=== PATIENT | male | born 1950 | race Caucasian/White ===

== ENCOUNTER → 2018-03-16 08:00 | Outpatient (CLI) | payer MEDICARE, SELFPAY ==
[2018-03-16 09:58] LABS: Hemoglobin A1C% w Est Avg Glu 6.5 % (4.0-6.0)
== END ==
PROVIDERS: PCP Family Medicine; Visit Provider Family Medicine
DX: R73.9 Hyperglycemia, unspecified (principal)
CPT/HCPCS: 36415; 83036

== ENCOUNTER → 2018-06-08 07:18 | Outpatient (CLI) | payer MEDICARE, SELFPAY ==
[2018-06-08 08:54] LABS: Add Manual Diff / Slide Review NO; Basophils Percent Auto 0.8 % (0-2); Eosinophils Percent Auto 4.8 % (2-4); Hemoglobin 13.8 g/dL (13.5-17.5); Lymphocytes Percent Auto 24.1 % (25-40); Mean Corpuscular HGB Conc 33.5 % (30-36); Mean Corpuscular Hemoglobin 27.9 PG (26-34); Mean Corpuscular Volume 83.1 fL (80-100); Monocytes Percent Auto 9.1 % (3-14); Neutrophils Absolute Auto 4700 /uL (3000-5900); Neutrophils Percent Auto 61.2 % (50-75); Platelet Count 247 X10^3/uL (150-400); Red Blood Cell Count 4.94 X10^6/uL (4.5-5.9); Red Cell Distribution Width 15.4 % (11.6-14.8); White Blood Cell Count 7.6 X10^3/uL (4.5-11.0)
[2018-06-08 09:05] LABS: HEMOLYSIS < 15 (0-50)
[2018-06-08 09:12] LABS: Alanine Aminotransferase 24 IU/L (21-72); Albumin 3.8 g/dL (3.5-5.0); Albumin Globulin Ratio 1.3 (1.0-2.8); Alkaline Phosphatase 86 U/L (38-126); Aspartate Aminotransferase 23 IU/L (17-59); BUN Creatinine Ratio 18.2 (6-22); Bilirubin Total 0.5 mg/dL (0.2-1.3); Blood Urea Nitrogen 20 mg/dL (9-20); Carbon Dioxide 27 mmol/L (22-32); Chloride 101 mmol/L (98-107); Cholesterol 110 mg/dL (140-199); Estimated Glomerular Filt Rate > 60.0 mL/min (>60); Glucose 117 mg/dL (80-110); HDL Cholesterol 33 mg/dL (40-60); LDL Cholesterol Calculated 44 mg/dL (<100); Potassium 4.5 mmol/L (3.4-5.1); Sodium 139 mmol/L (137-145); Total Protein 6.8 g/dL (6.3-8.2); Triglycerides 163 mg/dL (35-150)
[2018-06-08 09:22] LABS: Hemoglobin A1C% w Est Avg Glu 6.2 % (4.0-6.0)
[2018-06-08 09:40] LABS: Thyroid Stimulating Hormone 3.18 uIU/mL (0.47-4.68)
== END ==
PROVIDERS: Family Provider Family Medicine; PCP Family Medicine; Visit Provider Family Medicine
DX: I10 Essential (primary) hypertension (principal); E72.20 Disorder of urea cycle metabolism, unspecified; I25.10 Atherosclerotic heart disease of native coronary artery without angina pectoris; R06.00 Dyspnea, unspecified; R78.2 Finding of cocaine in blood; G47.30 Sleep apnea, unspecified; N19 Unspecified kidney failure; R73.9 Hyperglycemia, unspecified; Z68.42 Body mass index [BMI] 45.0-49.9, adult
CPT/HCPCS: 36415; 80053; 80061; 83036; 84443; 85025; G0103

== ENCOUNTER → 2018-09-07 09:06 | Outpatient (CLI) | payer MEDICARE, OTHER, SELFPAY ==
[2018-09-07 10:03] LABS: BUN Creatinine Ratio 19.1 (6-22); Blood Urea Nitrogen 21 mg/dL (9-20); Calcium 8.2 mg/dL (8.4-10.2); Carbon Dioxide 28 mmol/L (22-32); Chloride 100 mmol/L (98-107); Estimated Glomerular Filt Rate > 60.0 mL/min (>60); Glucose 100 mg/dL (80-110); HEMOLYSIS 16 (0-50); Potassium 3.9 mmol/L (3.4-5.1); Sodium 140 mmol/L (137-145)
[2018-09-07 14:47] LABS: Hemoglobin A1C% w Est Avg Glu 6.5 % (4.0-6.0)
== END ==
PROVIDERS: Family Provider Family Medicine; PCP Family Medicine; Visit Provider Family Medicine
DX: E11.9 Type 2 diabetes mellitus without complications (principal)
CPT/HCPCS: 36415; 80048; 83036

== ENCOUNTER → 2018-09-14 12:18 | Outpatient (CLI) | payer MEDICARE, OTHER, SELFPAY ==
--- NOTE | 2018-09-14 12:20 | DI.RAD.S_ITS ---
PROCEDURE: XR KNEE LT 3V INDICATIONS: bilateral knee pain TECHNIQUE: 3 views of the knee were acquired. COMPARISON: None. FINDINGS: Bones: No fractures or dislocations. No suspicious bony lesions. Moderate narrowing of the medial joint space. There is diffuse degenerative spurring. Soft tissues: No joint effusion. No suspicious soft tissue calcifications. IMPRESSION: Moderate left knee joint degeneration. Dictated by: Rick Leung M.D. on 09/14/2018 at 15:48 Approved by: Rick Leung M.D. on 09/14/2018 at 15:49
--- NOTE | 2018-09-14 12:20 | DI.RAD.S_ITS ---
PROCEDURE: XR KNEE RT 3V INDICATIONS: bilateral knee pain TECHNIQUE: 3 views of the knee were acquired. COMPARISON: None. FINDINGS: Bones: No fractures or dislocations. No suspicious bony lesions. Multiple broad-based sessile presumed proximal tibial exostoses. Mild to moderate narrowing of the medial joint space. Soft tissues: No joint effusion. No suspicious soft tissue calcifications. IMPRESSION: Mild/moderate right knee joint degeneration. Multiple proximal tibial sessile exostoses. Recommend correlation with point tenderness. If there are focal symptoms, evaluation for abnormal cartilaginous cap with MRI could be performed. Dictated by: Rick Leung M.D. on 09/14/2018 at 15:45 Approved by: Rick Leung M.D. on 09/14/2018 at 15:48
== END ==
PROVIDERS: PCP Family Medicine; Visit Provider Family Medicine
DX: M25.561 Pain in right knee (principal); M25.562 Pain in left knee; M17.0 Bilateral primary osteoarthritis of knee
CPT/HCPCS: 73562

== ENCOUNTER → 2018-11-09 09:06 | Outpatient (CLI) | payer MEDICARE, OTHER, SELFPAY ==
[2018-11-09 10:35] LABS: Add Manual Diff / Slide Review NO; Basophils Absolute Auto 100 /uL (0-100); Basophils Percent Auto 0.7 % (0-2); Eosinophils Absolute Auto 100 /uL (0-450); Eosinophils Percent Auto 1.6 % (2-4); Hematocrit 43.8 % (41-53); Hemoglobin 14.8 g/dL (13.5-17.5); Lymphocytes Absolute Auto 2100 /uL (1100-4500); Lymphocytes Percent Auto 27.5 % (25-40); Mean Corpuscular HGB Conc 33.8 % (30-36); Mean Corpuscular Hemoglobin 29.3 PG (26-34); Mean Corpuscular Volume 86.9 fL (80-100); Monocytes Absolute Auto 700 /uL (0-900); Monocytes Percent Auto 8.8 % (3-14); Neutrophils Absolute Auto 4700 /uL (1500-7000); Neutrophils Percent Auto 61.4 % (50-75); Platelet Count 273 X10^3/uL (150-400); Red Blood Cell Count 5.04 X10^6/uL (4.5-5.9); Red Cell Distribution Width 14.6 % (11.6-14.8); White Blood Cell Count 7.7 X10^3/uL (4.5-11.0)
[2018-11-09 11:04] LABS: Hemoglobin A1C% w Est Avg Glu 6.2 % (4.0-6.0)
[2018-11-09 11:05] LABS: BUN Creatinine Ratio 16.7 (6-22); Blood Urea Nitrogen 20 mg/dL (9-20); Calcium 9.1 mg/dL (8.4-10.2); Carbon Dioxide 30 mmol/L (22-32); Chloride 97 mmol/L (98-107); Cholesterol 150 mg/dL (140-199); Estimated Glomerular Filt Rate > 60.0 mL/min (>60); Glucose 110 mg/dL (80-110); HDL Cholesterol 41 mg/dL (40-60); HEMOLYSIS < 15 (0-50); LDL Cholesterol Calculated 78 mg/dL (<100); Potassium 4.1 mmol/L (3.4-5.1); Sodium 136 mmol/L (137-145); Triglycerides 154 mg/dL (35-150)
== END ==
PROVIDERS: PCP Family Medicine; Visit Provider Internal Medicine Cardiovascular Disease
DX: I25.10 Atherosclerotic heart disease of native coronary artery without angina pectoris (principal); E78.5 Hyperlipidemia, unspecified; E11.9 Type 2 diabetes mellitus without complications
CPT/HCPCS: 36415; 80048; 80061; 83036; 85025

== ENCOUNTER → 2018-11-18 11:07 | Outpatient (CLI) | payer MEDICARE, OTHER, SELFPAY ==
--- NOTE | 2018-11-18 | DI.CT.S_ITS ---
PROCEDURE: CT ANGIO CHEST INDICATIONS: A 68-year-old man was found to have enlarged aorta on echocardiogram. TECHNIQUE: After the administration of intravenous contrast, 2 mm thick sections acquired from the pulmonary apices to the posterior costophrenic angles. 3-dimensional maximum intensity projection (MIP) coronal and sagittal reformats were then acquired through the thorax. For radiation dose reduction, the following was used: automated exposure control, adjustment of mA and/or kV according to patient size. COMPARISON: [facility], CT, ANGIOGRAPHY CHEST, 09/02/2017, 11:24. [facility], CR, CHEST 2 VIEW, 06/21/2014, 11:08. FINDINGS: Image quality: Excellent. Aorta: The aortic root measures 4.2 cm in diameter. The descending thoracic aorta measures 3.5 cm in diameter. The distal ascending thoracic aorta measures 3.1 cm. The distal aortic arch measuring 2.5 cm. The descending is facet aorta measures 1.9-2.8 cm. There is mild atheroscle calcification. Pulmonary arteries: Pulmonary arteries are normal in size, and demonstrate no intraluminal filling defects to suggest central pulmonary embolism. Lungs and pleura: There is a 4 mm subpleural nodule in the left lower lobe (series 5 image 79). No pleural effusions or pneumothorax. Central and peripheral airways are patent. Mediastinum: Heart size is normal, without pericardial effusion. There is CABG. No mediastinal or hilar adenopathy. Thoracic aorta is normal in caliber and enhancement. Esophagus is normal in caliber, without hiatal hernia. Bones and chest wall: Sternotomy. No suspicious bony lesions. Ribs and thoracic spine appear intact throughout. Thyroid gland is normal. No axillary or supraclavicular adenopathy. Abdomen: Visualized upper abdominal solid organs appear normal in the early arterial phase of enhancement. IMPRESSION: 1. Mild aortic ectasia. No aortic aneurysms. 2. Normal pulmonary artery caliber. No evidence for pulmonary embolism. 3. Sternotomy and CABG. 4. A 3 mm lung nodule in the left lower lobe. Please see enclosed followup recommendation. Fleischner Society criteria for SOLID lung nodule followup. Nodule size (mm)Low-risk patientHigh-risk patient?4No follow-up neededFollow-up at 12 mo; if no change, no further follow-up>7-4Ytlaoc-xf CT at 12 mo; if no change, no further follow-up needed.Initial follow-up CT at 6-12 mo, then 18-24 mo if no change. >6-8Initial follow-up CT at 6-12 mo, then 18-24 mo if no change. Initial follow-up CT at 3-6 mo, then 9-12 mo and 24 mo if no change. >8Follow-up CT at 3, 9, 24 mo. Or PET and/or biopsy.Same as for low-risk pts. Dictated by: Karina Monge M.D. on 11/18/2018 at 12:50 Approved by: Karina Monge M.D. on 11/18/2018 at 18:02
== END ==
PROVIDERS: Family Provider Family Medicine; PCP Family Medicine; Visit Provider Internal Medicine Cardiovascular Disease
DX: I77.819 Aortic ectasia, unspecified site (principal); R91.1 Solitary pulmonary nodule; Z95.1 Presence of aortocoronary bypass graft
CPT/HCPCS: 71275; Q9967

== ENCOUNTER → 2018-12-06 08:47 | Outpatient (CLI) | payer MEDICARE, OTHER, SELFPAY ==
[2018-12-06 10:35] LABS: Thyroid Stimulating Hormone 2.71 uIU/mL (0.47-4.68)
== END ==
PROVIDERS: Family Provider Family Medicine; PCP Family Medicine; Visit Provider Family Medicine
DX: E78.2 Mixed hyperlipidemia (principal); Z12.5 Encounter for screening for malignant neoplasm of prostate; Z13.29 Encounter for screening for other suspected endocrine disorder; Z68.42 Body mass index [BMI] 45.0-49.9, adult
CPT/HCPCS: 36415; 84443; G0103

== ENCOUNTER → 2019-03-15 09:29 | Outpatient (CLI) | payer MEDICARE, OTHER, SELFPAY ==
[2019-03-15 10:29] LABS: Hemoglobin A1C% w Est Avg Glu 5.9 % (4.0-6.0)
== END ==
PROVIDERS: PCP Family Medicine; Visit Provider Family Medicine
DX: E11.9 Type 2 diabetes mellitus without complications (principal)
CPT/HCPCS: 36415; 83036

== ENCOUNTER → 2019-06-14 10:13 | Outpatient (CLI) | payer MEDICARE, OTHER, SELFPAY ==
[2019-06-14 10:56] LABS: Hemoglobin A1C% w Est Avg Glu 5.6 % (4.0-6.0)
[2019-06-14 11:32] LABS: BUN Creatinine Ratio 20.9 (6-22); Blood Urea Nitrogen 23 mg/dL (9-20); Calcium 9.2 mg/dL (8.4-10.2); Carbon Dioxide 25 mmol/L (22-32); Chloride 99 mmol/L (98-107); Estimated Glomerular Filt Rate > 60.0 mL/min (>60); Glucose 99 mg/dL (80-110); HEMOLYSIS < 15 (0-50); Potassium 4.5 mmol/L (3.4-5.1); Sodium 136 mmol/L (137-145)
== END ==
PROVIDERS: PCP Family Medicine; Visit Provider Family Medicine
DX: E11.9 Type 2 diabetes mellitus without complications (principal)
CPT/HCPCS: 36415; 80048; 83036

== ENCOUNTER → 2019-10-13 07:43 | Outpatient (CLI) | payer MEDICARE, OTHER, SELFPAY ==
[2019-10-13 09:54] LABS: Hemoglobin A1C% w Est Avg Glu 5.9 % (4.0-6.0)
[2019-10-13 09:55] LABS: Blood Urea Nitrogen 22 mg/dL (9-20); Calcium 8.8 mg/dL (8.4-10.2); Carbon Dioxide 25 mmol/L (22-32); Chloride 104 mmol/L (98-107); Estimated Glomerular Filt Rate > 60.0 mL/min (>60); Glucose 113 mg/dL (80-110); HEMOLYSIS < 15 (0-50); Sodium 138 mmol/L (137-145)
== END ==
PROVIDERS: PCP Family Medicine; Visit Provider Family Medicine
DX: E11.9 Type 2 diabetes mellitus without complications (principal)
CPT/HCPCS: 36415; 80048; 83036

== ENCOUNTER → 2019-11-25 07:09 | Outpatient (CLI) | payer MEDICARE, OTHER, SELFPAY ==
[2019-11-25 08:11] LABS: Add Manual Diff / Slide Review NO; Basophils Absolute Auto 100 /uL (0-100); Basophils Percent Auto 0.9 % (0-2); Eosinophils Absolute Auto 300 /uL (0-450); Eosinophils Percent Auto 3.6 % (2-4); Hematocrit 41.6 % (41-53); Hemoglobin 14.1 g/dL (13.5-17.5); Lymphocytes Absolute Auto 2000 /uL (1100-4500); Mean Corpuscular HGB Conc 33.9 % (30-36); Mean Corpuscular Hemoglobin 29.4 PG (26-34); Mean Corpuscular Volume 86.6 fL (80-100); Monocytes Absolute Auto 700 /uL (0-900); Monocytes Percent Auto 9.6 % (3-14); Neutrophils Absolute Auto 4300 /uL (1500-7000); Neutrophils Percent Auto 58.9 % (50-75); Platelet Count 246 X10^3/uL (150-400); Red Cell Distribution Width 14.1 % (11.6-14.8); White Blood Cell Count 7.3 X10^3/uL (4.5-11.0)
[2019-11-25 08:24] LABS: Hemoglobin A1C% w Est Avg Glu 6.1 % (4.0-6.0)
[2019-11-25 08:28] LABS: BUN Creatinine Ratio 17.3 (6-22); Blood Urea Nitrogen 19 mg/dL (9-20); Calcium 9.5 mg/dL (8.4-10.2); Carbon Dioxide 30 mmol/L (22-32); Chloride 102 mmol/L (98-107); Cholesterol 127 mg/dL (140-199); Estimated Glomerular Filt Rate > 60.0 mL/min (>60); Glucose 116 mg/dL (80-110); HDL Cholesterol 36 mg/dL (40-60); HEMOLYSIS < 15 (0-50); LDL Cholesterol Calculated 61 mg/dL (<100); Potassium 4.5 mmol/L (3.4-5.1); Sodium 138 mmol/L (137-145); Triglycerides 152 mg/dL (35-150)
== END ==
PROVIDERS: PCP Family Medicine; Referring Provider Internal Medicine Cardiovascular Disease; Visit Provider Internal Medicine Cardiovascular Disease
DX: E78.5 Hyperlipidemia, unspecified (principal); I25.10 Atherosclerotic heart disease of native coronary artery without angina pectoris; E11.9 Type 2 diabetes mellitus without complications
CPT/HCPCS: 36415; 80048; 80061; 83036; 85025

== ENCOUNTER → 2019-11-30 11:46 | Outpatient (CLI) | payer MEDICARE, OTHER, SELFPAY ==
--- NOTE | 2019-11-30 | DI.CT.S_ITS ---
PROCEDURE: CT ANGIO CHEST INDICATIONS: Solitary pulmonary nodule TECHNIQUE: After the administration of intravenous contrast, 2 mm thick sections acquired from the pulmonary apices to the posterior costophrenic angles. 3-dimensional maximum intensity projection (MIP) coronal and sagittal reformats were then acquired through the thorax. For radiation dose reduction, the following was used: automated exposure control, adjustment of mA and/or kV according to patient size. COMPARISON: [facility], CT, CT ANGIO CHEST, 11/18/2018, 11:09. [facility], CT, ANGIOGRAPHY CHEST, 09/02/2017, 11:24. FINDINGS: Image quality: Excellent. Pulmonary arteries: Pulmonary arteries are normal in size, and demonstrate no intraluminal filling defects to suggest central pulmonary embolism. Lungs and pleura: Lungs are clear except for a stable subpleural left lower lobe 5 mm nodule virtually identical in appearance to that present 11/18/18 (series 5, image 229 current study). No pleural effusions or pneumothorax. Central and peripheral airways are patent. Mediastinum: Heart size is normal, without pericardial effusion. No mediastinal or hilar adenopathy. Thoracic aorta is normal in caliber and enhancement. Esophagus is normal in caliber, without hiatal hernia. Bones and chest wall: No suspicious bony lesions. Ribs and thoracic spine appear intact throughout. Thyroid gland appears normal where well seen. No axillary or supraclavicular adenopathy. Abdomen: Visualized upper abdominal solid organs appear normal in the early arterial phase of enhancement. IMPRESSION: Stable appearance of the benign appearing 5 mm subpleural left lower lobe posterolateral pulmonary nodule with reference to the prior study from 11/18/18. No followup recommended. Dictated by: Héctor Campbell M.D. on 11/30/2019 at 12:31 Approved by: Héctor Campbell M.D. on 11/30/2019 at 12:52
== END ==
PROVIDERS: PCP Family Medicine; Referring Provider Internal Medicine Cardiovascular Disease; Visit Provider Internal Medicine Cardiovascular Disease
DX: R91.1 Solitary pulmonary nodule (principal); I77.89 Other specified disorders of arteries and arterioles
CPT/HCPCS: 71275; Q9967

== ENCOUNTER → 2020-02-28 07:19 | Outpatient (CLI) | payer MEDICARE, OTHER, SELFPAY ==
[2020-02-28 08:46] LABS: Blood Urea Nitrogen 24 mg/dL (9-20); Calcium 9.2 mg/dL (8.4-10.2); Carbon Dioxide 25 mmol/L (22-32); Chloride 101 mmol/L (98-107); Cholesterol 126 mg/dL (140-199); Estimated Glomerular Filt Rate > 60.0 mL/min (>60); Glucose 124 mg/dL (80-110); HDL Cholesterol 38 mg/dL (40-60); HEMOLYSIS < 15 (0-50); LDL Cholesterol Calculated 60 mg/dL (<100); Potassium 4.5 mmol/L (3.4-5.1); Sodium 137 mmol/L (137-145); Triglycerides 140 mg/dL (35-150)
[2020-02-28 14:14] LABS: Hemoglobin A1C% w Est Avg Glu 6.5 % (4.0-6.0)
== END ==
PROVIDERS: PCP Family Medicine; Referring Provider Family Medicine; Visit Provider Family Medicine
DX: E11.9 Type 2 diabetes mellitus without complications (principal); I10 Essential (primary) hypertension; I25.10 Atherosclerotic heart disease of native coronary artery without angina pectoris
CPT/HCPCS: 36415; 80048; 80061; 83036

== ENCOUNTER → 2020-03-11 14:39 | Outpatient (CLI) | payer MEDICARE, OTHER, SELFPAY ==
[2020-03-12 03:26] LABS: COVID19 Sendout Not Detected (Not Detect)
== END ==
PROVIDERS: PCP Family Medicine; Visit Provider Physician Assistant
DX: Z01.812 Encounter for preprocedural laboratory examination (principal)
CPT/HCPCS: 87635

== ENCOUNTER 2020-03-14 08:57 | Inpatient (IN) | payer MEDICARE, OTHER, SELFPAY ==
[2020-03-08 13:00] VITALS: BMI 46.0
[2020-03-14] VITALS (16 sets, daily range): BP systolic 84–170; BP diastolic 36–74; PULSE 75–102; RESP 9–19; TEMP 36–37.4; O2SAT 92–99; BMI 46.0
--- NOTE | 2020-03-14 | DI.RAD.S_ITS ---
PROCEDURE: XR KNEE LT 1TO2V INDICATIONS: LEFT TOT KNE TECHNIQUE: 2 view(s) of the knee acquired. COMPARISON: None. FINDINGS: Bones: Patient is status post knee joint arthroplasty. Hardware components are in expected positions. Visualized bony structures are intact. Soft tissues: Overlying postoperative changes are noted. IMPRESSION: Expected postsurgical change for left knee arthroplasty. Dictated by: Katie Dolan MD, PhD on 03/14/2020 at 15:05 Approved by: Katie Dolan MD, PhD on 03/14/2020 at 15:06
[2020-03-14] MEDS: LACTATED RINGERS 1,000 ML 42 ML IV ×2 (09:40→13:41)
--- NOTE | 2020-03-14 10:12 | PM.PREOP ---
Pre-operative Note COVID-19 COVID-19 status: Negative Result date/Date tested (Pos, Neg/Pending): 03/12/20 Interval Note History & Physical reviewed/Exam performed by Physician: Yes Changes to H&P: No
--- NOTE | 2020-03-14 11:22 | PM.OP.1 ---
Operative Date/Time/Diagnoses Date of procedure: 03/14/20 Time of procedure: 13:56 Pre-op diagnosis: Left knee osteoarthritis Post-op diagnosis: same Procedure & Clinicians Procedure: Left total knee arthroplasty Same procedure as scheduled: Yes Indications: The patient presents today for total knee arthroplasty after failure of conservative treatment. The nature of the procedure including the risks and benefits, alternatives, postoperative course and expected outcome were discussed and all questions answered. Consent was obtained. Operative site confirmed and marked. Surgeon: Miguel Ángel Barber Waste Transportation Technician: Aquilino Duke Anesthesia Type: General, Spinal and Local Operative Notes Closure Type: primary Specimen(s): none sent Prosthetic devices, grafts, tissues, transplants, or devices: [employer] Celine BCS: 7 femoral component, 7 tibial component, 9 mm BCS polyethylene tray and 35 mm round patella Applied: implant(s) Estimated Blood Loss (mL): 10 Blood products transfused: none Tourniquet time (min): 64 Procedure in detail: The patient was taken to the operative suite and placed under anesthesia. The patient was given prophylactic antibiotics prior to surgery. [The patient was also given tranexamic acid, 1 g, just prior to surgery for postoperative hemostasis.] The lateral knee was prepped and the joint injected with 20 mL of 1% Lidocaine with epinephrine. The knee was then prepped and draped in usual sterile fashion. The leg was exsanguinated with an Esmarch dressing and the tourniquet raised to [250] torr. A 15 cm anterior incision was made. Next a medial trivector arthrotomy was made. The extensor mechanism was marked to ensure accurate repair. Initial exposing dissection was carried out medially and laterally. The knee was then flexed and the intramedullary femoral guide evaristo placed. The distal femoral cut was made in [6]? of valgus at the +[0] position. The femoral size was measured and the appropriate cutting block was then placed and the anterior, posterior and chamfer cuts made. The intramedullary tibial alignment evaristo was then placed. The guide was set to remove approximately 9 mm from the less affected [lateral] side. The proximal tibial cut was then made with an oscillating saw. All meniscus and bony debris was then removed. Posterior femoral osteophytes removed with a curved osteotome. Flexion extension gaps were checked. The knee was still tight in flexion and extension. Another 2 mm of tibia was then cut. There was still some mild medial tightness which was corrected with routine soft tissue releases around the medial and posterior aspect of the knee. The soft tissues were then injected with a combination of 20 mL of half percent Marcaine with epinephrine and 20 mL of Exparel. The trial components were then placed. The knee was then extended and the patellar thickness was measured and a cut made removing approximately [9] mm of bone. The patella was then sized and drilled. Some excess lateral bone was excised and the patellofemoral ligament released. [The knee went into full extension and flexion beyond 130?]. There was good medial-lateral balance throughout motion with just slight increased laxity laterally as compared to medially. Patellar tracking was [excellent]. The trial components were removed and the knee was cleansed with Pulsavac irrigation and dried. The final components were cemented with high viscosity vacuum mixed bone cement with antibiotics. The joint was filled with a dilute Betadine solution. The knee was held in extension and the patellar clamped until the cement was adequately cured. The knee was then irrigated. The extensor mechanism was closed with 5 interrupted #1 Vicryl sutures and a running Quill suture at approximately 90 degrees of flexion. The joint was then injected with a combination of 1 g of tranexamic acid and 20 mL of quarter percent Marcaine with epinephrine. The subcutaneous tissue was closed with 2 0 Vicryl. The skin was closed with absorbable subcuticular sutures and surgical adhesive. An abby dressing and Guero wrap were then applied. The patient tolerated the procedure well and was returned to recovery room in good condition. Post-operative Condition: stable Disposition: PACU Plan for aftercare: [facility].
[2020-03-14] MEDS: CEFAZOLIN VIAL 1 GM in SODIUM CHLORIDE 0.9% 100 ML 200 ML IV (12:30)
[2020-03-14] MEDS: LIDOCAINE 1% W/EPI 20 ML INJ (12:30)
[2020-03-14] MEDS: TRANEXAMIC ACID 1,000 MG VIAL 1000 MG INJ (12:35)
--- NOTE | 2020-03-14 12:54 | SUR.OPER ---
Supine on padded OR bed. Pillow under head, arms secured on padded armboards <90 degree abduction. Safety belt across torso. Non-operative leg secured with tape over blanket over lower leg. Operative leg secured in DeMayo/Davi positioner. Foam padded brace at thigh of operative leg.
[2020-03-14] MEDS: CEFAZOLIN 2 GM/100 ML FROZ.PIGGY IV ×2 (13:00→21:31)
[2020-03-14] MEDS: SODIUM CHLORIDE IRRIG SOLUTION 250 ML, POVIDONE-IODINE SPONGE STICKS 1 APPLIC IRR (13:05)
[2020-03-14] MEDS: BUPIVACAINE 0.25% W/ EPI (PF) 20 ML, TRANEXAMIC ACID 1,000 MG, SODIUM CHLORIDE 0.9% 10 ML INJ (13:07)
[2020-03-14] MEDS: BUPIVACAINE 0.25% W/ EPI (PF) 40 ML, BUPIVACAINE LIPOSOME 266 MG, SODIUM CHLORIDE 0.9% ... INJ (13:11)
--- NOTE | 2020-03-14 14:39 | SUR.PHASEI ---
Report given to Raven
--- NOTE | 2020-03-14 15:44 | SUR.PHASEI ---
Report to Edwardo Marsh. Pt transferred by bed to room 225 in stable condition.
[2020-03-14] MEDS: LACTATED RINGERS 1,000 ML 100 ML IV (16:38)
[2020-03-14] MEDS: ACETAMINOPHEN 325 MG TABLET 650 MG PO (21:27)
[2020-03-14] MEDS: DOCUSATE 100 MG CAPSULE PO (21:28)
[2020-03-14] MEDS: SPIRONOLACTONE 25 MG TABLET PO (21:31)
[2020-03-14] MEDS: LOSARTAN 50 MG TABLET 100 MG PO (21:31)
[2020-03-15] VITALS: BP 129/57; PULSE 98; RESP 18; TEMP 36.6; O2SAT 93
[2020-03-15] MEDS: LACTATED RINGERS 1,000 ML 100 ML IV (01:42)
[2020-03-15] MEDS: ACETAMINOPHEN 325 MG TABLET 650 MG PO (03:22)
[2020-03-15 03:27] VITALS: BP 142/74; PULSE 98; RESP 18; TEMP 36.9; O2SAT 97
--- NOTE | 2020-03-15 03:35 | PC.NURSE ---
Patient does not want to take ibuprofen that is scheduled. His aspirin allergy has made him cautious regarding meds. He takes tylenol at home. I gave his scheduled tylenol dose due at 0900 early per patient request. Patient rates pain 7/10, and did not want any stronger pain med.
[2020-03-15] MEDS: CEFAZOLIN 2 GM/100 ML FROZ.PIGGY IV (05:08)
[2020-03-15 05:32] LABS: Hematocrit 36.1 % (41-53); Hemoglobin 12.2 g/dL (13.5-17.5); Mean Corpuscular HGB Conc 33.8 % (30-36); Mean Corpuscular Hemoglobin 29.5 PG (26-34); Mean Corpuscular Volume 87.3 fL (80-100); Platelet Count 218 X10^3/uL (150-400); Red Blood Cell Count 4.14 X10^6/uL (4.5-5.9); Red Cell Distribution Width 13.8 % (11.6-14.8); White Blood Cell Count 11.5 X10^3/uL (4.5-11.0)
--- NOTE | 2020-03-15 07:21 | PM.PNPO.1 ---
Subjective Subjective Date Patient Seen: 03/15/20 Time Patient Seen: 07:21 Interval history: The patient is progressing as expected after surgery. Pain is well controlled. He feels ready to discharge to home later today. Exam Vital Signs (past 8 hours): - 03/15/20 00:00 03/15/20 03:27 Temperature 97.9 F 98.5 F Pulse Rate 98 H 98 H Respiratory Rate 18 18 Blood Pressure 129/57 L 142/74 H Pulse Oximetry 93 97 Oxygen Delivery Method Room Air Oxygen Flow Rate 0 Narrative Exam Narrative: Dressing is intact and dry. The leg is neurovascularly intact. He is able to do a straight leg raise. There is expected swelling. Objective Labs Result Diagrams: 03/15/20 04:40 Labs: Laboratory Results - last 24 hr 03/15/20 04:40 WBC 11.5 H RBC 4.14 L Hgb 12.2 L Hct 36.1 L MCV 87.3 MCH 29.5 MCHC 33.8 RDW 13.8 Plt Count 218 Assessment & Plan Post-op Postoperative Procedures: Procedures Operation Date: 03/14/20 11:00 Actual Procedures Side Surgeon p Total Knee Arthroplasty Left Miguel Ángel Barber MD Postoperative day: 1 Postoperative status narrative: Pierce is progressing as expected after total knee arthroplasty. She will be discharged to home after physical therapy this morning. Standard total knee postoperative protocol. Time Spent With Patient Time with patient: less than 15 minutes Quality VTE Deep Vein Thrombosis/Pulmonary Embolism Present on Admission: No
[2020-03-15 07:36] VITALS: BP 145/60; PULSE 91; RESP 16; TEMP 36.9; O2SAT 95
[2020-03-15] MEDS: AMLODIPINE 5 MG TABLET PO (09:01)
[2020-03-15] MEDS: DOCUSATE 100 MG CAPSULE PO (09:01)
[2020-03-15] MEDS: FUROSEMIDE 40 MG TABLET PO (09:01)
[2020-03-15] MEDS: SPIRONOLACTONE 25 MG TABLET PO (09:01)
[2020-03-15] MEDS: CLOPIDOGREL 75 MG TABLET PO (09:01)
[2020-03-15] MEDS: ENOXAPARIN 30 MG/0.3 ML SYRINGE SUBCUT (09:02)
[2020-03-15] MEDS: OXYCODONE IR 10 MG TABLET PO (09:07)
--- NOTE | 2020-03-15 09:28 | PT.IIE ---
Current Diagnoses Bilateral primary osteoarthritis of knee (03/14/20) Surgery Performed Operation Date: 03/14/20 11:00 Actual Procedures p Total Knee Arthroplasty(Left) - Miguel Ángel Barber MD Surgical History (Last Updated 03/08/20 @ 13:16 by Rocio Cosme RN) History of sinus surgery (Resolved ~03/2003) History of vasectomy (Acute 1977) Hx of hand surgery (Acute) Hx of tonsillectomy (Acute 2004) Status post coronary artery bypass graft (~10/2010) Medical History (Last Updated 03/08/20 @ 14:59 by Rocio Cosme RN) Chicken pox (Resolved ~1982) Excessive daytime sleepiness (Inactive) Hyperlipidemia (Chronic ~1997) Hypertension (Chronic) Obstructive sleep apnea of adult (Chronic) Osteoarthritis (Acute) Primary insomnia (Inactive) Sleep apnea (Chronic ~1999) Snoring (Inactive) Solitary pulmonary nodule (Acute) Physical Therapy Inpatient Evaluation/Re-Eval M1 PT/OT-IP Prior Functional Status Start: 03/15/20 12:38 Freq: NEEDED Status: Active Protocol: Document 03/15/20 09:28 AB (Rec: 03/15/20 12:50 AB [id number]) Medical Review Prior Functional Status Medical History Reviewed Yes Communication able to make needs known Mobility and Gait pt stated that he is indpeendent with all mobilities and ambulation without AD indoors and uses a walking stick for outdoor mobility Social History Household Members spouse Living Arrangements House Number of Floors (Floors) One Floor Number of Stairs To Enter/Railing? ramp to enter Home Environment Standard Height Toilet,Tub/ Shower Home Equipment Four Wheel Walker,Hand Held Shower Employment Status Retired M2 PT-IP Current Condition Start: 03/15/20 12:38 Freq: NEEDED Status: Active Protocol: Document 03/15/20 09:28 AB (Rec: 03/15/20 12:50 AB [id number]) Physical Therapy Current Condition Current Condition Evaluation Date 03/15/20 Treatment Diagnosis s/p L TKA; difficulty in walking Onset Date 03/14/20 Weight Bearing Status Weight Bearing Status Weight Bear as Tolerated Allowed Weight Bearing Amount (enter % LLE WBAT or #) (%) M3 PT-IP Subjective Start: 03/15/20 12:38 Freq: NEEDED Status: Active Protocol: Document 06/11/20 09:28 AB (Rec: 03/15/20 12:50 AB [id number]) Subjective Physical Therapy Visit Type Type Initial Evaluation Visit Start Time 09:28 Visit Stop Time 10:34 Total Visit Minutes 66 Number of PHLEBOTOMIST MEDICAL LAB ASSISTANT Visits 0 Physical Therapy Visit Comments Patient Comments agreeable to do PT Therapy Pain Assessment Pain When Pain Assessed At Rest Pain Present Pain Present Pain Reported Location Left Knee Intensity 5 Scale Used Numeric (0 - 10) Pain Management Techniques Apply Cold,Re-positioning, Timing of Activity with Medications M4 PT-IP Mobility and Gait Start: 03/15/20 12:38 Freq: NEEDED Status: Active Protocol: Document 03/15/20 09:28 AB (Rec: 03/15/20 12:50 AB [id number]) PT-Bed Mobility Assessment Supine to Sit Supine to Sit Standby Assistance,Bedrails PT-Transfer Assessment Sit to and From Stand Sit to and from Stand Moderate Assistance,Maximum Assistance,1 Person Assistance ,Use of Upper Extremities Equipment Transfer Assistive Device Gait Belt,Front Wheeled Walker Orthotic/Prosthetic Devices or Brace: No Transfers Transfer Destination Chair Transfer Technique ambulated using FWW Transfer Ability Level of Assist Contact Guard Assistance,1 Person Assistance,Use of Upper Extremities Comments Mobility Comments pt completed supine to sit SBA and cues. pt repeated x 2 . pt presents with difficulty completed and required increase time to complete. pt was able to sit on EOB SBA. completed sit to stand mod to max A and cues. ambulated in room using FWW CGA ~ 12 ft. pt with increase UE use on FWW during standing and ambulation and is not appropriate for 4WW use at this time. pt does not has a FWW and agreed to purchase one . requested MD order for FWW bariatric from nurse and FWW dispensed to pt with papers signed. Spouse came in midway PT session. educated pt on sit <>stand techniques and repeated x 5 reps requiring min to mod A and cues. caregiver training conducted. educated spouse on how to put safety belt on and how to assist pt. spouse was able to put belt on and assist pt with sit <> stand x 3 reps and also assisted pt with ambulation in room ~ 50 ft. pt agreed to stay up on chair. call light and table placed within reach. informed nurse regarding pt's mobility and plan for d/c. Gait Assessment Gait Gait Assistance Required: Contact Guard Assist Distance (Feet) 50 Able to Maintain Weight Bearing Status Yes During Gait Assistive Devices Assistive Device Gait Belt,Front Wheeled Walker Gait Deviations General Gait Pattern Antalgic,Decreased Stride Length,Decreased Feet Clearance,Step-to Gait Factors Limiting Gait Function Factors Limiting Gait Function Decreased Activity Tolerance, Decreased Strength,Limited Range of Motion,Pain,Poor Balance PT-Balance Assessment Sitting Balance and Reactions Static Sitting Balance Ability Good Dynamic Sitting Balance Ability Good Standing Balance and Reactions Static Standing Balance Ability Fair Dynamic Standing Balance Ability Fair Device Used FWW M5 PT-IP Objective Assessments Start: 03/15/20 12:38 Freq: NEEDED Status: Active Protocol: Document 03/15/20 09:28 AB (Rec: 03/15/20 12:50 AB [id number]) Orientation Orientation/Cognition Level of Alertness Alert Orientation Name,Age,Birthday,Month,Date, Year,Day of Week,Place, Situation Language Function Ability No Deficits Noted Safety Awareness Understands Safety Issues Memory Description No Deficits Noted Gross Range of Motion Lower Extremity ROM Assessment Left Impaired Impairments L knee flexion: ~ 60 deg extension: lacking ~ 25 deg to neutral Strength Lower Extremity Strength Assessment Bilaterally Impaired Comments Strength Comments RLE: 4-/5 LLE 3+/5 Sensation Assessment Sensation Gross Sensation WNL Muscle Tone Muscle Tone WNL Yes M6 PT-IP Treatment Start: 03/15/20 12:38 Freq: NEEDED Status: Active Protocol: Document 03/15/20 09:28 AB (Rec: 03/15/20 12:50 AB [id number]) Physical Therapy Treatment Exercises Exercises Heel Slides Education Education Provided Precautions,Weight Bearing Status,Post-Op Packet,Safety Equipment Issued Equipment Type and Company FWW dispensed from [employer] PT-IP Assessment and Plan Start: 03/15/20 12:38 Freq: NEEDED Status: Active Protocol: Document 03/15/20 09:28 AB (Rec: 03/15/20 12:50 AB [id number]) PT Summary Assessment and Plan Potential Rehabilitation Potential Good Status of Condition at Evaluation Stable Summary Impairments Pain,ROM,Strength,Balance,Bed Mobility,Transfers,Gait, Activity Tolerance Assessment Summary pt requiring one person assist with mobility and cregiver training conducted. pt plans to go home today and spouse to assist him. pt stated that he is set up for outpt PT. Goals Bed Mobility Goal Independent Transfer Goal Independent,Front Wheeled Walker Gait Goal Independent,Front Wheel Walker Gait Distance 150 Days to Meet Goals 3 Frequency of Treatment Frequency Of Treatment Twice a Day Treatment Plan Physical Therapy Treatment Plan Bed Mobility Training,Transfer Training,Gait Training, Therapeutic Exercise,Balance Retraining,Post Op Education, Discharge Planning,Hot or Cold Pack,Neuromuscular Re-ed, Coordination Retraining,Manual Therapy Recommendations To Nursing Amount of Assist Needed 1 Person Assist Discharge Recommendations PT Discharge Recommendations Home with Assistance, Outpatient PT Equipment Needed for Home Before FWW Discharge
--- NOTE | 2020-03-15 12:05 | CM.DANOTE ---
DCP: Case received, EMR reviewed and met with patient. Introduced self and role. Was able to meet with patient to obtain information regarding his baseline activity level prior to surgery. DCP assessment completed with information currently available. Patient is a 69 year old male who admitted yesterday morning to the care of the orthopedic team. PCP: Dr. Lynch. Payer: confirmed: Medicare/[employer]. Patient came to the hospital for a surgical procedure. He had a left total knee arthroplasty. Patient has had history of chronic knee pain. He also indicated that he plans to have surgery on the other knee in about 6 months. Patient resides in [place] with his spouse, Roseline. He is independent at baseline. He does have a cane and FWW for use, but stated, he had not been using before surgery. Patient also has children in the area, he has 3 children and 7 grandchildren. P: Patient has discharge orders to go home today after working with Rojelio Barber RN/[employer] Commission Agent
--- NOTE | 2020-03-15 14:50 | PC.NURSE ---
Discharge: Pt feels ready to d/c home. Tolerates diet w/out problems. Vds w/out diff. Seen by MD and given his final instructions. Seen by PT and spouse her for training. He is safe to go home from their perspective. Pt did get 1 oxycodone 10mg and it has left him feeling sleepy and discussed he can take 1 at home and even split a pill in half. Lovenox teaching completed. Pt gave own injection using correct tech. Discussed site rotation and sharps disposal. FREDO dressing and information reviewed. He understands the grn will flash for the next week. It will change to orange if there is a problem or when it is done. Given instruction sheet. Reviewed d/c packet. here at time of teaching. Questions answered. Pt given rx, d/c home via auto w/spouse.
== END 2020-03-15 13:45 | disposition home or self-care (01) | DRG 470 ==
LOC: OR 08:58 → AC 14:04
PROVIDERS: Physician Assistant Medical; Admitting Provider Orthopaedic Surgery; PCP Family Medicine; Referring Provider Orthopaedic Surgery; Visit Provider Orthopaedic Surgery
PROC: 0SRD0JZ Replacement of Left Knee Joint with Synthetic Substitute, Open Approach (ICD-10-PCS; CPT 27447; principal; 2020-03-14 11:00)
DX: M17.12 Unilateral primary osteoarthritis, left knee (principal); Z68.42 Body mass index [BMI] 45.0-49.9, adult; I25.10 Atherosclerotic heart disease of native coronary artery without angina pectoris; Z95.1 Presence of aortocoronary bypass graft; G47.33 Obstructive sleep apnea (adult) (pediatric); I10 Essential (primary) hypertension; E78.5 Hyperlipidemia, unspecified; E66.01 Morbid (severe) obesity due to excess calories; Z01.812 Encounter for preprocedural laboratory examination; Z11.59 Encounter for screening for other viral diseases
CPT/HCPCS: 36415; 73560; 85027; 87635; 94762; 97162; 97530; C1776; C9290; J0690; J1650; J2250; J2274; J2704; J3010

== ENCOUNTER 2020-04-25 13:11 | Day surgery (SDC) | payer MEDICARE, OTHER, SELFPAY ==
[2020-03-14 15:53] VITALS: BMI 46.0
[2020-04-24 07:12] VITALS: BMI 46.0
[2020-04-25 13:44] VITALS: BP 129/73; PULSE 93; RESP 24; TEMP 36.3; O2SAT 97; BMI 45.8
[2020-04-25] MEDS: LACTATED RINGERS 1,000 ML 42 ML IV (14:00)
--- NOTE | 2020-04-25 15:18 | PM.PREOP ---
Pre-operative Note COVID-19 COVID-19 status: Negative Result date/Date tested (Pos, Neg/Pending): 04/23/20 Interval Note History & Physical reviewed/Exam performed by Physician: Yes Changes to H&P: No
--- NOTE | 2020-04-25 15:18 | PM.OP.1 ---
Operative Date/Time/Diagnoses Date of procedure: 04/25/20 Pre-op diagnosis: Stiffness after left total knee arthroplasty Post-op diagnosis: same Procedure & Clinicians Procedure: Manipulation under anesthesia left knee Same procedure as scheduled: Yes Indications: The patient presents today for manipulation under anesthesia. He is now 6 weeks status post left total knee has not regained satisfactory range of motion. The nature of the procedure including the risks and benefits, alternatives, postoperative course and expected outcome were discussed and all questions answered. Consent was obtained. Operative site confirmed and marked. Surgeon: Miguel Ángel Barber Click Yes if Unassisted: Yes Anesthesia Type: General and Local Operative Notes Findings: Pre manipulation range of motion was 15-80 degrees. Postreduction range of motion was 5-120 degrees with pressure. The knee flexed to 95 degrees with gravity alone. The knee took a lot of force to manipulate. There was no clear lysis of adhesions even though motion was improved. Closure Type: not applicable Prosthetic devices, grafts, tissues, transplants, or devices: The patient was taken to the operative suite and placed under IV sedation. The patient also received an abductor canal block. Once adequate anesthesia was obtained the range of motion was checked. The knee was injected with 10 mL of 1% lidocaine, 10 mL of 0.5% Marcaine and 8 mg of dexamethasone. The knee was then manipulated. Minimal lysis of adhesions was felt during the manipulation. Significant force was required. Postoperative range of motion was then measured as noted in the findings above. The patient tolerated the procedure well and was returned to recovery room in good condition. Estimated Blood Loss (mL): 0 Blood products transfused: none Post-operative Condition: stable Disposition: same day surgery Plan for aftercare: Patient will progress daily [id number] exercises at home. Will do physical therapy 3 to 5 times a week over the next 2 weeks. Follow up in 2 weeks. He has pain medication at home.
--- NOTE | 2020-04-25 15:37 | SUR.OPER ---
Supine on a stretcher, head on pillow, arms on the pillow , legs uncrossed, left leg under control of surgeon.
[2020-04-25] MEDS: LIDOCAINE 1% 30 ML INJ (15:45)
[2020-04-25] MEDS: BUPIVACAINE 0.5% (PF) VIAL 10 ML INJ (15:45)
[2020-04-25] MEDS: DEXAMETHASONE 10 MG/ML VIAL 8 MG INJ (15:46)
[2020-04-25 15:52] VITALS: BP 156/80; PULSE 84; RESP 16; TEMP 36.5; O2SAT 98
[2020-04-25 15:57] VITALS: BP 177/78; PULSE 81; RESP 16; O2SAT 97
[2020-04-25 16:03] VITALS: BP 104/33; PULSE 80; RESP 15; O2SAT 97
== END 2020-04-25 16:37 | disposition home or self-care (01) ==
PROVIDERS: PCP Family Medicine; Referring Provider Orthopaedic Surgery; Visit Provider Orthopaedic Surgery
PROC: (CPT 27570; principal; 2020-04-25 14:45)
DX: M25.662 Stiffness of left knee, not elsewhere classified (principal); T84.89XA Other specified complication of internal orthopedic prosthetic devices, implants and grafts, initial encounter; M17.11 Unilateral primary osteoarthritis, right knee; Z96.652 Presence of left artificial knee joint; G47.33 Obstructive sleep apnea (adult) (pediatric); I10 Essential (primary) hypertension; E78.5 Hyperlipidemia, unspecified; I25.10 Atherosclerotic heart disease of native coronary artery without angina pectoris; Z95.1 Presence of aortocoronary bypass graft
CPT/HCPCS: 27570; J1100; J2704; J3010

== ENCOUNTER → 2020-06-01 07:41 | Outpatient (CLI) | payer MEDICARE, OTHER, SELFPAY ==
[2020-03-14 15:53] VITALS: BMI 46.0
[2020-06-01 08:18] LABS: Hemoglobin A1C% w Est Avg Glu 6.4 % (4.0-6.0)
[2020-06-01 08:21] LABS: Blood Urea Nitrogen 22 mg/dL (9-20); Calcium 8.7 mg/dL (8.4-10.2); Carbon Dioxide 23 mmol/L (22-32); Chloride 102 mmol/L (98-107); Estimated Glomerular Filt Rate > 60.0 mL/min (>60); Glucose 127 mg/dL (80-110); HEMOLYSIS < 15 (0-50); Potassium 4.3 mmol/L (3.4-5.1); Sodium 134 mmol/L (137-145)
== END ==
PROVIDERS: PCP Family Medicine; Referring Provider Family Medicine; Visit Provider Family Medicine
DX: E11.9 Type 2 diabetes mellitus without complications (principal)
CPT/HCPCS: 36415; 80048; 83036

== ENCOUNTER → 2020-07-02 07:53 | Outpatient (CLI) | payer MEDICARE, OTHER, SELFPAY ==
[2020-03-14 15:53] VITALS: BMI 46.0
[2020-07-02 08:53] LABS: Add Manual Diff / Slide Review NO; Basophils Absolute Auto 100 /uL (0-100); Basophils Percent Auto 0.7 % (0-2); Eosinophils Absolute Auto 300 /uL (0-450); Eosinophils Percent Auto 3.3 % (2-4); Hematocrit 39.8 % (41-53); Hemoglobin 13.4 g/dL (13.5-17.5); Lymphocytes Absolute Auto 2000 /uL (1100-4500); Lymphocytes Percent Auto 24.2 % (25-40); Mean Corpuscular HGB Conc 33.6 % (30-36); Mean Corpuscular Volume 83.3 fL (80-100); Monocytes Absolute Auto 700 /uL (0-900); Monocytes Percent Auto 8.1 % (3-14); Neutrophils Absolute Auto 5300 /uL (1500-7000); Neutrophils Percent Auto 63.7 % (50-75); Platelet Count 288 X10^3/uL (150-400); Red Blood Cell Count 4.78 X10^6/uL (4.5-5.9); Red Cell Distribution Width 15.7 % (11.6-14.8); White Blood Cell Count 8.3 X10^3/uL (4.5-11.0)
[2020-07-02 09:19] LABS: Carbon Dioxide 31 mmol/L (22-32); Chloride 98 mmol/L (98-107); HEMOLYSIS < 15 (0-50); Potassium 4.3 mmol/L (3.4-5.1); Sodium 135 mmol/L (137-145)
== END ==
PROVIDERS: PCP Family Medicine; Referring Provider Orthopaedic Surgery; Visit Provider Orthopaedic Surgery
DX: Z01.818 Encounter for other preprocedural examination (principal); Z01.812 Encounter for preprocedural laboratory examination
CPT/HCPCS: 36415; 80051; 85025; 93005

== ENCOUNTER → 2020-07-29 10:06 | Outpatient (CLI) | payer MEDICARE, OTHER, SELFPAY ==
[2020-03-14 15:53] VITALS: BMI 46.0
[2020-07-30 12:30] LABS: COVID19 Sendout Not Detected (Not Detect)
== END ==
PROVIDERS: PCP Family Medicine; Visit Provider Physician Assistant
DX: Z11.59 Encounter for screening for other viral diseases (principal)
CPT/HCPCS: 87635

== ENCOUNTER 2020-08-01 07:52 | Day surgery (SDC) | payer MEDICARE, OTHER, SELFPAY ==
[2020-03-14 15:53] VITALS: BMI 46.0
[2020-07-27 14:28] VITALS: BMI 47.1
[2020-08-01] VITALS (13 sets, daily range): BP systolic 93–156; BP diastolic 38–78; PULSE 69–82; RESP 10–18; TEMP 36–37; O2SAT 96–99; BMI 43.8
--- NOTE | 2020-08-01 06:00 | DI.RAD.S_ITS ---
PROCEDURE: XR KNEE RT 1TO2V INDICATIONS: TKA TECHNIQUE: 2 view(s) of the knee acquired. COMPARISON: [facility], [facility], XR KNEE RT 3V, 09/14/2018, 12:30. [facility] [place], ARELIS, XR KNEE ARTHRITIC SERIES LT, 03/26/2020, 15:17. FINDINGS: Bones: Patient is status post knee joint arthroplasty. Hardware components are in expected positions. Visualized bony structures are intact. Posterior tibial exostosis is stable compared to prior examinations. Soft tissues: Overlying postoperative changes are noted. IMPRESSION: Expected postsurgical change for right knee arthroplasty. Dictated by: Katie Dolan MD, PhD on 08/01/2020 at 17:31 Approved by: Katie Dolan MD, PhD on 08/01/2020 at 17:32
[2020-08-01] MEDS: PREGABALIN 75 MG CAPSULE PO (08:34)
[2020-08-01] MEDS: ACETAMINOPHEN 325 MG TABLET 975 MG PO (08:34)
[2020-08-01] MEDS: LACTATED RINGERS 1,000 ML 42 ML IV ×2 (08:36→11:54)
--- NOTE | 2020-08-01 10:07 | PM.PREOP ---
Pre-operative Note COVID-19 COVID-19 status: Negative Result date/Date tested (Pos, Neg/Pending): 07/30/20 Interval Note History & Physical reviewed/Exam performed by Physician: Yes Changes to H&P: No
--- NOTE | 2020-08-01 10:09 | PM.OP.1 ---
Operative Date/Time/Diagnoses Date of procedure: 08/01/20 Time of procedure: 12:44 Pre-op diagnosis: Right knee osteoarthritis Post-op diagnosis: same Procedure & Clinicians Procedure: Right total knee arthroplasty Same procedure as scheduled: Yes Indications: The patient presents today for total knee arthroplasty after failure of conservative treatment. The nature of the procedure including the risks and benefits, alternatives, postoperative course and expected outcome were discussed and all questions answered. Consent was obtained. Operative site confirmed and marked. Surgeon: Miguel Ángel Barber [employer] Duty Manager: Aquilino Duke Operative Notes Findings: A +1 femoral cut was made and approximately 11-12 mm was cut off the less affected lateral side. There is at least 2-3 mm of laxity medially and laterally in flexion and extension. He was left slightly looser than his last surgery as he did require a manipulation under anesthesia. Prosthetic devices, grafts, tissues, transplants, or devices: [employer] [employer]: 7 femoral component, 7 tibial component, 9 mm BCS polyethylene tray and 35 x 9 mm round patella Applied: implant(s) Estimated Blood Loss (mL): 10 Blood products transfused: none Tourniquet time (min): 74 Procedure in detail: The patient was taken to the operative suite and placed under anesthesia. The patient was given prophylactic antibiotics prior to surgery. The patient was also given tranexamic acid, 1 g, just prior to surgery for postoperative hemostasis. The lateral knee was prepped and the joint injected with 20 mL of 1% Lidocaine with epinephrine. The knee was then prepped and draped in usual sterile fashion. The leg was exsanguinated with an Esmarch dressing and the tourniquet raised to 275 torr. A 15 cm anterior incision was made. Next a medial trivector arthrotomy was made. The extensor mechanism was marked to ensure accurate repair. Initial exposing dissection was carried out medially and laterally. The knee was then flexed and the intramedullary femoral guide evaristo placed. The distal femoral cut was made in 6? of valgus at the +1 position. The femoral size was measured and the appropriate cutting block was then placed and the anterior, posterior and chamfer cuts made. The intramedullary tibial alignment evaristo was then placed. The guide was set to remove approximately 11-12 mm from the less affected lateral side. The proximal tibial cut was then made with an oscillating saw. All meniscus and bony debris was then removed. Posterior femoral osteophytes removed with a curved osteotome. Flexion extension gaps were checked. No specific balancing was required other than routine exposure and removal of osteophytes. The soft tissues were then injected with a combination of 20 mL of half percent Marcaine with epinephrine and 20 mL of Exparel. The trial components were then placed. The knee was then extended and the patellar thickness was measured and a cut made removing approximately 9 mm of bone. The patella was then sized and drilled. Some excess lateral bone was excised and the patellofemoral ligament released. The knee went into full extension and flexion beyond 120?. There was excellent medial-lateral balance throughout motion. Patellar tracking was excellent. The trial components were removed and the knee was cleansed with Pulsavac irrigation and dried. The final components were cemented with high viscosity vacuum mixed bone cement with antibiotics. The joint was filled with a dilute Betadine solution. The knee was held in extension and the patellar clamped until the cement was adequately cured. The knee was then irrigated. The extensor mechanism was closed with 5 interrupted #1 Vicryl sutures and a running Quill suture at approximately 90 degrees of flexion. The joint was then injected with a combination of 1 g of tranexamic acid and 20 mL of quarter percent Marcaine with epinephrine. The subcutaneous tissue was closed with 2 0 Vicryl. The skin was closed with absorbable subcuticular sutures and surgical adhesive. An Aquacel dressing and Guero wrap were then applied. The patient tolerated the procedure well and was returned to recovery room in good condition. Complications: none Post-operative Condition: stable Disposition: PACU Plan for aftercare: [facility] Protocol.
[2020-08-01] MEDS: CEFAZOLIN 2 GM/100 ML FROZ.PIGGY IV (10:40)
[2020-08-01] MEDS: BUPIVACAINE 0.25% W/ EPI (PF) 20 ML, TRANEXAMIC ACID 1,000 MG, SODIUM CHLORIDE 0.9% 10 ML INJ (11:23)
[2020-08-01] MEDS: BUPIVACAINE 0.25% W/ EPI (PF) 40 ML, BUPIVACAINE LIPOSOME 266 MG, SODIUM CHLORIDE 0.9% ... INJ (11:24)
--- NOTE | 2020-08-01 11:26 | SUR.OPER ---
GLASSES IN LABELED CASE TO PACU WITH PATIENT
--- NOTE | 2020-08-01 13:28 | SUR.PHASEI ---
Transferred to [facility]. Belongings with pt. Received in room by NITHYA Olivo. Bedside handoff completed. notified of transfer.
[2020-08-01] MEDS: IBUPROFEN 400 MG TABLET PO ×2 (14:25→20:44)
[2020-08-01] MEDS: LACTATED RINGERS 1,000 ML 100 ML IV (14:25)
[2020-08-01] MEDS: ACETAMINOPHEN 325 MG TABLET 650 MG PO ×2 (14:25→20:43)
[2020-08-01] MEDS: HYDROMORPHONE 2 MG TABLET PO ×2 (14:26→17:32)
--- NOTE | 2020-08-01 14:35 | PC.NURSE ---
Pt to room 219 via bed from PACU. Pt is awake and alert. States pain to right knee 7/10-Pain meds given. Pt oriented to room, call light, bed controls, and tv controls. Bed alarm on for safety. Pt agrees to not get up without assistance. Pt given water, applesauce, and pain meds as directed. IVF infusing. SCD's on and running. Pt denies needs at this time.
[2020-08-01] MEDS: CEFAZOLIN VIAL 3 GM in SODIUM CHLORIDE 0.9% 100 ML 200 ML IV (19:10)
[2020-08-01] MEDS: LOSARTAN 50 MG TABLET 100 MG PO (20:43)
[2020-08-01] MEDS: DOCUSATE 100 MG CAPSULE PO (20:43)
[2020-08-01] MEDS: SPIRONOLACTONE 25 MG TABLET PO (20:50)
[2020-08-02 00:25] VITALS: BP 137/62; PULSE 70; RESP 18; TEMP 36.3; O2SAT 95
[2020-08-02] MEDS: IBUPROFEN 400 MG TABLET PO ×3 (00:36→10:12)
[2020-08-02] MEDS: LACTATED RINGERS 1,000 ML 100 ML IV (00:37)
[2020-08-02] MEDS: CEFAZOLIN VIAL 3 GM in SODIUM CHLORIDE 0.9% 100 ML 200 ML IV (03:05)
[2020-08-02 03:57] VITALS: BP 122/57; PULSE 75; RESP 18; TEMP 36.6; O2SAT 95
[2020-08-02 05:28] LABS: Hematocrit 35.7 % (41-53); Hemoglobin 11.5 g/dL (13.5-17.5)
[2020-08-02 08:00] VITALS: BP 127/55; PULSE 63; RESP 16; TEMP 36.8; O2SAT 97
[2020-08-02 08:51] VITALS: PULSE 75; RESP 16; O2SAT 94
--- NOTE | 2020-08-02 10:05 | PM.PN.1 ---
Subjective Subjective Date Patient Seen: 08/02/20 Time Patient Seen: 10:05 Interval history: Patient is POD# 1 s/p R TKA with Dr. Barber. Pain has been controlled with either Oxycodone or Dilaudid. He has mobilized about the room with PT. He is voiding appropriately. No complaints. Exam Vital Signs (past 8 hours): - 08/02/20 03:57 08/02/20 08:00 08/02/20 08:51 Temperature 97.9 F 98.2 F Pulse Rate 75 63 75 Respiratory Rate 18 16 16 Blood Pressure 122/57 L 127/55 L Pulse Oximetry 95 97 94 Oxygen Delivery Method Room Air Oxygen Flow Rate 0 Narrative Exam Narrative: 70 year old male resting in bed alert and oriented in no acute distress. Dressing in place is CDI. Neurovascularly intact in distal extremity. Calves are soft, nontender. Objective Labs Result Diagrams: 08/02/20 04:55 Labs: Laboratory Results - last 24 hr 08/02/20 04:55 Hgb 11.5 L Hct 35.7 L Assessment & Plan Assessment & Plan narrative: Patient doing well postoperatively. Lovenox 10 days for DVT prophylaxis. Successfully worked with PT today. Discussed pain control, patient would like to discharge with Oxycodone. Discharge to home later today.
[2020-08-02] MEDS: ACETAMINOPHEN 325 MG TABLET 650 MG PO (10:08)
[2020-08-02] MEDS: DOCUSATE 100 MG CAPSULE PO (10:09)
[2020-08-02] MEDS: CLOPIDOGREL 75 MG TABLET PO (10:10)
[2020-08-02] MEDS: ENOXAPARIN 40 MG/0.4 ML SYRINGE SUBCUT (10:10)
[2020-08-02] MEDS: AMLODIPINE 5 MG TABLET PO (10:10)
[2020-08-02] MEDS: FUROSEMIDE 40 MG TABLET PO (10:12)
[2020-08-02] MEDS: OXYCODONE IR 10 MG TABLET PO (10:13)
[2020-08-02] MEDS: SPIRONOLACTONE 25 MG TABLET PO (10:14)
[2020-08-02] MEDS: ROSUVASTATIN 10 MG TABLET 40 MG PO (10:35)
--- NOTE | 2020-08-02 10:37 | CM.IDA ---
Initial DCP Assessment Note Pt is a 70 yo male, resident of [place], now POD#1 from Rt knee surgery w/ Dr Barber PCP: Matias Lynch Payer: TATIANNA/[employer] Reviewed chart, met w/patient to introduce role. Patient explains he had the other knee replaced and feels confident about his return home w/family to assist. Therapy pending this morning. No needs expected from DC planning team although will remain available in case this changes today. BRIE Card Discharge Planning/Care Management CM Discharge Assessment Start: 08/02/20 10:35 Freq: Status: Active Protocol: Document 08/02/20 10:35 ROBERT (Rec: 08/02/20 10:37 ROBERT [id number]) Discharge Planning Assessment Assigned [employer] BRIE Carter DPOA/Assigned Designee Name Roseline Patel, spouse Contact Information [phone], Advance Directives? No Advance Directives on File No History Provided By Patient,Medical Record Prior Living Arrangements House Household Members spouse Type of transporation used prior to Drives own vehicle admit Independent with ADL's Yes Is patient alert and oriented? Yes Patient/Family Preference OP PT Therapy Barriers to Discharge No Discharge Plan Home Transportation Arrangement Spouse Referrals Initiated None needed
[2020-08-02] MEDS: INFLUENZA HD VACCINE 0.7 ML SYRINGE IM (11:44)
--- NOTE | 2020-08-02 12:58 | PC.NURSE ---
Pt is dressed and ready for discharge home with Spouse. Went over d/c instructions with Pt and Spouse - discussed d/c meds, time of last dose, reviewed stroke education, s/s of infection, showering, icing, no driving while on narcotics, drink plenty of fluids to prevent constipation or dehydration, and follow up. Performed Lovenox teaching with both and observed Spouse Roseline give Pt his scheduled injection which she did perfectly. Pt and Spouse denied further questions and was taken out via w/c by ROPE RIDER to POV with Spouse and all belongings..
--- NOTE | 2020-08-02 13:02 | PT.IIE ---
Current Diagnoses Unilateral primary osteoarthritis, right knee (08/01/20) Surgery Performed Operation Date: 08/01/20 10:00 Actual Procedures p Total Knee Arthroplasty(Right) - Miguel Ángel Barber MD Surgical History (Last Updated 07/27/20 @ 15:05 by Rocio Cosme RN) History of arthroplasty of left knee (Acute 03/14/20) History of sinus surgery (Resolved ~03/2003) History of vasectomy (Acute 1977) Hx of hand surgery (Acute) Hx of tonsillectomy (Acute 2004) Status post coronary artery bypass graft (~10/2010) Medical History (Last Reviewed 05/31/20 @ 12:59 by ALFRED Bermudez) Chicken pox (Resolved ~1982) Excessive daytime sleepiness (Inactive) Hyperlipidemia (Chronic ~1997) Hypertension (Chronic) Obstructive sleep apnea of adult (Chronic) Osteoarthritis (Acute) Primary insomnia (Inactive) Sleep apnea (Chronic ~1999) Snoring (Inactive) Solitary pulmonary nodule (Acute) Physical Therapy Inpatient Evaluation/Re-Eval M1 PT/OT-IP Prior Functional Status Start: 08/02/20 08:43 Freq: NEEDED Status: Active Protocol: Document 08/02/20 12:40 AW (Rec: 08/02/20 13:02 AW [email or web address]) Medical Review Prior Functional Status Medical History Reviewed Yes Communication WNL. Mobility and Gait Pt had L TKA in March 2020 and needed RAMILA in April 2020. He had graduated from using any assistive device ~1 month ago. Activities of Daily Living and IADL's Independent. Social History Household Members spouse Living Arrangements House Number of Floors (Floors) One Floor Number of Stairs To Enter/Railing? Ramped entry Home Environment Standard Height Toilet,Tub/ Shower,Ramp Home Equipment Front Wheel Walker,Four Wheel Walker,Raised Toilet Seat Without Armrests,Tub Transfer Bench,Lift Recliner,Grab Bars In Shower Additional Social History Comment Pt has installed a grab bar on his side of the bed to assist with bed mobility. There is a sink on the left side of the toilet. He lives with his who will be available and able to assist as needed at discharge. His son is also arriving today and will be able to help . M2 PT-IP Current Condition Start: 08/02/20 08:43 Freq: NEEDED Status: Active Protocol: Document 08/02/20 12:40 AW (Rec: 08/02/20 13:02 AW [email or web address]) Physical Therapy Current Condition Current Condition Evaluation Date 08/02/20 Treatment Diagnosis R TKA; difficulty in walking Onset Date 08/01/20 Weight Bearing Status Weight Bearing Status Weight Bear as Tolerated M3 PT-IP Subjective Start: 08/02/20 08:43 Freq: NEEDED Status: Active Protocol: Document 08/02/20 12:40 AW (Rec: 08/02/20 13:02 AW [email or web address]) Subjective Physical Therapy Visit Type Type Initial Evaluation Visit Start Time 09:23 Visit Stop Time 09:50 Total Visit Minutes 27 Notes Pt's spouse present throughout session Physical Therapy Visit Comments Patient Comments Pt is willing to participate with PT Patient Goals Return home today if possible Therapy Pain Assessment Pain When Pain Assessed During Mobility Pain Present Pain Present Pain Reported Location Right Knee Intensity 7 Scale Used 4/10 at rest; increases to 7/ 10 during movement Pain Management Techniques Apply Cold,Timing of Activity with Medications M4 PT-IP Mobility and Gait Start: 08/02/20 08:43 Freq: NEEDED Status: Active Protocol: Document 08/02/20 12:40 AW (Rec: 08/02/20 13:02 AW [email or web address]) PT-Bed Mobility Assessment Supine to Sit Supine to Sit Minimal Assistance,1 Person Assistance,Bedrails Scooting Scooting to Edge of Bed Standby Assistance PT-Transfer Assessment Sit to and From Stand Sit to and from Stand Minimal Assistance,1 Person Assistance,Use of Upper Extremities Equipment Transfer Assistive Device Gait Belt,Front Wheeled Walker Orthotic/Prosthetic Devices or Brace: No Transfers Transfer Destination Chair Transfer Ability Level of Assist Contact Guard Assistance,1 Person Assistance,Use of Upper Extremities Comments Mobility Comments Pt was reclined in the bed as PT arrived. BP was 142/51 HR 80. With HOB flat, pt completed supine to sit min A x 1 with assist to right his trunk. He sat EOB for strength assessment with good balance. He completed sit to stand min A x 1 with PT stabilizing the walker. Pt then ambulated around the room ~50 feet total CGA. He walked to the chair and transferred CGA with cues to keep his operative leg outstretched to avoid excessive knee flexion. Pt was positioned on the chair with call light and all needs in reach, fresh ice packs applied to his knee and anterior thigh. PT informed RN pt was requesting additional pain meds. Gait Assessment Gait Gait Assistance Required: Contact Guard Assist Distance (Feet) 50 Able to Maintain Weight Bearing Status Yes During Gait Assistive Devices Assistive Device Gait Belt,Front Wheeled Walker Gait Deviations General Gait Pattern Antalgic,Decreased Stride Length,Decreased Feet Clearance,Flexed Trunk,Step-to Gait,Wide Based Gait Factors Limiting Gait Function Factors Limiting Gait Function Decreased Activity Tolerance, Decreased Sensation,Decreased Strength,Limited Range of Motion,Pain,Poor Balance Comments Gait Comments See mobility comments. Gait was notable for lack of TKE on left LE and pt complained of increased pain with weightbearing. Stair Climbing Assessment Comments Stair Climbing Comments Not assessed. No stairs at home. PT-Balance Assessment Sitting Balance and Reactions Static Sitting Balance Ability Normal Dynamic Sitting Balance Ability Normal Standing Balance and Reactions Static Standing Balance Ability Good Dynamic Standing Balance Ability Good Device Used FWW M5 PT-IP Objective Assessments Start: 08/02/20 08:43 Freq: NEEDED Status: Active Protocol: Document 08/02/20 12:40 AW (Rec: 08/02/20 13:02 AW [email or web address]) Orientation Orientation/Cognition Level of Alertness Alert Orientation Name,Day of Week,Place, Situation Language Function Ability No Deficits Noted Safety Awareness Understands Safety Issues Memory Description No Deficits Noted Gross Range of Motion Lower Extremity ROM Assessment Left Impaired Impairments Left knee lacking ~10 degrees extention. Flexion to ~75 degrees. Strength Lower Extremity Strength Assessment Left Impaired Hip 4/5 Knee 3-/5 Ankle 4/5 Sensation Assessment Sensation Gross Sensation WNL M6 PT-IP Treatment Start: 08/02/20 08:43 Freq: NEEDED Status: Active Protocol: Document 08/02/20 12:40 AW (Rec: 08/02/20 13:02 AW [email or web address]) Physical Therapy Treatment Exercises Exercises Ankle Pumps,Quad Sets,Heel Slides,Passive Knee Extension Hang Education Education Provided Precautions,Weight Bearing Status,Post-Op Packet,Safety Other Treatments Other Treatment Performed Provided education on role of PT, plan of care, weightbearing status, and safe use of FWW. M7 PT-IP Assessment and Plan Start: 08/02/20 08:43 Freq: NEEDED Status: Active Protocol: Document 08/02/20 12:40 AW (Rec: 08/02/20 13:02 AW [email or web address]) PT Summary Assessment and Plan Potential Rehabilitation Potential Good Status of Condition at Evaluation Evolving Summary Impairments Pain,ROM,Strength,Balance,Bed Mobility,Transfers,Gait, Activity Tolerance Assessment Summary Pierce is a 70 yo man seen for PT evalutation on POD1 following R TKA. He had L TKA earlier this year and subsequently required RAMILA. He has been ambulating without assistive device for over a month at this point and is otherwise independent. On evaluation, pt requres CGA to min assist with all mobilities including gait with FWW. Primary limitation is pain. Pt 's obesity is also likely contributing to difficulty with mobility. Pt will be seen at least one more time by acute PT to progress safe mobility prior to anticipated discharge to home with spouse assist and outpatient PT. Goals Bed Mobility Goal Standby Assistance Transfer Goal Standby Assistance,Front Wheeled Walker Gait Goal Standby Assistance,Front Wheel Walker Gait Distance 150 Days to Meet Goals 2 Frequency of Treatment Frequency Of Treatment Twice a Day Treatment Plan Physical Therapy Treatment Plan Bed Mobility Training,Transfer Training,Gait Training, Therapeutic Exercise,Balance Retraining,Post Op Education, Discharge Planning,Hot or Cold Pack,Neuromuscular Re-ed, Coordination Retraining,Manual Therapy Recommendations To Nursing Amount of Assist Needed 1 Person Assist Discharge Recommendations PT Discharge Recommendations Home with Assistance, Outpatient PT Transportation Needs at Discharge Private Vehicle
== END 2020-08-02 13:03 | disposition home or self-care (01) ==
LOC: OR 07:54 → AC 07:54
PROVIDERS: PCP Family Medicine; Referring Provider Orthopaedic Surgery; Visit Provider Orthopaedic Surgery
PROC: 0SRC0JZ Replacement of Right Knee Joint with Synthetic Substitute, Open Approach (ICD-10-PCS; CPT 27447; principal; 2020-08-01 10:00)
DX: M17.11 Unilateral primary osteoarthritis, right knee (principal); Z95.1 Presence of aortocoronary bypass graft; G47.33 Obstructive sleep apnea (adult) (pediatric); I25.10 Atherosclerotic heart disease of native coronary artery without angina pectoris; I10 Essential (primary) hypertension; E66.01 Morbid (severe) obesity due to excess calories; Z23 Encounter for immunization
CPT/HCPCS: 27447; 36415; 73560; 85014; 85018; 90471; 90662; 94760; 97161; C1776; C9290; J0690; J1650; J2250; J3010

== ENCOUNTER → 2020-09-03 13:59 | Outpatient (CLI) | payer MEDICARE, OTHER, SELFPAY ==
[2020-08-01 14:19] VITALS: BMI 43.8
[2020-09-03 15:16] LABS: Hemoglobin A1C% w Est Avg Glu 5.9 % (4.0-6.0)
[2020-09-03 15:17] LABS: BUN Creatinine Ratio 23.8 (6-22); Blood Urea Nitrogen 24 mg/dL (9-20); Calcium 9.2 mg/dL (8.4-10.2); Carbon Dioxide 29 mmol/L (22-32); Chloride 100 mmol/L (98-107); Estimated Glomerular Filt Rate > 60.0 mL/min (>60); Glucose 107 mg/dL (80-110); HEMOLYSIS < 15 (0-50); Potassium 4.6 mmol/L (3.4-5.1); Sodium 136 mmol/L (137-145)
== END ==
PROVIDERS: PCP Family Medicine; Referring Provider Family Medicine; Visit Provider Family Medicine
DX: E11.9 Type 2 diabetes mellitus without complications (principal); N19 Unspecified kidney failure
CPT/HCPCS: 36415; 80048; 83036

== ENCOUNTER → 2020-11-12 09:02 | Outpatient (CLI) | payer MEDICARE, OTHER, SELFPAY ==
[2020-08-01 14:19] VITALS: BMI 43.8
--- NOTE | 2020-11-12 | DI.ECHO.S_ITS ---
[facility]---------+ [facility] +---------+ : : [address] [place] : : : : [id number] : : : : Phone: [phone]---------+ Echocardiogram Report + + :Name: HASEEB FAULKNER Study Date: 11/12/2020 Height: 70 in : :[facility] ReadingLocation: Weight: 321 lb : : Gender: Male BSA: 2.6 m2 : :: 1950 Age: 70 yrs BP: 152/78 mmHg: :Reason For Study: OTHER SPECIFIED DISORDERS OF ARTERIES : :Ordering Physician: SAMI, : :INÉS Performed By: Jacqueline Wright : :Referring: INÉS PAUL : + + Interpretation Summary 1) Normal left ventricular size and systolic function (EF 60-65%). 2) [place] appears hypokinetic by use of definity contrast enhancement. 3) Grossly, normal right ventriucular size and function. 4) No significant valvular abnormalities. 5) The ascending aorta is mildly enlarged at 3.7cm. 6) Compared to the Echo done 08/07/2017, the apex is better visualized on this study and appears mildly hypokinetic. Procedure: A two-dimensional transthoracic echocardiogram with color flow and Doppler was performed. Comparison is made with the echocardiogram of 08/07/2017. A contrast injection of Definity was performed to improve assessment of LV function. The study quality was technically difficult. Contrast was injected into an intravenous site in the left arm. Patient denied any symptoms after the use of Definity. The patient was in sinus rhythm with heart rates between 58-65 bpm during the exam. Left Ventricle: The left ventricle is normal in size and wall thickness. The ejection fraction is estimated to be 60-65%. Left ventricular systolic function is normal. [place] appears hypokinetic. Right Ventricle: The right ventricle is normal in size and function. Atria: Both atria are normal in size. There is no Doppler evidence for an interatrial shunt. Mitral Valve: The mitral valve is normal in structure and function. There is no mitral regurgitation noted. Aortic Valve: The aortic valve is trileaflet. The aortic valve is mildly calcified. There is no aortic valve stenosis. No aortic regurgitation is present. Tricuspid Valve: The tricuspid valve is normal in structure and function. The right ventricular systolic pressure is estimated to be at least 31 mmHg based on an estimated right atrial pressure of 3 mm Hg. There is mild tricuspid regurgitation. Pulmonic Valve: The pulmonic valve is not well visualized. There is no pulmonic valvular regurgitation. Great Vessels: The aortic root is normal size. The ascending aorta is mildly enlarged. The IVC is of normal diameter and collapses greater than 50% with a sniff. This suggests a low right atrial pressure of 3 mm Hg. Pericardium/ Pleura There is no pericardial effusion. There is no pleural effusion. MMode/2D Measurements & Calculations LVIDd: 5.0 cm LVOT diam: 2.2 cm LVIDs: 3.4 cm Ao root diam: 3.6 cm FS: 32.1 % asc Aorta Diam: 3.7 cm EPSS: 0.58 cm Ao Arch Diam (Prox Trans): 3.6 cm IVSd: 0.85 cm LVPWd: 1.00 cm LV olivares. diameter/BSA (cm/m^2): 1.9 LV sys. diameter/BSA (cm/m^2): 1.3 LA A2 area: 18.9 cm2 RA long axis: 5.1 cm LA A4 area: 21.8 cm2 RA area: 17.1 cm2 LA length (vol): 5.5 cm RA vol: 49.1 ml LA vol: 64.0 ml RA : 19.2 ml/m2 LA vol index: 25.1 ml/m2 IVC diam: 1.3 cm RVD1 (basal): 3.7 cm TAPSE: 1.9 cm Doppler Measurements & Calculations Ao V2 max: 151.4 cm/sec LVOT Max Cristino: 99.3 cm/sec Ao V2 mean: 103.2 cm/sec LV V1 max P.9 mmHg Ao max P.2 mmHg LV V1 VTI: 24.9 cm Ao mean P.8 mmHg IVETTE(I,D): 2.9 cm2 Ao V2 VTI: 32.2 cm IVETTE(V,D): 2.4 cm2 sev ratio: 0.77 IVETTE indexed to BSA (cm^2/m^2): 1.1 MV E max cristino: 85.6 cm/sec TR max cristino: 263.5 cm/sec MV A max cristino: 71.9 cm/sec TR max P.8 mmHg MV E/A: 1.2 PA V2 max: 73.4 cm/sec Med Peak E' Cristino: 9.5 cm/sec PA V2 mean: 49.3 cm/sec E/E' med: 9.1 PA mean P.1 mmHg Lat Peak E' Cristino: 12.6 cm/sec PA pr(Accel): 31.0 mmHg E/E' lat: 6.8 E/e' average: 7.9 MV dec time: 0.25 sec SV(LVOT): 91.8 ml Reading Physician:09:02 PM
== END ==
PROVIDERS: PCP Family Medicine; Referring Provider Internal Medicine Cardiovascular Disease; Visit Provider Internal Medicine Cardiovascular Disease
DX: I07.1 Rheumatic tricuspid insufficiency (principal); I77.89 Other specified disorders of arteries and arterioles
CPT/HCPCS: 93306

== ENCOUNTER → 2020-11-29 09:19 | Outpatient (CLI) | payer MEDICARE, OTHER, SELFPAY ==
[2020-08-01 14:19] VITALS: BMI 43.8
[2020-11-29 10:09] LABS: Add Manual Diff / Slide Review NO; Basophils Absolute Auto 0 /uL (0-100); Basophils Percent Auto 0.7 % (0-2); Eosinophils Absolute Auto 200 /uL (0-450); Eosinophils Percent Auto 2.6 % (2-4); Hematocrit 41.5 % (41-53); Hemoglobin 13.7 g/dL (13.5-17.5); Lymphocytes Absolute Auto 1200 /uL (1100-4500); Lymphocytes Percent Auto 20.2 % (25-40); Mean Corpuscular HGB Conc 32.9 % (30-36); Mean Corpuscular Volume 81.9 fL (80-100); Monocytes Absolute Auto 600 /uL (0-900); Monocytes Percent Auto 10.1 % (3-14); Neutrophils Absolute Auto 4100 /uL (1500-7000); Neutrophils Percent Auto 66.4 % (50-75); Platelet Count 284 X10^3/uL (150-400); Red Blood Cell Count 5.06 X10^6/uL (4.5-5.9); Red Cell Distribution Width 15.9 % (11.6-14.8); White Blood Cell Count 6.1 X10^3/uL (4.5-11.0)
[2020-11-29 10:17] LABS: Cholesterol 114 mg/dL (140-199); HDL Cholesterol 34 mg/dL (40-60); LDL Cholesterol Calculated 67 mg/dL (<100); Triglycerides 63 mg/dL (35-150)
[2020-11-29 10:17] LABS: Hemoglobin A1C% w Est Avg Glu 5.8 % (4.0-6.0)
[2020-11-29 10:26] LABS: BUN Creatinine Ratio 23.4 (6-22); Blood Urea Nitrogen 22 mg/dL (9-20); Calcium 9.4 mg/dL (8.4-10.2); Carbon Dioxide 31 mmol/L (22-32); Chloride 99 mmol/L (98-107); Estimated Glomerular Filt Rate > 60.0 mL/min (>60); Glucose 103 mg/dL (80-110); HEMOLYSIS < 15 (0-50); Potassium 4.5 mmol/L (3.4-5.1); Sodium 136 mmol/L (137-145)
== END ==
PROVIDERS: PCP Family Medicine; Referring Provider Family Medicine; Visit Provider Internal Medicine Cardiovascular Disease
DX: E11.9 Type 2 diabetes mellitus without complications (principal); I10 Essential (primary) hypertension; E78.5 Hyperlipidemia, unspecified
CPT/HCPCS: 36415; 80048; 80061; 83036; 85025

== ENCOUNTER → 2020-12-20 08:52 | Outpatient (CLI) | payer MEDICARE, OTHER, SELFPAY ==
[2020-08-01 14:19] VITALS: BMI 43.8
[2020-12-20] MEDS: COVID-19 VACC #1, MRNA(MOD) 100 MCG/0.5 ML VIAL IM (09:03)
== END ==
PROVIDERS: PCP Family Medicine; Visit Provider Internal Medicine
DX: Z23 Encounter for immunization (principal)
CPT/HCPCS: 0011A; 91301

== ENCOUNTER → 2021-01-17 07:35 | Outpatient (CLI) | payer MEDICARE, OTHER, SELFPAY ==
[2020-08-01 14:19] VITALS: BMI 43.8
[2021-01-17] MEDS: COVID-19 VACC #2, MRNA(MOD) 100 MCG/0.5 ML VIAL IM (07:42)
== END ==
PROVIDERS: PCP Family Medicine; Visit Provider Internal Medicine
DX: Z23 Encounter for immunization (principal)
CPT/HCPCS: 0012A; 91301

== ENCOUNTER → 2021-08-07 09:58 | Outpatient (CLI) | payer MEDICARE, OTHER, SELFPAY ==
[2020-08-01 14:19] VITALS: BMI 43.8
[2021-08-07 13:06] LABS: COVID19 -Nasal RAPID POSITIVE (Negative)
== END ==
PROVIDERS: PCP Family Medicine; Visit Provider Nurse Practitioner Family
DX: U07.1 COVID-19 (principal)
CPT/HCPCS: 87635

== ENCOUNTER → 2021-09-12 07:18 | Outpatient (CLI) | payer MEDICARE, OTHER, SELFPAY ==
[2020-08-01 14:19] VITALS: BMI 43.8
[2021-09-12 08:37] LABS: Hemoglobin A1C% w Est Avg Glu 5.4 % (4.0-6.0)
[2021-09-12 08:46] LABS: Alanine Aminotransferase 28 IU/L (<50); Albumin 3.8 g/dL (3.5-5.0); Albumin Globulin Ratio 1.4 (1.0-2.8); Alkaline Phosphatase 56 U/L (38-126); Aspartate Aminotransferase 30 IU/L (17-59); BUN Creatinine Ratio 37.2 (6-22); Bilirubin Total 0.5 mg/dL (0.2-1.3); Blood Urea Nitrogen 35 mg/dL (9-20); Calcium 9.1 mg/dL (8.4-10.2); Carbon Dioxide 28 mmol/L (22-32); Chloride 103 mmol/L (98-107); Cholesterol 137 mg/dL (140-199); Estimated Glomerular Filt Rate > 60.0 mL/min (>60); Globulin 2.8 g/dL (1.7-4.1); Glucose 100 mg/dL (80-110); HDL Cholesterol 47 mg/dL (40-60); HEMOLYSIS < 15 (0-50); LDL Cholesterol Calculated 76 mg/dL (<100); Potassium 4.5 mmol/L (3.4-5.1); Sodium 137 mmol/L (137-145); Total Protein 6.6 g/dL (6.3-8.2); Triglycerides 68 mg/dL (35-150)
== END ==
PROVIDERS: PCP Family Medicine; Referring Provider Family Medicine; Visit Provider Family Medicine
DX: E11.9 Type 2 diabetes mellitus without complications (principal); E78.2 Mixed hyperlipidemia; I10 Essential (primary) hypertension; Z68.39 Body mass index [BMI] 39.0-39.9, adult
CPT/HCPCS: 36415; 80053; 80061; 83036

== ENCOUNTER → 2021-09-20 13:17 | Outpatient (CLI) | payer MEDICARE, OTHER, SELFPAY ==
[2020-08-01 14:19] VITALS: BMI 43.8
[2021-09-23 08:37] LABS: Fecal Immunochemical Test Negative (Negative)
== END ==
PROVIDERS: PCP Family Medicine; Referring Provider Family Medicine; Visit Provider Family Medicine
DX: Z12.11 Encounter for screening for malignant neoplasm of colon (principal)
CPT/HCPCS: 82274

== ENCOUNTER → 2022-01-21 07:50 | Outpatient (CLI) | payer MEDICARE, OTHER, SELFPAY ==
[2020-08-01 14:19] VITALS: BMI 43.8
--- NOTE | 2022-01-21 07:55 | DI.ECHO.S_ITS ---
[facility] +---------+ : : [address] : [address] [place] : : : : [id number] : : : : Phone: [phone]+ Echocardiogram Report + + :Name: HASEEB FAULKNER Study Date: 01/21/2022 Height: 71 in : :[facility] ReadingLocation: Weight: 270 lb : : Gender: Male BSA: 2.4 m2 : :: 1950 Age: 71 yrs BP: 133/72 mmHg: :Reason For Study: OTHER DISORDERS OF ARTERIES AND ARTERIOLIES : :Ordering Physician: SAMI, : :INÉS Performed By: Jacqueline Wright : :Referring: INÉS PAUL : + + Interpretation Summary 1) Normal left ventricular size, wall motion, and systolic function (EF 60- 65%). 2) Normal right ventricular size and function. 4) No significant valvular abnormalities. 5) The ascending aorta is mildly enlarged at 3.7cm. 6) Compared to the Echo done 11/12/2020, apex is better visualized and there appears to be no wall motion abnormality on this study. Procedure: A two-dimensional transthoracic echocardiogram with color flow and Doppler was performed. Comparison is made with the echocardiogram of 11/12/2020. A contrast injection of Definity was performed to improve assessment of LV function. The patient was in sinus rhythm with heart rates between 59-64 bpm during the exam. Left Ventricle: The left ventricle is normal in size and wall thickness. The ejection fraction is estimated to be 60-65%. Right Ventricle: The right ventricle is normal in size and function. Atria: The left atrium is mildly dilated. Right atrial size is normal. There is no Doppler evidence for an interatrial shunt. Mitral Valve: The mitral valve is normal in structure and function. There is trace mitral regurgitation. Aortic Valve: The aortic valve is mildly calcified. There is discrete nodular thickening of the non- coronary cusp. There is no aortic valve stenosis. No aortic regurgitation is present. Tricuspid Valve: The tricuspid valve is normal in structure and function. There is mild tricuspid regurgitation. The right ventricular systolic pressure is estimated to be at least 26 mmHg based on an estimated right atrial pressure of 3 mm Hg. Pulmonic Valve: The pulmonic valve leaflets are thin and pliable; valve motion is normal. There is trace pulmonic regurgitation. Great Vessels: The aortic root is normal size. The ascending aorta is mildly enlarged. The IVC is of normal diameter and collapses greater than 50% with a sniff. This suggests a low right atrial pressure of 3 mm Hg. Pericardium/ Pleura There is no pericardial effusion. There is no pleural effusion. MMode/2D Measurements & Calculations LVIDd: 4.7 cm LVOT diam: 2.2 cm LVIDs: 3.2 cm Ao root diam: 3.6 cm FS: 32.8 % asc Aorta Diam: 3.7 cm IVSd: 0.86 cm LVPWd: 1.1 cm LV olivares. diameter/BSA (cm/m^2): 2.0 LV sys. diameter/BSA (cm/m^2): 1.3 LA A2 area: 25.8 cm2 RA long axis: 5.9 cm LA A4 area: 23.6 cm2 RA area: 20.6 cm2 LA length (vol): 5.9 cm RA vol: 60.9 ml LA vol: 87.6 ml RA : 25.4 ml/m2 LA vol index: 36.6 ml/m2 IVC diam: 1.1 cm RVD1 (basal): 3.5 cm TAPSE: 1.9 cm Doppler Measurements & Calculations Ao V2 max: 146.1 cm/sec LVOT Max Cristino: 97.3 cm/sec Ao V2 mean: 97.6 cm/sec LV V1 max P.8 mmHg Ao max P.5 mmHg LV V1 VTI: 22.8 cm Ao mean P.4 mmHg IVETTE(I,D): 2.7 cm2 Ao V2 VTI: 32.3 cm IVETTE(V,D): 2.6 cm2 sev ratio: 0.71 IVETTE indexed to BSA (cm^2/m^2): 1.1 MV E max cristino: 87.8 cm/sec TR max cristino: 237.8 cm/sec MV A max cristino: 72.4 cm/sec TR max P.6 mmHg MV E/A: 1.2 PA V2 max: 97.9 cm/sec Med Peak E' Cristino: 9.0 cm/sec PA V2 mean: 66.6 cm/sec E/E' med: 9.8 PA mean P.0 mmHg Lat Peak E' Cristino: 12.4 cm/sec PA pr(Accel): -8.3 mmHg E/E' lat: 7.1 E/e' average: 8.4 MV dec time: 0.18 sec SV(LVOT): 87.7 ml Reading Physician:10:08 AM
[2022-01-21 09:55] LABS: Add Manual Diff / Slide Review NO; Basophils Absolute Auto 100 /uL (0-100); Basophils Percent Auto 0.9 % (0-2); Eosinophils Absolute Auto 300 /uL (0-450); Eosinophils Percent Auto 4.6 % (2-4); Hematocrit 40.5 % (41-53); Hemoglobin 13.8 g/dL (13.5-17.5); Lymphocytes Absolute Auto 1600 /uL (1100-4500); Lymphocytes Percent Auto 27.4 % (25-40); Mean Corpuscular Hemoglobin 29.6 PG (26-34); Mean Corpuscular Volume 87.2 fL (80-100); Monocytes Absolute Auto 600 /uL (0-900); Monocytes Percent Auto 9.7 % (3-14); Neutrophils Absolute Auto 3400 /uL (1500-7000); Neutrophils Percent Auto 57.4 % (50-75); Platelet Count 207 X10^3/uL (150-400); Red Blood Cell Count 4.64 X10^6/uL (4.5-5.9); Red Cell Distribution Width 14.1 % (11.6-14.8); White Blood Cell Count 5.9 X10^3/uL (4.5-11.0)
[2022-01-21 10:03] LABS: Blood Urea Nitrogen 24 mg/dL (9-20); Calcium 8.6 mg/dL (8.4-10.2); Carbon Dioxide 28 mmol/L (22-32); Chloride 105 mmol/L (98-107); Cholesterol 126 mg/dL (140-199); Estimated Glomerular Filt Rate > 60 mL/min (>60); Glucose 101 mg/dL (80-110); HDL Cholesterol 38 mg/dL (40-60); HEMOLYSIS < 15 (0-50); LDL Cholesterol Calculated 73 mg/dL (<100); Potassium 4.4 mmol/L (3.4-5.1); Sodium 138 mmol/L (137-145); Triglycerides 77 mg/dL (35-150)
== END ==
PROVIDERS: PCP Family Medicine; Referring Provider Internal Medicine Cardiovascular Disease; Visit Provider Internal Medicine Cardiovascular Disease
DX: E78.5 Hyperlipidemia, unspecified (principal); I77.89 Other specified disorders of arteries and arterioles; I10 Essential (primary) hypertension; I07.1 Rheumatic tricuspid insufficiency
CPT/HCPCS: 36415; 80048; 80061; 85025; 93306

== ENCOUNTER → 2022-09-12 08:16 | Outpatient (CLI) | payer MEDICARE, OTHER, SELFPAY ==
[2020-08-01 14:19] VITALS: BMI 43.8
[2022-09-12 09:27] LABS: Alanine Aminotransferase 29 IU/L (<50); Albumin 3.8 g/dL (3.5-5.0); Albumin Globulin Ratio 1.4 (1.0-2.8); Alkaline Phosphatase 66 U/L (38-126); Aspartate Aminotransferase 29 IU/L (17-59); BUN Creatinine Ratio 23.1 (6-22); Bilirubin Total 0.6 mg/dL (0.2-1.3); Blood Urea Nitrogen 24 mg/dL (9-20); Calcium 8.8 mg/dL (8.4-10.2); Carbon Dioxide 28 mmol/L (22-32); Chloride 101 mmol/L (98-107); Estimated Glomerular Filt Rate > 60 mL/min (>60); Globulin 2.8 g/dL (1.7-4.1); Glucose 107 mg/dL (80-110); HEMOLYSIS < 15 (0-50); Potassium 4.3 mmol/L (3.4-5.1); Sodium 137 mmol/L (137-145); Total Protein 6.6 g/dL (6.3-8.2)
== END ==
PROVIDERS: PCP Family Medicine; Referring Provider Family Medicine; Visit Provider Family Medicine
DX: E11.9 Type 2 diabetes mellitus without complications (principal)
CPT/HCPCS: 36415; 80053

== ENCOUNTER 2022-10-09 17:54 | Emergency (ER) | payer MEDICARE, OTHER, SELFPAY ==
[2020-08-01 14:19] VITALS: BMI 43.8
[2022-10-09] VITALS (8 sets, daily range): BP systolic 141–180; BP diastolic 62–79; PULSE 62–94; RESP 10–25; TEMP 36.9; O2SAT 98–100; BMI 43.2
--- NOTE | 2022-10-09 18:22 | DI.RAD.S_ITS ---
PROCEDURE: XR CHEST 1V INDICATIONS: chest pain TECHNIQUE: One view of the chest was acquired. COMPARISON: [facility], , CHEST 2 VIEW, 06/21/2014, 11:08. FINDINGS: Surgical changes and devices: Median sternotomy wires are present and appear intact. Lungs and pleura: Lungs are clear. No pleural effusions or pneumothorax. Mediastinum: Mediastinal contours appear normal. Heart size is normal. Bones and chest wall: No suspicious bony lesions. Overlying soft tissues appear unremarkable. IMPRESSION: Stable radiographic evaluation of the chest without acute cardiopulmonary abnormalities or focal airspace disease. Dictated by: Thaddeus Worley M.D. on 10/09/2022 at 18:58 Approved by: Thaddeus Worley M.D. on 10/09/2022 at 18:58
[2022-10-09 19:04] LABS: PTT Partial Thromboplastin Tim 34 SECONDS (26-36)
[2022-10-09 19:05] LABS: Add Manual Diff / Slide Review NO; Basophils Absolute Auto 200 /uL (0-100); Basophils Percent Auto 1.5 % (0-2); Eosinophils Absolute Auto 300 /uL (0-450); Eosinophils Percent Auto 2.5 % (2-4); Hematocrit 42.3 % (41-53); Hemoglobin 14.4 g/dL (13.5-17.5); Lymphocytes Absolute Auto 1800 /uL (1100-4500); Lymphocytes Percent Auto 17.6 % (25-40); Mean Corpuscular Hemoglobin 29.7 PG (26-34); Mean Corpuscular Volume 87.3 fL (80-100); Monocytes Absolute Auto 1000 /uL (0-900); Monocytes Percent Auto 9.4 % (3-14); Neutrophils Absolute Auto 7100 /uL (1500-7000); Platelet Count 248 X10^3/uL (150-400); Red Blood Cell Count 4.84 X10^6/uL (4.5-5.9); Red Cell Distribution Width 13.4 % (11.6-14.8); White Blood Cell Count 10.3 X10^3/uL (4.5-11.0)
[2022-10-09 19:09] LABS: Alanine Aminotransferase 34 IU/L (<50); Albumin 4.1 g/dL (3.5-5.0); Albumin Globulin Ratio 1.2 (1.0-2.8); Alkaline Phosphatase 84 U/L (38-126); Aspartate Aminotransferase 33 IU/L (17-59); BUN Creatinine Ratio 29.3 (6-22); Bilirubin Total 0.5 mg/dL (0.2-1.3); Blood Urea Nitrogen 29 mg/dL (9-20); Calcium 8.6 mg/dL (8.4-10.2); Carbon Dioxide 24 mmol/L (22-32); Chloride 102 mmol/L (98-107); Creatine Kinase 111 U/L (55-170); Estimated Glomerular Filt Rate > 60 mL/min (>60); Globulin 3.5 g/dL (1.7-4.1); Glucose 113 mg/dL (80-110); Lipase 138 U/L (23-300); Magnesium 1.9 mg/dL (1.6-2.3); Potassium 4.2 mmol/L (3.4-5.1); Sodium 136 mmol/L (137-145); Total Protein 7.6 g/dL (6.3-8.2)
[2022-10-09 19:20] LABS: Troponin I < 0.012 ng/mL (0.01-0.034)
--- NOTE | 2022-10-09 19:23 | ED_ITS ---
HPI - General Adult General Chief complaint: Hypertension Stated complaint: Hx heart issues, High BP Time Seen by Provider: 10/09/22 18:56 Source: patient Mode of arrival: Family Vehicle Limitations: no limitations History of Present Illness HPI narrative: 72-year-old male who does have a history of high blood pressure. Also has a history of coronary artery disease and status post coronary artery bypass graft is here for evaluation of about a month of shortness of breath on exertion and lower extremity swelling. He also states that since this morning he has not had chest discomfort but has not necessarily felt very well. He also had some tingling in his right arm. No cough. No headache. No diaphoresis. No skin rashes. He took his blood pressure at home and it was ?elevated? he has taken his blood pressure medicines today. He is currently asymptomatic at the time of my exam. Related Data Home Medications Medication Instructions Recorded Confirmed ResMed AirSense 10 CPAP #1 ea 12/02/18 09/19/22 Previous Rx's Medication Instructions Recorded clopidogrel 75 mg tablet 75 mg PO QDAY #90 tabs 10/18/19 acetaminophen 325 mg tablet 650 mg PO TID #40 tabs 08/02/20 amlodipine 5 mg tablet 5 mg PO DAILY #90 tabs 01/10/22 ezetimibe 10 mg tablet 10 mg PO .am #90 tabs 02/17/22 furosemide 20 mg tablet 30 mg PO DAILY #135 tabs 02/17/22 rosuvastatin 40 mg tablet 40 mg PO .nightly #90 tabs 02/17/22 losartan 50 mg tablet 50 mg PO .nightly #90 tabs 03/18/22 spironolactone 25 mg tablet 25 mg PO BID #180 tabs 07/17/22 Allergies Allergy/AdvReac Type Severity Reaction Status Date / Time aspirin [ASPIRIN] Allergy Mild FACIAL Verified 10/09/22 18:14 EDEMA atenolol [ATENOLOL] Allergy Mild HIVES Verified 10/09/22 18:14 Review of Systems Constitutional Constitutional: Reports system reviewed and no additional complaints, except as documented Cardiovascular Cardiovascular: Reports system reviewed and no additional complaints, except as documented Respiratory Respiratory: Reports system reviewed and no additional complaints, except as documented Gastrointestinal Gastrointestinal: Reports system reviewed and no additional complaints, except as documented Integumentary/Breasts Skin/Breast: Reports system reviewed and no additional complaints, except as documented Neurologic Neurologic: Reports system reviewed and no additional complaints, except as documented Hematologic/Lymphatic On Anticoagulants: No Patient History Medical History BMI 39.0-39.9,adult Chicken pox (~1982) Excessive daytime sleepiness Hyperlipidemia (~1997) Hypertension Idiopathic peripheral neuropathy Morbid obesity with BMI of 40.0-44.9, adult Obstructive sleep apnea of adult Osteoarthritis Postoperative pain of left knee Primary insomnia Screen for colon cancer Sleep apnea (~1999) Snoring Solitary pulmonary nodule Surgical History History of arthroplasty of left knee (03/14/20) History of arthroplasty of right knee (~07/2020) History of sinus surgery (~03/2003) History of vasectomy (1977) Hx of hand surgery Hx of tonsillectomy (2004) Status post coronary artery bypass graft (~10/2010) Family History Brother Age: 65 Hypertension Father Hypertension High cholesterol Mother Diabetes mellitus Hypertension Social History marital status: details: khrai Dukes, lives in [place] household members: spouse lives independently: Yes caregiver/support person: No housing: house other: has been taking care of his young grandson during the work-week Smoking Status: Former smoker alcohol intake: never substance use type: does not use Smoking Status: Former smoker tobacco type: cigarettes alcohol intake frequency: 0-2 drinks per day Substance Use Type: does not use Exam Initial Vital Signs Initial Vital Signs: Vital Signs Temperature 98.4 F 10/09/22 18:14 Pulse Rate 92 H 10/09/22 18:14 Respiratory Rate 18 10/09/22 18:14 Blood Pressure 180/79 H 10/09/22 18:14 Pulse Oximetry 98 10/09/22 18:14 Oxygen Delivery Method 10/09/22 18:14 Const General: cooperative and comfortable HENMT Head: normal to inspection and normocephalic Resp Effort & Inspection: normal respiratory effort Auscultation: clear to auscultation bilaterally Cardio Rate: regular rate Rhythm: regular rhythm GI Inspection: normal to inspection Skin General: no rashes or lesions noted Neuro General: patient alert, patient awake and moves all extremities Extrem General: edema (Mild pitting edema bilateral lower extremities) Course Orders Ordered: ED Orders 10/09/22 18:22 XR chest 1V Stat EKG-12 Lead Stat 10/09/22 18:25 Complete Blood Count AUTO DIFF Stat Comprehensive Metabolic Panel Stat Lipase Stat Magnesium Stat Partial Thromboplastin Time Stat Prothrombin Time INR Stat Troponin & CK Cardiac Panel Stat Vital Signs Vital signs: Vital Signs - 8 hr 10/09/22 18:14 10/09/22 18:46 10/09/22 18:47 Temperature 98.4 F Pulse Rate 92 H 93 H Respiratory Rate 18 Blood Pressure 180/79 H 162/70 H Pulse Oximetry 98 98 Oxygen Delivery Method Room Air Oxygen Flow Rate 10/09/22 18:47 10/09/22 19:00 10/09/22 19:00 Temperature Pulse Rate 94 H 77 Respiratory Rate 17 Blood Pressure 165/74 H Pulse Oximetry 98 99 Oxygen Delivery Method Oxygen Flow Rate 10/09/22 19:30 10/09/22 19:30 10/09/22 20:00 Temperature Pulse Rate 62 Respiratory Rate 10 L Blood Pressure 141/62 H 158/74 H Pulse Oximetry 99 Oxygen Delivery Method Oxygen Flow Rate 10/09/22 20:00 10/09/22 20:15 10/09/22 20:15 Temperature Pulse Rate 66 66 Respiratory Rate 16 25 H Blood Pressure 153/68 H Pulse Oximetry 99 100 Oxygen Delivery Method Oxygen Flow Rate 10/09/22 20:22 Temperature Pulse Rate 64 Respiratory Rate 16 Blood Pressure 153/68 H Pulse Oximetry 100 Oxygen Delivery Method Room Air Oxygen Flow Rate 97.4 Medical Decision Making Lab Data Lab results reviewed: Yes I reviewed the patient's lab results. Result diagrams: 10/09/22 18:25 10/09/22 18:25 Labs: Lab Results 10/09/22 10/09/22 10/09/22 Range/Units 18:25 18:25 18:25 WBC 10.3 (4.5-11.0) X10^3/uL RBC 4.84 (4.5-5.9) X10^6/uL Hgb 14.4 (13.5-17.5) g/dL Hct 42.3 (41-53) % MCV 87.3 (80-100) fL MCH 29.7 (26-34) PG MCHC 34.0 (30-36) % RDW 13.4 (11.6-14.8) % Plt Count 248 (150-400) X10^3/uL Neut % (Auto) 69.0 (50-75) % Lymph % (Auto) 17.6 L (25-40) % Weld % (Auto) 9.4 (3-14) % Eos % (Auto) 2.5 (2-4) % Baso % (Auto) 1.5 (0-2) % Neut # (Auto) 7100 H (9021-4632) /uL Lymph # (Auto) 1800 (0838-5672) /uL Weld # (Auto) 1000 H (0-900) /uL Eos # (Auto) 300 (0-450) /uL Baso # (Auto) 200 H (0-100) /uL PT 12.0 (10.1-12.7) SECONDS INR 1.0 (0.9-1.3) APTT 34 (26-36) SECONDS Sodium 136 L (137-145) mmol/L Potassium 4.2 (3.4-5.1) mmol/L Chloride 102 (98-107) mmol/L Carbon Dioxide 24 (22-32) mmol/L BUN 29 H (9-20) mg/dL Creatinine 0.99 (0.66-1.25) mg/dL Estimated GFR > 60 (>60) mL/min BUN/Creatinine Ratio 29.3 H (6-22) Glucose 113 H (80-110) mg/dL Calcium 8.6 (8.4-10.2) mg/dL Magnesium 1.9 (1.6-2.3) mg/dL Total Bilirubin 0.5 (0.2-1.3) mg/dL AST 33 (17-59) IU/L ALT 34 (<50) IU/L Alkaline Phosphatase 84 (38-126) U/L Total Creatine Kinase 111 (55-170) U/L CK-MB (CK-2) 1.41 (<2.37) ng/mL CK-MB (CK-2) Rel Index 1.3 L (1.5-5.0) % Troponin I < 0.012 (0.01-0.034) ng/mL Total Protein 7.6 (6.3-8.2) g/dL Albumin 4.1 (3.5-5.0) g/dL Globulin 3.5 (1.7-4.1) g/dL Albumin/Globulin Ratio 1.2 (1.0-2.8) Lipase 138 (23-300) U/L Imaging Data Chest x-ray: Radiologist's Impression: [address] [address] XRay Report Signed Patient: Pierce Patel MR#: [id number] : 1950 Acct:[id number] Age/Sex: 72 / M Date of Service: 10/09/22 Loc: ED Accession Number: [id number] ?? Procedure: XR chest 1V Ordering Provider: Rivas Crespo D.O. PROCEDURE:? XR CHEST 1V ? INDICATIONS:? chest pain ? TECHNIQUE:? One view of the chest was acquired.? ? COMPARISON:? [facility], , CHEST 2 VIEW, 06/21/2014, 11:08. ? FINDINGS:? ? Surgical changes and devices:? Median sternotomy wires are present and appear intact. ? Lungs and pleura:? Lungs are clear.? No pleural effusions or pneumothorax.? ? Mediastinum:? Mediastinal contours appear normal.? Heart size is normal.? ? Bones and chest wall:? No suspicious bony lesions.? Overlying soft tissues appear unremarkable.? ? IMPRESSION:? Stable radiographic evaluation of the chest without acute cardiopulmonary abnormalities or focal airspace disease. ? Dictated by: Thaddeus Worley M.D. on 10/09/2022 at 18:58 ? ? Approved by: Thaddeus Worley M.D. on 10/09/2022 at 18:58?? ECG Data Attestation: I personally reviewed and interpreted this ECG as follows: Interpretation: Sinus rhythm Normal axis Normal QRS Normal QTC No ST T wave changes MDM Narrative Medical decision making narrative: Patient has no chest pain. EKG is unremarkable. Chest x-ray shows no signs of heart failure. He is not clinically in heart failure. His labs unremarkable. Troponin is negative greater than 6 hours of the onset of symptoms. Blood pressure improved without specific intervention here in the ER. We did discuss his blood pressure with him and family at bedside. We discussed how he should b e taking his blood pressure at home. 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 An echocardiogram from 1 year ago shows an ejection fraction of 60-65%. Discharge patient home with instructions to contact his primary doctor and also his brass wind instruments tube bender. He was given return precautions. He expressed understanding and agreement. Discharge Plan Departure Patient Disposition: Home Clinical Impression: Hypertension, Atypical chest pain Instructions: DI for High Blood Pressure Activity Restrictions/Additional Instructions: I do recommend that you continue to take all of your medications as directed. Contact your brass wind instruments tube bender and your primary doctor for a follow-up. Return to the emergency department for any new or worsening symptoms. Prescriptions: No Action amlodipine 5 mg tablet 5 mg PO DAILY Qty: 90 1RF furosemide 20 mg tablet 30 mg PO DAILY Qty: 135 0RF ezetimibe 10 mg tablet 10 mg PO .am Qty: 90 0RF rosuvastatin 40 mg tablet 40 mg PO .nightly Qty: 90 0RF losartan 50 mg tablet 50 mg PO .nightly Qty: 90 3RF spironolactone 25 mg tablet 25 mg PO BID Qty: 180 1RF clopidogrel 75 mg tablet 75 mg PO QDAY Qty: 90 3RF acetaminophen 325 mg Tablet 650 mg PO TID Qty: 40 0RF (DME) ResMed AirSense 10 CPAP Qty: 1 Dose Instruction: As directed Label Comments: Pressure: 10-18 cmH2O DME: [facility] Rx Instructions: As directed Referrals: Aquilino Phillips DO [Primary Care Provider] - Stand Alone Forms: Patient Portal/API
[2022-10-09 19:25] LABS: CKMB % Relative Index 1.3 % (1.5-5.0); Creatine Kinase MB 1.41 ng/mL (<2.37); HEMOLYSIS 31 (0-50)
== END 2022-10-09 20:23 | disposition home or self-care (01) ==
PROVIDERS: Emergency Provider Emergency Medicine; Family Provider Family Medicine; PCP Family Medicine
DX: I10 Essential (primary) hypertension (principal); R07.89 Other chest pain; Z79.899 Other long term (current) drug therapy
CPT/HCPCS: 71045; 80053; 82550; 82553; 83690; 83735; 84484; 85025; 85610; 85730; 93005; 93010; 99283; 99284

== ENCOUNTER 2023-01-01 14:30 | Outpatient (RCR) | payer MEDICARE, OTHER, SELFPAY ==
[2020-08-01 14:19] VITALS: BMI 43.8
--- NOTE | 2022-11-10 15:21 | PT.OIE ---
Current Diagnoses Other acute postprocedural pain (11/10/22) Pain in left knee (11/10/22) Difficulty in walking, not elsewhere classified (11/10/22) Weakness (11/10/22) Past Medical History (Last Reviewed 10/09/22 @ 20:52 by Rivas Crespo DO) BMI 39.0-39.9,adult Chicken pox (~1982) Excessive daytime sleepiness Hyperlipidemia (~1997) Hypertension Idiopathic peripheral neuropathy Morbid obesity with BMI of 40.0-44.9, adult Obstructive sleep apnea of adult Osteoarthritis Postoperative pain of left knee Primary insomnia Screen for colon cancer Sleep apnea (~1999) Snoring Solitary pulmonary nodule Past Surgical History (Last Reviewed 11/19/21 @ 09:30 by Jesus Marcos MD) History of arthroplasty of left knee (03/14/20) History of arthroplasty of right knee (~07/2020) History of sinus surgery (~03/2003) History of vasectomy (1977) Hx of hand surgery Hx of tonsillectomy (2004) Status post coronary artery bypass graft (~10/2010) Visit Care Team Role Provider Type Aquilino Phillips DO Attending Provider Physician Family Provider Primary Care Provider Referring Provider Specialty: [facility] Practice Address: [address] [place] [address] Email: Physical Therapy Initial Evaluation PT-OP-A Visit Information Start: 11/10/22 14:37 Freq: Status: Active Protocol: Document 11/10/22 14:39 [facility] (Rec: 11/10/22 15:20 [facility] [id number]) Out-Patient Physical Therapy Visit Information Visit Information Visit Type Initial Evaluation Visit Note 10/14 Visit Start Time 14:37 Visit Stop Time 15:15 Total Visit Minutes 38 Visit Number 1 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 B feet get really cold when sitting around. Knees can give him a little bit of trouble with going down stairs w/ load. He will cramp up in distal HS but discomfort doesn't cross knee or go up thigh. Denies back pain. He has arthritis in his back and had therapy for that and that helped. He started to feel it again a few months ago and he started doing his exercises again and that helped. He can only walk about 12 steps before L HS cramps up and has to bend/straighten knees. He was doing 5 miles before TKA a few years ago then got back up to 2-3 miles. He had done some1/2 mile to the [facility] and has to stop about 17 times. He hasn't been doing the 1/2 mile walk even recently d/t the discomfort. Treatment Goals Patient/Caregiver Goals Be able to get back to walking PT-OP-C Subjective Start: 11/10/22 14:37 Freq: Status: Active Protocol: Document 11/10/22 14:39 [facility] (Rec: 11/10/22 15:20 [facility] [id number]) OP-PT Pain Assessment Location L distal HS Intensity 8 Scale Used Numeric (0 - 10) Description Cramping Frequency Intermittent Pain Duration seconds if stops and bends/ straights leg and unloads Pain Aggravating Factors Walking,Stair Climbing Other Pain Alleviating Factors take wt off and bend knee, PT-OP-D Balance Start: 11/10/22 14:37 Freq: Status: Active Protocol: Document 11/10/22 14:39 [facility] (Rec: 11/10/22 15:20 [facility] [id number]) Balance Tests Single Limb Standing Single Limb- Right 14 sec Single Limb- Left 2 sec PT-OP-F Manual Assessment Start: 11/10/22 14:37 Freq: Status: Active Protocol: Document 11/10/22 14:39 [facility] (Rec: 11/10/22 15:20 [facility] [id number]) Manual Assessments Soft Tissue Assessment Soft Tissue Mobility Assessment no reported tenderness w/ palpation but iTB and HS tightness noted L Joint Mobility Assessment Joint Mobility Assessment stands in ER of tibia nd femur on L: R more neutral: w/knee bending L tib & femur go into IR, R goes into less IR; L>R ER of foot in standing w/ rearfoot and forefoot valgus L >R PT-OP-G Mobility & Gait Start: 11/10/22 14:37 Freq: Status: Active Protocol: Document 11/10/22 14:39 [facility] (Rec: 11/10/22 15:20 [facility] [id number]) OP Gait Assessment Comments Gait Comments LLE turns out more, harder step onto LLE d/t dec ant dep PT-OP-K Range of Motion Start: 11/10/22 14:37 Freq: Status: Active Protocol: Document 11/10/22 14:39 [facility] (Rec: 11/10/22 15:20 [facility] [id number]) Knee Goniometric Range of Motion Knee Right Flexion Active (degrees) 110 Extension Active (degrees) 1 Left Flexion Active (degrees) 109 Extension Active (degrees) 2 PT-OP-L Special Tests Start: 11/10/22 14:37 Freq: Status: Active Protocol: Document 11/10/22 14:39 [facility] (Rec: 11/10/22 15:20 [facility] [id number]) Special Tests Lumbar Spine Special Tests Slump Test Results neg Knee Special Tests Gina's Test Test Results neg L ligamentous stability Test Results neg 4 way L Straight Leg Raise Test Results 50 deg L; 56 R PT-OP-M Strength Start: 11/10/22 14:37 Freq: Status: Active Protocol: Document 11/10/22 14:39 [facility] (Rec: 11/10/22 15:20 [facility] [id number]) Hip Strength Hip Manual Muscle Testing Right Flexion (L2) 4 Good Extension (S1) 3- Fair- Abduction 4 Good Adduction 5 Normal External Rotation 4+ Good+ Internal Rotation 4+ Good+ Left Flexion (L2) 4- Good- Extension (S1) 4+ Good+ Abduction 4 Good Adduction 5 Normal External Rotation 4- Good- Internal Rotation 4 Good Knee Strength Knee Manual Muscle Testing Right Flexion (S2) 5 Normal Extension (L3) 5 Normal Left Flexion (S2) 4 Good Extension (L3) 4+ Good+ Ankle/Foot Strength Ankle and Foot Manual Muscle Testing Right Dorsiflexion (L4) 5 Normal Plantarflexion (S1) 5 Normal Comments 20 heel raises Left Dorsiflexion (L4) 5 Normal Plantarflexion (S1) 5 Normal Comments requires cues to keep knee straight w/heel raises-20 PT-OP-Q Treatments Start: 11/10/22 14:37 Freq: Status: Active Protocol: Document 11/10/22 14:39 [facility] (Rec: 11/10/22 15:20 [facility] [id number]) Therapeutic Exercises Supine Exercises SLR Side bilateral Reps/Minutes 10 Comments cues for core active HS stretch Side left Reps/Minutes 5-10 sec holds x10 PT-OP-T Assessment and Plan Start: 11/10/22 14:37 Freq: Status: Active Protocol: Document 11/10/22 14:39 [facility] (Rec: 11/10/22 15:20 [facility] [id number]) Physical Therapy Assessment Rehab Potential Rehabilitation Potential Good Evaluation Complexity Number of Personal Factors/Comorbidities 3 or More Number of Body Systems Impaired 4 or More Clinical Presentation at Evaluation Evolving Impairments Impairments Activity Tolerance,Balance, Functional Activities,Gait, Pain,Posture,ROM,Soft Tissue Mobility,Strength Goals balance [facility] Goal (LTG) Pt will show ability to do SLS for 10 sec on L side LTG Duration 02/02/23 strength Short Term Goal (STG) Pt will be indep w/HEP STG Duration 12/22/21 [facility] Goal (LTG) Pt will score at least 4+/5 on all LE MMT B to improve strength to improve pt ability walk. LTG Duration 02/02 walking Short Term Goal (STG) Pt will be able to walk 1/2 to [facility] w/o having to stp to stretch more than 3 times. STG Duration 12/22/22 [employer] Techn[employer] Goal (LTG) Pt will b eable to return to 1 -2 mile walks w/o inc pain LTG Duration 02/02 Assessment Summary Assessment Pt presents w/insideous onset of L distal HS discomfort when walking which has limited his ability to amb. He currently is not walking much d/t this pain, but would typically walk a few miles consistantly. He notes some knee pain w/heavy loads on stairs but otherwise knees feel okay. He does have LLE dysfuntional movement patterns w/gait and in standing posture and would bneeift from skilled PT to improve function and dc pain. Physical Therapy Plan Frequency and Duration Frequency of Treatment 1-2x/week Duration of treatment (weeks) 12 Plan of Care Start Date 11/10/22 Plan of Care End Date 02/02/23 Therapeutic Interventions Therapeutic Interventions Aquatic Therapy,Balance Training,Gait Training,Home Exercise Program,Joint Mobilizations,Manual Therapy, Neuromuscular Re-education, Orthotic/Prosthetic Management ,Patient/Caregiver Education, Self-Care/Home Management,Soft Tissue Mobilization,Taping, Therapeutic Activities, Therapeutic Exercises Modalities Cold Pack/Ice Massage,Electric Stimulation,Hot Packs, Infrared Therapy,Iontophoresis ,Ultrasound Next Visit Focus/Plan Next Note Type Treatment Note
--- NOTE | 2022-11-10 15:21 | PT.OPPOC ---
Physical, Occupational & Speech Therapy At [facility] Current Diagnoses Other acute postprocedural pain (11/10/22) Pain in left knee (11/10/22) Difficulty in walking, not elsewhere classified (11/10/22) Weakness (11/10/22) Visit Care Team Role Provider Type Aquilino Phillips DO Attending Provider Physician Family Provider Primary Care Provider Referring Provider Specialty: Family Practice Address: [address] [place] [address], [facility] Email: Plan Of Care PT-OP-T Assessment and Plan Start: 11/10/22 14:37 Freq: Status: Active Protocol: Document 11/10/22 14:39 [facility] (Rec: 11/10/22 15:20 [facility] [id number]) Physical Therapy Assessment Rehab Potential Rehabilitation Potential Good Evaluation Complexity Number of Personal Factors/Comorbidities 3 or More Number of Body Systems Impaired 4 or More Clinical Presentation at Evaluation Evolving Impairments Impairments Activity Tolerance,Balance, Functional Activities,Gait, Pain,Posture,ROM,Soft Tissue Mobility,Strength Goals balance Beating Machine Operator Goal (LTG) Pt will show ability to do SLS for 10 sec on L side LTG Duration 02/02/23 strength Short Term Goal (STG) Pt will be indep w/HEP STG Duration 12/22/21 Beating Machine Operator Goal (LTG) Pt will score at least 4+/5 on all LE MMT B to improve strength to improve pt ability walk. LTG Duration 02/02 walking Short Term Goal (STG) Pt will be able to walk 1/2 to congregation w/o having to stp to stretch more than 3 times. STG Duration 12/22/22 Senior Living Goal (LTG) Pt will b eable to return to 1 -2 mile walks w/o inc pain LTG Duration 02/02 Assessment Summary Assessment Pt presents w/insideous onset of L distal HS discomfort when walking which has limited his ability to amb. He currently is not walking much d/t this pain, but would typically walk a few miles consistantly. He notes some knee pain w/heavy loads on stairs but otherwise knees feel okay. He does have LLE dysfuntional movement patterns w/gait and in standing posture and would bneeift from skilled PT to improve function and dc pain. Physical Therapy Plan Frequency and Duration Frequency of Treatment 1-2x/week Duration of treatment (weeks) 12 Plan of Care Start Date 11/10/22 Plan of Care End Date 02/02/23 Therapeutic Interventions Therapeutic Interventions Aquatic Therapy,Balance Training,Gait Training,Home Exercise Program,Joint Mobilizations,Manual Therapy, Neuromuscular Re-education, Orthotic/Prosthetic Management ,Patient/Caregiver Education, Self-Care/Home Management,Soft Tissue Mobilization,Taping, Therapeutic Activities, Therapeutic Exercises Modalities Cold Pack/Ice Massage,Electric Stimulation,Hot Packs, Infrared Therapy,Iontophoresis ,Ultrasound Next Visit Focus/Plan Next Note Type Treatment Note Plan of Care Dates Plan of Care Start Date 11/10/22 Plan of Care End Date 02/02/23 Electronically Signed by: Kalyani Gonzalez, PT 11/10/22 1076 If you are in agreement with this Plan of Care, please return a signed and dated copy. I have reviewed this Plan of Care and certify that the skilled therapy services above are required to meet the patient?s needs. Physician Signature Date Printed Name and Credentials Clinical Instructor Signature Printed Name and Credentials
--- NOTE | 2022-11-12 11:15 | PT.OTN ---
Current Diagnoses Other acute postprocedural pain (11/12/22) Pain in left knee (11/12/22) Difficulty in walking, not elsewhere classified (11/12/22) Weakness (11/12/22) Physical Therapy Treatment Note PT-OP-A Visit Information Start: 11/10/22 14:37 Freq: Status: Active Protocol: Document 11/12/22 10:30 [facility] (Rec: 11/12/22 11:15 [facility] [id number]) Out-Patient Physical Therapy Visit Information Visit Information Visit Type Treatment Note Visit Note 11/14 Visit Start Time 10:33 Visit Stop Time 11:13 Total Visit Minutes 40 Visit Number 2 Number of NETWORK ADMINISTRATOR Visits 0 PT-OP-B Current Condition Start: 11/10/22 14:37 Freq: Status: Active Protocol: Document 11/10/22 14:39 [facility] (Rec: 11/10/22 15:20 [facility] [id number]) Current Condition History of Current Condition Onset Date few months ago Current Complaints L post thigh (distal HS) History of Current Condition 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 B feet get really cold when sitting around. Knees can give him a little bit of trouble with going down stairs w/ load. He will cramp up in distal HS but discomfort doesn't cross knee or go up thigh. Denies back pain. He has arthritis in his back and had therapy for that and that helped. He started to feel it again a few months ago and he started doing his exercises again and that helped. He can only walk about 12 steps before L HS cramps up and has to bend/straighten knees. He was doing 5 miles before TKA a few years ago then got back up to 2-3 miles. He had done some1/2 mile to the [employer] and has to stop about 17 times. He hasn't been doing the 1/2 mile walk even recently d/t the discomfort. Treatment Goals Patient/Caregiver Goals Be able to get back to walking PT-OP-C Subjective Start: 11/10/22 14:37 Freq: Status: Active Protocol: Document 11/12/22 10:30 [facility] (Rec: 11/12/22 11:15 [facility] [id number]) OP-PT Subjective Patient Comments Patient Comments reports he is getting used ot his hearing aides still PT-OP-D Balance Start: 11/10/22 14:37 Freq: Status: Active Protocol: Document 11/10/22 14:39 [facility] (Rec: 11/10/22 15:20 [facility] [id number]) Balance Tests Single Limb Standing Single Limb- Right 14 sec Single Limb- Left 2 sec PT-OP-F Manual Assessment Start: 11/10/22 14:37 Freq: Status: Active Protocol: Document 11/10/22 14:39 [facility] (Rec: 11/10/22 15:20 [facility] [id number]) Manual Assessments Soft Tissue Assessment Soft Tissue Mobility Assessment no reported tenderness w/ palpation but iTB and HS tightness noted L Joint Mobility Assessment Joint Mobility Assessment stands in ER of tibia nd femur on L: R more neutral: w/knee bending L tib & femur go into IR, R goes into less IR; L>R ER of foot in standing w/ rearfoot and forefoot valgus L >R PT-OP-G Mobility & Gait Start: 11/10/22 14:37 Freq: Status: Active Protocol: Document 11/10/22 14:39 [facility] (Rec: 11/10/22 15:20 [facility] [id number]) OP Gait Assessment Comments Gait Comments LLE turns out more, harder step onto LLE d/t dec ant dep PT-OP-K Range of Motion Start: 11/10/22 14:37 Freq: Status: Active Protocol: Document 11/10/22 14:39 [facility] (Rec: 11/10/22 15:20 [facility] [id number]) Knee Goniometric Range of Motion Knee Right Flexion Active (degrees) 110 Extension Active (degrees) 1 Left Flexion Active (degrees) 109 Extension Active (degrees) 2 PT-OP-L Special Tests Start: 11/10/22 14:37 Freq: Status: Active Protocol: Document 11/10/22 14:39 [facility] (Rec: 11/10/22 15:20 [facility] [id number]) Special Tests Lumbar Spine Special Tests Slump Test Results neg Knee Special Tests Gina's Test Test Results neg L ligamentous stability Test Results neg 4 way L Straight Leg Raise Test Results 50 deg L; 56 R PT-OP-M Strength Start: 11/10/22 14:37 Freq: Status: Active Protocol: Document 11/10/22 14:39 [facility] (Rec: 11/10/22 15:20 [facility] [id number]) Hip Strength Hip Manual Muscle Testing Right Flexion (L2) 4 Good Extension (S1) 3- Fair- Abduction 4 Good Adduction 5 Normal External Rotation 4+ Good+ Internal Rotation 4+ Good+ Left Flexion (L2) 4- Good- Extension (S1) 4+ Good+ Abduction 4 Good Adduction 5 Normal External Rotation 4- Good- Internal Rotation 4 Good Knee Strength Knee Manual Muscle Testing Right Flexion (S2) 5 Normal Extension (L3) 5 Normal Left Flexion (S2) 4 Good Extension (L3) 4+ Good+ Ankle/Foot Strength Ankle and Foot Manual Muscle Testing Right Dorsiflexion (L4) 5 Normal Plantarflexion (S1) 5 Normal Comments 20 heel raises Left Dorsiflexion (L4) 5 Normal Plantarflexion (S1) 5 Normal Comments requires cues to keep knee straight w/heel raises-20 PT-OP-Q Treatments Start: 11/10/22 14:37 Freq: Status: Active Protocol: Document 11/12/22 10:30 [facility] (Rec: 11/12/22 11:15 [facility] [id number]) Cardio Equipment Bicycle (Upright) Duration (Minutes) 5 Resistance 8-10 Seat Position 7 Gym Equipment Shuttle Recovery Bilateral Squats Resistance 75# Shuttle Recovery Platform Stable Reps/Time 15 Therapeutic Exercises Supine Exercises bridge Side bilateral Reps/Minutes 5 sec x10 SLR Side bilateral Reps/Minutes 10 Comments cues for core active HS stretch Side left Reps/Minutes 5-10 sec holds x8 Sitting Exercises HS curl Side left Equipment Used L2 Reps/Minutes 15 Comments attempted L3 but felt cramping feeling Standing Exercises hip ext Standing Exercise Name bent over to counter w/back straight Side bilateral Equipment Used lvl 1 Reps/Minutes 10 Comments cues for neutral spine position stretch Standing Exercise Name fwd lean calf Side bilateral Reps/Minutes 30 sec ea squats Standing Exercise Name sit to stands w/o hands w/cues for foot position & control Side bilateral Reps/Minutes 15 Manual Therapy Treatment Soft Tissue Mobilization ITB Body Location L Mobilization Type Rolling Intensity/Depth Moderate Body Position Supine HS Body Location L Mobilization Type Rolling Intensity/Depth Moderate Body Position Hooklying Comments w/active ext PT-OP-T Assessment and Plan Start: 11/10/22 14:37 Freq: Status: Active Protocol: Document 11/12/22 10:30 [facility] (Rec: 11/12/22 11:15 [facility] [id number]) Physical Therapy Assessment Goals balance Skilled Nursing Goal (LTG) Pt will show ability to do SLS for 10 sec on L side LTG Duration 02/02/23 strength Short Term Goal (STG) Pt will be indep w/HEP STG Duration 12/22/21 Upsetter Helper Goal (LTG) Pt will score at least 4+/5 on all LE MMT B to improve strength to improve pt ability walk. LTG Duration 02/02 walking Short Term Goal (STG) Pt will be able to walk 1/2 to [employer] w/o having to stp to stretch more than 3 times. STG Duration 12/22/22 Upsetter Helper Goal (LTG) Pt will b eable to return to 1 -2 mile walks w/o inc pain LTG Duration 02/02 Assessment Summary Assessment Pt reports no pain during exercises but does note mm work. He did require cues for form throughout. Attempted L3 with HS curls but pt noted feeling cramping so dropped to L2 only. Physical Therapy Plan Frequency and Duration Frequency of Treatment 1-2x/week Duration of treatment (weeks) 12 Plan of Care Start Date 11/10/22 Plan of Care End Date 02/02/23 Next Visit Focus/Plan Next Note Type Treatment Note Next Visit Plan review exercises, Advance LE stability and strength, work more WB, red clips, manual to HS & knee
--- NOTE | 2022-11-17 15:17 | PT.OTN ---
Current Diagnoses Other acute postprocedural pain (11/17/22) Pain in left knee (11/17/22) Difficulty in walking, not elsewhere classified (11/17/22) Weakness (11/17/22) Physical Therapy Treatment Note PT-OP-A Visit Information Start: 11/10/22 14:37 Freq: Status: Active Protocol: Document 11/17/22 14:34 [facility] (Rec: 11/17/22 15:27 [facility] [id number]) Out-Patient Physical Therapy Visit Information Visit Information Visit Type Treatment Note Visit Note 12/12 Visit Start Time 14:34 Visit Stop Time 15:17 Total Visit Minutes 43 Visit Number 3 Number of CLAY MILLER Visits 1 PT-OP-B Current Condition Start: 11/10/22 14:37 Freq: Status: Active Protocol: Document 11/10/22 14:39 [facility] (Rec: 11/10/22 15:20 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 B feet get really cold when sitting around. Knees can give him a little bit of trouble with going down stairs w/ load. He will cramp up in distal HS but discomfort doesn't cross knee or go up thigh. Denies back pain. He has arthritis in his back and had therapy for that and that helped. He started to feel it again a few months ago and he started doing his exercises again and that helped. He can only walk about 12 steps before L HS cramps up and has to bend/straighten knees. He was doing 5 miles before TKA a few years ago then got back up to 2-3 miles. He had done some1/2 mile to the [place] and has to stop about 17 times. He hasn't been doing the 1/2 mile walk even recently d/t the discomfort. Treatment Goals Patient/Caregiver Goals Be able to get back to walking PT-OP-C Subjective Start: 11/10/22 14:37 Freq: Status: Active Protocol: Document 11/17/22 14:34 [facility] (Rec: 11/17/22 15:27 [facility] [id number]) OP-PT Subjective Patient Comments Patient Comments Pt reports was on the verge of soreness after last tx. 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 [place] 3 [place] up, 2 flights down PT-OP-D Balance Start: 11/10/22 14:37 Freq: Status: Active Protocol: Document 11/10/22 14:39 [facility] (Rec: 11/10/22 15:20 [facility] [id number]) Balance Tests Single Limb Standing Single Limb- Right 14 sec Single Limb- Left 2 sec PT-OP-F Manual Assessment Start: 11/10/22 14:37 Freq: Status: Active Protocol: Document 11/10/22 14:39 [facility] (Rec: 11/10/22 15:20 [facility] [id number]) Manual Assessments Soft Tissue Assessment Soft Tissue Mobility Assessment no reported tenderness w/ palpation but iTB and HS tightness noted L Joint Mobility Assessment Joint Mobility Assessment stands in ER of tibia nd femur on L: R more neutral: w/knee bending L tib & femur go into IR, R goes into less IR; L>R ER of foot in standing w/ rearfoot and forefoot valgus L >R PT-OP-G Mobility & Gait Start: 11/10/22 14:37 Freq: Status: Active Protocol: Document 11/10/22 14:39 [facility] (Rec: 11/10/22 15:20 [facility] [id number]) OP Gait Assessment Comments Gait Comments LLE turns out more, harder step onto LLE d/t dec ant dep PT-OP-K Range of Motion Start: 11/10/22 14:37 Freq: Status: Active Protocol: Document 11/10/22 14:39 [facility] (Rec: 11/10/22 15:20 [facility] [id number]) Knee Goniometric Range of Motion Knee Right Flexion Active (degrees) 110 Extension Active (degrees) 1 Left Flexion Active (degrees) 109 Extension Active (degrees) 2 PT-OP-L Special Tests Start: 11/10/22 14:37 Freq: Status: Active Protocol: Document 11/10/22 14:39 [facility] (Rec: 11/10/22 15:20 [facility] [id number]) Special Tests Lumbar Spine Special Tests Slump Test Results neg Knee Special Tests Gina's Test Test Results neg L ligamentous stability Test Results neg 4 way L Straight Leg Raise Test Results 50 deg L; 56 R PT-OP-M Strength Start: 11/10/22 14:37 Freq: Status: Active Protocol: Document 11/10/22 14:39 [facility] (Rec: 11/10/22 15:20 [facility] [id number]) Hip Strength Hip Manual Muscle Testing Right Flexion (L2) 4 Good Extension (S1) 3- Fair- Abduction 4 Good Adduction 5 Normal External Rotation 4+ Good+ Internal Rotation 4+ Good+ Left Flexion (L2) 4- Good- Extension (S1) 4+ Good+ Abduction 4 Good Adduction 5 Normal External Rotation 4- Good- Internal Rotation 4 Good Knee Strength Knee Manual Muscle Testing Right Flexion (S2) 5 Normal Extension (L3) 5 Normal Left Flexion (S2) 4 Good Extension (L3) 4+ Good+ Ankle/Foot Strength Ankle and Foot Manual Muscle Testing Right Dorsiflexion (L4) 5 Normal Plantarflexion (S1) 5 Normal Comments 20 heel raises Left Dorsiflexion (L4) 5 Normal Plantarflexion (S1) 5 Normal Comments requires cues to keep knee straight w/heel raises-20 PT-OP-Q Treatments Start: 11/10/22 14:37 Freq: Status: Active Protocol: Document 11/17/22 14:34 [facility] (Rec: 11/17/22 15:27 [facility] [id number]) Cardio Equipment Bicycle (Upright) Duration (Minutes) 5 Resistance 9 Seat Position 7 Gym Equipment Shuttle Recovery unilateral squat Details cued //feet, slow eccentric control Resistance 37# (1 new band) Shuttle Recovery Platform Stable Reps/Time x15 each LE Bilateral Squats Details cued //feet, eccentric control Resistance 75# (1 new band) Shuttle Recovery Platform Stable Reps/Time x20 Shuttle Balance red Details WBOS, NBOS, Stagger (lateral next tx) Reps/Duration 8 min Comments 1. wt shift 2. HTs 3. EC- WBOS only CG-5% A up to 14 sec. Therapeutic Exercises Supine Exercises bridge Side bilateral Equipment Used forefoot on 1/2 foam roller- inhibit calf recruitment Reps/Minutes 5 sec x10 Comments quad, glut fac work SLR Supine Exercise Name reviewed HEP Side bilateral Reps/Minutes 10 Comments cues for quad set prep, core/ PPT/TA before lift, not higher opp LE Sitting Exercises HS stretch Sitting Exercise Name initiated in PT Side bilateral Resistance each LE Reps/Minutes 30 Comments cued straight back, hip hinge self STMs Sitting Exercise Name added to HEP as needed: quad, HS, ITB, adductor, calf Side bilateral Reps/Minutes 3 min total Comments good feedback, improved decrease tension superior patella quad HS curl Sitting Exercise Name trialed in PT, alternative to supine Side left Resistance L2>3 (provided TB #3 home next tx) Equipment Used mesh chair Reps/Minutes 15 Comments good stretch, cued slow gentle straight back hip hinge fwd stretch Standing Exercises eccentric calf raises Resistance bottom step Equipment Used B HRs Reps/Minutes x10 squats Standing Exercise Name sit to stands w/o hands w/cues for foot position & control Side bilateral Equipment Used from mesh chair Reps/Minutes 15 Comments cued try //feet, need hip hinge slow descend PT-OP-T Assessment and Plan Start: 11/10/22 14:37 Freq: Status: Active Protocol: Document 11/17/22 14:34 [facility] (Rec: 11/17/22 15:27 [facility] [id number]) Physical Therapy Assessment Goals balance Long-Term Goal (LTG) Pt will show ability to do SLS for 10 sec on L side LTG Duration 02/02/23 strength Short Term Goal (STG) Pt will be indep w/HEP STG Duration 12/22/21 Conditioning Coach Goal (LTG) Pt will score at least 4+/5 on all LE MMT B to improve strength to improve pt ability walk. LTG Duration 02/02 walking Short Term Goal (STG) Pt will be able to walk 1/2 to [employer] w/o having to stp to stretch more than 3 times. STG Duration 12/22/22 Long-Term Goal (LTG) Pt will b eable to return to 1 -2 mile walks w/o inc pain LTG Duration 02/02 Assessment Summary Assessment Pt responded well to ther ex, seated HS stretch and self STMs with rolling pin for massage distal quad decreased tightness. Good wt shift WB into each LE on shuttle recovery today, able complete HTs CG-Min A. Physical Therapy Plan Frequency and Duration Frequency of Treatment 1-2x/week Duration of treatment (weeks) 12 Plan of Care Start Date 11/10/22 Plan of Care End Date 02/02/23 Therapeutic Interventions Therapeutic Interventions Aquatic Therapy,Balance Training,Gait Training,Home Exercise Program,Joint Mobilizations,Manual Therapy, Neuromuscular Re-education, Orthotic/Prosthetic Management ,Patient/Caregiver Education, Self-Care/Home Management,Soft Tissue Mobilization,Taping, Therapeutic Activities, Therapeutic Exercises Modalities Cold Pack/Ice Massage,Electric Stimulation,Hot Packs, Infrared Therapy,Iontophoresis ,Ultrasound Next Visit Focus/Plan Next Note Type Treatment Note Next Visit Plan Review HEP POC: Advance LE stability and strength, work more WB, manual to HS & knee
--- NOTE | 2022-11-21 15:16 | PT.OTN ---
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 B feet get really cold when sitting around. Knees can give him a little bit of trouble with going down stairs w/ load. He will cramp up in distal HS but discomfort doesn't cross knee or go up thigh. Denies back pain. He has arthritis in his back and had therapy for that and that helped. He started to feel it again a few months ago and he started doing his exercises again and that helped. He can only walk about 12 steps before L HS cramps up and has to bend/straighten knees. He was doing 5 miles before TKA a few years ago then got back up to 2-3 miles. He had done some1/2 mile to the [place] and has to stop about 17 times. He hasn't been doing the 1/2 mile walk even recently d/t the discomfort. Treatment Goals Patient/Caregiver Goals Be able to get back to walking PT-OP-C Subjective Start: 11/10/22 14:37 Freq: Status: Active Protocol: Document 11/21/22 14:35 SP (Rec: 11/21/22 16:03 SP [id number]) OP-PT Subjective Patient Comments Patient Comments Pt reports gets about 1/2 block before L quad starts to tighten up, shakes leg and then good to go for while distance. PT-OP-D Balance Start: 11/10/22 14:37 Freq: Status: Active Protocol: Document 11/10/22 14:39 [facility] (Rec: 11/10/22 15:20 [facility] [id number]) Balance Tests Single Limb Standing Single Limb- Right 14 sec Single Limb- Left 2 sec PT-OP-F Manual Assessment Start: 11/10/22 14:37 Freq: Status: Active Protocol: Document 11/10/22 14:39 [facility] (Rec: 11/10/22 15:20 [facility] [id number]) Manual Assessments Soft Tissue Assessment Soft Tissue Mobility Assessment no reported tenderness w/ palpation but iTB and HS tightness noted L Joint Mobility Assessment Joint Mobility Assessment stands in ER of tibia nd femur on L: R more neutral: w/knee bending L tib & femur go into IR, R goes into less IR; L>R ER of foot in standing w/ rearfoot and forefoot valgus L >R PT-OP-G Mobility & Gait Start: 11/10/22 14:37 Freq: Status: Active Protocol: Document 11/10/22 14:39 [facility] (Rec: 11/10/22 15:20 [facility] [id number]) OP Gait Assessment Comments Gait Comments LLE turns out more, harder step onto LLE d/t dec ant dep PT-OP-K Range of Motion Start: 11/10/22 14:37 Freq: Status: Active Protocol: Document 11/10/22 14:39 [facility] (Rec: 11/10/22 15:20 [facility] [id number]) Knee Goniometric Range of Motion Knee Right Flexion Active (degrees) 110 Extension Active (degrees) 1 Left Flexion Active (degrees) 109 Extension Active (degrees) 2 PT-OP-L Special Tests Start: 11/10/22 14:37 Freq: Status: Active Protocol: Document 11/10/22 14:39 [facility] (Rec: 11/10/22 15:20 [facility] [id number]) Special Tests Lumbar Spine Special Tests Slump Test Results neg Knee Special Tests Gina's Test Test Results neg L ligamentous stability Test Results neg 4 way L Straight Leg Raise Test Results 50 deg L; 56 R PT-OP-M Strength Start: 11/10/22 14:37 Freq: Status: Active Protocol: Document 11/10/22 14:39 LR (Rec: 11/10/22 15:20 [facility] [id number]) Hip Strength Hip Manual Muscle Testing Right Flexion (L2) 4 Good Extension (S1) 3- Fair- Abduction 4 Good Adduction 5 Normal External Rotation 4+ Good+ Internal Rotation 4+ Good+ Left Flexion (L2) 4- Good- Extension (S1) 4+ Good+ Abduction 4 Good Adduction 5 Normal External Rotation 4- Good- Internal Rotation 4 Good Knee Strength Knee Manual Muscle Testing Right Flexion (S2) 5 Normal Extension (L3) 5 Normal Left Flexion (S2) 4 Good Extension (L3) 4+ Good+ Ankle/Foot Strength Ankle and Foot Manual Muscle Testing Right Dorsiflexion (L4) 5 Normal Plantarflexion (S1) 5 Normal Comments 20 heel raises Left Dorsiflexion (L4) 5 Normal Plantarflexion (S1) 5 Normal Comments requires cues to keep knee straight w/heel raises-20 PT-OP-Q Treatments Start: 11/10/22 14:37 Freq: Status: Active Protocol: Document 11/21/22 14:35 SP (Rec: 11/21/22 16:03 SP [id number]) Cardio Equipment Bicycle (Upright) Duration (Minutes) 5 Resistance 9 Seat Position 7 Other 50 RPMs Gym Equipment Shuttle Recovery unilateral squat Details cued //feet, slow eccentric control Resistance 37# (1 new band) Shuttle Recovery Platform Stable Reps/Time x15 each LE Bilateral Squats Details cued //feet, good eccentric control Resistance 75# (1 new band) Shuttle Recovery Platform Stable Reps/Time x20 Therapeutic Exercises Supine Exercises bridge Side bilateral Equipment Used knees bent, feet flat on table Reps/Minutes x10 Comments didn't feel HS assist til last rep SLR Supine Exercise Name reviewed HEP Side bilateral Reps/Minutes 10- R quad quivering little last rep Comments cues for quad set prep, core/ PPT/TA before lift, not higher opp LE Sitting Exercises HS stretch Sitting Exercise Name warm up stretch pre walking Side bilateral Resistance each LE Reps/Minutes 30 Comments cued straight back, hip hinge Standing Exercises band walk Standing Exercise Name f/b/lateral Resistance RTB at mid green Equipment Used initiated in PT- recheck for HEP next tx Reps/Minutes 15 ft x 2 laps each Comments cued no trunk SB eccentric calf raises Resistance bottom step Equipment Used B HRs Reps/Minutes x10 Comments cued slow eccentric lower stretch stretch Standing Exercise Name ankle/knee mobility Side bilateral Equipment Used 16 box step, rail contact Reps/Minutes F/B wt shift x15 reps Comments cued slow ROM mobility squats Standing Exercise Name sit to stands w/o hands w/cues for foot position & control Side bilateral Equipment Used from mesh chair Reps/Minutes x5 reps before knees started irritate end tx Comments cued try //feet, need hip hinge slow descend Gait Training Gait Activity 6MWT Description baseline assessment Device Used 0 Level of Assistance S Surface tile/carpet Distance/Duration 565 ft in 3 min Treatment Focus endurance baseline, foot clearance, stride length Comments L distal quad/superior patella starts to tighten at 320 ft, needed 1 brief stop LLE swing/ shake out then tolerated up to 565 ft before noted decrease LLE stance time and viers of to L compensated gait. PT-OP-T Assessment and Plan Start: 11/10/22 14:37 Freq: Status: Active Protocol: Document 11/21/22 14:35 SP (Rec: 11/21/22 16:03 SP [id number]) Physical Therapy Assessment Goals balance Broom Handle Dipper Goal (LTG) Pt will show ability to do SLS for 10 sec on L side LTG Duration 02/02/23 strength Short Term Goal (STG) Pt will be indep w/HEP STG Duration 12/22/21 Broom Handle Dipper Goal (LTG) Pt will score at least 4+/5 on all LE MMT B to improve strength to improve pt ability walk. LTG Duration 02/02 walking Short Term Goal (STG) Pt will be able to walk 1/2 to [place] w/o having to stp to stretch more than 3 times. STG Duration 12/22/22 Broom Handle Dipper Goal (LTG) Pt will b eable to return to 1 -2 mile walks w/o inc pain LTG Duration 02/02 Assessment Summary Assessment Pt reported good muscle effort the L quad cramping happened earlier than on his walks, rolling pin helped little, no pain L knee until end tx last 5th rep STS. Cues for posturing, slow eccentric stepping during initiated band walk today. Pt reports decreased endurance gait in clinic as does at home. Physical Therapy Plan Frequency and Duration Frequency of Treatment 1-2x/week Duration of treatment (weeks) 12 Plan of Care Start Date 11/10/22 Plan of Care End Date 02/02/23 Therapeutic Interventions Therapeutic Interventions Aquatic Therapy,Balance Training,Gait Training,Home Exercise Program,Joint Mobilizations,Manual Therapy, Neuromuscular Re-education, Orthotic/Prosthetic Management ,Patient/Caregiver Education, Self-Care/Home Management,Soft Tissue Mobilization,Taping, Therapeutic Activities, Therapeutic Exercises Modalities Cold Pack/Ice Massage,Electric Stimulation,Hot Packs, Infrared Therapy,Iontophoresis ,Ultrasound Next Visit Focus/Plan Next Note Type Treatment Note Next Visit Plan Next tx: check band walk for HEP, continue shuttle balance. POC: Advance LE stability and strength, work more WB, manual to HS & knee
--- NOTE | 2022-11-26 15:15 | PT.OTN ---
Current Diagnoses Other acute postprocedural pain (11/26/22) Pain in left knee (11/26/22) Difficulty in walking, not elsewhere classified (11/26/22) Weakness (11/26/22) Physical Therapy Treatment Note PT-OP-A Visit Information Start: 11/10/22 14:37 Freq: Status: Active Protocol: Document 11/26/22 14:36 SP (Rec: 11/26/22 15:33 SP [id number]) Out-Patient Physical Therapy Visit Information Visit Information Visit Type Treatment Note Visit Note 02/11 *PT needs see PT in 2 tx 5th visit. 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 (Rec: 11/10/22 15:20 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 B feet get really cold when sitting around. Knees can give him a little bit of trouble with going down stairs w/ load. He will cramp up in distal HS but discomfort doesn't cross knee or go up thigh. Denies back pain. He has arthritis in his back and had therapy for that and that helped. He started to feel it again a few months ago and he started doing his exercises again and that helped. He can only walk about 12 steps before L HS cramps up and has to bend/straighten knees. He was doing 5 miles before TKA a few years ago then got back up to 2-3 miles. He had done some1/2 mile to the [place] and has to stop about 17 times. He hasn't been doing the 1/2 mile walk even recently d/t the discomfort. Treatment Goals Patient/Caregiver Goals Be able to get back to walking PT-OP-C Subjective Start: 11/10/22 14:37 Freq: Status: Active Protocol: Document 11/26/22 14:36 SP (Rec: 11/26/22 15:33 SP [id number]) OP-PT Subjective Patient Comments Patient Comments Pt reported was able go up top of his 5 steps without UE support and no pain but good effort tiring, at times can do receiprocal stepping ascend, step to descending . PT-OP-D Balance Start: 11/10/22 14:37 Freq: Status: Active Protocol: Document 11/10/22 14:39 [facility] (Rec: 11/10/22 15:20 [facility] [id number]) Balance Tests Single Limb Standing Single Limb- Right 14 sec Single Limb- Left 2 sec PT-OP-F Manual Assessment Start: 11/10/22 14:37 Freq: Status: Active Protocol: Document 11/10/22 14:39 [facility] (Rec: 11/10/22 15:20 [facility] [id number]) Manual Assessments Soft Tissue Assessment Soft Tissue Mobility Assessment no reported tenderness w/ palpation but iTB and HS tightness noted L Joint Mobility Assessment Joint Mobility Assessment stands in ER of tibia nd femur on L: R more neutral: w/knee bending L tib & femur go into IR, R goes into less IR; L>R ER of foot in standing w/ rearfoot and forefoot valgus L >R PT-OP-G Mobility & Gait Start: 11/10/22 14:37 Freq: Status: Active Protocol: Document 11/10/22 14:39 [facility] (Rec: 11/10/22 15:20 [facility] [id number]) OP Gait Assessment Comments Gait Comments LLE turns out more, harder step onto LLE d/t dec ant dep PT-OP-K Range of Motion Start: 11/10/22 14:37 Freq: Status: Active Protocol: Document 11/10/22 14:39 [facility] (Rec: 11/10/22 15:20 [facility] [id number]) Knee Goniometric Range of Motion Knee Right Flexion Active (degrees) 110 Extension Active (degrees) 1 Left Flexion Active (degrees) 109 Extension Active (degrees) 2 PT-OP-L Special Tests Start: 11/10/22 14:37 Freq: Status: Active Protocol: Document 11/10/22 14:39 [facility] (Rec: 11/10/22 15:20 [facility] [id number]) Special Tests Lumbar Spine Special Tests Slump Test Results neg Knee Special Tests Gina's Test Test Results neg L ligamentous stability Test Results neg 4 way L Straight Leg Raise Test Results 50 deg L; 56 R PT-OP-M Strength Start: 11/10/22 14:37 Freq: Status: Active Protocol: Document 11/10/22 14:39 LR (Rec: 11/10/22 15:20 [facility] [id number]) Hip Strength Hip Manual Muscle Testing Right Flexion (L2) 4 Good Extension (S1) 3- Fair- Abduction 4 Good Adduction 5 Normal External Rotation 4+ Good+ Internal Rotation 4+ Good+ Left Flexion (L2) 4- Good- Extension (S1) 4+ Good+ Abduction 4 Good Adduction 5 Normal External Rotation 4- Good- Internal Rotation 4 Good Knee Strength Knee Manual Muscle Testing Right Flexion (S2) 5 Normal Extension (L3) 5 Normal Left Flexion (S2) 4 Good Extension (L3) 4+ Good+ Ankle/Foot Strength Ankle and Foot Manual Muscle Testing Right Dorsiflexion (L4) 5 Normal Plantarflexion (S1) 5 Normal Comments 20 heel raises Left Dorsiflexion (L4) 5 Normal Plantarflexion (S1) 5 Normal Comments requires cues to keep knee straight w/heel raises-20 PT-OP-Q Treatments Start: 11/10/22 14:37 Freq: Status: Active Protocol: Document 11/26/22 14:36 SP (Rec: 11/26/22 15:33 SP [id number]) Cardio Equipment Bicycle (Upright) Duration (Minutes) 5 Resistance 9 Seat Position 7 Other 55-60 RPMs Therapeutic Exercises Sitting Exercises HS curl Sitting Exercise Name states really each not really doing anything Side left Resistance L2>3 (provided TB #3 home next tx) Equipment Used mesh chair Reps/Minutes 15 Comments good stretch, cued slow gentle straight back hip hinge fwd stretch Standing Exercises lateral, fwd step down Standing Exercise Name initiated in PT (recheck tolerance for HEP next) Side left Reps/Minutes x5 reps each- improved mid quad/glut fac muscle tiring Comments cued knee behind and with toes hip hinge- less tension distal pat tendon step ups Standing Exercise Name added to HEP: repeated forward Equipment Used 4 step>6 step, no HR needed Reps/Minutes 5 reps 4step, x10 6 step band walk Standing Exercise Name f/b/lateral- HEP reviewed Resistance RTB at mid green Equipment Used initiated in PT- recheck for HEP next tx Reps/Minutes 15 ft x 2 laps each Comments cued no trunk SB eccentric calf raises Resistance bottom step Equipment Used B HRs Reps/Minutes x10 Comments cued slow eccentric lower stretch Manual Therapy Treatment Soft Tissue Mobilization calf Body Location L Mobilization Type Cross-Friction,Rolling Intensity/Depth Moderate Body Position Prone Comments manual and ed self application use rolling pin, self eccentric calf raises. HS Body Location L Mobilization Type Cross-Friction,Rolling Intensity/Depth Moderate Body Position Prone Comments manual and w/active ext PT-OP-T Assessment and Plan Start: 11/10/22 14:37 Freq: Status: Active Protocol: Document 11/26/22 14:36 SP (Rec: 11/26/22 15:33 SP [id number]) Physical Therapy Assessment Goals balance Manager Of Quality Goal (LTG) Pt will show ability to do SLS for 10 sec on L side LTG Duration 02/02/23 strength Short Term Goal (STG) Pt will be indep w/HEP STG Duration 12/22/21 [facility] Goal (LTG) Pt will score at least 4+/5 on all LE MMT B to improve strength to improve pt ability walk. LTG Duration 02/02 walking Short Term Goal (STG) Pt will be able to walk 1/2 to [place] w/o having to stp to stretch more than 3 times. STG Duration 12/22/22 [facility] Goal (LTG) Pt will b eable to return to 1 -2 mile walks w/o inc pain LTG Duration 02/02 Assessment Summary Assessment Pt Physical Therapy Plan Frequency and Duration Frequency of Treatment 1-2x/week Duration of treatment (weeks) 12 Plan of Care Start Date 11/10/22 Plan of Care End Date 02/02/23 Therapeutic Interventions Therapeutic Interventions Aquatic Therapy,Balance Training,Gait Training,Home Exercise Program,Joint Mobilizations,Manual Therapy, Neuromuscular Re-education, Orthotic/Prosthetic Management ,Patient/Caregiver Education, Self-Care/Home Management,Soft Tissue Mobilization,Taping, Therapeutic Activities, Therapeutic Exercises Modalities Cold Pack/Ice Massage,Electric Stimulation,Hot Packs, Infrared Therapy,Iontophoresis ,Ultrasound Next Visit Focus/Plan Next Note Type Treatment Note Next Visit Plan *PT needs see PT in 2 tx 5th visit. Next tx: start 6MWT endurance. recheck fwd/lateral step down 4-6 step ok for HEP, continue shuttle balance, increase SLS activities, add hurdles. POC: Advance LE stability and strength, work more WB, manual to HS & knee
--- NOTE | 2022-12-01 17:37 | PT.OTN ---
Current Diagnoses Other acute postprocedural pain (12/01/22) Pain in left knee (12/01/22) Difficulty in walking, not elsewhere classified (12/01/22) Weakness (12/01/22) Physical Therapy Treatment Note PT-OP-A Visit Information Start: 11/10/22 14:37 Freq: Status: Active Protocol: Document 12/01/22 16:50 [facility] (Rec: 12/01/22 17:37 [facility] [id number]) Out-Patient Physical Therapy Visit Information Visit Information Visit Type Treatment Note Visit Note 04/13 Visit Start Time 16:54 Visit Stop Time 17:34 Total Visit Minutes 40 Visit Number 7 Number of CURTAIN SUPERVISOR Visits 0 PT-OP-B Current Condition Start: 11/10/22 14:37 Freq: Status: Active Protocol: Document 11/10/22 14:39 [facility] (Rec: 11/10/22 15:20 [facility] [id number]) Current Condition History of Current Condition Onset Date few months ago Current Complaints L post thigh (distal HS) History of Current Condition 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 B feet get really cold when sitting around. Knees can give him a little bit of trouble with going down stairs w/ load. He will cramp up in distal HS but discomfort doesn't cross knee or go up thigh. Denies back pain. He has arthritis in his back and had therapy for that and that helped. He started to feel it again a few months ago and he started doing his exercises again and that helped. He can only walk about 12 steps before L HS cramps up and has to bend/straighten knees. He was doing 5 miles before TKA a few years ago then got back up to 2-3 miles. He had done some1/2 mile to the [facility] and has to stop about 17 times. He hasn't been doing the 1/2 mile walk even recently d/t the discomfort. Treatment Goals Patient/Caregiver Goals Be able to get back to walking PT-OP-C Subjective Start: 11/10/22 14:37 Freq: Status: Active Protocol: Document 12/01/22 16:50 [facility] (Rec: 12/01/22 17:37 [facility] [id number]) OP-PT Subjective Patient Comments Patient Comments Pt reports they have walked some at [employer] but not going for walks. Going up/down stairs better, but noting still pain w/walking. Reports some quad soreness PT-OP-D Balance Start: 11/10/22 14:37 Freq: Status: Active Protocol: Document 11/10/22 14:39 [facility] (Rec: 11/10/22 15:20 [facility] [id number]) Balance Tests Single Limb Standing Single Limb- Right 14 sec Single Limb- Left 2 sec PT-OP-F Manual Assessment Start: 11/10/22 14:37 Freq: Status: Active Protocol: Document 11/10/22 14:39 [facility] (Rec: 11/10/22 15:20 [facility] [id number]) Manual Assessments Soft Tissue Assessment Soft Tissue Mobility Assessment no reported tenderness w/ palpation but iTB and HS tightness noted L Joint Mobility Assessment Joint Mobility Assessment stands in ER of tibia nd femur on L: R more neutral: w/knee bending L tib & femur go into IR, R goes into less IR; L>R ER of foot in standing w/ rearfoot and forefoot valgus L >R PT-OP-G Mobility & Gait Start: 11/10/22 14:37 Freq: Status: Active Protocol: Document 11/10/22 14:39 [facility] (Rec: 11/10/22 15:20 [facility] [id number]) OP Gait Assessment Comments Gait Comments LLE turns out more, harder step onto LLE d/t dec ant dep PT-OP-K Range of Motion Start: 11/10/22 14:37 Freq: Status: Active Protocol: Document 11/10/22 14:39 [facility] (Rec: 11/10/22 15:20 [facility] [id number]) Knee Goniometric Range of Motion Knee Right Flexion Active (degrees) 110 Extension Active (degrees) 1 Left Flexion Active (degrees) 109 Extension Active (degrees) 2 PT-OP-L Special Tests Start: 11/10/22 14:37 Freq: Status: Active Protocol: Document 11/10/22 14:39 [facility] (Rec: 11/10/22 15:20 [facility] [id number]) Special Tests Lumbar Spine Special Tests Slump Test Results neg Knee Special Tests Gina's Test Test Results neg L ligamentous stability Test Results neg 4 way L Straight Leg Raise Test Results 50 deg L; 56 R PT-OP-M Strength Start: 11/10/22 14:37 Freq: Status: Active Protocol: Document 11/10/22 14:39 [facility] (Rec: 11/10/22 15:20 [facility] [id number]) Hip Strength Hip Manual Muscle Testing Right Flexion (L2) 4 Good Extension (S1) 3- Fair- Abduction 4 Good Adduction 5 Normal External Rotation 4+ Good+ Internal Rotation 4+ Good+ Left Flexion (L2) 4- Good- Extension (S1) 4+ Good+ Abduction 4 Good Adduction 5 Normal External Rotation 4- Good- Internal Rotation 4 Good Knee Strength Knee Manual Muscle Testing Right Flexion (S2) 5 Normal Extension (L3) 5 Normal Left Flexion (S2) 4 Good Extension (L3) 4+ Good+ Ankle/Foot Strength Ankle and Foot Manual Muscle Testing Right Dorsiflexion (L4) 5 Normal Plantarflexion (S1) 5 Normal Comments 20 heel raises Left Dorsiflexion (L4) 5 Normal Plantarflexion (S1) 5 Normal Comments requires cues to keep knee straight w/heel raises-20 PT-OP-Q Treatments Start: 11/10/22 14:37 Freq: Status: Active Protocol: Document 12/01/22 16:50 [facility] (Rec: 12/01/22 17:37 [facility] [id number]) Cardio Equipment Bicycle (Upright) Duration (Minutes) 6 Resistance 9 Seat Position 7 Other 55-60 RPMs Gym Equipment Shuttle Recovery unilateral squat Details cued //feet, slow eccentric control Resistance 37# (1 new band) Shuttle Recovery Platform Stable Reps/Time x15 each LE Bilateral Squats Details cued //feet, good eccentric control Resistance 75# (3 new band) Shuttle Recovery Platform Stable Reps/Time x20 Shuttle Balance red Details head turns as able Comments fwd and side: WBOS balance and wt shift & NBOS fwd: staggered stance b Therapeutic Exercises Standing Exercises lateral, fwd step down Standing Exercise Name step up and down: 1. fwd 2. lat Side left Equipment Used 5 in step Reps/Minutes 8 ea Manual Therapy Treatment Soft Tissue Mobilization quad Body Location L lat Mobilization Type Rolling Intensity/Depth Moderate Body Position Supine Comments w/hip IR/ER & quad set ITB Body Location L Mobilization Type Rolling Intensity/Depth Moderate Body Position Supine Comments FM w/quad set & rotaiton Neuro Re-Education Treatment Balance Activities hurdles Details 6 hurdles Comments 1. fwd reciprocal over x6 2.sidestep x2 B PT-OP-R Modalities Start: 11/10/22 14:37 Freq: Status: Active Protocol: Document 11/28/22 14:36 [facility] (Rec: 11/28/22 15:21 [facility] [id number]) Hot Pack/Cold Pack Treatment Cold Pack Location R hip Patient Position Hooklying Treatment Duration (minutes) 10 Patient Tolerance Good Comments w/strap PT-OP-T Assessment and Plan Start: 11/10/22 14:37 Freq: Status: Active Protocol: Document 12/01/22 16:50 [facility] (Rec: 12/01/22 17:37 [facility] [id number]) Physical Therapy Assessment Goals balance Inspector Optical Instrument Goal (LTG) Pt will show ability to do SLS for 10 sec on L side LTG Duration 02/02/23 strength Short Term Goal (STG) Pt will be indep w/HEP STG Duration 12/22/21 [facility] Goal (LTG) Pt will score at least 4+/5 on all LE MMT B to improve strength to improve pt ability walk. LTG Duration 02/02 walking Short Term Goal (STG) Pt will be able to walk 1/2 to [facility] w/o having to stp to stretch more than 3 times. STG Duration 12/22/22 Inspector Optical Instrument Goal (LTG) Pt will b eable to return to 1 -2 mile walks w/o inc pain LTG Duration 02/02 Assessment Summary Assessment Pt required cues w/step downs for controlling motion and using LLE as he often tried to switch to RLE. He did well with balance but was initially challenged by hurdles but improved w/reps Physical Therapy Plan Frequency and Duration Frequency of Treatment 1-2x/week Duration of treatment (weeks) 12 Plan of Care Start Date 11/10/22 Plan of Care End Date 02/02/23 Next Visit Focus/Plan Next Note Type Treatment Note Next Visit Plan walk endurance, continue shuttle balance, increase SLS activities, add hurdles. POC: Advance LE stability and strength, work more WB, manual to HS & knee
--- NOTE | 2022-12-03 14:33 | PT.OTN ---
Current Diagnoses Other acute postprocedural pain (12/03/22) Pain in left knee (12/03/22) Difficulty in walking, not elsewhere classified (12/03/22) Weakness (12/03/22) Physical Therapy Treatment Note PT-OP-A Visit Information Start: 11/10/22 14:37 Freq: Status: Active Protocol: Document 12/03/22 12:56 [facility] (Rec: 12/03/22 14:33 [facility] [id number]) Out-Patient Physical Therapy Visit Information Visit Information Visit Type Treatment Note Visit Note 05/14 Visit Start Time 13:49 Visit Stop Time 14:29 Total Visit Minutes 40 Visit Number 8 Number of MASTER PLUMBER Visits 0 PT-OP-B Current Condition Start: 11/10/22 14:37 Freq: Status: Active Protocol: Document 11/10/22 14:39 [facility] (Rec: 11/10/22 15:20 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 B feet get really cold when sitting around. Knees can give him a little bit of trouble with going down stairs w/ load. He will cramp up in distal HS but discomfort doesn't cross knee or go up thigh. Denies back pain. He has arthritis in his back and had therapy for that and that helped. He started to feel it again a few months ago and he started doing his exercises again and that helped. He can only walk about 12 steps before L HS cramps up and has to bend/straighten knees. He was doing 5 miles before TKA a few years ago then got back up to 2-3 miles. He had done some1/2 mile to the [employer] and has to stop about 17 times. He hasn't been doing the 1/2 mile walk even recently d/t the discomfort. Treatment Goals Patient/Caregiver Goals Be able to get back to walking PT-OP-C Subjective Start: 11/10/22 14:37 Freq: Status: Active Protocol: Document 12/03/22 12:56 [facility] (Rec: 12/03/22 14:33 [facility] [id number]) OP-PT Subjective Patient Comments Patient Comments Pt reports no tighenss in leg since last time he came in. 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 He hasn't tried walking yet but plans to tomorrow. Patient Reported Progress Improving PT-OP-D Balance Start: 11/10/22 14:37 Freq: Status: Active Protocol: Document 11/10/22 14:39 [facility] (Rec: 11/10/22 15:20 [facility] [id number]) Balance Tests Single Limb Standing Single Limb- Right 14 sec Single Limb- Left 2 sec PT-OP-F Manual Assessment Start: 11/10/22 14:37 Freq: Status: Active Protocol: Document 11/10/22 14:39 [facility] (Rec: 11/10/22 15:20 [facility] [id number]) Manual Assessments Soft Tissue Assessment Soft Tissue Mobility Assessment no reported tenderness w/ palpation but iTB and HS tightness noted L Joint Mobility Assessment Joint Mobility Assessment stands in ER of tibia nd femur on L: R more neutral: w/knee bending L tib & femur go into IR, R goes into less IR; L>R ER of foot in standing w/ rearfoot and forefoot valgus L >R PT-OP-G Mobility & Gait Start: 11/10/22 14:37 Freq: Status: Active Protocol: Document 11/10/22 14:39 [facility] (Rec: 11/10/22 15:20 [facility] [id number]) OP Gait Assessment Comments Gait Comments LLE turns out more, harder step onto LLE d/t dec ant dep PT-OP-K Range of Motion Start: 11/10/22 14:37 Freq: Status: Active Protocol: Document 11/10/22 14:39 [facility] (Rec: 11/10/22 15:20 [facility] [id number]) Knee Goniometric Range of Motion Knee Right Flexion Active (degrees) 110 Extension Active (degrees) 1 Left Flexion Active (degrees) 109 Extension Active (degrees) 2 PT-OP-L Special Tests Start: 11/10/22 14:37 Freq: Status: Active Protocol: Document 11/10/22 14:39 [facility] (Rec: 11/10/22 15:20 [facility] [id number]) Special Tests Lumbar Spine Special Tests Slump Test Results neg Knee Special Tests Gina's Test Test Results neg L ligamentous stability Test Results neg 4 way L Straight Leg Raise Test Results 50 deg L; 56 R PT-OP-M Strength Start: 11/10/22 14:37 Freq: Status: Active Protocol: Document 11/10/22 14:39 [facility] (Rec: 11/10/22 15:20 [facility] [id number]) Hip Strength Hip Manual Muscle Testing Right Flexion (L2) 4 Good Extension (S1) 3- Fair- Abduction 4 Good Adduction 5 Normal External Rotation 4+ Good+ Internal Rotation 4+ Good+ Left Flexion (L2) 4- Good- Extension (S1) 4+ Good+ Abduction 4 Good Adduction 5 Normal External Rotation 4- Good- Internal Rotation 4 Good Knee Strength Knee Manual Muscle Testing Right Flexion (S2) 5 Normal Extension (L3) 5 Normal Left Flexion (S2) 4 Good Extension (L3) 4+ Good+ Ankle/Foot Strength Ankle and Foot Manual Muscle Testing Right Dorsiflexion (L4) 5 Normal Plantarflexion (S1) 5 Normal Comments 20 heel raises Left Dorsiflexion (L4) 5 Normal Plantarflexion (S1) 5 Normal Comments requires cues to keep knee straight w/heel raises-20 PT-OP-Q Treatments Start: 11/10/22 14:37 Freq: Status: Active Protocol: Document 12/03/22 12:56 [facility] (Rec: 12/03/22 14:33 [facility] [id number]) Cardio Equipment Bicycle (Upright) Duration (Minutes) 6 Resistance 9 Seat Position 7 Other 55-60 RPMs Gym Equipment Shuttle Recovery unilateral squat Details cued //feet, slow eccentric control Resistance 50# (1 new band) Shuttle Recovery Platform Stable Reps/Time x15 each LE Bilateral Squats Details cued //feet, good eccentric control Resistance 100# (4 new band) Shuttle Recovery Platform Stable Reps/Time x20 Shuttle Balance red Details head turns as able Comments fwd and side: WBOS balance and wt shift & NBOS fwd: staggered stance b Therapeutic Exercises Standing Exercises lunge Standing Exercise Name mini Side bilateral Reps/Minutes 6 ea lateral, fwd step down Standing Exercise Name step up and down: 1. fwd 2. lat Side left Equipment Used 5 in step Reps/Minutes 10 ea Comments cues contorl on descent stretch Standing Exercise Name SHALINI calf Side bilateral Reps/Minutes 1 min Manual Therapy Treatment Soft Tissue Mobilization quad Body Location L lat Mobilization Type Rolling Intensity/Depth Moderate Body Position Supine Comments w/hip IR/ER & quad set ITB Body Location L Mobilization Type Rolling Intensity/Depth Moderate Body Position Supine Comments FM w/quad set & rotaiton Neuro Re-Education Treatment Balance Activities hurdles Details 6 hurdles Comments 1. fwd reciprocal over x6 2.sidestep x2 B PT-OP-R Modalities Start: 11/10/22 14:37 Freq: Status: Active Protocol: Document 11/28/22 14:36 [facility] (Rec: 11/28/22 15:21 [facility] [id number]) Hot Pack/Cold Pack Treatment Cold Pack Location R hip Patient Position Hooklying Treatment Duration (minutes) 10 Patient Tolerance Good Comments w/strap PT-OP-T Assessment and Plan Start: 11/10/22 14:37 Freq: Status: Active Protocol: Document 12/03/22 12:56 [facility] (Rec: 12/03/22 14:33 [facility] [id number]) Physical Therapy Assessment Goals balance Child Daycare Worker Goal (LTG) Pt will show ability to do SLS for 10 sec on L side LTG Duration 02/02/23 strength Short Term Goal (STG) Pt will be indep w/HEP STG Duration 12/22/21 Child Daycare Worker Goal (LTG) Pt will score at least 4+/5 on all LE MMT B to improve strength to improve pt ability walk. LTG Duration 02/02 walking Short Term Goal (STG) Pt will be able to walk 1/2 to [facility] w/o having to stp to stretch more than 3 times. STG Duration 12/22/22 [facility] Goal (LTG) Pt will b eable to return to 1 -2 mile walks w/o inc pain LTG Duration 02/02 Assessment Summary Assessment Pt is doing an excellent job and tolerated inc resistance and inc difficulty exercises today. He was able to do balance activities also w/ greater ease. Physical Therapy Plan Frequency and Duration Frequency of Treatment 1-2x/week Duration of treatment (weeks) 12 Plan of Care Start Date 11/10/22 Plan of Care End Date 02/02/23 Next Visit Focus/Plan Next Note Type Treatment Note Next Visit Plan walk endurance, continue shuttle balance, increase SLS activities, add hurdles. POC: Advance LE stability and strength, work more WB, manual to HS & knee
--- NOTE | 2022-12-08 17:33 | PT.OPPN ---
Current Diagnoses Other acute postprocedural pain (12/15/22) Pain in left knee (12/15/22) Difficulty in walking, not elsewhere classified (12/15/22) Weakness (12/15/22) Physical Therapy Progress Note PT-OP-A Visit Information Start: 11/10/22 14:37 Freq: Status: Active Protocol: Document 12/15/22 14:33 [facility] (Rec: 12/08/22 17:37 [facility] [id number]) Out-Patient Physical Therapy Visit Information Visit Information Visit Type Progress Note Visit Note 10/14 Visit Start Time 16:54 Visit Stop Time 17:33 Total Visit Minutes 39 Visit Number 9 Number of SQL MANAGER Visits 0 PT-OP-B Current Condition Start: 11/10/22 14:37 Freq: Status: Active Protocol: Document 11/10/22 14:39 [facility] (Rec: 11/10/22 15:20 [facility] [id number]) Current Condition History of Current Condition Onset Date few months ago Current Complaints L post thigh (distal HS) History of Current Condition 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 B feet get really cold when sitting around. Knees can give him a little bit of trouble with going down stairs w/ load. He will cramp up in distal HS but discomfort doesn't cross knee or go up thigh. Denies back pain. He has arthritis in his back and had therapy for that and that helped. He started to feel it again a few months ago and he started doing his exercises again and that helped. He can only walk about 12 steps before L HS cramps up and has to bend/straighten knees. He was doing 5 miles before TKA a few years ago then got back up to 2-3 miles. He had done some1/2 mile to the [facility] and has to stop about 17 times. He hasn't been doing the 1/2 mile walk even recently d/t the discomfort. Treatment Goals Patient/Caregiver Goals Be able to get back to walking PT-OP-C Subjective Start: 11/10/22 14:37 Freq: Status: Active Protocol: Document 12/15/22 14:33 [facility] (Rec: 12/08/22 17:37 [facility] [id number]) OP-PT Subjective Patient Comments Patient Comments Pt reports making it 2[address] the [facility] then started limping. Took some time to re-coup then walked the way home and it was able to make it 2/[address] before starting limping. Patient Reported Progress Improving PT-OP-D Balance Start: 11/10/22 14:37 Freq: Status: Active Protocol: Document 12/15/22 14:33 [facility] (Rec: 12/08/22 17:37 [facility] [id number]) Balance Tests Single Limb Standing Single Limb- Right 9 sec Single Limb- Left 7 sec PT-OP-F Manual Assessment Start: 11/10/22 14:37 Freq: Status: Active Protocol: Document 11/10/22 14:39 [facility] (Rec: 11/10/22 15:20 [id number]) Manual Assessments Soft Tissue Assessment Soft Tissue Mobility Assessment no reported tenderness w/ palpation but iTB and HS tightness noted L Joint Mobility Assessment Joint Mobility Assessment stands in ER of tibia nd femur on L: R more neutral: w/knee bending L tib & femur go into IR, R goes into less IR; L>R ER of foot in standing w/ rearfoot and forefoot valgus L >R PT-OP-G Mobility & Gait Start: 11/10/22 14:37 Freq: Status: Active Protocol: Document 11/10/22 14:39 [facility] (Rec: 11/10/22 15:20 [facility] [id number]) OP Gait Assessment Comments Gait Comments LLE turns out more, harder step onto LLE d/t dec ant dep PT-OP-J Posture/Palpation/Skin Start: 11/10/22 14:37 Freq: Status: Active Protocol: Document 12/15/22 14:33 [facility] (Rec: 12/08/22 17:37 [facility] [id number]) Posture Evaluation Milly Postural Classification System Lumbar Protective Mechanism Left AP 3 Lumbar Protective Mechanism Right AP 4 Lumbar Protective Mechanism Left PA 2 Lumbar Protective Mechanism Right PA 2 PT-OP-K Range of Motion Start: 11/10/22 14:37 Freq: Status: Active Protocol: Document 11/10/22 14:39 [facility] (Rec: 11/10/22 15:20 [facility] [id number]) Knee Goniometric Range of Motion Knee Measured in Degrees Right Flexion Active (degrees) 110 Extension Active (degrees) 1 Left Flexion Active (degrees) 109 Extension Active (degrees) 2 PT-OP-L Special Tests Start: 11/10/22 14:37 Freq: Status: Active Protocol: Document 11/10/22 14:39 [facility] (Rec: 11/10/22 15:20 [facility] [id number]) Special Tests Lumbar Spine Special Tests Slump Test Results neg Knee Special Tests Gina's Test Test Results neg L ligamentous stability Test Results neg 4 way L Straight Leg Raise Test Results 50 deg L; 56 R PT-OP-M Strength Start: 11/10/22 14:37 Freq: Status: Active Protocol: Document 12/15/22 14:33 [facility] (Rec: 12/08/22 17:37 [facility] [id number]) Hip Strength Hip Manual Muscle Testing Right Flexion (L2) 5 Normal Extension (S1) 4+ Good+ Abduction 5 Normal Adduction 5 Normal External Rotation 5 Normal Internal Rotation 5 Normal Left Flexion (L2) 4+ Good+ Extension (S1) 4- Good- Abduction 4+ Good+ Adduction 5 Normal External Rotation 4 Good Internal Rotation 4+ Good+ Knee Strength Knee Manual Muscle Testing Right Flexion (S2) 5 Normal Extension (L3) 5 Normal Left Flexion (S2) 4+ Good+ Extension (L3) 4+ Good+ Ankle/Foot Strength Ankle and Foot Manual Muscle Testing Right Dorsiflexion (L4) 5 Normal Plantarflexion (S1) 5 Normal Comments 20 heel raises Left Dorsiflexion (L4) 5 Normal Plantarflexion (S1) 5 Normal Comments requires cues to keep knee straight w/heel raises-20 PT-OP-T Assessment and Plan Start: 11/10/22 14:37 Freq: Status: Active Protocol: Document 12/15/22 14:33 [facility] (Rec: 12/08/22 17:37 [facility] [id number]) Physical Therapy Assessment Goals balance Manager Manufacturing Goal (LTG) Pt will show ability to do SLS for 10 sec on L side 12/08-improved to 7 LTG Duration 02/02/23 strength Short Term Goal (STG) Pt will be indep w/HEP STG Duration achieved-advancing as able Manager Manufacturing Goal (LTG) Pt will score at least 4+/5 on all LE MMT B to improve strength to improve pt ability walk. 6-improved LTG Duration 02/02 walking Short Term Goal (STG) Pt will be able to walk 1/2 to [facility] w/o having to stp to stretch more than 3 times. 12/08-about 4-5 stops; able to make it 2/[address] limping started STG Duration 12/22/22 Senior Living Goal (LTG) Pt will b eable to return to 1 -2 mile walks w/o inc pain LTG Duration 02/02 Assessment Summary Assessment Pt is making great progess w/ therapy. He is no longer getting discomfort in post knee but is still getting some in distal quad with walking. 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 He is imprvoing well with balance and showed much greater ease with all activity. Physical Therapy Plan Frequency and Duration Frequency of Treatment 1-2x/week Duration of treatment (weeks) 12 Plan of Care Start Date 11/10/22 Plan of Care End Date 02/02/23 Next Visit Focus/Plan Next Note Type Treatment Note Next Visit Plan walk endurance, continue shuttle balance, increase SLS activities POC: Advance LE stability and strength, work more WB, manual to HS & knee
--- NOTE | 2022-12-08 17:38 | PT.OTN ---
Current Diagnoses Other acute postprocedural pain (12/08/22) Pain in left knee (12/08/22) Difficulty in walking, not elsewhere classified (12/08/22) Weakness (12/08/22) Physical Therapy Treatment Note PT-OP-A Visit Information Start: 11/10/22 14:37 Freq: Status: Active Protocol: Document 12/08/22 16:57 [facility] (Rec: 12/08/22 17:37 [facility] [id number]) Out-Patient Physical Therapy Visit Information Visit Information Visit Type Progress Note Visit Note 10/14 Visit Start Time 16:54 Visit Stop Time 17:33 Total Visit Minutes 39 Visit Number 9 Number of BOILER OUT Visits 0 PT-OP-B Current Condition Start: 11/10/22 14:37 Freq: Status: Active Protocol: Document 11/10/22 14:39 [facility] (Rec: 11/10/22 15:20 [facility] [id number]) Current Condition History of Current Condition Onset Date few months ago Current Complaints L post thigh (distal HS) History of Current Condition 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 B feet get really cold when sitting around. Knees can give him a little bit of trouble with going down stairs w/ load. He will cramp up in distal HS but discomfort doesn't cross knee or go up thigh. Denies back pain. He has arthritis in his back and had therapy for that and that helped. He started to feel it again a few months ago and he started doing his exercises again and that helped. He can only walk about 12 steps before L HS cramps up and has to bend/straighten knees. He was doing 5 miles before TKA a few years ago then got back up to 2-3 miles. He had done some1/2 mile to the [place] and has to stop about 17 times. He hasn't been doing the 1/2 mile walk even recently d/t the discomfort. Treatment Goals Patient/Caregiver Goals Be able to get back to walking PT-OP-C Subjective Start: 11/10/22 14:37 Freq: Status: Active Protocol: Document 12/08/22 16:57 [facility] (Rec: 12/08/22 17:37 [facility] [id number]) OP-PT Subjective Patient Comments Patient Comments Pt reports making it 2[address] the [place] then started limping. Took some time to re-coup then walked the way home and it was able to make it 2/[address] before starting limping. Patient Reported Progress Improving PT-OP-D Balance Start: 11/10/22 14:37 Freq: Status: Active Protocol: Document 12/08/22 16:57 [facility] (Rec: 12/08/22 17:37 [facility] [id number]) Balance Tests Single Limb Standing Single Limb- Right 9 sec Single Limb- Left 7 sec PT-OP-F Manual Assessment Start: 11/10/22 14:37 Freq: Status: Active Protocol: Document 11/10/22 14:39 [facility] (Rec: 11/10/22 15:20 [id number] Manual Assessments Soft Tissue Assessment Soft Tissue Mobility Assessment no reported tenderness w/ palpation but iTB and HS tightness noted L Joint Mobility Assessment Joint Mobility Assessment stands in ER of tibia nd femur on L: R more neutral: w/knee bending L tib & femur go into IR, R goes into less IR; L>R ER of foot in standing w/ rearfoot and forefoot valgus L >R PT-OP-G Mobility & Gait Start: 11/10/22 14:37 Freq: Status: Active Protocol: Document 11/10/22 14:39 [facility] (Rec: 11/10/22 15:20 [facility] [id number]) OP Gait Assessment Comments Gait Comments LLE turns out more, harder step onto LLE d/t dec ant dep PT-OP-J Posture/Palpation/Skin Start: 11/10/22 14:37 Freq: Status: Active Protocol: Document 12/08/22 16:57 [facility] (Rec: 12/08/22 17:37 [facility] [id number]) Posture Evaluation Milly Postural Classification System Lumbar Protective Mechanism Left AP 3 Lumbar Protective Mechanism Right AP 4 Lumbar Protective Mechanism Left PA 2 Lumbar Protective Mechanism Right PA 2 PT-OP-K Range of Motion Start: 11/10/22 14:37 Freq: Status: Active Protocol: Document 11/10/22 14:39 [facility] (Rec: 11/10/22 15:20 [facility] [id number]) Knee Goniometric Range of Motion Knee Right Flexion Active (degrees) 110 Extension Active (degrees) 1 Left Flexion Active (degrees) 109 Extension Active (degrees) 2 PT-OP-L Special Tests Start: 11/10/22 14:37 Freq: Status: Active Protocol: Document 11/10/22 14:39 [facility] (Rec: 11/10/22 15:20 [facility] [id number]) Special Tests Lumbar Spine Special Tests Slump Test Results neg Knee Special Tests Gina's Test Test Results neg L ligamentous stability Test Results neg 4 way L Straight Leg Raise Test Results 50 deg L; 56 R PT-OP-M Strength Start: 11/10/22 14:37 Freq: Status: Active Protocol: Document 12/08/22 16:57 [facility] (Rec: 12/08/22 17:37 [facility] [id number]) Hip Strength Hip Manual Muscle Testing Right Flexion (L2) 5 Normal Extension (S1) 4+ Good+ Abduction 5 Normal Adduction 5 Normal External Rotation 5 Normal Internal Rotation 5 Normal Left Flexion (L2) 4+ Good+ Extension (S1) 4- Good- Abduction 4+ Good+ Adduction 5 Normal External Rotation 4 Good Internal Rotation 4+ Good+ Knee Strength Knee Manual Muscle Testing Right Flexion (S2) 5 Normal Extension (L3) 5 Normal Left Flexion (S2) 4+ Good+ Extension (L3) 4+ Good+ Ankle/Foot Strength Ankle and Foot Manual Muscle Testing Right Dorsiflexion (L4) 5 Normal Plantarflexion (S1) 5 Normal Comments 20 heel raises Left Dorsiflexion (L4) 5 Normal Plantarflexion (S1) 5 Normal Comments requires cues to keep knee straight w/heel raises-20 PT-OP-Q Treatments Start: 11/10/22 14:37 Freq: Status: Active Protocol: Document 12/08/22 16:57 [facility] (Rec: 12/08/22 17:37 [facility] [id number]) Cardio Equipment Bicycle (Upright) Duration (Minutes) 6 Resistance 9 Seat Position 7 Other 55-60 RPMs Gym Equipment Shuttle Recovery unilateral squat Details cued //feet, slow eccentric control Resistance 50# (2 new band) Shuttle Recovery Platform Stable Reps/Time x15 each LE Bilateral Squats Details cued //feet, good eccentric control Resistance 112# (4 new band) Shuttle Recovery Platform Stable Reps/Time x20 Shuttle Balance red Details head turns as able Comments fwd and side: WBOS balance and wt shift & NBOS fwd: staggered stance b Manual Therapy Treatment Soft Tissue Mobilization quad Body Location L lat Mobilization Type Rolling Intensity/Depth Moderate Body Position Supine Comments w/hip IR/ER & quad set ITB Body Location L Mobilization Type Rolling Intensity/Depth Moderate Body Position Supine Comments FM w/quad set & rotaiton & plunger Joint Mobilizations hip Joint L Direction on axis ER FM Body Position Hooklying Neuro Re-Education Treatment Balance Activities SLS Comments 1. B trials 2. opp LE ball rolls w/SLS B hurdles Details 6 hurdles Comments 1. fwd reciprocal over x4 2.sidestep x2 B PT-OP-R Modalities Start: 11/10/22 14:37 Freq: Status: Active Protocol: Document 11/28/22 14:36 [facility] (Rec: 11/28/22 15:21 [facility] [id number]) Hot Pack/Cold Pack Treatment Cold Pack Location R hip Patient Position Hooklying Treatment Duration (minutes) 10 Patient Tolerance Good Comments w/strap PT-OP-T Assessment and Plan Start: 11/10/22 14:37 Freq: Status: Active Protocol: Document 12/08/22 16:57 [facility] (Rec: 12/08/22 17:37 [facility] [id number]) Physical Therapy Assessment Goals balance Installation Technician Goal (LTG) Pt will show ability to do SLS for 10 sec on L side 12/08-improved to 7 LTG Duration 02/02/23 strength Short Term Goal (STG) Pt will be indep w/HEP STG Duration achieved-advancing as able Group Home Goal (LTG) Pt will score at least 4+/5 on all LE MMT B to improve strength to improve pt ability walk. 12/08-improved LTG Duration 02/02 walking Short Term Goal (STG) Pt will be able to walk 1/2 to [place] w/o having to stp to stretch more than 3 times. 12/08-about 4-5 stops; able to make it 2/[address] limping started STG Duration 12/22/22 Group Home Goal (LTG) Pt will b eable to return to 1 -2 mile walks w/o inc pain LTG Duration 02/02 Assessment Summary Assessment Pt is making great progess w/ therapy. He is no longer getting discomfort in post knee but is still getting some in distal quad with walking. 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 He is imprvoing well with balance and showed much greater ease with all activity. Physical Therapy Plan Frequency and Duration Frequency of Treatment 1-2x/week Duration of treatment (weeks) 12 Plan of Care Start Date 11/10/22 Plan of Care End Date 02/02/23 Next Visit Focus/Plan Next Note Type Treatment Note Next Visit Plan walk endurance, continue shuttle balance, increase SLS activities POC: Advance LE stability and strength, work more WB, manual to HS & knee
--- NOTE | 2022-12-10 15:16 | PT.OTN ---
Current Diagnoses Other acute postprocedural pain (12/10/22) Pain in left knee (12/10/22) Difficulty in walking, not elsewhere classified (12/10/22) Weakness (12/10/22) Physical Therapy Treatment Note PT-OP-A Visit Information Start: 11/10/22 14:37 Freq: Status: Active Protocol: Document 12/10/22 14:38 [facility] (Rec: 12/10/22 15:39 [facility] [id number]) Out-Patient Physical Therapy Visit Information Visit Information Visit Type Treatment Note Visit Note 11/14 Visit Start Time 14:38 Visit Stop Time 15:16 Total Visit Minutes 38 Visit Number 10 Number of COLLAR POINTER Visits 1 PT-OP-B Current Condition Start: 11/10/22 14:37 Freq: Status: Active Protocol: Document 11/10/22 14:39 [facility] (Rec: 11/10/22 15:20 [facility] [id number]) Current Condition History of Current Condition Onset Date few months ago Current Complaints L post thigh (distal HS) History of Current Condition 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 B feet get really cold when sitting around. Knees can give him a little bit of trouble with going down stairs w/ load. He will cramp up in distal HS but discomfort doesn't cross knee or go up thigh. Denies back pain. He has arthritis in his back and had therapy for that and that helped. He started to feel it again a few months ago and he started doing his exercises again and that helped. He can only walk about 12 steps before L HS cramps up and has to bend/straighten knees. He was doing 5 miles before TKA a few years ago then got back up to 2-3 miles. He had done some1/2 mile to the [place] and has to stop about 17 times. He hasn't been doing the 1/2 mile walk even recently d/t the discomfort. Treatment Goals Patient/Caregiver Goals Be able to get back to walking PT-OP-C Subjective Start: 11/10/22 14:37 Freq: Status: Active Protocol: Document 12/10/22 14:38 [facility] (Rec: 12/10/22 15:39 [facility] [id number]) OP-PT Subjective Patient Comments Patient Comments Pt reports little sore after left here but using muscles haven't use in while, feels good. L hip/knee feeling good today. Patient Reported Progress Improving PT-OP-D Balance Start: 11/10/22 14:37 Freq: Status: Active Protocol: Document 12/08/22 16:57 [facility] (Rec: 12/08/22 17:37 [facility] [id number]) Balance Tests Single Limb Standing Single Limb- Right 9 sec Single Limb- Left 7 sec PT-OP-F Manual Assessment Start: 11/10/22 14:37 Freq: Status: Active Protocol: Document 11/10/22 14:39 [facility] (Rec: 11/10/22 15:20 [facility] [id number]) Manual Assessments Soft Tissue Assessment Soft Tissue Mobility Assessment no reported tenderness w/ palpation but iTB and HS tightness noted L Joint Mobility Assessment Joint Mobility Assessment stands in ER of tibia nd femur on L: R more neutral: w/knee bending L tib & femur go into IR, R goes into less IR; L>R ER of foot in standing w/ rearfoot and forefoot valgus L >R PT-OP-G Mobility & Gait Start: 11/10/22 14:37 Freq: Status: Active Protocol: Document 11/10/22 14:39 [facility] (Rec: 11/10/22 15:20 [facility] [id number]) OP Gait Assessment Comments Gait Comments LLE turns out more, harder step onto LLE d/t dec ant dep PT-OP-J Posture/Palpation/Skin Start: 11/10/22 14:37 Freq: Status: Active Protocol: Document 12/08/22 16:57 [facility] (Rec: 12/08/22 17:37 [facility] [id number]) Posture Evaluation [facility] Postural Classification System Lumbar Protective Mechanism Left AP 3 Lumbar Protective Mechanism Right AP 4 Lumbar Protective Mechanism Left PA 2 Lumbar Protective Mechanism Right PA 2 PT-OP-K Range of Motion Start: 11/10/22 14:37 Freq: Status: Active Protocol: Document 11/10/22 14:39 [facility] (Rec: 11/10/22 15:20 [facility] [id number]) Knee Goniometric Range of Motion Knee Right Flexion Active (degrees) 110 Extension Active (degrees) 1 Left Flexion Active (degrees) 109 Extension Active (degrees) 2 PT-OP-L Special Tests Start: 11/10/22 14:37 Freq: Status: Active Protocol: Document 11/10/22 14:39 [facility] (Rec: 11/10/22 15:20 [facility] [id number]) Special Tests Lumbar Spine Special Tests Slump Test Results neg Knee Special Tests Gina's Test Test Results neg L ligamentous stability Test Results neg 4 way L Straight Leg Raise Test Results 50 deg L; 56 R PT-OP-M Strength Start: 11/10/22 14:37 Freq: Status: Active Protocol: Document 12/08/22 16:57 [facility] (Rec: 12/08/22 17:37 [facility] [id number]) Hip Strength Hip Manual Muscle Testing Right Flexion (L2) 5 Normal Extension (S1) 4+ Good+ Abduction 5 Normal Adduction 5 Normal External Rotation 5 Normal Internal Rotation 5 Normal Left Flexion (L2) 4+ Good+ Extension (S1) 4- Good- Abduction 4+ Good+ Adduction 5 Normal External Rotation 4 Good Internal Rotation 4+ Good+ Knee Strength Knee Manual Muscle Testing Right Flexion (S2) 5 Normal Extension (L3) 5 Normal Left Flexion (S2) 4+ Good+ Extension (L3) 4+ Good+ Ankle/Foot Strength Ankle and Foot Manual Muscle Testing Right Dorsiflexion (L4) 5 Normal Plantarflexion (S1) 5 Normal Comments 20 heel raises Left Dorsiflexion (L4) 5 Normal Plantarflexion (S1) 5 Normal Comments requires cues to keep knee straight w/heel raises-20 PT-OP-Q Treatments Start: 11/10/22 14:37 Freq: Status: Active Protocol: Document 12/10/22 14:38 [facility] (Rec: 12/10/22 15:39 [facility] [id number]) Cardio Equipment Bicycle (Upright) Duration (Minutes) 6 Resistance 9 Seat Position 7 Other 60-61 RPMs, 2. miles Gym Equipment Shuttle Recovery unilateral squat Details cued //feet, slow eccentric control Resistance 50# (2 new bands) Shuttle Recovery Platform Stable Reps/Time x20 each LE Bilateral Squats Details cued //feet, good eccentric control Resistance 112# (4 new bands) Shuttle Recovery Platform Stable Reps/Time x20 Therapeutic Exercises Supine Exercises Hip flexor stretch Supine Exercise Name Sunny position- Side bilateral Equipment Used hi-lo table Reps/Minutes x60s ea Comments tightness L quad, performed during manual STMs Prone Exercises quad stretch Prone Exercise Name trialed in PT Side left Resistance AAROM therapist support Equipment Used strap on L ankle- strap not long enough pt full grasp. Reps/Minutes 20 SH x2 Comments limited L knee flexion and very tight mid quad reported Standing Exercises SLS star taps Standing Exercise Name 1. SLS taps 2. SLS reach glides Resistance L>R Equipment Used 4 cones (12, 3, 4, 6 o'clock) Reps/Minutes 3 reps x2 sets Comments Cued scap squeeze, tall posture, core fac- improved SLS time stretch Standing Exercise Name quad Side left Equipment Used foot up on chair behind him, holding post Reps/Minutes 20 SH Comments good feedback stretch: quad superior patella Manual Therapy Treatment Soft Tissue Mobilization quad Body Location L lat Mobilization Type Rolling Intensity/Depth Moderate Body Position Supine Comments hooklying, L LE of table on stretch- superior to patella multidirectional calf Body Location L Mobilization Type Cross-Friction,Rolling, Strumming Intensity/Depth Moderate Body Position Prone Comments manual HS Body Location L Mobilization Type Cross-Friction,Rolling, Strumming Intensity/Depth Moderate Body Position Prone Comments manual PT-OP-R Modalities Start: 11/10/22 14:37 Freq: Status: Active Protocol: Document 11/28/22 14:36 [facility] (Rec: 11/28/22 15:21 [facility] [id number]) Hot Pack/Cold Pack Treatment Cold Pack Location R hip Patient Position Hooklying Treatment Duration (minutes) 10 Patient Tolerance Good Comments w/strap PT-OP-T Assessment and Plan Start: 11/10/22 14:37 Freq: Status: Active Protocol: Document 12/10/22 14:38 [facility] (Rec: 12/10/22 15:39 SP [id number]) Physical Therapy Assessment Goals balance Mortician Supplies Sales Representative Goal (LTG) Pt will show ability to do SLS for 10 sec on L side 12/08-improved to 7 12/10/22: added SLS star taps/ glides to improve stance time. LTG Duration 02/02/23 progressin12/10/22 strength Short Term Goal (STG) Pt will be indep w/HEP STG Duration achieved-advancing as able Mortician Supplies Sales Representative Goal (LTG) Pt will score at least 4+/5 on all LE MMT B to improve strength to improve pt ability walk. 12/08-improved LTG Duration 02/02 walking Short Term Goal (STG) Pt will be able to walk 1/2 to [place] w/o having to stp to stretch more than 3 times. 12/08-about 4-5 stops; able to make it 2/[address] limping started STG Duration 12/22/22 progressing 12/08/22 Mortician Supplies Sales Representative Goal (LTG) Pt will b eable to return to 1 -2 mile walks w/o inc pain LTG Duration 02/02 Assessment Summary Assessment Pt improved posturing and stance time RLE post SLS star taps to cones then star reach, less WB on RLE/ UE contact table. Pt reports less tightness post manual and quad stretching. Physical Therapy Plan Frequency and Duration Frequency of Treatment 1-2x/week Duration of treatment (weeks) 12 Plan of Care Start Date 11/10/22 Plan of Care End Date 02/02/23 Therapeutic Interventions Therapeutic Interventions Aquatic Therapy,Balance Training,Gait Training,Home Exercise Program,Joint Mobilizations,Manual Therapy, Neuromuscular Re-education, Orthotic/Prosthetic Management ,Patient/Caregiver Education, Self-Care/Home Management,Soft Tissue Mobilization,Taping, Therapeutic Activities, Therapeutic Exercises Modalities Cold Pack/Ice Massage,Electric Stimulation,Hot Packs, Infrared Therapy,Iontophoresis ,Ultrasound Next Visit Focus/Plan Next Note Type Treatment Note Next Visit Plan walk endurance, continue shuttle balance, increase SLS activities POC: Advance LE stability and strength, work more WB, manual to HS & knee
--- NOTE | 2022-12-15 13:00 | PT.OTN ---
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 B feet get really cold when sitting around. Knees can give him a little bit of trouble with going down stairs w/ load. He will cramp up in distal HS but discomfort doesn't cross knee or go up thigh. Denies back pain. He has arthritis in his back and had therapy for that and that helped. He started to feel it again a few months ago and he started doing his exercises again and that helped. He can only walk about 12 steps before L HS cramps up and has to bend/straighten knees. He was doing 5 miles before TKA a few years ago then got back up to 2-3 miles. He had done some1/2 mile to the [place] and has to stop about 17 times. He hasn't been doing the 1/2 mile walk even recently d/t the discomfort. Treatment Goals Patient/Caregiver Goals Be able to get back to walking PT-OP-C Subjective Start: 11/10/22 14:37 Freq: Status: Active Protocol: Document 12/15/22 12:15 SP (Rec: 12/15/22 13:04 SP [id number]) OP-PT Subjective Patient Comments Patient Comments Pt reports massaging superior scar, using rolling pin on quad and calf, doing HEP. Patient Reported Progress Improving PT-OP-D Balance Start: 11/10/22 14:37 Freq: Status: Active Protocol: Document 12/08/22 14:33 [facility] (Rec: 12/08/22 17:37 [facility] [id number]) Balance Tests Single Limb Standing Single Limb- Right 9 sec Single Limb- Left 7 sec PT-OP-F Manual Assessment Start: 11/10/22 14:37 Freq: Status: Active Protocol: Document 11/10/22 14:39 [facility] (Rec: 11/10/22 15:20 [facility] [id number]) Manual Assessments Soft Tissue Assessment Soft Tissue Mobility Assessment no reported tenderness w/ palpation but iTB and HS tightness noted L Joint Mobility Assessment Joint Mobility Assessment stands in ER of tibia nd femur on L: R more neutral: w/knee bending L tib & femur go into IR, R goes into less IR; L>R ER of foot in standing w/ rearfoot and forefoot valgus L >R PT-OP-G Mobility & Gait Start: 11/10/22 14:37 Freq: Status: Active Protocol: Document 11/10/22 14:39 [facility] (Rec: 11/10/22 15:20 [facility] [id number]) OP Gait Assessment Comments Gait Comments LLE turns out more, harder step onto LLE d/t dec ant dep PT-OP-J Posture/Palpation/Skin Start: 11/10/22 14:37 Freq: Status: Active Protocol: Document 12/08/22 14:33 [facility] (Rec: 12/08/22 17:37 [facility] [id number]) Posture Evaluation [facility] Postural Classification System Lumbar Protective Mechanism Left AP 3 Lumbar Protective Mechanism Right AP 4 Lumbar Protective Mechanism Left PA 2 Lumbar Protective Mechanism Right PA 2 PT-OP-K Range of Motion Start: 11/10/22 14:37 Freq: Status: Active Protocol: Document 11/10/22 14:39 [facility] (Rec: 11/10/22 15:20 [facility] [id number]) Knee Goniometric Range of Motion Knee Right Flexion Active (degrees) 110 Extension Active (degrees) 1 Left Flexion Active (degrees) 109 Extension Active (degrees) 2 PT-OP-L Special Tests Start: 11/10/22 14:37 Freq: Status: Active Protocol: Document 11/10/22 14:39 [facility] (Rec: 11/10/22 15:20 [facility] [id number]) Special Tests Lumbar Spine Special Tests Slump Test Results neg Knee Special Tests Gina's Test Test Results neg L ligamentous stability Test Results neg 4 way L Straight Leg Raise Test Results 50 deg L; 56 R PT-OP-M Strength Start: 11/10/22 14:37 Freq: Status: Active Protocol: Document 12/08/22 14:33 [facility] (Rec: 12/08/22 17:37 [facility] [id number]) Hip Strength Hip Manual Muscle Testing Right Flexion (L2) 5 Normal Extension (S1) 4+ Good+ Abduction 5 Normal Adduction 5 Normal External Rotation 5 Normal Internal Rotation 5 Normal Left Flexion (L2) 4+ Good+ Extension (S1) 4- Good- Abduction 4+ Good+ Adduction 5 Normal External Rotation 4 Good Internal Rotation 4+ Good+ Knee Strength Knee Manual Muscle Testing Right Flexion (S2) 5 Normal Extension (L3) 5 Normal Left Flexion (S2) 4+ Good+ Extension (L3) 4+ Good+ Ankle/Foot Strength Ankle and Foot Manual Muscle Testing Right Dorsiflexion (L4) 5 Normal Plantarflexion (S1) 5 Normal Comments 20 heel raises Left Dorsiflexion (L4) 5 Normal Plantarflexion (S1) 5 Normal Comments requires cues to keep knee straight w/heel raises-20 PT-OP-Q Treatments Start: 11/10/22 14:37 Freq: Status: Active Protocol: Document 12/15/22 12:15 SP (Rec: 12/15/22 13:04 SP [id number]) Therapeutic Exercises Standing Exercises SLS star taps Standing Exercise Name SLS reach glides, taps Resistance L>R Equipment Used 4 cones (12, 3, 4, 6 o'clock) Reps/Minutes 3 reps x2 sets Comments Cued scap squeeze, tall posture, core fac- improved SLS time step ups Standing Exercise Name discussed continue as HEP Equipment Used 4 step>6 step, no HR needed Reps/Minutes 5 reps 4step, x10 6 step band walk Standing Exercise Name discussed continue as HEP Resistance RTB at mid green Equipment Used initiated in PT- recheck for HEP next tx Reps/Minutes 15 ft x 2 laps each Comments cued no trunk SB eccentric calf raises Standing Exercise Name 3 positions: //, turned in, turned out Resistance bottom step Equipment Used B HRs Reps/Minutes x10 Comments cued slow eccentric lower stretch Gait Training Gait Activity 6MWT Description reassessment for goals 12/15/22 Device Used 0 Level of Assistance S Surface tile/carpet Distance/Duration 6MWT: 1864 ft. Treatment Focus endurance baseline, foot clearance, stride length Comments Calf tightness at 900 ft demonstrated limp. More than doubled distance Manual Therapy Treatment Soft Tissue Mobilization calf Body Location L Mobilization Type Cross-Friction,Myofascial Release,Rolling Intensity/Depth Moderate Body Position Prone Comments manual Neuro Re-Education Treatment Balance Activities SLS Details B Equipment rail PRN Reps/Duration L 6 sec, Comments 1. 6 sec L, 2. opp LE ball rolls w/SLS *cued light up foot contact ball PT-OP-R Modalities Start: 11/10/22 14:37 Freq: Status: Active Protocol: Document 11/28/22 14:36 NBM (Rec: 11/28/22 15:21 NBM [id number]) Hot Pack/Cold Pack Treatment Cold Pack Location R hip Patient Position Hooklying Treatment Duration (minutes) 10 Patient Tolerance Good Comments w/strap PT-OP-T Assessment and Plan Start: 11/10/22 14:37 Freq: Status: Active Protocol: Document 12/15/22 12:15 SP (Rec: 12/15/22 13:04 SP [id number]) Physical Therapy Assessment Goals balance Long-Term Goal (LTG) Pt will show ability to do SLS for 10 sec on L side 12/08-improved to 7 12/10/22: added SLS star taps/ glides to improve stance time. 12/15/22: LLE 6 sec Improved time cones taps COG over HERMELINDA. LTG Duration 02/02/23 progressin12/15/22 strength Short Term Goal (STG) Pt will be indep w/HEP 12/15/22: calf raises and stretch, HS stretch, self massage rolling pin, (for back : TB Rotation, SB AROM), STG Duration achieved-advancing as able Long-Term Goal (LTG) Pt will score at least 4+/5 on all LE MMT B to improve strength to improve pt ability walk. 12/08-improved 12/15/22: GOAL MET: L hip flexion:5/5 ext:5/5 ABD:5/5 ADD: 5/5 L knee flexion (seated): 02/06 L knee ext (seated): 02/06 LTG Duration 02/02 GOAL MET walking Short Term Goal (STG) Pt will be able to walk 1/2 to [place] w/o having to stp to stretch more than 3 times. 12/08-about 4-5 stops; able to make it 2[address] limping [address] 12/15/22: GOAL MET: makes about 3/[address] way before limping. 6MWT: 1864 ft. Calf tightness at 900 ft demonstrated limp. STG Duration 12/22/22 MET GOAL 12/15/22 Long-Term Goal (LTG) Pt will b eable to return to 1 -2 mile walks w/o inc pain 12/15/22: gets 3/4 miles before having pain in L calf. 6MWT: 1864 ft. Calf tightness (hunter horse thing) at 900 ft demonstrated limp. LTG Duration 02/02 progressing 12/15/22 Assessment Summary Assessment Pt improved SLS RLE during ball rolls and cone taps with less UE contact required post cues tall over stance LE. Pt improved increase distance 900 ft before L calf started tightening and states getting further 3/4 mile before calf tightens and noticing limp need to stretch. Physical Therapy Plan Frequency and Duration Frequency of Treatment 1-2x/week Duration of treatment (weeks) 12 Plan of Care Start Date 11/10/22 Plan of Care End Date 02/02/23 Therapeutic Interventions Therapeutic Interventions Aquatic Therapy,Balance Training,Gait Training,Home Exercise Program,Joint Mobilizations,Manual Therapy, Neuromuscular Re-education, Orthotic/Prosthetic Management ,Patient/Caregiver Education, Self-Care/Home Management,Soft Tissue Mobilization,Taping, Therapeutic Activities, Therapeutic Exercises Modalities Cold Pack/Ice Massage,Electric Stimulation,Hot Packs, Infrared Therapy,Iontophoresis ,Ultrasound Next Visit Focus/Plan Next Note Type Treatment Note Next Visit Plan Initiate uneven surfaces, walk endurance, continue shuttle balance, increase SLS activities POC: Advance LE stability and strength, work more WB, manual to HS & knee
--- NOTE | 2022-12-19 13:45 | PT.OTN ---
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 B feet get really cold when sitting around. Knees can give him a little bit of trouble with going down stairs w/ load. He will cramp up in distal HS but discomfort doesn't cross knee or go up thigh. Denies back pain. He has arthritis in his back and had therapy for that and that helped. He started to feel it again a few months ago and he started doing his exercises again and that helped. He can only walk about 12 steps before L HS cramps up and has to bend/straighten knees. He was doing 5 miles before TKA a few years ago then got back up to 2-3 miles. He had done some1/2 mile to the [place] and has to stop about 17 times. He hasn't been doing the 1/2 mile walk even recently d/t the discomfort. Treatment Goals Patient/Caregiver Goals Be able to get back to walking PT-OP-C Subjective Start: 11/10/22 14:37 Freq: Status: Active Protocol: Document 12/19/22 13:07 SP (Rec: 12/19/22 13:50 SP [id number]) OP-PT Subjective Patient Comments Patient Comments Pt reports biggest personal goal wanting improvement is balance progression. PT-OP-D Balance Start: 11/10/22 14:37 Freq: Status: Active Protocol: Document 12/08/22 14:33 [facility] (Rec: 12/08/22 17:37 [facility] [id number]) Balance Tests Single Limb Standing Single Limb- Right 9 sec Single Limb- Left 7 sec PT-OP-F Manual Assessment Start: 11/10/22 14:37 Freq: Status: Active Protocol: Document 11/10/22 14:39 [facility] (Rec: 11/10/22 15:20 [id number]) Manual Assessments Soft Tissue Assessment Soft Tissue Mobility Assessment no reported tenderness w/ palpation but iTB and HS tightness noted L Joint Mobility Assessment Joint Mobility Assessment stands in ER of tibia nd femur on L: R more neutral: w/knee bending L tib & femur go into IR, R goes into less IR; L>R ER of foot in standing w/ rearfoot and forefoot valgus L >R PT-OP-G Mobility & Gait Start: 11/10/22 14:37 Freq: Status: Active Protocol: Document 11/10/22 14:39 [facility] (Rec: 11/10/22 15:20 [facility] [id number]) OP Gait Assessment Comments Gait Comments LLE turns out more, harder step onto LLE d/t dec ant dep PT-OP-J Posture/Palpation/Skin Start: 11/10/22 14:37 Freq: Status: Active Protocol: Document 12/08/22 14:33 [facility] (Rec: 12/08/22 17:37 [facility] [id number]) Posture Evaluation [facility] Postural Classification System Lumbar Protective Mechanism Left AP 3 Lumbar Protective Mechanism Right AP 4 Lumbar Protective Mechanism Left PA 2 Lumbar Protective Mechanism Right PA 2 PT-OP-K Range of Motion Start: 11/10/22 14:37 Freq: Status: Active Protocol: Document 11/10/22 14:39 [facility] (Rec: 11/10/22 15:20 [facility] [id number]) Knee Goniometric Range of Motion Knee Right Flexion Active (degrees) 110 Extension Active (degrees) 1 Left Flexion Active (degrees) 109 Extension Active (degrees) 2 PT-OP-L Special Tests Start: 11/10/22 14:37 Freq: Status: Active Protocol: Document 11/10/22 14:39 [facility] (Rec: 11/10/22 15:20 [facility] [id number]) Special Tests Lumbar Spine Special Tests Slump Test Results neg Knee Special Tests Gina's Test Test Results neg L ligamentous stability Test Results neg 4 way L Straight Leg Raise Test Results 50 deg L; 56 R PT-OP-M Strength Start: 11/10/22 14:37 Freq: Status: Active Protocol: Document 12/08/22 14:33 [facility] (Rec: 12/08/22 17:37 [facility] [id number]) Hip Strength Hip Manual Muscle Testing Right Flexion (L2) 5 Normal Extension (S1) 4+ Good+ Abduction 5 Normal Adduction 5 Normal External Rotation 5 Normal Internal Rotation 5 Normal Left Flexion (L2) 4+ Good+ Extension (S1) 4- Good- Abduction 4+ Good+ Adduction 5 Normal External Rotation 4 Good Internal Rotation 4+ Good+ Knee Strength Knee Manual Muscle Testing Right Flexion (S2) 5 Normal Extension (L3) 5 Normal Left Flexion (S2) 4+ Good+ Extension (L3) 4+ Good+ Ankle/Foot Strength Ankle and Foot Manual Muscle Testing Right Dorsiflexion (L4) 5 Normal Plantarflexion (S1) 5 Normal Comments 20 heel raises Left Dorsiflexion (L4) 5 Normal Plantarflexion (S1) 5 Normal Comments requires cues to keep knee straight w/heel raises-20 PT-OP-Q Treatments Start: 11/10/22 14:37 Freq: Status: Active Protocol: Document 12/19/22 13:07 SP (Rec: 12/19/22 13:50 SP [id number]) Gym Equipment Shuttle Recovery unilateral squat Details cued //feet, slow eccentric control Resistance 50#>75# (2 new bands) Shuttle Recovery Platform Stable Reps/Time x20 each LE Bilateral Squats Details cued //feet& knees, good eccentric control Resistance 112# (4 new bands) Shuttle Recovery Platform Stable Reps/Time x20 Sport Cord red Exercise Details step ups: fwd/lateral Cord/Resistance Red Reps/Duration 4 step + blue foam Therapeutic Exercises Supine Exercises piriformis stretch Supine Exercise Name added to HEP: IR and ER (fig4) Equipment Used w/ strap Comments good strethc HS Stretch Supine Exercise Name reviewed HEP Side bilateral Equipment Used w/strap Reps/Minutes 2x30 ea Comments I feel that Standing Exercises eccentric calf raises Standing Exercise Name 3 positions: //, turned in, turned out Resistance bottom step Equipment Used B HRs Reps/Minutes x10 Comments cued slow eccentric lower stretch Neuro Re-Education Treatment Balance Activities obstacle course Details uneven surface gait, squat medicinal plant picker items Equipment blue mat, rolled yoga mat, 4 step, squat medicinal plant picker balls on cones/pods Comments cued feet // and wt shift cross body reaching for balance stability and decrease wB on lateral feet. Bosu Details 1. Step ups 2. balance (15 sec ) Equipment BOSU Comments Min A for BUE support on rail step ups hurdles Details 6 hurdles, foam pads (5) Comments Obstacle course: fwd reciprocal over x4 laps Improved stability with cues: slower pacing, tall posturing, feet forward PT-OP-R Modalities Start: 11/10/22 14:37 Freq: Status: Active Protocol: Document 11/28/22 14:36 NBM (Rec: 11/28/22 15:21 NBM [id number]) Hot Pack/Cold Pack Treatment Cold Pack Location R hip Patient Position Hooklying Treatment Duration (minutes) 10 Patient Tolerance Good Comments w/strap PT-OP-T Assessment and Plan Start: 11/10/22 14:37 Freq: Status: Active Protocol: Document 12/19/22 13:07 SP (Rec: 12/19/22 13:50 SP [id number]) Physical Therapy Assessment Goals balance Halfway Goal (LTG) Pt will show ability to do SLS for 10 sec on L side 12/08-improved to 7 12/10/22: added SLS star taps/ glides to improve stance time. 12/15/22: LLE 6 sec Improved time cones taps COG over HERMELINDA. 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 12/08-improved 12/15/22: GOAL MET: L hip flexion:5/5 ext:5/5 ABD:5/5 ADD: 5/5 L knee flexion (seated): 5/5 L knee ext (seated): 02/06 LTG Duration 02/02 GOAL MET walking Short Term Goal (STG) Pt will be able to walk 1/2 to [place] w/o having to stp to stretch more than 3 times. 12/08-about 4-5 stops; able to make it 2/[address] limping started 12/15/22: GOAL MET: makes about 3/[address] way before limping. 6MWT: 1864 ft. Calf tightness at 900 ft demonstrated limp. 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 6MWT: 1864 ft. Calf tightness (hunter horse thing) at 900 ft demonstrated limp. LTG Duration 02/02 progressing 12/15/22 Assessment Summary Assessment Pt improved SLS stability with cues of slower pacing, posturing over stance LE with core facilitation during squat medicinal plant picker items and nabeel uneven stepping, CG/ Min A. Physical Therapy Plan Frequency and Duration Frequency of Treatment 1-2x/week Duration of treatment (weeks) 12 Plan of Care Start Date 11/10/22 Plan of Care End Date 02/02/23 Therapeutic Interventions Therapeutic Interventions Aquatic Therapy,Balance Training,Gait Training,Home Exercise Program,Joint Mobilizations,Manual Therapy, Neuromuscular Re-education, Orthotic/Prosthetic Management ,Patient/Caregiver Education, Self-Care/Home Management,Soft Tissue Mobilization,Taping, Therapeutic Activities, Therapeutic Exercises Modalities Cold Pack/Ice Massage,Electric Stimulation,Hot Packs, Infrared Therapy,Iontophoresis ,Ultrasound Next Visit Focus/Plan Next Note Type Treatment Note Next Visit Plan Next tx: 6MWT outside parkinglot, uneven terrain outside. POC: Continue uneven surfaces, walk endurance, continue shuttle balance, increase SLS activities POC: Advance LE stability and strength, work more WB, manual to HS & knee
--- NOTE | 2022-12-22 15:21 | PT.OTN ---
Current Diagnoses Other acute postprocedural pain (12/22/22) Pain in left knee (12/22/22) Difficulty in walking, not elsewhere classified (12/22/22) Weakness (12/22/22) Physical Therapy Treatment Note PT-OP-A Visit Information Start: 11/10/22 14:37 Freq: Status: Active Protocol: Document 12/22/22 14:33 SP (Rec: 12/22/22 15:42 SP [id number]) Out-Patient Physical Therapy Visit Information Visit Information Visit Type Treatment Note Visit Note 02/11 after PN Visit Start Time 14:33 Visit Stop Time 15:21 Total Visit Minutes 48 Visit Number 13 Number of WARD ATTENDANT Visits 4 PT-OP-B Current Condition Start: 11/10/22 14:37 Freq: Status: Active Protocol: Document 11/10/22 14:39 LR (Rec: 11/10/22 15:20 [facility] [id number]) Current Condition History of Current Condition Onset Date few months ago Current Complaints L post thigh (distal HS) History of Current Condition 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 B feet get really cold when sitting around. Knees can give him a little bit of trouble with going down stairs w/ load. He will cramp up in distal HS but discomfort doesn't cross knee or go up thigh. Denies back pain. He has arthritis in his back and had therapy for that and that helped. He started to feel it again a few months ago and he started doing his exercises again and that helped. He can only walk about 12 steps before L HS cramps up and has to bend/straighten knees. He was doing 5 miles before TKA a few years ago then got back up to 2-3 miles. He had done some1/2 mile to the [employer] and has to stop about 17 times. He hasn't been doing the 1/2 mile walk even recently d/t the discomfort. Treatment Goals Patient/Caregiver Goals Be able to get back to walking PT-OP-C Subjective Start: 11/10/22 14:37 Freq: Status: Active Protocol: Document 12/22/22 14:33 SP (Rec: 12/22/22 15:42 SP [id number]) OP-PT Subjective Patient Comments Patient Comments Pt reports L knee doing better but calf tightness and no strength still limits his distance gait, if tries to go further then distal quad starts to hurt but hasn't in a while. PT-OP-D Balance Start: 11/10/22 14:37 Freq: Status: Active Protocol: Document 12/08/22 14:33 [facility] (Rec: 12/08/22 17:37 [facility] [id number]) Balance Tests Single Limb Standing Single Limb- Right 9 sec Single Limb- Left 7 sec PT-OP-F Manual Assessment Start: 11/10/22 14:37 Freq: Status: Active Protocol: Document 11/10/22 14:39 [facility] (Rec: 11/10/22 15:20 [facility] [id number]) Manual Assessments Soft Tissue Assessment Soft Tissue Mobility Assessment no reported tenderness w/ palpation but iTB and HS tightness noted L Joint Mobility Assessment Joint Mobility Assessment stands in ER of tibia nd femur on L: R more neutral: w/knee bending L tib & femur go into IR, R goes into less IR; L>R ER of foot in standing w/ rearfoot and forefoot valgus L >R PT-OP-G Mobility & Gait Start: 11/10/22 14:37 Freq: Status: Active Protocol: Document 11/10/22 14:39 [facility] (Rec: 11/10/22 15:20 [facility] [id number]) OP Gait Assessment Comments Gait Comments LLE turns out more, harder step onto LLE d/t dec ant dep PT-OP-J Posture/Palpation/Skin Start: 11/10/22 14:37 Freq: Status: Active Protocol: Document 12/08/22 14:33 [facility] (Rec: 12/08/22 17:37 [facility] [id number]) Posture Evaluation [facility] Postural Classification System Lumbar Protective Mechanism Left AP 3 Lumbar Protective Mechanism Right AP 4 Lumbar Protective Mechanism Left PA 2 Lumbar Protective Mechanism Right PA 2 PT-OP-K Range of Motion Start: 11/10/22 14:37 Freq: Status: Active Protocol: Document 11/10/22 14:39 [facility] (Rec: 11/10/22 15:20 [facility] [id number]) Knee Goniometric Range of Motion Knee Right Flexion Active (degrees) 110 Extension Active (degrees) 1 Left Flexion Active (degrees) 109 Extension Active (degrees) 2 PT-OP-L Special Tests Start: 11/10/22 14:37 Freq: Status: Active Protocol: Document 11/10/22 14:39 [facility] (Rec: 11/10/22 15:20 [facility] [id number]) Special Tests Lumbar Spine Special Tests Slump Test Results neg Knee Special Tests Gina's Test Test Results neg L ligamentous stability Test Results neg 4 way L Straight Leg Raise Test Results 50 deg L; 56 R PT-OP-M Strength Start: 11/10/22 14:37 Freq: Status: Active Protocol: Document 12/08/22 14:33 [facility] (Rec: 12/08/22 17:37 [facility] [id number]) Hip Strength Hip Manual Muscle Testing Right Flexion (L2) 5 Normal Extension (S1) 4+ Good+ Abduction 5 Normal Adduction 5 Normal External Rotation 5 Normal Internal Rotation 5 Normal Left Flexion (L2) 4+ Good+ Extension (S1) 4- Good- Abduction 4+ Good+ Adduction 5 Normal External Rotation 4 Good Internal Rotation 4+ Good+ Knee Strength Knee Manual Muscle Testing Right Flexion (S2) 5 Normal Extension (L3) 5 Normal Left Flexion (S2) 4+ Good+ Extension (L3) 4+ Good+ Ankle/Foot Strength Ankle and Foot Manual Muscle Testing Right Dorsiflexion (L4) 5 Normal Plantarflexion (S1) 5 Normal Comments 20 heel raises Left Dorsiflexion (L4) 5 Normal Plantarflexion (S1) 5 Normal Comments requires cues to keep knee straight w/heel raises-20 PT-OP-Q Treatments Start: 11/10/22 14:37 Freq: Status: Active Protocol: Document 12/22/22 14:33 SP (Rec: 12/22/22 15:42 SP [id number]) Therapeutic Exercises Sitting Exercises HS stretch Sitting Exercise Name reviewed - post walking Side bilateral Resistance each LE Reps/Minutes 30 Comments cued straight back, hip hinge Standing Exercises lunge Standing Exercise Name mini Side bilateral Equipment Used rail contact Reps/Minutes 2 reps LLE back, 5 reps LLE front position Comments unable tolerate LLE in back position, both calves incr tightness after 5 r Gait Training Gait Activity 6MWT Description reassess endurance outside gait (12/22/22) Device Used 0 Level of Assistance S Surface tile/carpet Distance/Duration 6MWT: 1247ft outside uneven pavement less from 1864 ft 3/ 13 level indoors. Treatment Focus endurance baseline, foot clearance, stride length Comments Calf tightness at 720 ft, 180 ft less than 12/15, limp worsened with distance required 1 stop calf stretch. Manual Therapy Treatment Soft Tissue Mobilization calf Body Location L Mobilization Type Cross-Friction,Myofascial Release,Rolling Intensity/Depth Moderate Body Position Prone Comments manual Joint Mobilizations L ankle mob Joint MTP med/ lat, calcaneal distraction & med/ lat, talocrual posterior glide Grade II Body Position Hooklying Comments manual, good response Neuro Re-Education Treatment Balance Activities Bosu Details 1. Step ups light contact 2. balance (60 sec) no UE support needed Equipment BOSU Comments SBA SLS Details B Equipment rail PRN Comments 1. 3 sec L (less 3 sec since ), RLE 5 sec 2. opp LE ball rolls w/SLS *cued tall elevated posture, light contact ball- PRN UE support PT-OP-R Modalities Start: 11/10/22 14:37 Freq: Status: Active Protocol: Document 12/22/22 14:33 SP (Rec: 12/22/22 15:42 SP [id number]) Hot Pack/Cold Pack Treatment MHP Location B calves Patient Position Hooklying Treatment Duration (minutes) 10 Patient Tolerance Good Comments pt reports calves feel alot better, not tight. PT-OP-T Assessment and Plan Start: 11/10/22 14:37 Freq: Status: Active Protocol: Document 12/22/22 14:33 SP (Rec: 12/22/22 15:42 SP [id number]) Physical Therapy Assessment Goals balance Correction Goal (LTG) Pt will show ability to do SLS for 10 sec on L side 12/08-improved to 7 12/10/22: added SLS star taps/ glides to improve stance time. 12/15/22: LLE 6 sec Improved time cones taps COG over HERMELINDA. 12/22/22: 3 sec SLS L, 5 sec RLE post BOSU activity, less 3 sec from 12/15/22. LTG Duration 02/02/23 progressin12/22/22 strength Short Term Goal (STG) Pt will be indep w/HEP 12/15/22: calf raises and stretch, HS stretch, self massage rolling pin, (for back : TB Rotation, SB AROM), STG Duration achieved-advancing as able Pharmacy Retail Support Specialist Goal (LTG) Pt will score at least 4+/5 on all LE MMT B to improve strength to improve pt ability walk. 12/08-improved 12/15/22: GOAL MET: L hip flexion:02/06 ext:55 ABD:02/06 ADD: 5/5 L knee flexion (seated): 5/5 L knee ext (seated): 5/5 LTG Duration 02/02 GOAL MET walking Short Term Goal (STG) Pt will be able to walk 1/2 to [employer] w/o having to stp to stretch more than 3 times. 12/08-about 4-5 stops; able to make it 2[address] limping started 12/15/22: GOAL MET: makes about 3/4 way before limping. 6MWT: 1864 ft. Calf tightness at 900 ft demonstrated limp. STG Duration 12/22/22 MET GOAL 12/15/22 Pharmacy Retail Support Specialist Goal (LTG) Pt will b eable to return to 1 -2 mile walks w/o inc pain 12/15/22: gets 3/4 miles before having pain in L calf. 6MWT: 1864 ft. Calf tightness (hunter horse thing) at 900 ft demonstrated limp. 12/22/22: L calf cramping at 720 ft uneven pavement, less 180 ft from 12/15/22 level indoor surface. LTG Duration 02/02 progressing 12/22/22 Assessment Summary Assessment Pt decreased distance gait uneven pavement before limping gait requiring stop calf stretch then able finish 6MWT. Decrease SLS time LLE this tx post balance activity. Was able to complete quick ladder stepping 1 length heel lift before calf started L cramping needed stop. Good feedback P modality end tx. Physical Therapy Plan Frequency and Duration Frequency of Treatment 1-2x/week Duration of treatment (weeks) 12 Plan of Care Start Date 11/10/22 Plan of Care End Date 02/02/23 Therapeutic Interventions Therapeutic Interventions Aquatic Therapy,Balance Training,Gait Training,Home Exercise Program,Joint Mobilizations,Manual Therapy, Neuromuscular Re-education, Orthotic/Prosthetic Management ,Patient/Caregiver Education, Self-Care/Home Management,Soft Tissue Mobilization,Taping, Therapeutic Activities, Therapeutic Exercises Modalities Cold Pack/Ice Massage,Electric Stimulation,Hot Packs, Infrared Therapy,Iontophoresis ,Ultrasound Next Visit Focus/Plan Next Note Type Treatment Note Next Visit Plan Next tx: eccentric calf raise POC: Continue uneven surfaces, walk endurance, continue shuttle balance, increase SLS activities POC: Advance LE stability and strength, work more WB, manual to HS & knee
--- NOTE | 2022-12-24 14:32 | PT.OTN ---
Current Diagnoses Other acute postprocedural pain (12/24/22) Pain in left knee (12/24/22) Difficulty in walking, not elsewhere classified (12/24/22) Weakness (12/24/22) Physical Therapy Treatment Note PT-OP-A Visit Information Start: 11/10/22 14:37 Freq: Status: Active Protocol: Document 12/24/22 13:48 [facility] (Rec: 12/24/22 14:32 [facility] [id number]) Out-Patient Physical Therapy Visit Information Visit Information Visit Type Treatment Note Visit Note 03/14 after PN Visit Start Time 13:49 Visit Stop Time 14:29 Total Visit Minutes 40 Visit Number 14 Number of PROTECTION CONSULTANT Visits 0 PT-OP-B Current Condition Start: 11/10/22 14:37 Freq: Status: Active Protocol: Document 11/10/22 14:39 [facility] (Rec: 11/10/22 15:20 [facility] [id number]) Current Condition History of Current Condition Onset Date few months ago Current Complaints L post thigh (distal HS) History of Current Condition 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 B feet get really cold when sitting around. Knees can give him a little bit of trouble with going down stairs w/ load. He will cramp up in distal HS but discomfort doesn't cross knee or go up thigh. Denies back pain. He has arthritis in his back and had therapy for that and that helped. He started to feel it again a few months ago and he started doing his exercises again and that helped. He can only walk about 12 steps before L HS cramps up and has to bend/straighten knees. He was doing 5 miles before TKA a few years ago then got back up to 2-3 miles. He had done some1/2 mile to [place] [employer] and has to stop about 17 times. He hasn't been doing the 1/2 mile walk even recently d/t the discomfort. Treatment Goals Patient/Caregiver Goals Be able to get back to walking PT-OP-C Subjective Start: 11/10/22 14:37 Freq: Status: Active Protocol: Document 12/24/22 13:48 [facility] (Rec: 12/24/22 14:32 [facility] [id number]) OP-PT Subjective Patient Comments Patient Comments Pt reports he can walk about 1 /2 mile before starting cramping. No issues w/quad area but calf cramping. Admits his water intake is poor PT-OP-D Balance Start: 11/10/22 14:37 Freq: Status: Active Protocol: Document 12/08/22 14:33 [facility] (Rec: 12/08/22 17:37 [facility] [id number]) Balance Tests Single Limb Standing Single Limb- Right 9 sec Single Limb- Left 7 sec PT-OP-F Manual Assessment Start: 11/10/22 14:37 Freq: Status: Active Protocol: Document 11/10/22 14:39 [facility] (Rec: 11/10/22 15:20 [facility] [id number]) Manual Assessments Soft Tissue Assessment Soft Tissue Mobility Assessment no reported tenderness w/ palpation but iTB and HS tightness noted L Joint Mobility Assessment Joint Mobility Assessment stands in ER of tibia nd femur on L: R more neutral: w/knee bending L tib & femur go into IR, R goes into less IR; L>R ER of foot in standing w/ rearfoot and forefoot valgus L >R PT-OP-G Mobility & Gait Start: 11/10/22 14:37 Freq: Status: Active Protocol: Document 11/10/22 14:39 [facility] (Rec: 11/10/22 15:20 [facility] [id number]) OP Gait Assessment Comments Gait Comments LLE turns out more, harder step onto LLE d/t dec ant dep PT-OP-J Posture/Palpation/Skin Start: 11/10/22 14:37 Freq: Status: Active Protocol: Document 12/08/22 14:33 [facility] (Rec: 12/08/22 17:37 [facility] [id number]) Posture Evaluation [facility] Postural Classification System Lumbar Protective Mechanism Left AP 3 Lumbar Protective Mechanism Right AP 4 Lumbar Protective Mechanism Left PA 2 Lumbar Protective Mechanism Right PA 2 PT-OP-K Range of Motion Start: 11/10/22 14:37 Freq: Status: Active Protocol: Document 11/10/22 14:39 [facility] (Rec: 11/10/22 15:20 [facility] [id number]) Knee Goniometric Range of Motion Knee Right Flexion Active (degrees) 110 Extension Active (degrees) 1 Left Flexion Active (degrees) 109 Extension Active (degrees) 2 PT-OP-L Special Tests Start: 11/10/22 14:37 Freq: Status: Active Protocol: Document 11/10/22 14:39 [facility] (Rec: 11/10/22 15:20 [facility] [id number]) Special Tests Lumbar Spine Special Tests Slump Test Results neg Knee Special Tests Gina's Test Test Results neg L ligamentous stability Test Results neg 4 way L Straight Leg Raise Test Results 50 deg L; 56 R PT-OP-M Strength Start: 11/10/22 14:37 Freq: Status: Active Protocol: Document 12/08/22 14:33 [facility] (Rec: 12/08/22 17:37 [facility] [id number]) Hip Strength Hip Manual Muscle Testing Right Flexion (L2) 5 Normal Extension (S1) 4+ Good+ Abduction 5 Normal Adduction 5 Normal External Rotation 5 Normal Internal Rotation 5 Normal Left Flexion (L2) 4+ Good+ Extension (S1) 4- Good- Abduction 4+ Good+ Adduction 5 Normal External Rotation 4 Good Internal Rotation 4+ Good+ Knee Strength Knee Manual Muscle Testing Right Flexion (S2) 5 Normal Extension (L3) 5 Normal Left Flexion (S2) 4+ Good+ Extension (L3) 4+ Good+ Ankle/Foot Strength Ankle and Foot Manual Muscle Testing Right Dorsiflexion (L4) 5 Normal Plantarflexion (S1) 5 Normal Comments 20 heel raises Left Dorsiflexion (L4) 5 Normal Plantarflexion (S1) 5 Normal Comments requires cues to keep knee straight w/heel raises-20 PT-OP-Q Treatments Start: 11/10/22 14:37 Freq: Status: Active Protocol: Document 12/24/22 13:48 [facility] (Rec: 12/24/22 14:32 [facility] [id number]) Cardio Equipment Treadmill Duration (Minutes) 6 Speed 1.5 Incline 0 Therapeutic Exercises Standing Exercises SLS star taps Standing Exercise Name SLS reach glides, taps Side bilateral Equipment Used 4 cones (10, 11, 1, 2 o'clock) Reps/Minutes 3 reps Comments Cued scap squeeze, tall posture, core fac- improved SLS time lunge Standing Exercise Name mini Side bilateral Equipment Used rail contact Reps/Minutes 2x5 ea eccentric calf raises Standing Exercise Name 3 positions: //, turned in, turned out Side bilateral Resistance bottom step Equipment Used B HRs- eccentric and concentric Reps/Minutes x10 ea Comments cued slow eccentric lower stretch stretch Standing Exercise Name ely Side bilateral Reps/Minutes 1 min X2 Manual Therapy Treatment Soft Tissue Mobilization calf Body Location L Mobilization Type Cross-Friction,Myofascial Release,Rolling Intensity/Depth Moderate Body Position Prone Comments manual Neuro Re-Education Treatment Balance Activities tilt board Details fwd/back wt shifts Bosu Details 1. Step ups light contact x10 B 2. balance (60 sec) no UE support needed Equipment BOSU Comments SBA PT-OP-R Modalities Start: 11/10/22 14:37 Freq: Status: Active Protocol: Document 12/22/22 14:33 SP (Rec: 12/22/22 15:42 SP [id number]) Hot Pack/Cold Pack Treatment MHP Location B calves Patient Position Hooklying Treatment Duration (minutes) 10 Patient Tolerance Good Comments pt reports calves feel alot better, not tight. PT-OP-T Assessment and Plan Start: 11/10/22 14:37 Freq: Status: Active Protocol: Document 12/24/22 13:48 [facility] (Rec: 12/24/22 14:32 [facility] [id number]) Physical Therapy Assessment Goals balance Media Services Specialist Goal (LTG) Pt will show ability to do SLS for 10 sec on L side 12/08-improved to 7 12/10/22: added SLS star taps/ glides to improve stance time. 12/15/22: LLE 6 sec Improved time cones taps COG over HERMELINDA. 12/22/22: 3 sec SLS L, 5 sec RLE post BOSU activity, less 3 sec from 12/15/22. LTG Duration 02/02/23 progressin12/22/22 strength Short Term Goal (STG) Pt will be indep w/HEP 12/15/22: calf raises and stretch, HS stretch, self massage rolling pin, (for back : TB Rotation, SB AROM), STG Duration achieved-advancing as able Media Services Specialist Goal (LTG) Pt will score at least 4+/5 on all LE MMT B to improve strength to improve pt ability walk. 12/08-improved 12/15/22: GOAL MET: L hip flexion:5/5 ext:5/5 ABD:5/5 ADD: 5/5 L knee flexion (seated): 5/5 L knee ext (seated): 5/5 LTG Duration 02/02 GOAL MET walking Short Term Goal (STG) Pt will be able to walk 1/2 to [employer] w/o having to stp to stretch more than 3 times. 12/08-about 4-5 stops; able to make it 2/[address] limping started 12/15/22: GOAL MET: makes about 3/[address] before limping. 6MWT: 1864 ft. Calf tightness at 900 ft demonstrated limp. STG Duration 12/22/22 MET GOAL 12/15/22 Media Services Specialist Goal (LTG) Pt will b eable to return to 1 -2 mile walks w/o inc pain 12/15/22: gets 3/4 miles before having pain in L calf. 6MWT: 1864 ft. Calf tightness (hunter horse thing) at 900 ft demonstrated limp. 12/22/22: L calf cramping at 720 ft uneven pavement, less 180 ft from 12/15/22 level indoor surface. LTG Duration 02/02 progressing 12/22/22 Assessment Summary Assessment Pt did well on SL activities today but does cont to show more difficulty in LLE. He does notes L>R calf fatigue during exercise. TIghness noted in L calf and did encourage pt to follow MD's recommendations of inc H20 intake. Physical Therapy Plan Frequency and Duration Frequency of Treatment 1-2x/week Duration of treatment (weeks) 12 Plan of Care Start Date 11/10/22 Plan of Care End Date 02/02/23 Next Visit Focus/Plan Next Note Type Treatment Note Next Visit Plan Continue uneven surfaces, walk endurance, continue shuttle balance, increase SLS activities POC: Advance LE stability and strength, work more WB, manual to HS & knee
--- NOTE | 2022-12-29 13:47 | PT.OTN ---
Current Diagnoses Other acute postprocedural pain (12/29/22) Pain in left knee (12/29/22) Difficulty in walking, not elsewhere classified (12/29/22) Weakness (12/29/22) Physical Therapy Treatment Note PT-OP-A Visit Information Start: 11/10/22 14:37 Freq: Status: Active Protocol: Document 12/29/22 13:01 [facility] (Rec: 12/29/22 13:46 [facility] [id number]) Out-Patient Physical Therapy Visit Information Visit Information Visit Type Treatment Note Visit Note 04/13 Visit Start Time 13:00 Visit Stop Time 13:40 Total Visit Minutes 40 Visit Number 15 Number of CHEMICAL EQUIPMENT CONTROLLER Visits 0 PT-OP-B Current Condition Start: 11/10/22 14:37 Freq: Status: Active Protocol: Document 11/10/22 14:39 [facility] (Rec: 11/10/22 15:20 [facility] [id number]) Current Condition History of Current Condition Onset Date few months ago Current Complaints L post thigh (distal HS) History of Current Condition 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 B feet get really cold when sitting around. Knees can give him a little bit of trouble with going down stairs w/ load. He will cramp up in distal HS but discomfort doesn't cross knee or go up thigh. Denies back pain. He has arthritis in his back and had therapy for that and that helped. He started to feel it again a few months ago and he started doing his exercises again and that helped. He can only walk about 12 steps before L HS cramps up and has to bend/straighten knees. He was doing 5 miles before TKA a few years ago then got back up to 2-3 miles. He had done some1/2 mile to the [place] and has to stop about 17 times. He hasn't been doing the 1/2 mile walk even recently d/t the discomfort. Treatment Goals Patient/Caregiver Goals Be able to get back to walking PT-OP-C Subjective Start: 11/10/22 14:37 Freq: Status: Active Protocol: Document 12/29/22 13:01 [facility] (Rec: 12/29/22 13:46 [facility] [id number]) OP-PT Subjective Patient Comments Patient Comments Pt reprots after last session he was able to do hs 1/2 mile walk w/o cramping. he clarifies that his recent walks have been 1/4 mile and 1 /4 mile back. DId not have to stretch. Has tried to inc water intake and has done 40- 60ounces a day. PT-OP-D Balance Start: 11/10/22 14:37 Freq: Status: Active Protocol: Document 12/08/22 14:33 [facility] (Rec: 12/08/22 17:37 [id number] Balance Tests Single Limb Standing Single Limb- Right 9 sec Single Limb- Left 7 sec PT-OP-F Manual Assessment Start: 11/10/22 14:37 Freq: Status: Active Protocol: Document 11/10/22 14:39 [facility] (Rec: 11/10/22 15:20 [id number] Manual Assessments Soft Tissue Assessment Soft Tissue Mobility Assessment no reported tenderness w/ palpation but iTB and HS tightness noted L Joint Mobility Assessment Joint Mobility Assessment stands in ER of tibia nd femur on L: R more neutral: w/knee bending L tib & femur go into IR, R goes into less IR; L>R ER of foot in standing w/ rearfoot and forefoot valgus L >R PT-OP-G Mobility & Gait Start: 11/10/22 14:37 Freq: Status: Active Protocol: Document 11/10/22 14:39 [facility] (Rec: 11/10/22 15:20 [facility] [id number]) OP Gait Assessment Comments Gait Comments LLE turns out more, harder step onto LLE d/t dec ant dep PT-OP-J Posture/Palpation/Skin Start: 11/10/22 14:37 Freq: Status: Active Protocol: Document 12/08/22 14:33 [facility] (Rec: 12/08/22 17:37 [facility] [id number]) Posture Evaluation Milly Postural Classification System Lumbar Protective Mechanism Left AP 3 Lumbar Protective Mechanism Right AP 4 Lumbar Protective Mechanism Left PA 2 Lumbar Protective Mechanism Right PA 2 PT-OP-K Range of Motion Start: 11/10/22 14:37 Freq: Status: Active Protocol: Document 11/10/22 14:39 [facility] (Rec: 11/10/22 15:20 [facility] [id number]) Knee Goniometric Range of Motion Knee Right Flexion Active (degrees) 110 Extension Active (degrees) 1 Left Flexion Active (degrees) 109 Extension Active (degrees) 2 PT-OP-L Special Tests Start: 11/10/22 14:37 Freq: Status: Active Protocol: Document 11/10/22 14:39 [facility] (Rec: 11/10/22 15:20 [facility] [id number]) Special Tests Lumbar Spine Special Tests Slump Test Results neg Knee Special Tests Gina's Test Test Results neg L ligamentous stability Test Results neg 4 way L Straight Leg Raise Test Results 50 deg L; 56 R PT-OP-M Strength Start: 11/10/22 14:37 Freq: Status: Active Protocol: Document 12/08/22 14:33 [facility] (Rec: 12/08/22 17:37 [facility] [id number]) Hip Strength Hip Manual Muscle Testing Right Flexion (L2) 5 Normal Extension (S1) 4+ Good+ Abduction 5 Normal Adduction 5 Normal External Rotation 5 Normal Internal Rotation 5 Normal Left Flexion (L2) 4+ Good+ Extension (S1) 4- Good- Abduction 4+ Good+ Adduction 5 Normal External Rotation 4 Good Internal Rotation 4+ Good+ Knee Strength Knee Manual Muscle Testing Right Flexion (S2) 5 Normal Extension (L3) 5 Normal Left Flexion (S2) 4+ Good+ Extension (L3) 4+ Good+ Ankle/Foot Strength Ankle and Foot Manual Muscle Testing Right Dorsiflexion (L4) 5 Normal Plantarflexion (S1) 5 Normal Comments 20 heel raises Left Dorsiflexion (L4) 5 Normal Plantarflexion (S1) 5 Normal Comments requires cues to keep knee straight w/heel raises-20 PT-OP-Q Treatments Start: 11/10/22 14:37 Freq: Status: Active Protocol: Document 12/29/22 13:01 [facility] (Rec: 12/29/22 13:46 [facility] [id number]) Cardio Equipment Treadmill Duration (Minutes) 6 Speed 1.6 Incline 0 Therapeutic Exercises Sitting Exercises HS stretch Side bilateral Resistance each LE Reps/Minutes 30 Comments cued straight back, hip hinge Standing Exercises DF Side bilateral Equipment Used rail Reps/Minutes 10 ea quad stretch Standing Exercise Name leg on chair w/hand on counter Side left Reps/Minutes 30 sec lunge Standing Exercise Name mini Side bilateral Equipment Used rail contact Reps/Minutes 2x5 ea eccentric calf raises Standing Exercise Name concentric/eccentric Side bilateral Resistance on ground Reps/Minutes x10 ea Comments cued slow eccentric lower stretch stretch Standing Exercise Name fwd lean 1. gastroc 2. soleus Side bilateral Reps/Minutes 30 sec ea squats Standing Exercise Name sit to stands no hands Side bilateral Reps/Minutes 5 Manual Therapy Treatment Soft Tissue Mobilization quad Body Location L lat & med borders Mobilization Type Rolling Intensity/Depth Moderate Body Position Supine calf Body Location L Mobilization Type Cross-Friction,Myofascial Release,Rolling Intensity/Depth Moderate Body Position Supine Comments w/APs HS Body Location L Mobilization Type Cross-Friction,Rolling, Strumming Intensity/Depth Moderate Body Position Supine Comments w/APs Joint Mobilizations patellofemoral Joint L Direction sup, med, inf Neuro Re-Education Treatment Balance Activities SLS Details B Equipment rail PRN PT-OP-R Modalities Start: 11/10/22 14:37 Freq: Status: Active Protocol: Document 12/22/22 14:33 [facility] (Rec: 12/22/22 15:42 [facility] [id number]) Hot Pack/Cold Pack Treatment MHP Location B calves Patient Position Hooklying Treatment Duration (minutes) 10 Patient Tolerance Good Comments pt reports calves feel alot better, not tight. PT-OP-T Assessment and Plan Start: 11/10/22 14:37 Freq: Status: Active Protocol: Document 12/29/22 13:01 [facility] (Rec: 12/29/22 13:46 [facility] [id number]) Physical Therapy Assessment Goals balance Blue Split Trimmer Goal (LTG) Pt will show ability to do SLS for 10 sec on L side 12/08-improved to 7 12/10/22: added SLS star taps/ glides to improve stance time. 12/15/22: LLE 6 sec Improved time cones taps COG over HERMELINDA. 12/22/22: 3 sec SLS L, 5 sec RLE post BOSU activity, less 3 sec from 12/15/22. LTG Duration 02/02/23 progressin12/22/22 strength Short Term Goal (STG) Pt will be indep w/HEP 12/15/22: calf raises and stretch, HS stretch, self massage rolling pin, (for back : TB Rotation, SB AROM), STG Duration achieved-advancing as able Senior Living Goal (LTG) Pt will score at least 4+/5 on all LE MMT B to improve strength to improve pt ability walk. 12/08-improved 12/15/22: GOAL MET: L hip flexion:02/06 ext:02/06 ABD:02/06 ADD: 02/06 L knee flexion (seated): 02/06 L knee ext (seated): 02/06 LTG Duration 02/02 GOAL MET walking Short Term Goal (STG) Pt will be able to walk 1/2 to [place] w/o having to stp to stretch more than 3 times. 12/08-about 4-5 stops; able to make it 2[address] limping [address] 12/15/22: GOAL MET: makes about 3/4 way before limping. 6MWT: 1864 ft. Calf tightness at 900 ft demonstrated limp. STG Duration 12/22/22 MET GOAL 12/15/22 Blue Split Trimmer Goal (LTG) Pt will b eable to return to 1 -2 mile walks w/o inc pain 12/15/22: gets 3/4 miles before having pain in L calf. 6MWT: 1864 ft. Calf tightness (hunter horse thing) at 900 ft demonstrated limp. 12/22/22: L calf cramping at 720 ft uneven pavement, less 180 ft from 12/15/22 level indoor surface. LTG Duration 02/02 progressing 12/22/22 Assessment Summary Assessment Pt has less tightness notable during session. He does note some tension in L quad w/ exercises but is a lot weaker in L>R quad still. Went over HEP for pt to cont at home in prep for DC Physical Therapy Plan Frequency and Duration Frequency of Treatment 1-2x/week Duration of treatment (weeks) 12 Plan of Care Start Date 11/10/22 Plan of Care End Date 02/02/23 Next Visit Focus/Plan Next Note Type Discharge Summary Next Visit Plan review HEP & set up for DC w/ retesting
--- NOTE | 2023-01-01 15:14 | PT.OTN ---
Current Diagnoses Other acute postprocedural pain (01/01/23) Pain in left knee (01/01/23) Difficulty in walking, not elsewhere classified (01/01/23) Weakness (01/01/23) Physical Therapy Treatment Note PT-OP-A Visit Information Start: 11/10/22 14:37 Freq: Status: Active Protocol: Document 01/01/23 14:40 [facility] (Rec: 01/01/23 15:14 [facility] [id number]) Out-Patient Physical Therapy Visit Information Visit Information Visit Type Discharge Summary Visit Start Time 14:36 Visit Stop Time 15:14 Total Visit Minutes 38 Visit Number 16 Number of DIRECTOR OF ANESTHESIA SERVICES Visits 0 PT-OP-B Current Condition Start: 11/10/22 14:37 Freq: Status: Active Protocol: Document 11/10/22 14:39 [facility] (Rec: 11/10/22 15:20 [facility] [id number]) Current Condition History of Current Condition Onset Date few months ago Current Complaints L post thigh (distal HS) History of Current Condition 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 B feet get really cold when sitting around. Knees can give him a little bit of trouble with going down stairs w/ load. He will cramp up in distal HS but discomfort doesn't cross knee or go up thigh. Denies back pain. He has arthritis in his back and had therapy for that and that helped. He started to feel it again a few months ago and he started doing his exercises again and that helped. He can only walk about 12 steps before L HS cramps up and has to bend/straighten knees. He was doing 5 miles before TKA a few years ago then got back up to 2-3 miles. He had done some1/2 mile to the [place] and has to stop about 17 times. He hasn't been doing the 1/2 mile walk even recently d/t the discomfort. Treatment Goals Patient/Caregiver Goals Be able to get back to walking PT-OP-C Subjective Start: 11/10/22 14:37 Freq: Status: Active Protocol: Document 01/01/23 14:40 [facility] (Rec: 01/01/23 15:14 [facility] [id number]) OP-PT Subjective Patient Comments Patient Comments Pt reports no instances of cramping recently PT-OP-D Balance Start: 11/10/22 14:37 Freq: Status: Active Protocol: Document 12/08/22 14:33 [facility] (Rec: 12/08/22 17:37 [facility] [id number]) Balance Tests Single Limb Standing Single Limb- Right 9 sec Single Limb- Left 7 sec PT-OP-F Manual Assessment Start: 11/10/22 14:37 Freq: Status: Active Protocol: Document 11/10/22 14:39 [facility] (Rec: 11/10/22 15:20 [facility] [id number]) Manual Assessments Soft Tissue Assessment Soft Tissue Mobility Assessment no reported tenderness w/ palpation but iTB and HS tightness noted L Joint Mobility Assessment Joint Mobility Assessment stands in ER of tibia nd femur on L: R more neutral: w/knee bending L tib & femur go into IR, R goes into less IR; L>R ER of foot in standing w/ rearfoot and forefoot valgus L >R PT-OP-G Mobility & Gait Start: 11/10/22 14:37 Freq: Status: Active Protocol: Document 11/10/22 14:39 [facility] (Rec: 11/10/22 15:20 [facility] [id number]) OP Gait Assessment Comments Gait Comments LLE turns out more, harder step onto LLE d/t dec ant dep PT-OP-J Posture/Palpation/Skin Start: 11/10/22 14:37 Freq: Status: Active Protocol: Document 12/08/22 14:33 [facility] (Rec: 12/08/22 17:37 [facility] [id number]) Posture Evaluation [facility] Postural Classification System Lumbar Protective Mechanism Left AP 3 Lumbar Protective Mechanism Right AP 4 Lumbar Protective Mechanism Left PA 2 Lumbar Protective Mechanism Right PA 2 PT-OP-K Range of Motion Start: 11/10/22 14:37 Freq: Status: Active Protocol: Document 11/10/22 14:39 [facility] (Rec: 11/10/22 15:20 [facility] [id number]) Knee Goniometric Range of Motion Knee Right Flexion Active (degrees) 110 Extension Active (degrees) 1 Left Flexion Active (degrees) 109 Extension Active (degrees) 2 PT-OP-L Special Tests Start: 11/10/22 14:37 Freq: Status: Active Protocol: Document 11/10/22 14:39 [facility] (Rec: 11/10/22 15:20 [facility] [id number]) Special Tests Lumbar Spine Special Tests Slump Test Results neg Knee Special Tests Gina's Test Test Results neg L ligamentous stability Test Results neg 4 way L Straight Leg Raise Test Results 50 deg L; 56 R PT-OP-M Strength Start: 11/10/22 14:37 Freq: Status: Active Protocol: Document 01/01/23 14:40 [facility] (Rec: 01/01/23 15:14 [facility] [id number]) Hip Strength Hip Manual Muscle Testing Right Flexion (L2) 5 Normal Extension (S1) 5 Normal Abduction 5 Normal Adduction 5 Normal External Rotation 5 Normal Internal Rotation 5 Normal Left Flexion (L2) 5 Normal Extension (S1) 5 Normal Abduction 5 Normal Adduction 5 Normal External Rotation 4+ Good+ Internal Rotation 4+ Good+ Knee Strength Knee Manual Muscle Testing Right Flexion (S2) 5 Normal Extension (L3) 5 Normal Left Flexion (S2) 5 Normal Extension (L3) 5 Normal Ankle/Foot Strength Ankle and Foot Manual Muscle Testing Right Dorsiflexion (L4) 5 Normal Plantarflexion (S1) 5 Normal Inversion 5 Normal Eversion (S1) 5 Normal Comments 20 heel raises B Left Dorsiflexion (L4) 5 Normal Plantarflexion (S1) 5 Normal Inversion 4+ Good+ Eversion (S1) 5 Normal PT-OP-Q Treatments Start: 11/10/22 14:37 Freq: Status: Active Protocol: Document 01/01/23 14:40 [facility] (Rec: 01/01/23 15:14 [facility] [id number]) Cardio Equipment Treadmill Duration (Minutes) 6 Speed 1.7 Incline 0 Therapeutic Exercises Sitting Exercises HS stretch Side bilateral Resistance each LE Reps/Minutes 30 Comments cued straight back, hip hinge Standing Exercises DF Side bilateral Equipment Used rail Reps/Minutes 10 ea quad stretch Standing Exercise Name leg on chair w/hand on counter Side left Reps/Minutes 30 sec SLS star taps Standing Exercise Name SLS trials B lunge Standing Exercise Name mini Side bilateral Equipment Used rail contact prn Reps/Minutes 10 ea eccentric calf raises Standing Exercise Name concentric/eccentric SL Side bilateral Resistance on ground Reps/Minutes x20 ea Comments cued slow eccentric lower stretch stretch Standing Exercise Name fwd lean 1. gastroc 2. soleus Side left Reps/Minutes 30 sec ea squats Standing Exercise Name sit to stands no hands Side bilateral Reps/Minutes 5 Manual Therapy Treatment Soft Tissue Mobilization quad Body Location L lat & med borders Mobilization Type Rolling Intensity/Depth Moderate Body Position Supine calf Body Location L Mobilization Type Cross-Friction,Myofascial Release,Rolling Intensity/Depth Moderate Body Position Supine Comments w/APs ITB Body Location L Mobilization Type Rolling Intensity/Depth Moderate Body Position Supine Comments FM w/quad set & rotaiton & plunger HS Body Location L Mobilization Type Cross-Friction,Rolling, Strumming Intensity/Depth Moderate Body Position Supine Comments w/APs PT-OP-R Modalities Start: 11/10/22 14:37 Freq: Status: Active Protocol: Document 12/22/22 14:33 [facility] (Rec: 12/22/22 15:42 [facility] [id number]) Hot Pack/Cold Pack Treatment MHP Location B calves Patient Position Hooklying Treatment Duration (minutes) 10 Patient Tolerance Good Comments pt reports calves feel alot better, not tight. PT-OP-T Assessment and Plan Start: 11/10/22 14:37 Freq: Status: Active Protocol: Document 01/01/23 14:40 [facility] (Rec: 01/01/23 15:14 [facility] [id number]) Physical Therapy Assessment Goals balance Fdc Goal (LTG) Pt will show ability to do SLS for 10 sec on L side 12/08-improved to 7 12/10/22: added SLS star taps/ glides to improve stance time. 12/15/22: LLE 6 sec Improved time cones taps COG over HERMELINDA. 12/22/22: 3 sec SLS L, 5 sec RLE post BOSU activity, less 3 sec from 12/15/22. LTG Duration SLS achieved on R; L 9 sec strength Short Term Goal (STG) Pt will be indep w/HEP 12/15/22: calf raises and stretch, HS stretch, self massage rolling pin, (for back : TB Rotation, SB AROM), STG Duration achieved Washer Repairman Goal (LTG) Pt will score at least 4+/5 on all LE MMT B to improve strength to improve pt ability walk. 12/08-improved 12/15/22: GOAL MET: L hip flexion:5/5 ext:5/5 ABD:5/5 ADD: 5/5 L knee flexion (seated): 5/5 L knee ext (seated): 5/5 LTG Duration achieved 01/01 walking Short Term Goal (STG) Pt will be able to walk 1/2 to [place] w/o having to stp to stretch more than 3 times. 12/08-about 4-5 stops; able to make it 2/[address] limping [address] 12/15/22: GOAL MET: makes about 3/[address] way before limping. 6MWT: 1864 ft. Calf tightness at 900 ft demonstrated limp. STG Duration 12/22/22 MET GOAL 12/15/22 Fdc Goal (LTG) Pt will b eable to return to 1 -2 mile walks w/o inc pain 12/15/22: gets 3/4 miles before having pain in L calf. 6MWT: 1864 ft. Calf tightness (hunter horse thing) at 900 ft demonstrated limp. 12/22/22: L calf cramping at 720 ft uneven pavement, less 180 ft from 12/15/22 level indoor surface. LTG Duration progressing-pt plans to cont to advance his walks on his own Assessment Summary Assessment Pt has done well w/PT and has not had instances of cramping recently. He has improved w/ his balance strength and fucnional ability. He is indep w/HEP at this time and will cont on his own along w/ progressing walk distance. Pt has not walked 1-2 miles in a long time so feels like his endurance is his main limitor at this time. Physical Therapy Plan Discharge Physical Therapy Discharge Reasons Goals Met
== END 2023-01-05 15:13 | disposition home or self-care (01) ==
LOC: PHYS 14:30
PROVIDERS: Family Provider Family Medicine; PCP Family Medicine; Referring Provider Family Medicine; Visit Provider Family Medicine
DX: G89.18 Other acute postprocedural pain (principal); M25.562 Pain in left knee; R53.1 Weakness; R26.2 Difficulty in walking, not elsewhere classified
CPT/HCPCS: 97110; 97112; 97116; 97140; 97162

== ENCOUNTER → 2023-03-19 07:03 | Outpatient (CLI) | payer MEDICARE, OTHER, SELFPAY ==
[2020-08-01 14:19] VITALS: BMI 43.8
[2023-03-19 07:44] LABS: Add Manual Diff / Slide Review NO; Basophils Absolute Auto 100 /uL (0-100); Eosinophils Absolute Auto 300 /uL (0-450); Eosinophils Percent Auto 4.3 % (2-4); Hematocrit 40.7 % (41-53); Hemoglobin 14.1 g/dL (13.5-17.5); Lymphocytes Absolute Auto 1700 /uL (1100-4500); Lymphocytes Percent Auto 22.9 % (25-40); Mean Corpuscular HGB Conc 34.6 % (30-36); Mean Corpuscular Hemoglobin 29.4 PG (26-34); Mean Corpuscular Volume 84.9 fL (80-100); Monocytes Absolute Auto 600 /uL (0-900); Monocytes Percent Auto 8.2 % (3-14); Neutrophils Absolute Auto 4700 /uL (1500-7000); Neutrophils Percent Auto 63.6 % (50-75); Platelet Count 225 X10^3/uL (150-400); Red Cell Distribution Width 13.9 % (11.6-14.8); White Blood Cell Count 7.5 X10^3/uL (4.5-11.0)
[2023-03-19 08:07] LABS: Blood Urea Nitrogen 20 mg/dL (9-20); Calcium 8.8 mg/dL (8.4-10.2); Carbon Dioxide 26 mmol/L (22-32); Chloride 101 mmol/L (98-107); Cholesterol 108 mg/dL (140-199); Estimated Glomerular Filt Rate > 60 mL/min (>60); Glucose 126 mg/dL (80-110); HDL Cholesterol 39 mg/dL (40-60); HEMOLYSIS < 15 (0-50); LDL Cholesterol Calculated 45 mg/dL (<100); Potassium 4.1 mmol/L (3.4-5.1); Sodium 135 mmol/L (137-145); Triglycerides 121 mg/dL (35-150)
== END ==
PROVIDERS: Family Provider Family Medicine; PCP Family Medicine; Referring Provider Internal Medicine Cardiovascular Disease; Visit Provider Internal Medicine Cardiovascular Disease
DX: I10 Essential (primary) hypertension (principal); E78.5 Hyperlipidemia, unspecified
CPT/HCPCS: 36415; 80048; 80061; 85025

== ENCOUNTER → 2023-09-15 07:40 | Outpatient (CLI) | payer MEDICARE, OTHER, SELFPAY ==
[2020-08-01 14:19] VITALS: BMI 43.8
[2023-09-15 09:05] LABS: Add Manual Diff / Slide Review NO; Basophils Absolute Auto 0 /uL (0-100); Basophils Percent Auto 0.6 % (0-2); Eosinophils Absolute Auto 300 /uL (0-450); Eosinophils Percent Auto 3.9 % (2-4); Hematocrit 39.4 % (41-53); Hemoglobin 13.1 g/dL (13.5-17.5); Lymphocytes Absolute Auto 1600 /uL (1100-4500); Lymphocytes Percent Auto 22.3 % (25-40); Mean Corpuscular HGB Conc 33.3 % (30-36); Mean Corpuscular Hemoglobin 28.7 PG (26-34); Mean Corpuscular Volume 86.2 fL (80-100); Monocytes Absolute Auto 700 /uL (0-900); Monocytes Percent Auto 9.4 % (3-14); Neutrophils Absolute Auto 4500 /uL (1500-7000); Neutrophils Percent Auto 63.8 % (50-75); Platelet Count 240 X10^3/uL (150-400); Red Blood Cell Count 4.58 X10^6/uL (4.5-5.9); White Blood Cell Count 7.1 X10^3/uL (4.5-11.0)
[2023-09-15 09:18] LABS: Hemoglobin A1C% w Est Avg Glu 7.6 % (4.0-6.0)
[2023-09-15 09:43] LABS: Alanine Aminotransferase 24 IU/L (<50); Albumin 3.6 g/dL (3.5-5.0); Albumin Globulin Ratio 1.3 (1.0-2.8); Alkaline Phosphatase 75 U/L (38-126); Aspartate Aminotransferase 28 IU/L (17-59); BUN Creatinine Ratio 21.3 (6-22); Bilirubin Total 0.8 mg/dL (0.2-1.3); Blood Urea Nitrogen 19 mg/dL (9-20); Calcium 9.1 mg/dL (8.4-10.2); Carbon Dioxide 26 mmol/L (22-32); Chloride 100 mmol/L (98-107); Cholesterol 100 mg/dL (140-199); Estimated Glomerular Filt Rate > 60 mL/min (>60); Globulin 2.7 g/dL (1.7-4.1); Glucose 131 mg/dL (80-110); HDL Cholesterol 30 mg/dL (40-60); HEMOLYSIS < 15 (0-50); LDL Cholesterol Calculated 37 mg/dL (<100); Potassium 4.4 mmol/L (3.4-5.1); Sodium 133 mmol/L (137-145); Total Protein 6.3 g/dL (6.3-8.2); Triglycerides 165 mg/dL (35-150)
== END ==
PROVIDERS: Family Provider Family Medicine; PCP Family Medicine; Referring Provider Family Medicine; Visit Provider Family Medicine
DX: E78.2 Mixed hyperlipidemia (principal); Z68.39 Body mass index [BMI] 39.0-39.9, adult; E11.9 Type 2 diabetes mellitus without complications
CPT/HCPCS: 36415; 80053; 80061; 83036; 85025

== ENCOUNTER → 2023-11-17 07:13 | Outpatient (CLI) | payer MEDICARE, OTHER, SELFPAY ==
[2020-08-01 14:19] VITALS: BMI 43.8
[2023-11-18 00:36] LABS: Labcorp Hemoglobin (Hb) A1c 7.8 % (4.8-5.6)
== END ==
PROVIDERS: Family Provider Family Medicine; PCP Family Medicine; Referring Provider Family Medicine; Visit Provider Family Medicine
DX: E11.9 Type 2 diabetes mellitus without complications (principal)
CPT/HCPCS: 36415; 83036

== ENCOUNTER → 2024-01-13 13:39 | Outpatient (CLI) | payer MEDICARE, OTHER, SELFPAY ==
[2020-08-01 14:19] VITALS: BMI 43.8
--- NOTE | 2024-01-27 17:03 | DIAB.MNT ---
Initial Diabetes Medical Nutrition Therapy Assessment Name: Pierce Patel (Santosh) Date: 01/13/24 Time: 250p Dx: Type II Diabetes Santosh presents for initial Dm visit with PMH of DM since September, new diagnosis. No previous DM ed. Interested in classes. Reports LE neuropathy for a couple years. Endorses annual eye exam and regular dental. Reports borderline for dm for some time. Reports h/o very low CHO diet which resulted in 80# wt loss, but he has since regained weight. States physical activity has also declined in recent years due to back and knee pain. Diet Recall: 8a: 3 eggs, cheese, coffee wtih creamer reg or sf 1p: 4 oz meat, apple, veggies OR cheese toast x 2 on sourdough 530p: protein and veggies, sometimes baked potato or 1/2c pasta sn: nothing or slice bread with butter or celery 32oz water, 2c coffee Anthropometrics: Ht: 5'111'' Wt: 352# reported Physical Activity: No program. Plans to start PT this month to help with pain and increase walking. Self-Monitoring Blood Glucose: None. No supplies. Interested in checking. RD/CDCES contacted provider for rx. Diabetes Medications: None Pertinent Labs: HgA1c: 7.6% 09/2023 7.8% 11/2023 Past Medical History: (Last Updated 11/05/23 @ 09:31 by Aquilino Phillips DO) Bilateral low back pain with left-sided sciatica BMI 39.0-39.9,adult Chicken pox (~1982) Excessive daytime sleepiness Hyperlipidemia (~1997) Hypertension Idiopathic peripheral neuropathy Morbid obesity with BMI of 40.0-44.9, adult Obstructive sleep apnea of adult CPAP Osteoarthritis Postoperative pain of left knee Primary insomnia Screen for colon cancer Sleep apnea (~1999) Snoring Solitary pulmonary nodule Benign appearing 5mm subpleural LLL by CT Angio 11/30/19 Nutrition Rx: Carbohydrates: Meal:30-45g Snack:15-30g Nutrition Diagnosis: - Inadequate fluid intake r/t stage of change preparation aeb pt report and diet recall - Physical inactivity r/t pain barriers aeb pt report - Self monitoring deficit r/t knowledge deficit and needs supplies aeb pt report Intervention: This participant was very receptive. Provided appropriate educational handouts. Discussed the following topics: Completed intake assessment. Discussed barriers to care. Pathophysiology of T2DM HgA1c, its correlation to blood glucose numbers, and rationale for goal Option of self-monitoring, how often, and when to check. Suggested checking at different times to evaluate meals Plate Method, impact of macronutrients on blood sugar, meal timing, carbohydrate counting, pairing macronutrients and spreading out carbohydrates for better blood glucose management Recommended servings for carbohydrates at meals and snacks Heart health nutrition Brainstormed appropriate meal plan ideas based on food preferences Role of physical activity and following provider guidelines for safety Created SMART goals for patient self-care and success. 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
== END ==
PROVIDERS: Family Provider Family Medicine; PCP Family Medicine; Referring Provider Family Medicine; Visit Provider Family Medicine
DX: E11.40 Type 2 diabetes mellitus with diabetic neuropathy, unspecified (principal); Z71.3 Dietary counseling and surveillance
CPT/HCPCS: 97802

== ENCOUNTER → 2024-02-09 09:11 | Outpatient (CLI) | payer MEDICARE, OTHER, SELFPAY ==
[2020-08-01 14:19] VITALS: BMI 43.8
--- NOTE | 2024-02-21 17:51 | DIAB.FU ---
Diabetes Education Class Series: Diabetes and Nutrition Name: Pierce Patel (Santosh) Date: 02/09/24 Time: [id number] Dx: Type II Diabetes Santosh left early due to a PT session. Class topics covered: ? Debunk nutrition myths and discuss how to sustain healthy eating long-term through moderation and variety ? Define macronutrients and determine their impact on blood sugars ? Discuss macronutrient pairing, Plate Method, and carb counting ? Review general recommendations for carbohydrates Follow-up: Diabetes Physiology and Medication Class in two weeks and 1:1 in one week Mariama Alcantar RDN, [facility] [place] Certified Diabetes Care and Industrial Insulator P: [phone] Thank you for this referral
== END ==
PROVIDERS: Family Provider Family Medicine; PCP Family Medicine; Referring Provider Family Medicine
DX: E11.9 Type 2 diabetes mellitus without complications (principal); Z71.3 Dietary counseling and surveillance; Z68.39 Body mass index [BMI] 39.0-39.9, adult
CPT/HCPCS: G0109

== ENCOUNTER → 2024-02-19 12:41 | Outpatient (CLI) | payer MEDICARE, OTHER, SELFPAY ==
[2020-08-01 14:19] VITALS: BMI 43.8
--- NOTE | 2024-03-09 17:04 | DIAB.MNTFU ---
Follow-up Diabetes Medical Nutrition Therapy Assessment Name: Pierce Patel (Santosh) Date: 02/19/24 Time: 110-145p Dx: Type II Diabetes Santosh presents for DM follow-up. Reports limited diet changes recently. Father in law passed and has had family staying with him. A lot of eating out. Plans to get back to healthy changes after family leaves. Despite eating out, most pc readings in range. Water intake down, but drinking more sparkling water recently. Anthropometrics: Ht: 5'111'' Wt: 352# reported Physical Activity: Started PT and now 2x per week. Also 10 min walks daily. Self-Monitoring Blood Glucose: Started checking FBG and a few pc readings. All FBG elevated. All FBG since 01/16 elevated ranging from 140-171mg/dl. Postprandial are not 1-2 hours after, often 15-20 minutes. Not a true post measure. Date Pre Post Pre Post Pre Post HS 01/31 162 02/01 153 / 146 02/05 206 02/12 107 02/15 141 02/17 171 Diabetes Medications: None Pertinent Labs: HgA1c: 7.6% 09/2023 7.8% 11/2023 Past Medical History: (Last Updated 11/05/23 @ 09:31 by Aquilino Phillips, DO) Bilateral low back pain with left-sided sciatica BMI 39.0-39.9,adult Chicken pox (~1982) Excessive daytime sleepiness Hyperlipidemia (~1997) Hypertension Idiopathic peripheral neuropathy Morbid obesity with BMI of 40.0-44.9, adult Obstructive sleep apnea of adult CPAP Osteoarthritis Postoperative pain of left knee Primary insomnia Screen for colon cancer Sleep apnea (~1999) Snoring Solitary pulmonary nodule Benign appearing 5mm subpleural LLL by CT Angio 11/30/19 Nutrition Rx: Carbohydrates: Meal:30-45g Snack:15-30g Nutrition Diagnosis: - Inadequate fluid intake r/t stage of change preparation aeb pt report and diet recall- continue - Physical inactivity r/t pain barriers aeb pt report- improved - Self monitoring deficit r/t knowledge deficit and needs supplies aeb pt report- improved - Excessive CHO intake r/t increased eating out with company at home aeb pt report- new Intervention: This participant was very receptive. Provided appropriate educational handouts. Discussed the following topics: Blood sugar review and trends. Gluconeogenesis and FBG Food intake and impact on BG Encouraged fluid intake Physical activity plan and progress Eating out SMBG: when to check, FBG and/or 1-2 hour pc Created SMART goals for patient self-care and success. 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
== END ==
PROVIDERS: Family Provider Family Medicine; PCP Family Medicine; Referring Provider Family Medicine
DX: E11.9 Type 2 diabetes mellitus without complications (principal); Z68.39 Body mass index [BMI] 39.0-39.9, adult; Z71.3 Dietary counseling and surveillance
CPT/HCPCS: 97803

== ENCOUNTER → 2024-02-23 09:14 | Outpatient (CLI) | payer MEDICARE, OTHER, SELFPAY ==
[2020-08-01 14:19] VITALS: BMI 43.8
--- NOTE | 2024-02-23 11:49 | DIAB.FU ---
Diabetes Education Class Series: Diabetes Physiology and Medications Name: Pierce Patel (Santosh) Date: 02/23/24 Time: [id number] Presents for class 2 of 3. Recently father in law. Family was in town, impeding lifestyle changes per report. Reports wants to increase walking starting today. Class topics covered: ? Diabetes pathophysiology ? Discuss different types of diabetes ? Review criteria for diagnosing diabetes ? Review HgA1c measurement and associated blood sugars ? Review blood sugar monitoring safety, technique, and goals ? Discuss ways to reduce complications associated with diabetes, includes microvascular and macrovascular complications ? Review diabetes medications types, action, and side effects ? Health care visits recommended for people with T2DM ? Immunization recommended for people with T2DM ? SMART goals review Goal Set: Start walking today. Follow-up: Diabetes Lifestyle and Ongoing Support Class next week Mariama Alcantar RDN, [facility] Registered Dietitian, Certified Diabetes Care and Supervisor [employer] [phone] [email or web address]
== END ==
LOC: DIET 09:15
PROVIDERS: Family Provider Family Medicine; PCP Family Medicine; Referring Provider Family Medicine
DX: E11.9 Type 2 diabetes mellitus without complications (principal); Z68.39 Body mass index [BMI] 39.0-39.9, adult; Z71.3 Dietary counseling and surveillance
CPT/HCPCS: G0109

== ENCOUNTER → 2024-03-01 09:12 | Outpatient (CLI) | payer MEDICARE, OTHER, SELFPAY ==
[2020-08-01 14:19] VITALS: BMI 43.8
--- NOTE | 2024-03-16 13:38 | DIAB.FU ---
Diabetes Education Class Series: Diabetes Lifestyle Change and Ongoing Support Name: Pierce Patel (Santosh) Date: 03/01/24 Time: [id number] Reports he has been successful in checking BG, though FBG still elevated. Postprandial in range. Feels he has good community support with friends. Finds diet changes a challenge. Class topics covered: ? Discuss the difference between physical activity and exercise ? Determine physical activity benefits and impact on diabetes ? Review physical activity recommendations and safety ? Discuss emergency preparedness ? Discuss diabetes and emotions (diabetes burnout/distress) ? Review and practice stress management techniques ? Review support groups and community resources ? Discuss the role of family support in diabetes care ? What is going well? Challenges of diabetes? ? Set SMART goals Follow-up: 1:1 visit follow-up Mariama Alcantar RDN, [facility] Registered Dietitian, Certified Diabetes Care and Farm Operations Manager [phone] [email or web address]
== END ==
PROVIDERS: Family Provider Family Medicine; PCP Family Medicine; Referring Provider Family Medicine
DX: E11.9 Type 2 diabetes mellitus without complications (principal); Z68.39 Body mass index [BMI] 39.0-39.9, adult
CPT/HCPCS: G0109

== ENCOUNTER → 2024-03-17 09:50 | Outpatient (CLI) | payer MEDICARE, OTHER, SELFPAY ==
[2020-08-01 14:19] VITALS: BMI 43.8
[2024-03-17 11:17] LABS: Hematocrit 41.6 % (41-53); Mean Corpuscular HGB Conc 33.6 % (30-36); Mean Corpuscular Hemoglobin 28.1 PG (26-34); Mean Corpuscular Volume 83.6 fL (80-100); Platelet Count 254 X10^3/uL (150-400); Red Blood Cell Count 4.98 X10^6/uL (4.5-5.9); White Blood Cell Count 7.5 X10^3/uL (4.5-11.0)
[2024-03-17 11:53] LABS: BUN Creatinine Ratio 18.4 (6-22); Blood Urea Nitrogen 16 mg/dL (9-20); Calcium 8.4 mg/dL (8.4-10.2); Carbon Dioxide 24 mmol/L (22-32); Chloride 103 mmol/L (98-107); Cholesterol 103 mg/dL (140-199); Estimated Glomerular Filt Rate > 60 mL/min (>60); Glucose 127 mg/dL (80-110); HDL Cholesterol 37 mg/dL (40-60); HEMOLYSIS 18 (0-50); LDL Cholesterol Calculated 31 mg/dL (<100); Potassium 4.6 mmol/L (3.4-5.1); Sodium 134 mmol/L (137-145); Triglycerides 175 mg/dL (35-150)
== END ==
PROVIDERS: Family Provider Family Medicine; PCP Family Medicine; Referring Provider Internal Medicine Cardiovascular Disease; Visit Provider Internal Medicine Cardiovascular Disease
DX: I25.10 Atherosclerotic heart disease of native coronary artery without angina pectoris (principal); E78.5 Hyperlipidemia, unspecified
CPT/HCPCS: 36415; 80048; 80061; 85027

== ENCOUNTER → 2024-03-31 08:34 | Outpatient (CLI) | payer MEDICARE, OTHER, SELFPAY ==
[2020-08-01 14:19] VITALS: BMI 43.8
--- NOTE | 2024-04-15 07:35 | DIAB.MNTFU ---
Follow-up Diabetes Medical Nutrition Therapy Assessment Name: Pierce Patel (Santosh) Date: 03/31/24 Time: [id number] Dx: Type II Diabetes Santosh presents for DM follow-up. Completed February Dm ed classes. Reports he has noticed increase in BG with coffee creamer. Also states water intake is still a challenge, though he is working on this. When eating out he is choosing more veggies, ie salads Had cardiology appt and they asked he look into GLP1 meds. Reports some red spots on his legs that turn to blisters and take 3 months to heal. Plans to discuss with PCP. Diet recall: 7a: eggs, toast OR pb toast with coffee x2 and vanilla creamer 12p: leftovers sn: handful of radish 5p: small chicken pot pie OR taco salad OR Apolinar food with veggies, beef and 1c brown rice 7p: Berries 3/4c water 16oz recently, usually 32-48oz though Anthropometrics: Ht: 5'111'' Wt: 353# reported Physical Activity: Started PT and now 2x per week. Back pain is limiting, but trying to walk 1mi trail. Self-Monitoring Blood Glucose: Has been more conscious of pc numbers being closer to 1-2 hr after meals. most FBG above 130mg/dl. Most pc numbers under 180mg/dl. In February pc numbers recorded 192, 148, 154. May benefit from HS Metformin given morning elevations or starting GLP1 as rec'd by cardiology. Continues to work on lifestyle change. Date Pre Post Pre Post Pre Post HS 03/02 144 188 03/05 113 03/10 145 6/9 142 13 138 03/21 163 03/22 126 Diabetes Medications: None Pertinent Labs: HgA1c: 7.6% 09/2023 7.8% 11/2023 Past Medical History: (Last Updated 11/05/23 @ 09:31 by Aquilino Phillips DO) Bilateral low back pain with left-sided sciatica BMI 39.0-39.9,adult Chicken pox (~1982) Excessive daytime sleepiness Hyperlipidemia (~1997) Hypertension Idiopathic peripheral neuropathy Morbid obesity with BMI of 40.0-44.9, adult Obstructive sleep apnea of adult CPAP Osteoarthritis Postoperative pain of left knee Primary insomnia Screen for colon cancer Sleep apnea (~1999) Snoring Solitary pulmonary nodule Benign appearing 5mm subpleural LLL by CT Angio 11/30/19 Nutrition Rx: Carbohydrates: Meal:30-45g Snack:15-30g Nutrition Diagnosis: - Inadequate fluid intake r/t stage of change preparation aeb pt report and diet recall- continue - Physical inactivity r/t pain barriers aeb pt report- in progress - Excessive CHO intake r/t increased eating out with company at home aeb pt report- improved Intervention: This participant was very receptive. Provided appropriate educational handouts. Discussed the following topics: Blood sugar review and trends. DM medication review: action, pro/cons, and indications for GLP1 DM complication risk reduction: foot care and eye care Carb recommendations and strategies for reducing portions Created SMART goals for patient self-care and success. Goals: Aim for 40oz water per day- in progress Check pc numbers 1-2 hours after eating- met Limit CHO when eating out if possible- met Make eye appt- new Check FBG and bring to PCP appt- new Drink coffee without creamer or choose sf- new Wear slippers- new Add protein to berries, ie plain urdu yogurt- new Follow-up: LISA ALVAREZ follow-up in 3 months. Plans to discuss med options with PCP. Will follow-up after next labs per pt req. Mariama Alcantar, LISA, CDCES Certified Diabetes Care and Pet Trainer P: [phone] Thank you for this referral
== END ==
PROVIDERS: Family Provider Family Medicine; PCP Family Medicine; Referring Provider Family Medicine
DX: E11.9 Type 2 diabetes mellitus without complications (principal); Z71.3 Dietary counseling and surveillance
CPT/HCPCS: 97803

== ENCOUNTER 2024-04-22 07:30 | Outpatient (RCR) | payer MEDICARE, OTHER, SELFPAY ==
[2020-08-01 14:19] VITALS: BMI 43.8
--- NOTE | 2024-01-25 15:57 | PT.OIE ---
Current Diagnoses Lumbago with sciatica, left side (01/25/24) Other lack of coordination (01/25/24) Weakness (01/25/24) Past Medical History (Last Updated 11/05/23 @ 09:31 by Aquilino Phillips DO) Bilateral low back pain with left-sided sciatica BMI 39.0-39.9,adult Chicken pox (~1982) Excessive daytime sleepiness Hyperlipidemia (~1997) Hypertension Idiopathic peripheral neuropathy Morbid obesity with BMI of 40.0-44.9, adult Obstructive sleep apnea of adult Osteoarthritis Postoperative pain of left knee Primary insomnia Screen for colon cancer Sleep apnea (~1999) Snoring Solitary pulmonary nodule Past Surgical History (Last Reviewed 11/19/21 @ 09:30 by Jesus Marcos MD) History of arthroplasty of left knee (03/14/20) History of arthroplasty of right knee (~07/2020) History of sinus surgery (~03/2003) History of vasectomy (1977) Hx of hand surgery Hx of tonsillectomy (2004) Status post coronary artery bypass graft (~10/2010) Visit Care Team Role Provider Type Aquilino Phillips DO Attending Provider Physician Family Provider Primary Care Provider Referring Provider Specialty: [facility] Address: [address] [place] [address] Email: Physical Therapy Initial Evaluation PT-OP-A Visit Information Start: 01/25/24 13:00 Freq: Status: Active Protocol: Document 01/25/24 13:00 NM (Rec: 01/25/24 13:50 NM [id number]) Out-Patient Physical Therapy Visit Information Visit Information Visit Type Initial Evaluation Visit Note KX after 19 visits Visit Start Time 13:00 Visit Stop Time 13:45 Visit Number 1 Evaluation Information Evaluation Date 01/25/24 Precautions Precautions hx bypass surgery, type II diabetes, heart disease VITALS PT-OP-B Current Condition Start: 01/25/24 13:00 Freq: Status: Active Protocol: Document 01/25/24 13:00 NM (Rec: 01/25/24 13:50 NM [id number]) Current Condition History of Current Condition Current Complaints pain, mobility History of Current Condition Pt presents with low back pain and with difficulty walking. He has diabetes and is trying to manage it with ambulation; states he has pain with ambulation. He states that he used to have L sided pain and L sided buttock pain. He reports that he has constant pain across his belt line. Pt reports that his pain started 8 years ago after his bypass surgery, used to walk 4 miles/ day; had B knee TKA. Reports OA in both knees and back. Reports no known PEARL for recent exacerbation. Reports difficulty with bending, transferring in/out car, transferring in/out of chair. No numbness/tingling in BLE, getting tested for neuropathy. Has circulation issues, dry skin and sores on BLE. Prior Treatments and Tests Previous PT for low back pain Current Functional Impairments (Reported) Functional Limitations- ADL's no difficulty with dressing Functional Limitations- Mobility/Gait walk 1 minute, standing ~4 hours Functional Limitations- Work/School watches 3 y.o. 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 few sitting rest breaks PT-OP-C Subjective Start: 01/25/24 13:00 Freq: Status: Active Protocol: Document 01/25/24 13:00 NM (Rec: 01/25/24 13:50 NM [id number]) OP-PT Subjective Patient Comments Patient Comments see hx above for pt report Patient Questionnaires Oswestry Low Back Index Oswestry Score 3/50 OP-PT Pain Assessment Location lumbar spine Pain Location Details belt line Intensity 6 Scale Used Numeric (0 - 10) Description Cramping,Dull,Spasm Frequency Frequent Pain Duration 30 seconds Radiating Location none, local Pain Aggravating Factors Changing Position,ADL's, Activity,Standing,Walking, Bending Pain Alleviating Factors Sitting PT-OP-E Functional Tests Start: 01/25/24 13:00 Freq: Status: Active Protocol: Document 01/25/24 13:00 NM (Rec: 01/25/24 13:50 NM [id number]) Functional Tests 6 Minute Walk Test Distance 1073 ft Device Used none Comments symptoms to post leg to calf, back >LLE Five Times Sit to Stand Test Score 12 seconds Comments no pain, 20 chair Tinetti Balance and Gait Assessment Balance Score 12 Gait Score 6 Composite Score 18/28 Other Forward Trunk Flexion Test Name of Test measured finger tip to floor Score 15 Comment pain free, limited by HS length and abdomen PT-OP-F Manual Assessment Start: 01/25/24 13:00 Freq: Status: Active Protocol: Document 01/25/24 13:00 NM (Rec: 01/25/24 13:50 NM [id number]) Manual Assessments Soft Tissue Assessment Soft Tissue Mobility Assessment Decreased HS length, quad/hip flex length. Increased tone B lumbar paraspinals Joint Mobility Assessment Joint Mobility Assessment no hyper mobility, decreased hip mobility PT-OP-G Mobility & Gait Start: 01/25/24 13:00 Freq: Status: Active Protocol: Document 01/25/24 13:00 NM (Rec: 01/25/24 14:01 NM [id number]) OP Gait Assessment Gait Gait Assistance Required: Independent Distance (Feet) 1,073 Assistive Devices Assistive Device None Gait Deviations General Gait Pattern Antalgic,Step-to Gait Factors Limiting Gait Function Factors Limiting Gait Function Decreased Activity Tolerance, Decreased Sensation,Decreased Strength,Pain Comments Gait Comments As pt fatigues, increased antalgic gait and increased low back and L sided back pain . Demos B hip ER with gait throughout entirety of 6 MWT, L circumduction and flexed trunk compensation with fatigue PT-OP-H Neuro Start: 01/25/24 13:00 Freq: Status: Active Protocol: Document 01/25/24 13:00 NM (Rec: 01/25/24 13:50 NM [id number]) Sensation Evaluation Comments Summary Comments BLE and trunk intact equally to light touch sensation Deep Tendon Reflex & Clonus Assessment Deep Tendon Reflex Bilateral Achilles Deep Tendon Reflex 1+ Diminished Bilateral Bicep Deep Tendon Reflex 1+ Diminished PT-OP-J Posture/Palpation/Skin Start: 01/25/24 13:00 Freq: Status: Active Protocol: Document 01/25/24 13:00 NM (Rec: 01/25/24 14:01 NM [id number]) Posture Evaluation Position Standing Head/C-Spine Posture Forward Head L-Spine Posture Flattened,Decreased Lordosis Pelvis Posture Posterior Tilted Weight Distribution Weight Shifted Right Hip Posture (L) Externally Rotated,(R) Externally Rotated Knee Posture (L) Genu Varus,(R) Genu Varus Ankle/Foot Posture (L) Pronated,(R) Pronated Palpation Assessment Location lumbar spine Palpation Location glutes, paraspinals, spinous processes, tranverse processes , PSI Palpation Findings Soft Tissue Tightness Palpation Details Soft tissue tightness B paraspinals L>R, no tenderness to palpation along lumbar spine or B PSIS/SIJ. Skin Assessment Other Assessments Skin Assessment Comments BLE has dry skin, several closed wounds, red coloring, same temperature PT-OP-K Range of Motion Start: 01/25/24 13:00 Freq: Status: Active Protocol: Document 01/25/24 13:00 NM (Rec: 01/25/24 13:50 NM [id number]) Lumbar Spine Range of Motion Lumbar Spine Active Percentage Flexion 50 Extension 100 Rotation Left 3 Rotation Right 3 Lateral Flexion Left 100 Lateral Flexion Right 100 Comments Low back pain not reproduced with any movement Hip Goniometric Range of Motion Hip Right Flexion w/Knee Flexed 80 Straight Leg Raise 50 Internal Rotation 15 External Rotation 25 Left Flexion w/Knee Flexed 90 Straight Leg Raise 60 Internal Rotation 25 External Rotation 25 PT-OP-L Special Tests Start: 01/25/24 13:00 Freq: Status: Active Protocol: Document 01/25/24 13:00 NM (Rec: 01/25/24 13:50 NM [id number]) Special Tests Lumbar Spine Special Tests Distraction Test Results + Straight Leg Raise Test Results + Comments Bilateral Rodriguez/Quadrant Test Results - Slump Test Results + Comments Bilateral PT-OP-M Strength Start: 01/25/24 13:00 Freq: Status: Active Protocol: Document 01/25/24 13:00 NM (Rec: 01/25/24 13:50 NM [id number]) Trunk Strength Trunk Manual Muscle Testing Rotation Left 4 Good Rotation Right 4 Good Lateral Flexion Left 4 Good Lateral Flexion Right 4 Good Comments no pain Hip Strength Hip Manual Muscle Testing Right Flexion (L2) 4- Good- Extension (S1) 4- Good- Abduction 4- Good- Adduction 4 Good External Rotation 4 Good Internal Rotation 4 Good Left Flexion (L2) 4- Good- Extension (S1) 4- Good- Abduction 4- Good- Adduction 4 Good External Rotation 4 Good Internal Rotation 4 Good PT-OP-T Assessment and Plan Start: 01/25/24 13:00 Freq: Status: Active Protocol: Document 01/25/24 13:00 NM (Rec: 01/25/24 13:50 NM [id number]) Physical Therapy Assessment Rehab Potential Rehabilitation Potential Good Evaluation Complexity Number of Personal Factors/Comorbidities 3 or More Number of Body Systems Impaired 1-2 Clinical Presentation at Evaluation Stable Impairments Impairments Activity Tolerance,Balance, Edema,Functional Activities, Functional Mobility,Gait, Integument,Pain,Posture,ROM, Sensation,Soft Tissue Mobility ,Strength Goals Five Impairment strength Impairment BLE hip abd and ext 4-/5 MMT Short Term Goal (STG) Pt will improve bilateral hip abduction and extension strength to at least 4/5 MMT in order to demonstrate improved hip strength for gait , transfers, and ADLs. STG Duration 6 weeks Correction Goal (LTG) Pt will improve bilateral hip abduction and extension strength to at least 4+/5 MMT in order to demonstrate improved hip strength for gait , transfers, and ADLs. LTG Duration 12 weeks Four Impairment balance, function Impairment Tinetti 18/28 (gait 03/16, balance 09/21) Short Term Goal (STG) Pt will improve Tinetti score to at least 22/28 in order to demonstrate decreased fall risk and improved balance during ambulation STG Duration 6 weeks Senior Media Planner Goal (LTG) Pt will improve Tinetti score to at least 26/28 in order to demonstrate decreased fall risk and improved balance during ambulation LTG Duration 12 weeks Three Impairment strength, function Impairment 5x STS test 12 seconds from 20 plinth Short Term Goal (STG) Pt will improve 5x STS time to <12 seconds in order to demonstrate improved BLE strength for transfers, gait, and ADLs STG Duration 6 weeks Senior Media Planner Goal (LTG) Pt will be able to perform at least 10 bilateral squats without UE support and without increase in baseline pain in order to demonstrate improved BLE strength for transfers, gait, and ADLs LTG Duration 12 weeks Two Impairment gait, 6 MWT Impairment 6MWT distance: 1073 ft Short Term Goal (STG) Pt will improve 6MWT distance by at least 200 ft (1 MCID) without increase in baseline pain in order to demonstrate improved activity tolerance and symptom management STG Duration 6 weeks Correction Goal (LTG) Pt will report that he able to ambulate at least 10 minutes before taking a seated rest break or increase in baseline pain LTG Duration 12 weeks One Impairment HEP Impairment not performing HEP Short Term Goal (STG) Pt will report compliance with HEP at least 2-3x/wk in order to maximize progression with PT and promote independence with exercise STG Duration 6 weeks Senior Media Planner Goal (LTG) Pt will report compliance with HEP at least 3x/wk in order to promote independence with rehabilitation and transition into maintenance program upon discharge from PT LTG Duration 12 weeks Assessment Summary Assessment Pt is a 73 y.o. male presenting with chronic low back pain beginning 8 years ago. His pain is primarily along his beltline, L>R. Pt also has occasional L sided symptom radiation into his LLE , which is worse with ambulation or standing; however, occurs less frequently. Overall, pt states his symptoms are improving. His lumbar spine AROM is limited globally due to soft tissue tightness, but not pain . He is able to stabilize his trunk against resistance without pain. However, pt has limited hamstring and hip flexor length, in addition to limitations in B hip strength. Pt also has positive slump and straight leg raise tests, indicating nerve involvement. Pt has a relatively sedentary lifestyle and has several co- morbidities including diabetes and previous bilateral TKA's; he is working with a specialist to manage his diabetes and improve his exercise tolerance, but is limited by low back pain symptoms. Pt's symptoms are worse with standing, ambulation, and bending. His current 6 MWT distance is 1073 ft, which is below age and gender related norms. Pain and neural symptoms are provoked during 6 MWT and resolve within 30 seconds of sitting. Pt's 5x sit to stand scores are appropriate for his age, but he demonstrates several compensations with the transfer due to BLE weakness and limited mobility. Pt's symptoms are most consistent with lumbar stenosis. Depending on progression with PT, pt will be referred back for further assessment and imaging. PT and pt discussed exam findings and plan of care . Pt would benefit from skilled PT in order to decrease pain symptoms and improve activity tolerance. Physical Therapy Plan Frequency and Duration Frequency of Treatment 2x/Week Duration of treatment (weeks) 12 Plan of Care Start Date 01/25/24 Plan of Care End Date 04/22/24 Therapeutic Interventions Therapeutic Interventions Balance Training,Gait Training ,Home Exercise Program,Joint Mobilizations,Manual Therapy, Neuromuscular Re-education, Orthotic/Prosthetic Management ,Patient/Caregiver Education, Self-Care/Home Management, Sensory Integration,Soft Tissue Mobilization,Taping, Therapeutic Activities, Therapeutic Exercises Modalities Cold Pack/Ice Massage,Electric Stimulation,Hot Packs, Traction- Mechanical, Vasopneumatic Devices Next Visit Focus/Plan Next Note Type Treatment Note Next Visit Plan Sunny stretch, open book, HS stretch, STS, canadian ball lumbar spine stretches, step up, side steps Manual: soft tissue mobilization to HS, calves, lumbar spine take baseline vitals next session
--- NOTE | 2024-01-29 12:42 | PT.OTN ---
Current Diagnoses Lumbago with sciatica, left side (01/29/24) Other lack of coordination (01/29/24) Weakness (01/29/24) Physical Therapy Treatment Note PT-OP-A Visit Information Start: 01/25/24 13:00 Freq: Status: Active Protocol: Document 01/29/24 10:33 NM (Rec: 01/29/24 11:17 NM [id number]) Out-Patient Physical Therapy Visit Information Visit Information Visit Type Treatment Note Visit Note KX after 19 visits Visit Start Time 10:33 Visit Stop Time 11:15 Visit Number 2 Evaluation Information Evaluation Date 01/25/24 PT-OP-B Current Condition Start: 01/25/24 13:00 Freq: Status: Active Protocol: Document 01/25/24 13:00 NM (Rec: 01/25/24 13:50 NM [id number]) Current Condition History of Current Condition Current Complaints pain, mobility History of Current Condition Pt presents with low back pain and with difficulty walking. He has diabetes and is trying to manage it with ambulation; states he has pain with ambulation. He states that he used to have L sided pain and L sided buttock pain. He reports that he has constant pain across his belt line. Pt reports that his pain started 8 years ago after his bypass surgery, used to walk 4 miles/ day; had B knee TKA. Reports OA in both knees and back. Reports no known PEARL for recent exacerbation. Reports difficulty with bending, transferring in/out car, transferring in/out of chair. No numbness/tingling in BLE, getting tested for neuropathy. Has circulation issues, dry skin and sores on BLE. Prior Treatments and Tests Previous PT for low back pain Current Functional Impairments (Reported) Functional Limitations- ADL's no difficulty with dressing Functional Limitations- Mobility/Gait walk 1 minute, standing ~4 hours Functional Limitations- Work/School watches 2 y.o. 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 States he was sore but not in any increased pain . PT-OP-E Functional Tests Start: 01/25/24 13:00 Freq: Status: Active Protocol: Document 01/25/24 13:00 NM (Rec: 01/25/24 13:50 NM [id number]) Functional Tests 6 Minute Walk Test Distance 1073 ft Device Used none Comments symptoms to post leg to calf, back >LLE Five Times Sit to Stand Test Score 12 seconds Comments no pain, 20 chair Tinetti Balance and Gait Assessment Balance Score 12 Gait Score 6 Composite Score 18/28 Other Forward Trunk Flexion Test Name of Test measured finger tip to floor Score 15 Comment pain free, limited by HS length and abdomen PT-OP-F Manual Assessment Start: 01/25/24 13:00 Freq: Status: Active Protocol: Document 01/25/24 13:00 NM (Rec: 01/25/24 13:50 NM [id number]) Manual Assessments Soft Tissue Assessment Soft Tissue Mobility Assessment Decreased HS length, quad/hip flex length. Increased tone B lumbar paraspinals Joint Mobility Assessment Joint Mobility Assessment no hyper mobility, decreased hip mobility PT-OP-G Mobility & Gait Start: 01/25/24 13:00 Freq: Status: Active Protocol: Document 01/25/24 13:00 NM (Rec: 01/25/24 14:01 NM [id number]) OP Gait Assessment Gait Gait Assistance Required: Independent Distance (Feet) 1,073 Assistive Devices Assistive Device None Gait Deviations General Gait Pattern Antalgic,Step-to Gait Factors Limiting Gait Function Factors Limiting Gait Function Decreased Activity Tolerance, Decreased Sensation,Decreased Strength,Pain Comments Gait Comments As pt fatigues, increased antalgic gait and increased low back and L sided back pain . Demos B hip ER with gait throughout entirety of 6 MWT, L circumduction and flexed trunk compensation with fatigue PT-OP-H Neuro Start: 01/25/24 13:00 Freq: Status: Active Protocol: Document 01/25/24 13:00 NM (Rec: 01/25/24 13:50 NM [id number]) Sensation Evaluation Comments Summary Comments BLE and trunk intact equally to light touch sensation Deep Tendon Reflex & Clonus Assessment Deep Tendon Reflex Bilateral Achilles Deep Tendon Reflex 1+ Diminished Bilateral Bicep Deep Tendon Reflex 1+ Diminished PT-OP-J Posture/Palpation/Skin Start: 01/25/24 13:00 Freq: Status: Active Protocol: Document 01/25/24 13:00 NM (Rec: 01/25/24 14:01 NM [id number]) Posture Evaluation Position Standing Head/C-Spine Posture Forward Head L-Spine Posture Flattened,Decreased Lordosis Pelvis Posture Posterior Tilted Weight Distribution Weight Shifted Right Hip Posture (L) Externally Rotated,(R) Externally Rotated Knee Posture (L) Genu Varus,(R) Genu Varus Ankle/Foot Posture (L) Pronated,(R) Pronated Palpation Assessment Location lumbar spine Palpation Location glutes, paraspinals, spinous processes, tranverse processes , PSI Palpation Findings Soft Tissue Tightness Palpation Details Soft tissue tightness B paraspinals L>R, no tenderness to palpation along lumbar spine or B PSIS/SIJ. Skin Assessment Other Assessments Skin Assessment Comments BLE has dry skin, several closed wounds, red coloring, same temperature PT-OP-K Range of Motion Start: 01/25/24 13:00 Freq: Status: Active Protocol: Document 01/25/24 13:00 NM (Rec: 01/25/24 13:50 NM [id number]) Lumbar Spine Range of Motion Lumbar Spine Active Percentage Flexion 50 Extension 100 Rotation Left 3 Rotation Right 3 Lateral Flexion Left 100 Lateral Flexion Right 100 Comments Low back pain not reproduced with any movement Hip Goniometric Range of Motion Hip Right Flexion w/Knee Flexed 80 Straight Leg Raise 50 Internal Rotation 15 External Rotation 25 Left Flexion w/Knee Flexed 90 Straight Leg Raise 60 Internal Rotation 25 External Rotation 25 PT-OP-L Special Tests Start: 01/25/24 13:00 Freq: Status: Active Protocol: Document 01/25/24 13:00 NM (Rec: 01/25/24 13:50 NM [id number]) Special Tests Lumbar Spine Special Tests Distraction Test Results + Straight Leg Raise Test Results + Comments Bilateral Rodriguez/Quadrant Test Results - Slump Test Results + Comments Bilateral PT-OP-M Strength Start: 01/25/24 13:00 Freq: Status: Active Protocol: Document 01/25/24 13:00 NM (Rec: 01/25/24 13:50 NM [id number]) Trunk Strength Trunk Manual Muscle Testing Rotation Left 4 Good Rotation Right 4 Good Lateral Flexion Left 4 Good Lateral Flexion Right 4 Good Comments no pain Hip Strength Hip Manual Muscle Testing Right Flexion (L2) 4- Good- Extension (S1) 4- Good- Abduction 4- Good- Adduction 4 Good External Rotation 4 Good Internal Rotation 4 Good Left Flexion (L2) 4- Good- Extension (S1) 4- Good- Abduction 4- Good- Adduction 4 Good External Rotation 4 Good Internal Rotation 4 Good PT-OP-Q Treatments Start: 01/25/24 13:00 Freq: Status: Active Protocol: Document 01/29/24 10:33 NM (Rec: 01/29/24 11:17 NM [id number]) Therapeutic Exercises Supine Exercises bridge Side bilateral Resistance AROM Reps/Minutes 1x10 Comments pain free, easy TrA activation Supine Exercise Name 1. breathing w/ TrA, 2. LTR Side bilateral Equipment Used legs elevated on large green algerian ball Reps/Minutes 1. 1x10 with 2 hold, 2. 1x10 with 2 hold ea Comments pain free lumbar distraction Supine Exercise Name education for pain reduction prn for HEP Side bilateral Equipment Used feet elevated on large green algerian ball Reps/Minutes 2 minutes Comments cued elongation of spine, breathing for relaxation HS stretch Side bilateral Equipment Used assisted with strap Reps/Minutes 1x60 Comments cued for straight leg, pain free in back and good stretch felt modified virgilio stretch Supine Exercise Name knee flex in half hooklying on table, opp leg off table Side bilateral Reps/Minutes 1x60 ea Comments pain free in back; reports good stretch, more than normal figure 4 stretch Supine Exercise Name opp leg extended Side bilateral Reps/Minutes 1x60 ea Comments pain free in back; reports good stretch in glutes; cued knee relax to table Sitting Exercises sit to stand Side bilateral Resistance lvl 4 band around thighs Reps/Minutes 2x10 Comments fatiguing, using muscles but pain free; cued neutral stance hip abduction Sitting Exercise Name isometric Side bilateral Resistance lvl 4 band Reps/Minutes 1x60 Comments pain free Standing Exercises side steps Side bilateral Resistance lvl 4 band around thighs Reps/Minutes 2x20 ft ea Comments pain free but fatiguing; short seated break, no LE or back symptoms Self-Care/Home Management Treatment Education Patient Education Home Exercise Program Other Education HEP: figure 4 stretch, modified virgilio stretch, sit to stand with band (issued band), side steps PT-OP-T Assessment and Plan Start: 01/25/24 13:00 Freq: Status: Active Protocol: Document 01/29/24 10:33 NM (Rec: 01/29/24 11:17 NM [id number]) Physical Therapy Assessment Goals Five Impairment strength Impairment BLE hip abd and ext 4-/5 MMT Short Term Goal (STG) Pt will improve bilateral hip abduction and extension strength to at least 4/5 MMT in order to demonstrate improved hip strength for gait , transfers, and ADLs. STG Duration 6 weeks Photogrammetric Technician Goal (LTG) Pt will improve bilateral hip abduction and extension strength to at least 4+/5 MMT in order to demonstrate improved hip strength for gait , transfers, and ADLs. LTG Duration 12 weeks Four Impairment balance, function Impairment Tinetti 18/28 (gait 03/16, balance 09/21) Short Term Goal (STG) Pt will improve Tinetti score to at least 22/28 in order to demonstrate decreased fall risk and improved balance during ambulation STG Duration 6 weeks Assisted Goal (LTG) Pt will improve Tinetti score to at least 26/28 in order to demonstrate decreased fall risk and improved balance during ambulation LTG Duration 12 weeks Three Impairment strength, function Impairment 5x STS test 12 seconds from 20 plinth Short Term Goal (STG) Pt will improve 5x STS time to <12 seconds in order to demonstrate improved BLE strength for transfers, gait, and ADLs STG Duration 6 weeks Photogrammetric Technician Goal (LTG) Pt will be able to perform at least 10 bilateral squats without UE support and without increase in baseline pain in order to demonstrate improved BLE strength for transfers, gait, and ADLs LTG Duration 12 weeks Two Impairment gait, 6 MWT Impairment 6MWT distance: 1073 ft Short Term Goal (STG) Pt will improve 6MWT distance by at least 200 ft (1 MCID) without increase in baseline pain in order to demonstrate improved activity tolerance and symptom management STG Duration 6 weeks Assisted Goal (LTG) Pt will report that he able to ambulate at least 10 minutes before taking a seated rest break or increase in baseline pain LTG Duration 12 weeks One Impairment HEP Impairment not performing HEP Short Term Goal (STG) Pt will report compliance with HEP at least 2-3x/wk in order to maximize progression with PT and promote independence with exercise STG Duration 6 weeks Photogrammetric Technician Goal (LTG) Pt will report compliance with HEP at least 3x/wk in order to promote independence with rehabilitation and transition into maintenance program upon discharge from PT LTG Duration 12 weeks Assessment Summary Assessment Pt tolerated session well without any increase in back or leg pain. Initiated hip stretching to improve hip mobility and muscle length. Progressed from seated hip abduction to side steps. Pt tolerated without any increase in symptoms, but requires seated rest breaks due to decreased activity tolerance. Able to perform with squat form, cued for neutral hip rotation as he has tendency to use hip ER. Initiated sit to stands with band for hip strengthening. Cued again for neutral hip rotation and eccentric control. Pt fatigues easily. Pt would benefit from skilled PT for BLE/trunk strengthening, body mechanics training, and cardiovascular training in order to improve activity tolerance and decrease pain symptoms. Physical Therapy Plan Frequency and Duration Frequency of Treatment 2x/Week Duration of treatment (weeks) 12 Plan of Care Start Date 01/25/24 Plan of Care End Date 04/22/24 Therapeutic Interventions Therapeutic Interventions Balance Training,Gait Training ,Home Exercise Program,Joint Mobilizations,Manual Therapy, Neuromuscular Re-education, Orthotic/Prosthetic Management ,Patient/Caregiver Education, Self-Care/Home Management, Sensory Integration,Soft Tissue Mobilization,Taping, Therapeutic Activities, Therapeutic Exercises Modalities Cold Pack/Ice Massage,Electric Stimulation,Hot Packs, Traction- Mechanical, Vasopneumatic Devices Next Visit Focus/Plan Next Note Type Treatment Note Next Visit Plan Next session: recumbent bike, side steps, hip 3 way, lumbar flexion counter top stretch, review hip stretches, cont with lumbar spine/core and hip strengthening with limits to lumbar stenosis future sessions: trial step ups, leg press Flexion biased seated core Manual: soft tissue mobilization to HS, calves, lumbar spine take vitals ea session
--- NOTE | 2024-02-02 11:15 | PT.OTN ---
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 He has diabetes and is trying to manage it with ambulation; states he has pain with ambulation. He states that he used to have L sided pain and L sided buttock pain. He reports that he has constant pain across his belt line. Pt reports that his pain started 8 years ago after his bypass surgery, used to walk 4 miles/ day; had B knee TKA. Reports OA in both knees and back. Reports no known PEARL for recent exacerbation. Reports difficulty with bending, transferring in/out car, transferring in/out of chair. No numbness/tingling in BLE, getting tested for neuropathy. Has circulation issues, dry skin and sores on BLE. Prior Treatments and Tests Previous PT for low back pain Current Functional Impairments (Reported) Functional Limitations- ADL's no difficulty with dressing Functional Limitations- Mobility/Gait walk 1 minute, standing ~4 hours Functional Limitations- Work/School watches 2 y.o. 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 PT-OP-E Functional Tests Start: 01/25/24 13:00 Freq: Status: Active Protocol: Document 01/25/24 13:00 NM (Rec: 01/25/24 13:50 NM [id number]) Functional Tests 6 Minute Walk Test Distance 1073 ft Device Used none Comments symptoms to post leg to calf, back >LLE Five Times Sit to Stand Test Score 12 seconds Comments no pain, 20 chair Tinetti Balance and Gait Assessment Balance Score 12 Gait Score 6 Composite Score 18/28 Other Forward Trunk Flexion Test Name of Test measured finger tip to floor Score 15 Comment pain free, limited by HS length and abdomen PT-OP-F Manual Assessment Start: 01/25/24 13:00 Freq: Status: Active Protocol: Document 01/25/24 13:00 NM (Rec: 01/25/24 13:50 NM [id number]) Manual Assessments Soft Tissue Assessment Soft Tissue Mobility Assessment Decreased HS length, quad/hip flex length. Increased tone B lumbar paraspinals Joint Mobility Assessment Joint Mobility Assessment no hyper mobility, decreased hip mobility PT-OP-G Mobility & Gait Start: 01/25/24 13:00 Freq: Status: Active Protocol: Document 01/25/24 13:00 NM (Rec: 01/25/24 14:01 NM [id number]) OP Gait Assessment Gait Gait Assistance Required: Independent Distance (Feet) 1,073 Assistive Devices Assistive Device None Gait Deviations General Gait Pattern Antalgic,Step-to Gait Factors Limiting Gait Function Factors Limiting Gait Function Decreased Activity Tolerance, Decreased Sensation,Decreased Strength,Pain Comments Gait Comments As pt fatigues, increased antalgic gait and increased low back and L sided back pain . Demos B hip ER with gait throughout entirety of 6 MWT, L circumduction and flexed trunk compensation with fatigue PT-OP-H Neuro Start: 01/25/24 13:00 Freq: Status: Active Protocol: Document 01/25/24 13:00 NM (Rec: 01/25/24 13:50 NM [id number]) Sensation Evaluation Comments Summary Comments BLE and trunk intact equally to light touch sensation Deep Tendon Reflex & Clonus Assessment Deep Tendon Reflex Bilateral Achilles Deep Tendon Reflex 1+ Diminished Bilateral Bicep Deep Tendon Reflex 1+ Diminished PT-OP-J Posture/Palpation/Skin Start: 01/25/24 13:00 Freq: Status: Active Protocol: Document 01/25/24 13:00 NM (Rec: 01/25/24 14:01 NM [id number]) Posture Evaluation Position Standing Head/C-Spine Posture Forward Head L-Spine Posture Flattened,Decreased Lordosis Pelvis Posture Posterior Tilted Weight Distribution Weight Shifted Right Hip Posture (L) Externally Rotated,(R) Externally Rotated Knee Posture (L) Genu Varus,(R) Genu Varus Ankle/Foot Posture (L) Pronated,(R) Pronated Palpation Assessment Location lumbar spine Palpation Location glutes, paraspinals, spinous processes, tranverse processes , PSI Palpation Findings Soft Tissue Tightness Palpation Details Soft tissue tightness B paraspinals L>R, no tenderness to palpation along lumbar spine or B PSIS/SIJ. Skin Assessment Other Assessments Skin Assessment Comments BLE has dry skin, several closed wounds, red coloring, same temperature PT-OP-K Range of Motion Start: 01/25/24 13:00 Freq: Status: Active Protocol: Document 01/25/24 13:00 NM (Rec: 01/25/24 13:50 NM [id number]) Lumbar Spine Range of Motion Lumbar Spine Active Percentage Flexion 50 Extension 100 Rotation Left 3 Rotation Right 3 Lateral Flexion Left 100 Lateral Flexion Right 100 Comments Low back pain not reproduced with any movement Hip Goniometric Range of Motion Hip Right Flexion w/Knee Flexed 80 Straight Leg Raise 50 Internal Rotation 15 External Rotation 25 Left Flexion w/Knee Flexed 90 Straight Leg Raise 60 Internal Rotation 25 External Rotation 25 PT-OP-L Special Tests Start: 01/25/24 13:00 Freq: Status: Active Protocol: Document 01/25/24 13:00 NM (Rec: 01/25/24 13:50 NM [id number]) Special Tests Lumbar Spine Special Tests Distraction Test Results + Straight Leg Raise Test Results + Comments Bilateral Rodriguez/Quadrant Test Results - Slump Test Results + Comments Bilateral PT-OP-M Strength Start: 01/25/24 13:00 Freq: Status: Active Protocol: Document 01/25/24 13:00 NM (Rec: 01/25/24 13:50 NM [id number]) Trunk Strength Trunk Manual Muscle Testing Rotation Left 4 Good Rotation Right 4 Good Lateral Flexion Left 4 Good Lateral Flexion Right 4 Good Comments no pain Hip Strength Hip Manual Muscle Testing Right Flexion (L2) 4- Good- Extension (S1) 4- Good- Abduction 4- Good- Adduction 4 Good External Rotation 4 Good Internal Rotation 4 Good Left Flexion (L2) 4- Good- Extension (S1) 4- Good- Abduction 4- Good- Adduction 4 Good External Rotation 4 Good Internal Rotation 4 Good PT-OP-Q Treatments Start: 01/25/24 13:00 Freq: Status: Active Protocol: Document 02/02/24 10:26 SW (Rec: 02/02/24 11:15 SW [id number]) Cardio Equipment Recumbent Elliptical (Biodex) Duration (Minutes) 5 Resistance 4 Other (unable to get LEs up on recumbant bicycle), denies pain Gym Equipment Shuttle Recovery Bilateral Squats Details Bilateral squat, pain free, cues for alignment) Resistance 75# (dark blue) Shuttle Recovery Platform Stable Reps/Time 2x10 Therapeutic Exercises Supine Exercises bridge Side bilateral Resistance AROM Reps/Minutes 1x10 Comments pain free, easy TrA activation Supine Exercise Name 1. breathing w/ TrA, 2. LTR Side bilateral Equipment Used legs elevated on large green nigerian ball Reps/Minutes 1. 1x10 with 2 hold, 2. 1x10 with 2 hold ea Comments pain free lumbar distraction Side bilateral Equipment Used feet elevated on large green nigerian ball Reps/Minutes 2 minutes Comments cued elongation of spine, breathing for relaxation HS stretch Side bilateral Equipment Used assisted with strap Reps/Minutes 1x60 Comments cued for straight leg, pain free good stretch modified virgilio stretch Supine Exercise Name knee flex in half hooklying on table, opp leg off table Side bilateral Reps/Minutes 1x60 ea Comments pain free in back; reports good stretch, more than normal figure 4 stretch Supine Exercise Name opp leg extended Side bilateral Reps/Minutes 1x60 ea Comments pain free in back; reports good stretch in glutes; cued knee relax to table Sitting Exercises sit to stand Side bilateral Resistance lvl 4 band around thighs Reps/Minutes 2x10 Comments pain free, cues for eccentric control Standing Exercises Counter stretch Standing Exercise Name Lumbar stretch Side bilateral Equipment Used @ counter side steps Side bilateral Resistance lvl 4 band around thighs Reps/Minutes 3x15 ft ea Comments Pain free, cues for hip/LE alignment PT-OP-T Assessment and Plan Start: 01/25/24 13:00 Freq: Status: Active Protocol: Document 02/02/24 10:26 SW (Rec: 02/02/24 11:15 [id number]) Physical Therapy Assessment Goals Five Impairment strength Impairment BLE hip abd and ext 4-/5 MMT Short Term Goal (STG) Pt will improve bilateral hip abduction and extension strength to at least 4/5 MMT in order to demonstrate improved hip strength for gait , transfers, and ADLs. STG Duration 6 weeks Tool Worker Goal (LTG) Pt will improve bilateral hip abduction and extension strength to at least 4+/5 MMT in order to demonstrate improved hip strength for gait , transfers, and ADLs. LTG Duration 12 weeks Four Impairment balance, function Impairment Tinetti /28 (gait 03/16, balance 09/21) Short Term Goal (STG) Pt will improve Tinetti score to at least 22/28 in order to demonstrate decreased fall risk and improved balance during ambulation STG Duration 6 weeks Halfway Goal (LTG) Pt will improve Tinetti score to at least 26/28 in order to demonstrate decreased fall risk and improved balance during ambulation LTG Duration 12 weeks Three Impairment strength, function Impairment 5x STS test 12 seconds from 20 plinth Short Term Goal (STG) Pt will improve 5x STS time to <12 seconds in order to demonstrate improved BLE strength for transfers, gait, and ADLs STG Duration 6 weeks Halfway Goal (LTG) Pt will be able to perform at least 10 bilateral squats without UE support and without increase in baseline pain in order to demonstrate improved BLE strength for transfers, gait, and ADLs LTG Duration 12 weeks Two Impairment gait, 6 MWT Impairment 6MWT distance: 1073 ft Short Term Goal (STG) Pt will improve 6MWT distance by at least 200 ft (1 MCID) without increase in baseline pain in order to demonstrate improved activity tolerance and symptom management STG Duration 6 weeks Halfway Goal (LTG) Pt will report that he able to ambulate at least 10 minutes before taking a seated rest break or increase in baseline pain LTG Duration 12 weeks One Impairment HEP Impairment not performing HEP Short Term Goal (STG) Pt will report compliance with HEP at least 2-3x/wk in order to maximize progression with PT and promote independence with exercise STG Duration 6 weeks Tool Worker Goal (LTG) Pt will report compliance with HEP at least 3x/wk in order to promote independence with rehabilitation and transition into maintenance program upon discharge from PT LTG Duration 12 weeks Assessment Summary Assessment Pt reports still sore since last session. Instructed pt to alternate days for strength to give a day between for mm recovery, and trial ice for delayed post discomfort prn. Pt tolerated session well, denies pain increase throughout session. Trialed recumbant biodex today for warmup, pt unable to get LE up onto recumbant bicycle, tolerated well denies pain. Reviewed stretches, and initiated lumbar stretch at counter, added to HEP, pt denies HO. Physical Therapy Plan Frequency and Duration Frequency of Treatment 2x/Week Duration of treatment (weeks) 12 Plan of Care Start Date 01/25/24 Plan of Care End Date 04/22/24 Therapeutic Interventions Therapeutic Interventions Balance Training,Gait Training ,Home Exercise Program,Joint Mobilizations,Manual Therapy, Neuromuscular Re-education, Orthotic/Prosthetic Management ,Patient/Caregiver Education, Self-Care/Home Management, Sensory Integration,Soft Tissue Mobilization,Taping, Therapeutic Activities, Therapeutic Exercises Modalities Cold Pack/Ice Massage,Electric Stimulation,Hot Packs, Traction- Mechanical, Vasopneumatic Devices Next Visit Focus/Plan Next Note Type Treatment Note Next Visit Plan Next session: recumbent bike, side steps, hip 3 way, lumbar flexion counter top stretch, review hip stretches, cont with lumbar spine/core and hip strengthening with limits to lumbar stenosis future sessions: trial step ups, leg press Flexion biased seated core Manual: soft tissue mobilization to HS, calves, lumbar spine take vitals ea session
--- NOTE | 2024-02-02 11:16 | PT.OTN ---
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 He has diabetes and is trying to manage it with ambulation; states he has pain with ambulation. He states that he used to have L sided pain and L sided buttock pain. He reports that he has constant pain across his belt line. Pt reports that his pain started 8 years ago after his bypass surgery, used to walk 4 miles/ day; had B knee TKA. Reports OA in both knees and back. Reports no known PEALR for recent exacerbation. Reports difficulty with bending, transferring in/out car, transferring in/out of chair. No numbness/tingling in BLE, getting tested for neuropathy. Has circulation issues, dry skin and sores on BLE. Prior Treatments and Tests Previous PT for low back pain Current Functional Impairments (Reported) Functional Limitations- ADL's no difficulty with dressing Functional Limitations- Mobility/Gait walk 1 minute, standing ~4 hours Functional Limitations- Work/School watches 2 y.o. 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 PT-OP-E Functional Tests Start: 01/25/24 13:00 Freq: Status: Active Protocol: Document 01/25/24 13:00 NM (Rec: 01/25/24 13:50 NM [id number]) Functional Tests 6 Minute Walk Test Distance 1073 ft Device Used none Comments symptoms to post leg to calf, back >LLE Five Times Sit to Stand Test Score 12 seconds Comments no pain, 20 chair Tinetti Balance and Gait Assessment Balance Score 12 Gait Score 6 Composite Score 18/28 Other Forward Trunk Flexion Test Name of Test measured finger tip to floor Score 15 Comment pain free, limited by HS length and abdomen PT-OP-F Manual Assessment Start: 01/25/24 13:00 Freq: Status: Active Protocol: Document 01/25/24 13:00 NM (Rec: 01/25/24 13:50 NM [id number]) Manual Assessments Soft Tissue Assessment Soft Tissue Mobility Assessment Decreased HS length, quad/hip flex length. Increased tone B lumbar paraspinals Joint Mobility Assessment Joint Mobility Assessment no hyper mobility, decreased hip mobility PT-OP-G Mobility & Gait Start: 01/25/24 13:00 Freq: Status: Active Protocol: Document 01/25/24 13:00 NM (Rec: 01/25/24 14:01 NM [id number]) OP Gait Assessment Gait Gait Assistance Required: Independent Distance (Feet) 1,073 Assistive Devices Assistive Device None Gait Deviations General Gait Pattern Antalgic,Step-to Gait Factors Limiting Gait Function Factors Limiting Gait Function Decreased Activity Tolerance, Decreased Sensation,Decreased Strength,Pain Comments Gait Comments As pt fatigues, increased antalgic gait and increased low back and L sided back pain . Demos B hip ER with gait throughout entirety of 6 MWT, L circumduction and flexed trunk compensation with fatigue PT-OP-H Neuro Start: 01/25/24 13:00 Freq: Status: Active Protocol: Document 01/25/24 13:00 NM (Rec: 01/25/24 13:50 NM [id number]) Sensation Evaluation Comments Summary Comments BLE and trunk intact equally to light touch sensation Deep Tendon Reflex & Clonus Assessment Deep Tendon Reflex Bilateral Achilles Deep Tendon Reflex 1+ Diminished Bilateral Bicep Deep Tendon Reflex 1+ Diminished PT-OP-J Posture/Palpation/Skin Start: 01/25/24 13:00 Freq: Status: Active Protocol: Document 01/25/24 13:00 NM (Rec: 01/25/24 14:01 NM [id number]) Posture Evaluation Position Standing Head/C-Spine Posture Forward Head L-Spine Posture Flattened,Decreased Lordosis Pelvis Posture Posterior Tilted Weight Distribution Weight Shifted Right Hip Posture (L) Externally Rotated,(R) Externally Rotated Knee Posture (L) Genu Varus,(R) Genu Varus Ankle/Foot Posture (L) Pronated,(R) Pronated Palpation Assessment Location lumbar spine Palpation Location glutes, paraspinals, spinous processes, tranverse processes , PSI Palpation Findings Soft Tissue Tightness Palpation Details Soft tissue tightness B paraspinals L>R, no tenderness to palpation along lumbar spine or B PSIS/SIJ. Skin Assessment Other Assessments Skin Assessment Comments BLE has dry skin, several closed wounds, red coloring, same temperature PT-OP-K Range of Motion Start: 01/25/24 13:00 Freq: Status: Active Protocol: Document 01/25/24 13:00 NM (Rec: 01/25/24 13:50 NM [id number]) Lumbar Spine Range of Motion Lumbar Spine Active Percentage Flexion 50 Extension 100 Rotation Left 3 Rotation Right 3 Lateral Flexion Left 100 Lateral Flexion Right 100 Comments Low back pain not reproduced with any movement Hip Goniometric Range of Motion Hip Right Flexion w/Knee Flexed 80 Straight Leg Raise 50 Internal Rotation 15 External Rotation 25 Left Flexion w/Knee Flexed 90 Straight Leg Raise 60 Internal Rotation 25 External Rotation 25 PT-OP-L Special Tests Start: 01/25/24 13:00 Freq: Status: Active Protocol: Document 01/25/24 13:00 NM (Rec: 01/25/24 13:50 NM [id number]) Special Tests Lumbar Spine Special Tests Distraction Test Results + Straight Leg Raise Test Results + Comments Bilateral Rodriguez/Quadrant Test Results - Slump Test Results + Comments Bilateral PT-OP-M Strength Start: 01/25/24 13:00 Freq: Status: Active Protocol: Document 01/25/24 13:00 NM (Rec: 01/25/24 13:50 NM [id number]) Trunk Strength Trunk Manual Muscle Testing Rotation Left 4 Good Rotation Right 4 Good Lateral Flexion Left 4 Good Lateral Flexion Right 4 Good Comments no pain Hip Strength Hip Manual Muscle Testing Right Flexion (L2) 4- Good- Extension (S1) 4- Good- Abduction 4- Good- Adduction 4 Good External Rotation 4 Good Internal Rotation 4 Good Left Flexion (L2) 4- Good- Extension (S1) 4- Good- Abduction 4- Good- Adduction 4 Good External Rotation 4 Good Internal Rotation 4 Good PT-OP-Q Treatments Start: 01/25/24 13:00 Freq: Status: Active Protocol: Document 02/02/24 10:26 SW (Rec: 02/02/24 11:15 SW [id number]) Cardio Equipment Recumbent Elliptical (Biodex) Duration (Minutes) 5 Resistance 4 Other (unable to get LEs up on recumbant bicycle), denies pain Gym Equipment Shuttle Recovery Bilateral Squats Details Bilateral squat, pain free, cues for alignment) Resistance 75# (dark blue) Shuttle Recovery Platform Stable Reps/Time 2x10 Therapeutic Exercises Supine Exercises bridge Side bilateral Resistance AROM Reps/Minutes 1x10 Comments pain free, easy TrA activation Supine Exercise Name 1. breathing w/ TrA, 2. LTR Side bilateral Equipment Used legs elevated on large green tunisian ball Reps/Minutes 1. 1x10 with 2 hold, 2. 1x10 with 2 hold ea Comments pain free lumbar distraction Side bilateral Equipment Used feet elevated on large green tunisian ball Reps/Minutes 2 minutes Comments cued elongation of spine, breathing for relaxation HS stretch Side bilateral Equipment Used assisted with strap Reps/Minutes 1x60 Comments cued for straight leg, pain free good stretch modified virgilio stretch Supine Exercise Name knee flex in half hooklying on table, opp leg off table Side bilateral Reps/Minutes 1x60 ea Comments pain free in back; reports good stretch, more than normal figure 4 stretch Supine Exercise Name opp leg extended Side bilateral Reps/Minutes 1x60 ea Comments pain free in back; reports good stretch in glutes; cued knee relax to table Sitting Exercises sit to stand Side bilateral Resistance lvl 4 band around thighs Reps/Minutes 2x10 Comments pain free, cues for eccentric control Standing Exercises Counter stretch Standing Exercise Name Lumbar stretch Side bilateral Equipment Used @ counter side steps Side bilateral Resistance lvl 4 band around thighs Reps/Minutes 3x15 ft ea Comments Pain free, cues for hip/LE alignment PT-OP-T Assessment and Plan Start: 01/25/24 13:00 Freq: Status: Active Protocol: Document 02/02/24 10:26 SW (Rec: 02/02/24 11:15 [id number]) Physical Therapy Assessment Goals Five Impairment strength Impairment BLE hip abd and ext 4-/5 MMT Short Term Goal (STG) Pt will improve bilateral hip abduction and extension strength to at least 4/5 MMT in order to demonstrate improved hip strength for gait , transfers, and ADLs. STG Duration 6 weeks Professor Of Radiology Goal (LTG) Pt will improve bilateral hip abduction and extension strength to at least 4+/5 MMT in order to demonstrate improved hip strength for gait , transfers, and ADLs. LTG Duration 12 weeks Four Impairment balance, function Impairment Tinetti /28 (gait 03/16, balance 09/21) Short Term Goal (STG) Pt will improve Tinetti score to at least 22/28 in order to demonstrate decreased fall risk and improved balance during ambulation STG Duration 6 weeks [facility] Goal (LTG) Pt will improve Tinetti score to at least 26/28 in order to demonstrate decreased fall risk and improved balance during ambulation LTG Duration 12 weeks Three Impairment strength, function Impairment 5x STS test 12 seconds from 20 plinth Short Term Goal (STG) Pt will improve 5x STS time to <12 seconds in order to demonstrate improved BLE strength for transfers, gait, and ADLs STG Duration 6 weeks [facility] Goal (LTG) Pt will be able to perform at least 10 bilateral squats without UE support and without increase in baseline pain in order to demonstrate improved BLE strength for transfers, gait, and ADLs LTG Duration 12 weeks Two Impairment gait, 6 MWT Impairment 6MWT distance: 1073 ft Short Term Goal (STG) Pt will improve 6MWT distance by at least 200 ft (1 MCID) without increase in baseline pain in order to demonstrate improved activity tolerance and symptom management STG Duration 6 weeks [facility] Goal (LTG) Pt will report that he able to ambulate at least 10 minutes before taking a seated rest break or increase in baseline pain LTG Duration 12 weeks One Impairment HEP Impairment not performing HEP Short Term Goal (STG) Pt will report compliance with HEP at least 2-3x/wk in order to maximize progression with PT and promote independence with exercise STG Duration 6 weeks Professor Of Radiology Goal (LTG) Pt will report compliance with HEP at least 3x/wk in order to promote independence with rehabilitation and transition into maintenance program upon discharge from PT LTG Duration 12 weeks Assessment Summary Assessment Pt reports still sore since last session. Instructed pt to alternate days for strength to give a day between for mm recovery, and trial ice for delayed post discomfort prn. Pt tolerated session well, denies pain increase throughout session. Trialed recumbant biodex today for warmup, pt unable to get LE up onto recumbant bicycle, tolerated well denies pain. Reviewed stretches, and initiated lumbar stretch at counter, added to HEP, pt denies HO. Physical Therapy Plan Frequency and Duration Frequency of Treatment 2x/Week Duration of treatment (weeks) 12 Plan of Care Start Date 01/25/24 Plan of Care End Date 04/22/24 Therapeutic Interventions Therapeutic Interventions Balance Training,Gait Training ,Home Exercise Program,Joint Mobilizations,Manual Therapy, Neuromuscular Re-education, Orthotic/Prosthetic Management ,Patient/Caregiver Education, Self-Care/Home Management, Sensory Integration,Soft Tissue Mobilization,Taping, Therapeutic Activities, Therapeutic Exercises Modalities Cold Pack/Ice Massage,Electric Stimulation,Hot Packs, Traction- Mechanical, Vasopneumatic Devices Next Visit Focus/Plan Next Note Type Treatment Note Next Visit Plan Next session: recumbent bike, side steps, hip 3 way, lumbar flexion counter top stretch, review hip stretches, cont with lumbar spine/core and hip strengthening with limits to lumbar stenosis future sessions: trial step ups, leg press Flexion biased seated core Manual: soft tissue mobilization to HS, calves, lumbar spine take vitals ea session
--- NOTE | 2024-02-04 13:00 | PT.OTN ---
Current Diagnoses Lumbago with sciatica, left side (02/04/24) Other lack of coordination (02/04/24) Weakness (02/04/24) Physical Therapy Treatment Note PT-OP-A Visit Information Start: 01/25/24 13:00 Freq: Status: Active Protocol: Document 02/04/24 10:36 SW (Rec: 02/04/24 11:21 [id number]) Out-Patient Physical Therapy Visit Information Visit Information Visit Type Treatment Note Visit Note KX after 19 visits 12/12 PN 98% SaO2, 89 HR 141/66 BP Visit Start Time 10:31 Visit Stop Time 11:11 Visit Number 4 Number of MATERIAL CLERK Visits 2 Precautions Precautions hx bypass surgery, type II diabetes, heart disease VITALS PT-OP-B Current Condition Start: 01/25/24 13:00 Freq: Status: Active Protocol: Document 01/25/24 13:00 NM (Rec: 01/25/24 13:50 NM [id number]) Current Condition History of Current Condition Current Complaints pain, mobility History of Current Condition Pt presents with low back pain and with difficulty walking. He has diabetes and is trying to manage it with ambulation; states he has pain with ambulation. He states that he used to have L sided pain and L sided buttock pain. He reports that he has constant pain across his belt line. Pt reports that his pain started 8 years ago after his bypass surgery, used to walk 4 miles/ day; had B knee TKA. Reports OA in both knees and back. Reports no known PEARL for recent exacerbation. Reports difficulty with bending, transferring in/out car, transferring in/out of chair. No numbness/tingling in BLE, getting tested for neuropathy. Has circulation issues, dry skin and sores on BLE. Prior Treatments and Tests Previous PT for low back pain Current Functional Impairments (Reported) Functional Limitations- ADL's no difficulty with dressing Functional Limitations- Mobility/Gait walk 1 minute, standing ~4 hours Functional Limitations- Work/School watches 2 y.o. 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 PT-OP-E Functional Tests Start: 01/25/24 13:00 Freq: Status: Active Protocol: Document 01/25/24 13:00 NM (Rec: 01/25/24 13:50 NM [id number]) Functional Tests 6 Minute Walk Test Distance 1073 ft Device Used none Comments symptoms to post leg to calf, back >LLE Five Times Sit to Stand Test Score 12 seconds Comments no pain, 20 chair Tinetti Balance and Gait Assessment Balance Score 12 Gait Score 6 Composite Score 18/28 Other Forward Trunk Flexion Test Name of Test measured finger tip to floor Score 15 Comment pain free, limited by HS length and abdomen PT-OP-F Manual Assessment Start: 01/25/24 13:00 Freq: Status: Active Protocol: Document 01/25/24 13:00 NM (Rec: 01/25/24 13:50 NM [id number]) Manual Assessments Soft Tissue Assessment Soft Tissue Mobility Assessment Decreased HS length, quad/hip flex length. Increased tone B lumbar paraspinals Joint Mobility Assessment Joint Mobility Assessment no hyper mobility, decreased hip mobility PT-OP-G Mobility & Gait Start: 01/25/24 13:00 Freq: Status: Active Protocol: Document 01/25/24 13:00 NM (Rec: 01/25/24 14:01 NM [id number]) OP Gait Assessment Gait Gait Assistance Required: Independent Distance (Feet) 1,073 Assistive Devices Assistive Device None Gait Deviations General Gait Pattern Antalgic,Step-to Gait Factors Limiting Gait Function Factors Limiting Gait Function Decreased Activity Tolerance, Decreased Sensation,Decreased Strength,Pain Comments Gait Comments As pt fatigues, increased antalgic gait and increased low back and L sided back pain . Demos B hip ER with gait throughout entirety of 6 MWT, L circumduction and flexed trunk compensation with fatigue PT-OP-H Neuro Start: 01/25/24 13:00 Freq: Status: Active Protocol: Document 01/25/24 13:00 NM (Rec: 01/25/24 13:50 NM [id number]) Sensation Evaluation Comments Summary Comments BLE and trunk intact equally to light touch sensation Deep Tendon Reflex & Clonus Assessment Deep Tendon Reflex Bilateral Achilles Deep Tendon Reflex 1+ Diminished Bilateral Bicep Deep Tendon Reflex 1+ Diminished PT-OP-J Posture/Palpation/Skin Start: 01/25/24 13:00 Freq: Status: Active Protocol: Document 01/25/24 13:00 NM (Rec: 01/25/24 14:01 NM [id number]) Posture Evaluation Position Standing Head/C-Spine Posture Forward Head L-Spine Posture Flattened,Decreased Lordosis Pelvis Posture Posterior Tilted Weight Distribution Weight Shifted Right Hip Posture (L) Externally Rotated,(R) Externally Rotated Knee Posture (L) Genu Varus,(R) Genu Varus Ankle/Foot Posture (L) Pronated,(R) Pronated Palpation Assessment Location lumbar spine Palpation Location glutes, paraspinals, spinous processes, tranverse processes , PSI Palpation Findings Soft Tissue Tightness Palpation Details Soft tissue tightness B paraspinals L>R, no tenderness to palpation along lumbar spine or B PSIS/SIJ. Skin Assessment Other Assessments Skin Assessment Comments BLE has dry skin, several closed wounds, red coloring, same temperature PT-OP-K Range of Motion Start: 01/25/24 13:00 Freq: Status: Active Protocol: Document 01/25/24 13:00 NM (Rec: 01/25/24 13:50 NM [id number]) Lumbar Spine Range of Motion Lumbar Spine Active Percentage Flexion 50 Extension 100 Rotation Left 3 Rotation Right 3 Lateral Flexion Left 100 Lateral Flexion Right 100 Comments Low back pain not reproduced with any movement Hip Goniometric Range of Motion Hip Right Flexion w/Knee Flexed 80 Straight Leg Raise 50 Internal Rotation 15 External Rotation 25 Left Flexion w/Knee Flexed 90 Straight Leg Raise 60 Internal Rotation 25 External Rotation 25 PT-OP-L Special Tests Start: 01/25/24 13:00 Freq: Status: Active Protocol: Document 01/25/24 13:00 NM (Rec: 01/25/24 13:50 NM [id number]) Special Tests Lumbar Spine Special Tests Distraction Test Results + Straight Leg Raise Test Results + Comments Bilateral Rodriguez/Quadrant Test Results - Slump Test Results + Comments Bilateral PT-OP-M Strength Start: 01/25/24 13:00 Freq: Status: Active Protocol: Document 01/25/24 13:00 NM (Rec: 01/25/24 13:50 NM [id number]) Trunk Strength Trunk Manual Muscle Testing Rotation Left 4 Good Rotation Right 4 Good Lateral Flexion Left 4 Good Lateral Flexion Right 4 Good Comments no pain Hip Strength Hip Manual Muscle Testing Right Flexion (L2) 4- Good- Extension (S1) 4- Good- Abduction 4- Good- Adduction 4 Good External Rotation 4 Good Internal Rotation 4 Good Left Flexion (L2) 4- Good- Extension (S1) 4- Good- Abduction 4- Good- Adduction 4 Good External Rotation 4 Good Internal Rotation 4 Good PT-OP-Q Treatments Start: 01/25/24 13:00 Freq: Status: Active Protocol: Document 02/04/24 10:36 (Rec: 02/04/24 11:21 [id number]) Cardio Equipment Recumbent Elliptical (Biodex) Duration (Minutes) 6 Resistance 4 Other (unable to get LEs up on recumbant bicycle), denies pain Gym Equipment Shuttle Recovery Bilateral Squats Details Bilateral squat, pain free, cues for alignment) Resistance 75# (dark blue) Shuttle Recovery Platform Stable Reps/Time 3x10 Therapeutic Exercises Supine Exercises bridge Side bilateral Resistance AROM Reps/Minutes 2x10 Comments pain free TrA activation Supine Exercise Name 1. breathing w/ TrA, 2. LTR Side bilateral Equipment Used legs elevated on large green [place]omb[place] ball Reps/Minutes 1. 1x10 with 2 hold, 2. 1x10 with 2 hold ea Comments pain free HS stretch Side bilateral Equipment Used assisted with strap Reps/Minutes 1x60 Comments cued for straight leg, pain free good stretch Sitting Exercises sit to stand Side bilateral Resistance lvl 4 band around thighs Reps/Minutes 2x10 Comments pain free, cues for hip hinge eccentric control Standing Exercises Hip Abd Standing Exercise Name next Hip Ext Standing Exercise Name Hip Ext (issued HEP) Review next session for pt tolerance Comments cues for correct execution, compensations Counter stretch Standing Exercise Name Lumbar stretch (issued HEP) Side bilateral Equipment Used @ counter side steps Side bilateral Resistance lvl 4 band around thighs Reps/Minutes 3x15 ft ea Comments Pain free, cues for hip/LE alignment PT-OP-T Assessment and Plan Start: 01/25/24 13:00 Freq: Status: Active Protocol: Document 02/04/24 10:36 SW (Rec: 02/04/24 11:21 [id number]) Physical Therapy Assessment Goals Five Impairment strength Impairment BLE hip abd and ext 4-/5 MMT Short Term Goal (STG) Pt will improve bilateral hip abduction and extension strength to at least 4/5 MMT in order to demonstrate improved hip strength for gait , transfers, and ADLs. STG Duration 6 weeks Truck Sales Representative Goal (LTG) Pt will improve bilateral hip abduction and extension strength to at least 4+/5 MMT in order to demonstrate improved hip strength for gait , transfers, and ADLs. LTG Duration 12 weeks Four Impairment balance, function Impairment Tinetti 18/28 (gait 03/16, balance 09/21) Short Term Goal (STG) Pt will improve Tinetti score to at least 22/28 in order to demonstrate decreased fall risk and improved balance during ambulation STG Duration 6 weeks [facility] Goal (LTG) Pt will improve Tinetti score to at least 26/28 in order to demonstrate decreased fall risk and improved balance during ambulation LTG Duration 12 weeks Three Impairment strength, function Impairment 5x STS test 12 seconds from 20 plinth Short Term Goal (STG) Pt will improve 5x STS time to <12 seconds in order to demonstrate improved BLE strength for transfers, gait, and ADLs STG Duration 6 weeks [facility] Goal (LTG) Pt will be able to perform at least 10 bilateral squats without UE support and without increase in baseline pain in order to demonstrate improved BLE strength for transfers, gait, and ADLs LTG Duration 12 weeks Two Impairment gait, 6 MWT Impairment 6MWT distance: 1073 ft Short Term Goal (STG) Pt will improve 6MWT distance by at least 200 ft (1 MCID) without increase in baseline pain in order to demonstrate improved activity tolerance and symptom management STG Duration 6 weeks Truck Sales Representative Goal (LTG) Pt will report that he able to ambulate at least 10 minutes before taking a seated rest break or increase in baseline pain LTG Duration 12 weeks One Impairment HEP Impairment not performing HEP Short Term Goal (STG) Pt will report compliance with HEP at least 2-3x/wk in order to maximize progression with PT and promote independence with exercise STG Duration 6 weeks [facility] Goal (LTG) Pt will report compliance with HEP at least 3x/wk in order to promote independence with rehabilitation and transition into maintenance program upon discharge from PT LTG Duration 12 weeks Assessment Summary Assessment Pt tolerated progressions last session well, pt did take a recovery day yesterday from strengthening exercises, denies increase in pain with new exercise last session. Progressed pt with standing hip ext/abd strength this session for progress toward pt goals, pt tolerated well, denies pain, issued HEP HO, plan to assess pt tolerance next session and progress as able. Pt vitals post session 141/66 BP, 89 HR, 98% SaO2. Physical Therapy Plan Frequency and Duration Frequency of Treatment 2x/Week Duration of treatment (weeks) 12 Plan of Care Start Date 01/25/24 Plan of Care End Date 04/22/24 Therapeutic Interventions Therapeutic Interventions Balance Training,Gait Training ,Home Exercise Program,Joint Mobilizations,Manual Therapy, Neuromuscular Re-education, Orthotic/Prosthetic Management ,Patient/Caregiver Education, Self-Care/Home Management, Sensory Integration,Soft Tissue Mobilization,Taping, Therapeutic Activities, Therapeutic Exercises Modalities Cold Pack/Ice Massage,Electric Stimulation,Hot Packs, Traction- Mechanical, Vasopneumatic Devices Next Visit Focus/Plan Next Note Type Treatment Note Next Visit Plan Next session: recumbent bike, side steps, hip 3 way, lumbar flexion counter top stretch, review hip stretches, cont with lumbar spine/core and hip strengthening with limits to lumbar stenosis future sessions: trial step ups, leg press Flexion biased seated core Manual: soft tissue mobilization to HS, calves, lumbar spine take vitals ea session
--- NOTE | 2024-02-09 13:38 | PT.OTN ---
Current Diagnoses Lumbago with sciatica, left side (02/09/24) Other lack of coordination (02/09/24) Weakness (02/09/24) Physical Therapy Treatment Note PT-OP-A Visit Information Start: 01/25/24 13:00 Freq: Status: Active Protocol: Document 02/09/24 10:37 SW (Rec: 02/09/24 11:21 SW [id number]) Out-Patient Physical Therapy Visit Information Visit Information Visit Type Treatment Note Visit Note KX after 19 visits 01/12 PN 98% SaO2, 89 HR 141/66 BP Visit Start Time 10:34 Visit Stop Time 11:13 Visit Number 5 Number of CENTRAL SCHEDULER Visits 3 PT-OP-B Current Condition Start: 01/25/24 13:00 Freq: Status: Active Protocol: Document 01/25/24 13:00 NM (Rec: 01/25/24 13:50 NM [id number]) Current Condition History of Current Condition Current Complaints pain, mobility History of Current Condition Pt presents with low back pain and with difficulty walking. He has diabetes and is trying to manage it with ambulation; states he has pain with ambulation. He states that he used to have L sided pain and L sided buttock pain. He reports that he has constant pain across his belt line. Pt reports that his pain started 8 years ago after his bypass surgery, used to walk 4 miles/ day; had B knee TKA. Reports OA in both knees and back. Reports no known PEARL for recent exacerbation. Reports difficulty with bending, transferring in/out car, transferring in/out of chair. No numbness/tingling in BLE, getting tested for neuropathy. Has circulation issues, dry skin and sores on BLE. Prior Treatments and Tests Previous PT for low back pain Current Functional Impairments (Reported) Functional Limitations- ADL's no difficulty with dressing Functional Limitations- Mobility/Gait walk 1 minute, standing ~4 hours Functional Limitations- Work/School watches 2 y.o. 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 Spent last night with father in law who is on Hospice. PT-OP-E Functional Tests Start: 01/25/24 13:00 Freq: Status: Active Protocol: Document 01/25/24 13:00 NM (Rec: 01/25/24 13:50 NM [id number]) Functional Tests 6 Minute Walk Test Distance 1073 ft Device Used none Comments symptoms to post leg to calf, back >LLE Five Times Sit to Stand Test Score 12 seconds Comments no pain, 20 chair Tinetti Balance and Gait Assessment Balance Score 12 Gait Score 6 Composite Score 18/28 Other Forward Trunk Flexion Test Name of Test measured finger tip to floor Score 15 Comment pain free, limited by HS length and abdomen PT-OP-F Manual Assessment Start: 01/25/24 13:00 Freq: Status: Active Protocol: Document 01/25/24 13:00 NM (Rec: 01/25/24 13:50 NM [id number]) Manual Assessments Soft Tissue Assessment Soft Tissue Mobility Assessment Decreased HS length, quad/hip flex length. Increased tone B lumbar paraspinals Joint Mobility Assessment Joint Mobility Assessment no hyper mobility, decreased hip mobility PT-OP-G Mobility & Gait Start: 01/25/24 13:00 Freq: Status: Active Protocol: Document 01/25/24 13:00 NM (Rec: 01/25/24 14:01 NM [id number]) OP Gait Assessment Gait Gait Assistance Required: Independent Distance (Feet) 1,073 Assistive Devices Assistive Device None Gait Deviations General Gait Pattern Antalgic,Step-to Gait Factors Limiting Gait Function Factors Limiting Gait Function Decreased Activity Tolerance, Decreased Sensation,Decreased Strength,Pain Comments Gait Comments As pt fatigues, increased antalgic gait and increased low back and L sided back pain . Demos B hip ER with gait throughout entirety of 6 MWT, L circumduction and flexed trunk compensation with fatigue PT-OP-H Neuro Start: 01/25/24 13:00 Freq: Status: Active Protocol: Document 01/25/24 13:00 NM (Rec: 01/25/24 13:50 NM [id number]) Sensation Evaluation Comments Summary Comments BLE and trunk intact equally to light touch sensation Deep Tendon Reflex & Clonus Assessment Deep Tendon Reflex Bilateral Achilles Deep Tendon Reflex 1+ Diminished Bilateral Bicep Deep Tendon Reflex 1+ Diminished PT-OP-J Posture/Palpation/Skin Start: 01/25/24 13:00 Freq: Status: Active Protocol: Document 01/25/24 13:00 NM (Rec: 01/25/24 14:01 NM [id number]) Posture Evaluation Position Standing Head/C-Spine Posture Forward Head L-Spine Posture Flattened,Decreased Lordosis Pelvis Posture Posterior Tilted Weight Distribution Weight Shifted Right Hip Posture (L) Externally Rotated,(R) Externally Rotated Knee Posture (L) Genu Varus,(R) Genu Varus Ankle/Foot Posture (L) Pronated,(R) Pronated Palpation Assessment Location lumbar spine Palpation Location glutes, paraspinals, spinous processes, tranverse processes , PSI Palpation Findings Soft Tissue Tightness Palpation Details Soft tissue tightness B paraspinals L>R, no tenderness to palpation along lumbar spine or B PSIS/SIJ. Skin Assessment Other Assessments Skin Assessment Comments BLE has dry skin, several closed wounds, red coloring, same temperature PT-OP-K Range of Motion Start: 01/25/24 13:00 Freq: Status: Active Protocol: Document 01/25/24 13:00 NM (Rec: 01/25/24 13:50 NM [id number]) Lumbar Spine Range of Motion Lumbar Spine Active Percentage Flexion 50 Extension 100 Rotation Left 3 Rotation Right 3 Lateral Flexion Left 100 Lateral Flexion Right 100 Comments Low back pain not reproduced with any movement Hip Goniometric Range of Motion Hip Right Flexion w/Knee Flexed 80 Straight Leg Raise 50 Internal Rotation 15 External Rotation 25 Left Flexion w/Knee Flexed 90 Straight Leg Raise 60 Internal Rotation 25 External Rotation 25 PT-OP-L Special Tests Start: 01/25/24 13:00 Freq: Status: Active Protocol: Document 01/25/24 13:00 NM (Rec: 01/25/24 13:50 NM [id number]) Special Tests Lumbar Spine Special Tests Distraction Test Results + Straight Leg Raise Test Results + Comments Bilateral Rodriguez/Quadrant Test Results - Slump Test Results + Comments Bilateral PT-OP-M Strength Start: 01/25/24 13:00 Freq: Status: Active Protocol: Document 01/25/24 13:00 NM (Rec: 01/25/24 13:50 NM [id number]) Trunk Strength Trunk Manual Muscle Testing Rotation Left 4 Good Rotation Right 4 Good Lateral Flexion Left 4 Good Lateral Flexion Right 4 Good Comments no pain Hip Strength Hip Manual Muscle Testing Right Flexion (L2) 4- Good- Extension (S1) 4- Good- Abduction 4- Good- Adduction 4 Good External Rotation 4 Good Internal Rotation 4 Good Left Flexion (L2) 4- Good- Extension (S1) 4- Good- Abduction 4- Good- Adduction 4 Good External Rotation 4 Good Internal Rotation 4 Good PT-OP-Q Treatments Start: 01/25/24 13:00 Freq: Status: Active Protocol: Document 02/09/24 10:37 (Rec: 02/09/24 11:21 [id number]) Therapeutic Exercises Supine Exercises bridge Side bilateral Resistance AROM Reps/Minutes 2x10 Comments pain free TrA activation Supine Exercise Name 1. breathing w/ TrA, 2. LTR 3. PPT Side bilateral Equipment Used legs elevated on large green guyanese ball Reps/Minutes 1. 1x10 with 2 hold, 2. 1x10 with 2 hold ea Comments pain free Sitting Exercises Palloff Press Sitting Exercise Name Anti rotation, no press Side bilateral Resistance Green TB Reps/Minutes x5 ea Comments good feedback, no pain, fatigue Manual Therapy Treatment Soft Tissue Mobilization Lumbar, HS, Calf Body Location Lumbar paraspinals, glute, HS, gastroc/soleus Mobilization Type Myofascial Release,Strain/ Counterstrain,Sustained Pressure,Trigger Point Release Intensity/Depth Moderate Body Position Sidelying Comments pillow support for positioing, pt comfort Manual Techniques Self STM Type Self STM Comments educated pt with tennis ball self STM PT-OP-T Assessment and Plan Start: 01/25/24 13:00 Freq: Status: Active Protocol: Document 02/09/24 10:37 (Rec: 02/09/24 11:21 [id number]) Physical Therapy Assessment Goals Five Impairment strength Impairment BLE hip abd and ext 4-/5 MMT Short Term Goal (STG) Pt will improve bilateral hip abduction and extension strength to at least 4/5 MMT in order to demonstrate improved hip strength for gait , transfers, and ADLs. STG Duration 6 weeks Side Hemmer Goal (LTG) Pt will improve bilateral hip abduction and extension strength to at least 4+/5 MMT in order to demonstrate improved hip strength for gait , transfers, and ADLs. LTG Duration 12 weeks Four Impairment balance, function Impairment Tinetti (gait 03/16, balance 09/21) Short Term Goal (STG) Pt will improve Tinetti score to at least 22/28 in order to demonstrate decreased fall risk and improved balance during ambulation STG Duration 6 weeks Alf Goal (LTG) Pt will improve Tinetti score to at least 26/28 in order to demonstrate decreased fall risk and improved balance during ambulation LTG Duration 12 weeks Three Impairment strength, function Impairment 5x STS test 12 seconds from 20 plinth Short Term Goal (STG) Pt will improve 5x STS time to <12 seconds in order to demonstrate improved BLE strength for transfers, gait, and ADLs STG Duration 6 weeks Alf Goal (LTG) Pt will be able to perform at least 10 bilateral squats without UE support and without increase in baseline pain in order to demonstrate improved BLE strength for transfers, gait, and ADLs LTG Duration 12 weeks Two Impairment gait, 6 MWT Impairment 6MWT distance: 1073 ft Short Term Goal (STG) Pt will improve 6MWT distance by at least 200 ft (1 MCID) without increase in baseline pain in order to demonstrate improved activity tolerance and symptom management STG Duration 6 weeks Side Hemmer Goal (LTG) Pt will report that he able to ambulate at least 10 minutes before taking a seated rest break or increase in baseline pain LTG Duration 12 weeks One Impairment HEP Impairment not performing HEP Short Term Goal (STG) Pt will report compliance with HEP at least 2-3x/wk in order to maximize progression with PT and promote independence with exercise STG Duration 6 weeks Side Hemmer Goal (LTG) Pt will report compliance with HEP at least 3x/wk in order to promote independence with rehabilitation and transition into maintenance program upon discharge from PT LTG Duration 12 weeks Assessment Summary Assessment Tx focus on manual therapy today to decrease pt discomfort, good tolerance, palpable decrease in tension post, pt may benefit from continued focus next session prn. Educated patient on self STM with tennis ball against wall, pt demonstrated and reports good response. Extended time for pt education on core stabilization and correct execution of PPT this session. Plan to assess pt pain level next session and progress as able. Physical Therapy Plan Frequency and Duration Frequency of Treatment 2x/Week Duration of treatment (weeks) 12 Plan of Care Start Date 01/25/24 Plan of Care End Date 04/22/24 Therapeutic Interventions Therapeutic Interventions Balance Training,Gait Training ,Home Exercise Program,Joint Mobilizations,Manual Therapy, Neuromuscular Re-education, Orthotic/Prosthetic Management ,Patient/Caregiver Education, Self-Care/Home Management, Sensory Integration,Soft Tissue Mobilization,Taping, Therapeutic Activities, Therapeutic Exercises Modalities Cold Pack/Ice Massage,Electric Stimulation,Hot Packs, Traction- Mechanical, Vasopneumatic Devices Next Visit Focus/Plan Next Note Type Treatment Note Next Visit Plan Next session: recumbent bike, side steps, hip 3 way, lumbar flexion counter top stretch, review hip stretches, cont with lumbar spine/core and hip strengthening with limits to lumbar stenosis future sessions: trial step ups, leg press Flexion biased seated core Manual: soft tissue mobilization to HS, calves, lumbar spine take vitals ea session
--- NOTE | 2024-02-16 10:38 | PT.OTN ---
Current Diagnoses Lumbago with sciatica, left side (02/16/24) Other lack of coordination (02/16/24) Weakness (02/16/24) Physical Therapy Treatment Note PT-OP-A Visit Information Start: 01/25/24 13:00 Freq: Status: Active Protocol: Document 02/16/24 09:50 NM (Rec: 02/16/24 10:38 NM [id number]) Out-Patient Physical Therapy Visit Information Visit Information Visit Type Treatment Note Visit Note KX after 19 visits 02/11 until PN Visit Start Time 09:50 Visit Stop Time 10:30 Visit Number 6 PT-OP-B Current Condition Start: 01/25/24 13:00 Freq: Status: Active Protocol: Document 01/25/24 13:00 NM (Rec: 01/25/24 13:50 NM [id number]) Current Condition History of Current Condition Current Complaints pain, mobility History of Current Condition Pt presents with low back pain and with difficulty walking. He has diabetes and is trying to manage it with ambulation; states he has pain with ambulation. He states that he used to have L sided pain and L sided buttock pain. He reports that he has constant pain across his belt line. Pt reports that his pain started 8 years ago after his bypass surgery, used to walk 4 miles/ day; had B knee TKA. Reports OA in both knees and back. Reports no known PEARL for recent exacerbation. Reports difficulty with bending, transferring in/out car, transferring in/out of chair. No numbness/tingling in BLE, getting tested for neuropathy. Has circulation issues, dry skin and sores on BLE. Prior Treatments and Tests Previous PT for low back pain Current Functional Impairments (Reported) Functional Limitations- ADL's no difficulty with dressing Functional Limitations- Mobility/Gait walk 1 minute, standing ~4 hours Functional Limitations- Work/School watches 3 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 His MALIHA . States he has not been having in low back pain for several weeks but he still cannot walk very far before he feels symptoms in his legs related to cramping and discomfort PT-OP-E Functional Tests Start: 01/25/24 13:00 Freq: Status: Active Protocol: Document 01/25/24 13:00 NM (Rec: 01/25/24 13:50 NM [id number]) Functional Tests 6 Minute Walk Test Distance 1073 ft Device Used none Comments symptoms to post leg to calf, back >LLE Five Times Sit to Stand Test Score 12 seconds Comments no pain, 20 chair Tinetti Balance and Gait Assessment Balance Score 12 Gait Score 6 Composite Score 18/28 Other Forward Trunk Flexion Test Name of Test measured finger tip to floor Score 15 Comment pain free, limited by HS length and abdomen PT-OP-F Manual Assessment Start: 01/25/24 13:00 Freq: Status: Active Protocol: Document 01/25/24 13:00 NM (Rec: 01/25/24 13:50 NM [id number]) Manual Assessments Soft Tissue Assessment Soft Tissue Mobility Assessment Decreased HS length, quad/hip flex length. Increased tone B lumbar paraspinals Joint Mobility Assessment Joint Mobility Assessment no hyper mobility, decreased hip mobility PT-OP-G Mobility & Gait Start: 01/25/24 13:00 Freq: Status: Active Protocol: Document 01/25/24 13:00 NM (Rec: 01/25/24 14:01 NM [id number]) OP Gait Assessment Gait Gait Assistance Required: Independent Distance (Feet) 1,073 Assistive Devices Assistive Device None Gait Deviations General Gait Pattern Antalgic,Step-to Gait Factors Limiting Gait Function Factors Limiting Gait Function Decreased Activity Tolerance, Decreased Sensation,Decreased Strength,Pain Comments Gait Comments As pt fatigues, increased antalgic gait and increased low back and L sided back pain . Demos B hip ER with gait throughout entirety of 6 MWT, L circumduction and flexed trunk compensation with fatigue PT-OP-H Neuro Start: 01/25/24 13:00 Freq: Status: Active Protocol: Document 01/25/24 13:00 NM (Rec: 01/25/24 13:50 NM [id number]) Sensation Evaluation Comments Summary Comments BLE and trunk intact equally to light touch sensation Deep Tendon Reflex & Clonus Assessment Deep Tendon Reflex Bilateral Achilles Deep Tendon Reflex 1+ Diminished Bilateral Bicep Deep Tendon Reflex 1+ Diminished PT-OP-J Posture/Palpation/Skin Start: 01/25/24 13:00 Freq: Status: Active Protocol: Document 01/25/24 13:00 NM (Rec: 01/25/24 14:01 NM [id number]) Posture Evaluation Position Standing Head/C-Spine Posture Forward Head L-Spine Posture Flattened,Decreased Lordosis Pelvis Posture Posterior Tilted Weight Distribution Weight Shifted Right Hip Posture (L) Externally Rotated,(R) Externally Rotated Knee Posture (L) Genu Varus,(R) Genu Varus Ankle/Foot Posture (L) Pronated,(R) Pronated Palpation Assessment Location lumbar spine Palpation Location glutes, paraspinals, spinous processes, tranverse processes , PSI Palpation Findings Soft Tissue Tightness Palpation Details Soft tissue tightness B paraspinals L>R, no tenderness to palpation along lumbar spine or B PSIS/SIJ. Skin Assessment Other Assessments Skin Assessment Comments BLE has dry skin, several closed wounds, red coloring, same temperature PT-OP-K Range of Motion Start: 01/25/24 13:00 Freq: Status: Active Protocol: Document 01/25/24 13:00 NM (Rec: 01/25/24 13:50 NM [id number]) Lumbar Spine Range of Motion Lumbar Spine Active Percentage Flexion 50 Extension 100 Rotation Left 3 Rotation Right 3 Lateral Flexion Left 100 Lateral Flexion Right 100 Comments Low back pain not reproduced with any movement Hip Goniometric Range of Motion Hip Right Flexion w/Knee Flexed 80 Straight Leg Raise 50 Internal Rotation 15 External Rotation 25 Left Flexion w/Knee Flexed 90 Straight Leg Raise 60 Internal Rotation 25 External Rotation 25 PT-OP-L Special Tests Start: 01/25/24 13:00 Freq: Status: Active Protocol: Document 01/25/24 13:00 NM (Rec: 01/25/24 13:50 NM [id number]) Special Tests Lumbar Spine Special Tests Distraction Test Results + Straight Leg Raise Test Results + Comments Bilateral Rodriguez/Quadrant Test Results - Slump Test Results + Comments Bilateral PT-OP-M Strength Start: 01/25/24 13:00 Freq: Status: Active Protocol: Document 01/25/24 13:00 NM (Rec: 01/25/24 13:50 NM [id number]) Trunk Strength Trunk Manual Muscle Testing Rotation Left 4 Good Rotation Right 4 Good Lateral Flexion Left 4 Good Lateral Flexion Right 4 Good Comments no pain Hip Strength Hip Manual Muscle Testing Right Flexion (L2) 4- Good- Extension (S1) 4- Good- Abduction 4- Good- Adduction 4 Good External Rotation 4 Good Internal Rotation 4 Good Left Flexion (L2) 4- Good- Extension (S1) 4- Good- Abduction 4- Good- Adduction 4 Good External Rotation 4 Good Internal Rotation 4 Good PT-OP-Q Treatments Start: 01/25/24 13:00 Freq: Status: Active Protocol: Document 02/16/24 09:50 NM (Rec: 02/16/24 10:38 NM [id number]) Therapeutic Exercises Sitting Exercises core strengthening Sitting Exercise Name december (non-alt) Side bilateral Resistance AROM (seated on plinth) Equipment Used cued no trunk ext and Reps/Minutes 1x8; reports feels hip flexors working but pain free Comments challenging; trialed on ball but too difficult lumbopelvic mobility Sitting Exercise Name 1. post pelvic tilt to neutral , 2. lateral flex/tail wags Side bilateral Resistance AROM Equipment Used large green [place] ball Reps/Minutes 1x10 with slight pause Comments pain free, reports feels good , similar to self relief at home w/ symptoms trunk flexion Sitting Exercise Name 1. stretch, 2. stretch to floor, 3. w/ resistance Side bilateral Resistance 1. AROM c/ swissball, 2. hands , 3. 6# ball Reps/Minutes 1. 20x3 hold, 2. 10x3, 3. 2x10 Comments pain free; cued midrange ppt, reports feels good w/ flexion Palloff Press Sitting Exercise Name anti rotation with press Side bilateral Resistance lvl 3 green tb Reps/Minutes 20 ea Comments cued upright posture; feels working in opp paraspinal but denies pain Standing Exercises hip flexor stretch Standing Exercise Name added to HEP over virgilio stretch Side bilateral Equipment Used 8 step foot elevated Reps/Minutes 2x30 ea Comments reports good stretch; cued ppt , no stenosis symptoms López curl Standing Exercise Name trialed in PT with segmental flexion Side bilateral Resistance 6# tball Reps/Minutes 1x5 Comments reports no stenosis symptoms but feels in low back Self-Care/Home Management Treatment Education Patient Education Home Exercise Program Other Education HEP: standing hip flexor stretch, seated pallof press PT-OP-T Assessment and Plan Start: 01/25/24 13:00 Freq: Status: Active Protocol: Document 02/16/24 09:50 NM (Rec: 02/16/24 10:38 NM [id number]) Physical Therapy Assessment Goals Five Impairment strength Impairment BLE hip abd and ext 4-/5 MMT Short Term Goal (STG) Pt will improve bilateral hip abduction and extension strength to at least 4/5 MMT in order to demonstrate improved hip strength for gait , transfers, and ADLs. STG Duration 6 weeks Yarding Supervisor Goal (LTG) Pt will improve bilateral hip abduction and extension strength to at least 4+/5 MMT in order to demonstrate improved hip strength for gait , transfers, and ADLs. LTG Duration 12 weeks Four Impairment balance, function Impairment Tinetti /28 (gait 03/16, balance 09/21) Short Term Goal (STG) Pt will improve Tinetti score to at least 22/28 in order to demonstrate decreased fall risk and improved balance during ambulation STG Duration 6 weeks Fpc Goal (LTG) Pt will improve Tinetti score to at least 26/28 in order to demonstrate decreased fall risk and improved balance during ambulation LTG Duration 12 weeks Three Impairment strength, function Impairment 5x STS test 12 seconds from 20 plinth Short Term Goal (STG) Pt will improve 5x STS time to <12 seconds in order to demonstrate improved BLE strength for transfers, gait, and ADLs STG Duration 6 weeks Fpc Goal (LTG) Pt will be able to perform at least 10 bilateral squats without UE support and without increase in baseline pain in order to demonstrate improved BLE strength for transfers, gait, and ADLs LTG Duration 12 weeks Two Impairment gait, 6 MWT Impairment 6MWT distance: 1073 ft Short Term Goal (STG) Pt will improve 6MWT distance by at least 200 ft (1 MCID) without increase in baseline pain in order to demonstrate improved activity tolerance and symptom management STG Duration 6 weeks Yarding Supervisor Goal (LTG) Pt will report that he able to ambulate at least 10 minutes before taking a seated rest break or increase in baseline pain LTG Duration 12 weeks One Impairment HEP Impairment not performing HEP Short Term Goal (STG) Pt will report compliance with HEP at least 2-3x/wk in order to maximize progression with PT and promote independence with exercise STG Duration 6 weeks Fpc Goal (LTG) Pt will report compliance with HEP at least 3x/wk in order to promote independence with rehabilitation and transition into maintenance program upon discharge from PT LTG Duration 12 weeks Assessment Summary Assessment Pt tolerated session well without increase in symptoms or low back/leg discomfort except at end of sets for López curl. Initiated seated flexion stretching and low resistance strengthening into lumbar flexion. Pt unable to reach floor but demos improved range with repeated repetitions and reports good feedback with no symptoms. Overall, reports lumbar paraspinal stretching feels good. Pt challenged with seated core on both plinth and [place] ball; regressed to plinth for safety and to limit trunk compensations related to core weakness. Trialed López curl in standing for trunk flexion to determine tolerance for activity. Progressed to seated pallof anti-rotation press for increased core strengthening, which pt tolerated without increase in symptoms. Pt would benefit from skilled PT for symptom management, flexibility, and to improve activity tolerance. Physical Therapy Plan Frequency and Duration Frequency of Treatment 2x/Week Duration of treatment (weeks) 12 Plan of Care Start Date 01/25/24 Plan of Care End Date 04/22/24 Therapeutic Interventions Therapeutic Interventions Balance Training,Gait Training ,Home Exercise Program,Joint Mobilizations,Manual Therapy, Neuromuscular Re-education, Orthotic/Prosthetic Management ,Patient/Caregiver Education, Self-Care/Home Management, Sensory Integration,Soft Tissue Mobilization,Taping, Therapeutic Activities, Therapeutic Exercises Modalities Cold Pack/Ice Massage,Electric Stimulation,Hot Packs, Traction- Mechanical, Vasopneumatic Devices Next Visit Focus/Plan Next Note Type Treatment Note Next Visit Plan Next session: trial standing pallof press, recumbent bike for cardio, hip 3 way if tolerated, lumbar flexion seated stretch, review hip stretches, cont with lumbar spine/core and hip strengthening with limits to lumbar stenosis. Review J curl prior to other standing activity to determine tolerance future sessions: trial step ups, leg press Flexion biased seated core Manual: soft tissue mobilization to HS, calves, lumbar spine take vitals ea session
--- NOTE | 2024-02-18 13:50 | PT.OTN ---
Current Diagnoses Lumbago with sciatica, left side (02/18/24) Other lack of coordination (02/18/24) Weakness (02/18/24) Physical Therapy Treatment Note PT-OP-A Visit Information Start: 01/25/24 13:00 Freq: Status: Active Protocol: Document 02/18/24 10:30 SW (Rec: 02/18/24 11:16 SW [id number]) Out-Patient Physical Therapy Visit Information Visit Information Visit Type Treatment Note Visit Note KX after 19 visits 03/14 until PN BP 148/72 SatO2 98% Visit Start Time 10:30 Visit Stop Time 11:15 Visit Number 7 Number of SLUBBER RUNNER Visits 1 Precautions Precautions hx bypass surgery, type II diabetes, heart disease VITALS PT-OP-B Current Condition Start: 01/25/24 13:00 Freq: Status: Active Protocol: Document 01/25/24 13:00 NM (Rec: 01/25/24 13:50 NM [id number]) Current Condition History of Current Condition Current Complaints pain, mobility History of Current Condition Pt presents with low back pain and with difficulty walking. He has diabetes and is trying to manage it with ambulation; states he has pain with ambulation. He states that he used to have L sided pain and L sided buttock pain. He reports that he has constant pain across his belt line. Pt reports that his pain started 8 years ago after his bypass surgery, used to walk 4 miles/ day; had B knee TKA. Reports OA in both knees and back. Reports no known PEARL for recent exacerbation. Reports difficulty with bending, transferring in/out car, transferring in/out of chair. No numbness/tingling in BLE, getting tested for neuropathy. Has circulation issues, dry skin and sores on BLE. Prior Treatments and Tests Previous PT for low back pain Current Functional Impairments (Reported) Functional Limitations- ADL's no difficulty with dressing Functional Limitations- Mobility/Gait walk 1 minute, standing ~4 hours Functional Limitations- Work/School watches 2 y.o. 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 Things have been going pretty good. No worsening of symptoms, sometimes pain creeps up. Pt reports busy weekend ahead, people coming into town for the weekend. PT-OP-E Functional Tests Start: 01/25/24 13:00 Freq: Status: Active Protocol: Document 01/25/24 13:00 NM (Rec: 01/25/24 13:50 NM [id number]) Functional Tests 6 Minute Walk Test Distance 1073 ft Device Used none Comments symptoms to post leg to calf, back >LLE Five Times Sit to Stand Test Score 12 seconds Comments no pain, 20 chair Tinetti Balance and Gait Assessment Balance Score 12 Gait Score 6 Composite Score 18/28 Other Forward Trunk Flexion Test Name of Test measured finger tip to floor Score 15 Comment pain free, limited by HS length and abdomen PT-OP-F Manual Assessment Start: 01/25/24 13:00 Freq: Status: Active Protocol: Document 01/25/24 13:00 NM (Rec: 01/25/24 13:50 NM [id number]) Manual Assessments Soft Tissue Assessment Soft Tissue Mobility Assessment Decreased HS length, quad/hip flex length. Increased tone B lumbar paraspinals Joint Mobility Assessment Joint Mobility Assessment no hyper mobility, decreased hip mobility PT-OP-G Mobility & Gait Start: 01/25/24 13:00 Freq: Status: Active Protocol: Document 01/25/24 13:00 NM (Rec: 01/25/24 14:01 NM [id number]) OP Gait Assessment Gait Gait Assistance Required: Independent Distance (Feet) 1,073 Assistive Devices Assistive Device None Gait Deviations General Gait Pattern Antalgic,Step-to Gait Factors Limiting Gait Function Factors Limiting Gait Function Decreased Activity Tolerance, Decreased Sensation,Decreased Strength,Pain Comments Gait Comments As pt fatigues, increased antalgic gait and increased low back and L sided back pain . Demos B hip ER with gait throughout entirety of 6 MWT, L circumduction and flexed trunk compensation with fatigue PT-OP-H Neuro Start: 01/25/24 13:00 Freq: Status: Active Protocol: Document 01/25/24 13:00 NM (Rec: 01/25/24 13:50 NM [id number]) Sensation Evaluation Comments Summary Comments BLE and trunk intact equally to light touch sensation Deep Tendon Reflex & Clonus Assessment Deep Tendon Reflex Bilateral Achilles Deep Tendon Reflex 1+ Diminished Bilateral Bicep Deep Tendon Reflex 1+ Diminished PT-OP-J Posture/Palpation/Skin Start: 01/25/24 13:00 Freq: Status: Active Protocol: Document 01/25/24 13:00 NM (Rec: 01/25/24 14:01 NM [id number]) Posture Evaluation Position Standing Head/C-Spine Posture Forward Head L-Spine Posture Flattened,Decreased Lordosis Pelvis Posture Posterior Tilted Weight Distribution Weight Shifted Right Hip Posture (L) Externally Rotated,(R) Externally Rotated Knee Posture (L) Genu Varus,(R) Genu Varus Ankle/Foot Posture (L) Pronated,(R) Pronated Palpation Assessment Location lumbar spine Palpation Location glutes, paraspinals, spinous processes, tranverse processes , PSI Palpation Findings Soft Tissue Tightness Palpation Details Soft tissue tightness B paraspinals L>R, no tenderness to palpation along lumbar spine or B PSIS/SIJ. Skin Assessment Other Assessments Skin Assessment Comments BLE has dry skin, several closed wounds, red coloring, same temperature PT-OP-K Range of Motion Start: 01/25/24 13:00 Freq: Status: Active Protocol: Document 01/25/24 13:00 NM (Rec: 01/25/24 13:50 NM [id number]) Lumbar Spine Range of Motion Lumbar Spine Active Percentage Flexion 50 Extension 100 Rotation Left 3 Rotation Right 3 Lateral Flexion Left 100 Lateral Flexion Right 100 Comments Low back pain not reproduced with any movement Hip Goniometric Range of Motion Hip Right Flexion w/Knee Flexed 80 Straight Leg Raise 50 Internal Rotation 15 External Rotation 25 Left Flexion w/Knee Flexed 90 Straight Leg Raise 60 Internal Rotation 25 External Rotation 25 PT-OP-L Special Tests Start: 01/25/24 13:00 Freq: Status: Active Protocol: Document 01/25/24 13:00 NM (Rec: 01/25/24 13:50 NM [id number]) Special Tests Lumbar Spine Special Tests Distraction Test Results + Straight Leg Raise Test Results + Comments Bilateral Rodriguez/Quadrant Test Results - Slump Test Results + Comments Bilateral PT-OP-M Strength Start: 01/25/24 13:00 Freq: Status: Active Protocol: Document 01/25/24 13:00 NM (Rec: 01/25/24 13:50 NM [id number]) Trunk Strength Trunk Manual Muscle Testing Rotation Left 4 Good Rotation Right 4 Good Lateral Flexion Left 4 Good Lateral Flexion Right 4 Good Comments no pain Hip Strength Hip Manual Muscle Testing Right Flexion (L2) 4- Good- Extension (S1) 4- Good- Abduction 4- Good- Adduction 4 Good External Rotation 4 Good Internal Rotation 4 Good Left Flexion (L2) 4- Good- Extension (S1) 4- Good- Abduction 4- Good- Adduction 4 Good External Rotation 4 Good Internal Rotation 4 Good PT-OP-Q Treatments Start: 01/25/24 13:00 Freq: Status: Active Protocol: Document 02/18/24 10:30 SW (Rec: 02/18/24 11:16 SW [id number]) Cardio Equipment Recumbent Elliptical (Biodex) Duration (Minutes) 6 Resistance 4 Other (unable to get LEs up on recumbant bicycle), denies pain Therapeutic Exercises Sitting Exercises core strengthening Sitting Exercise Name december (non-alt) Side bilateral Resistance AROM (seated on plinth) Equipment Used cued no trunk ext and Reps/Minutes 1x8; reports feels hip flexors working but pain free Comments challenging lumbopelvic mobility Sitting Exercise Name 1. post pelvic tilt to neutral , 2. lateral flex/tail wags Side bilateral Resistance AROM Equipment Used large green serbian ball Reps/Minutes 1x10 with slight pause Comments pain free, reports feels good , similar to self relief at home w/ symptoms trunk flexion Sitting Exercise Name 1. stretch, 2. stretch to floor, 3. w/ resistance Side bilateral Resistance 1. AROM c/ swissball, 2. hands , 3. 6# ball Reps/Minutes 1. 20x3 hold, 2. 10x3, 3. 2x10 Comments pain free; cued midrange ppt, reports feels good w/ flexion Palloff Press Sitting Exercise Name anti rotation with press ( progressed to standing) Side bilateral Resistance lvl 3 green tb Reps/Minutes 20 ea Comments cued upright posture;denies pain Standing Exercises hip flexor stretch Standing Exercise Name added to HEP over virgilio stretch Side bilateral Equipment Used 8 step foot elevated Reps/Minutes 2x30 ea Comments reports good stretch; cued ppt , no stenosis symptoms López curl Standing Exercise Name trialed in PT with segmental flexion Side bilateral Resistance 6# tball Reps/Minutes 1x5 Comments no pain, or discomfort, cued for soft bend in knees Hip Abd Standing Exercise Name Hip abd, trialed review for tolerance next session Resistance Green TB Reps/Minutes 2x5 Comments cues for posture and compensations Hip Ext Standing Exercise Name Hip Ext review next session as able Reps/Minutes 2x5 Comments denies pain, feels in correct mms,cues for correct execution , compensations PT-OP-T Assessment and Plan Start: 01/25/24 13:00 Freq: Status: Active Protocol: Document 02/18/24 10:30 (Rec: 02/18/24 11:16 [id number]) Physical Therapy Assessment Goals Five Impairment strength Impairment BLE hip abd and ext 4-/5 MMT Short Term Goal (STG) Pt will improve bilateral hip abduction and extension strength to at least 4/5 MMT in order to demonstrate improved hip strength for gait , transfers, and ADLs. STG Duration 6 weeks Assisted Goal (LTG) Pt will improve bilateral hip abduction and extension strength to at least 4+/5 MMT in order to demonstrate improved hip strength for gait , transfers, and ADLs. LTG Duration 12 weeks Four Impairment balance, function Impairment Tinetti /28 (gait 03/16, balance 09/21) Short Term Goal (STG) Pt will improve Tinetti score to at least 22/28 in order to demonstrate decreased fall risk and improved balance during ambulation STG Duration 6 weeks Assisted Goal (LTG) Pt will improve Tinetti score to at least 26/28 in order to demonstrate decreased fall risk and improved balance during ambulation LTG Duration 12 weeks Three Impairment strength, function Impairment 5x STS test 12 seconds from 20 plinth Short Term Goal (STG) Pt will improve 5x STS time to <12 seconds in order to demonstrate improved BLE strength for transfers, gait, and ADLs STG Duration 6 weeks Assisted Goal (LTG) Pt will be able to perform at least 10 bilateral squats without UE support and without increase in baseline pain in order to demonstrate improved BLE strength for transfers, gait, and ADLs LTG Duration 12 weeks Two Impairment gait, 6 MWT Impairment 6MWT distance: 1073 ft Short Term Goal (STG) Pt will improve 6MWT distance by at least 200 ft (1 MCID) without increase in baseline pain in order to demonstrate improved activity tolerance and symptom management STG Duration 6 weeks Radio Division Officer Goal (LTG) Pt will report that he able to ambulate at least 10 minutes before taking a seated rest break or increase in baseline pain LTG Duration 12 weeks One Impairment HEP Impairment not performing HEP Short Term Goal (STG) Pt will report compliance with HEP at least 2-3x/wk in order to maximize progression with PT and promote independence with exercise STG Duration 6 weeks Assisted Goal (LTG) Pt will report compliance with HEP at least 3x/wk in order to promote independence with rehabilitation and transition into maintenance program upon discharge from PT LTG Duration 12 weeks Assessment Summary Assessment Pt tolerated session well, denies pain throughout session with exercises. Reviewed J curl, pt had improved tolerance this session, denies discomfort in LB today. Progressed pt with standing palloff press, good tolerance. Trialed standing hip 3 ways this session, pt denies pain and verbalizes feeling it in the correct mms, plan to review next session as able for pt tolerance/ issue HEP if tolerated well. Physical Therapy Plan Frequency and Duration Frequency of Treatment 2x/Week Duration of treatment (weeks) 12 Plan of Care Start Date 01/25/24 Plan of Care End Date 04/22/24 Therapeutic Interventions Therapeutic Interventions Balance Training,Gait Training ,Home Exercise Program,Joint Mobilizations,Manual Therapy, Neuromuscular Re-education, Orthotic/Prosthetic Management ,Patient/Caregiver Education, Self-Care/Home Management, Sensory Integration,Soft Tissue Mobilization,Taping, Therapeutic Activities, Therapeutic Exercises Modalities Cold Pack/Ice Massage,Electric Stimulation,Hot Packs, Traction- Mechanical, Vasopneumatic Devices Next Visit Focus/Plan Next Note Type Treatment Note Next Visit Plan Next session: trial standing pallof press, recumbent bike for cardio, hip 3 way if tolerated, lumbar flexion seated stretch, review hip stretches, cont with lumbar spine/core and hip strengthening with limits to lumbar stenosis. Review J curl prior to other standing activity to determine tolerance future sessions: trial step ups, leg press Flexion biased seated core Manual: soft tissue mobilization to HS, calves, lumbar spine take vitals ea session
--- NOTE | 2024-02-22 08:16 | PT.OTN ---
Current Diagnoses Lumbago with sciatica, left side (02/22/24) Other lack of coordination (02/22/24) Weakness (02/22/24) Physical Therapy Treatment Note PT-OP-A Visit Information Start: 01/25/24 13:00 Freq: Status: Active Protocol: Document 02/22/24 07:32 NM (Rec: 02/22/24 08:16 NM [id number]) Out-Patient Physical Therapy Visit Information Visit Information Visit Type Treatment Note Visit Note KX after 19 visits Visit Start Time 07:34 Visit Stop Time 08:15 Visit Number 8 Evaluation Information Evaluation Date 01/25/24 PT-OP-B Current Condition Start: 01/25/24 13:00 Freq: Status: Active Protocol: Document 01/25/24 13:00 NM (Rec: 01/25/24 13:50 NM [id number]) Current Condition History of Current Condition Current Complaints pain, mobility History of Current Condition Pt presents with low back pain and with difficulty walking. He has diabetes and is trying to manage it with ambulation; states he has pain with ambulation. He states that he used to have L sided pain and L sided buttock pain. He reports that he has constant pain across his belt line. Pt reports that his pain started 8 years ago after his bypass surgery, used to walk 4 miles/ day; had B knee TKA. Reports OA in both knees and back. Reports no known PEARL for recent exacerbation. Reports difficulty with bending, transferring in/out car, transferring in/out of chair. No numbness/tingling in BLE, getting tested for neuropathy. Has circulation issues, dry skin and sores on BLE. Prior Treatments and Tests Previous PT for low back pain Current Functional Impairments (Reported) Functional Limitations- ADL's no difficulty with dressing Functional Limitations- Mobility/Gait walk 1 minute, standing ~4 hours Functional Limitations- Work/School watches 2 y.o. 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 PT denies increase in symptoms in his legs or his back. Reports hasn't been doing HEP PT-OP-E Functional Tests Start: 01/25/24 13:00 Freq: Status: Active Protocol: Document 01/25/24 13:00 NM (Rec: 01/25/24 13:50 NM [id number]) Functional Tests 6 Minute Walk Test Distance 1073 ft Device Used none Comments symptoms to post leg to calf, back >LLE Five Times Sit to Stand Test Score 12 seconds Comments no pain, 20 chair Tinetti Balance and Gait Assessment Balance Score 12 Gait Score 6 Composite Score 18/28 Other Forward Trunk Flexion Test Name of Test measured finger tip to floor Score 15 Comment pain free, limited by HS length and abdomen PT-OP-F Manual Assessment Start: 01/25/24 13:00 Freq: Status: Active Protocol: Document 01/25/24 13:00 NM (Rec: 01/25/24 13:50 NM [id number]) Manual Assessments Soft Tissue Assessment Soft Tissue Mobility Assessment Decreased HS length, quad/hip flex length. Increased tone B lumbar paraspinals Joint Mobility Assessment Joint Mobility Assessment no hyper mobility, decreased hip mobility PT-OP-G Mobility & Gait Start: 01/25/24 13:00 Freq: Status: Active Protocol: Document 01/25/24 13:00 NM (Rec: 01/25/24 14:01 NM [id number]) OP Gait Assessment Gait Gait Assistance Required: Independent Distance (Feet) 1,073 Assistive Devices Assistive Device None Gait Deviations General Gait Pattern Antalgic,Step-to Gait Factors Limiting Gait Function Factors Limiting Gait Function Decreased Activity Tolerance, Decreased Sensation,Decreased Strength,Pain Comments Gait Comments As pt fatigues, increased antalgic gait and increased low back and L sided back pain . Demos B hip ER with gait throughout entirety of 6 MWT, L circumduction and flexed trunk compensation with fatigue PT-OP-H Neuro Start: 01/25/24 13:00 Freq: Status: Active Protocol: Document 01/25/24 13:00 NM (Rec: 01/25/24 13:50 NM [id number]) Sensation Evaluation Comments Summary Comments BLE and trunk intact equally to light touch sensation Deep Tendon Reflex & Clonus Assessment Deep Tendon Reflex Bilateral Achilles Deep Tendon Reflex 1+ Diminished Bilateral Bicep Deep Tendon Reflex 1+ Diminished PT-OP-J Posture/Palpation/Skin Start: 01/25/24 13:00 Freq: Status: Active Protocol: Document 01/25/24 13:00 NM (Rec: 01/25/24 14:01 NM [id number]) Posture Evaluation Position Standing Head/C-Spine Posture Forward Head L-Spine Posture Flattened,Decreased Lordosis Pelvis Posture Posterior Tilted Weight Distribution Weight Shifted Right Hip Posture (L) Externally Rotated,(R) Externally Rotated Knee Posture (L) Genu Varus,(R) Genu Varus Ankle/Foot Posture (L) Pronated,(R) Pronated Palpation Assessment Location lumbar spine Palpation Location glutes, paraspinals, spinous processes, tranverse processes , PSI Palpation Findings Soft Tissue Tightness Palpation Details Soft tissue tightness B paraspinals L>R, no tenderness to palpation along lumbar spine or B PSIS/SIJ. Skin Assessment Other Assessments Skin Assessment Comments BLE has dry skin, several closed wounds, red coloring, same temperature PT-OP-K Range of Motion Start: 01/25/24 13:00 Freq: Status: Active Protocol: Document 01/25/24 13:00 NM (Rec: 01/25/24 13:50 NM [id number]) Lumbar Spine Range of Motion Lumbar Spine Active Percentage Flexion 50 Extension 100 Rotation Left 3 Rotation Right 3 Lateral Flexion Left 100 Lateral Flexion Right 100 Comments Low back pain not reproduced with any movement Hip Goniometric Range of Motion Hip Right Flexion w/Knee Flexed 80 Straight Leg Raise 50 Internal Rotation 15 External Rotation 25 Left Flexion w/Knee Flexed 90 Straight Leg Raise 60 Internal Rotation 25 External Rotation 25 PT-OP-L Special Tests Start: 01/25/24 13:00 Freq: Status: Active Protocol: Document 01/25/24 13:00 NM (Rec: 01/25/24 13:50 NM [id number]) Special Tests Lumbar Spine Special Tests Distraction Test Results + Straight Leg Raise Test Results + Comments Bilateral Rodriguez/Quadrant Test Results - Slump Test Results + Comments Bilateral PT-OP-M Strength Start: 01/25/24 13:00 Freq: Status: Active Protocol: Document 01/25/24 13:00 NM (Rec: 01/25/24 13:50 NM [id number]) Trunk Strength Trunk Manual Muscle Testing Rotation Left 4 Good Rotation Right 4 Good Lateral Flexion Left 4 Good Lateral Flexion Right 4 Good Comments no pain Hip Strength Hip Manual Muscle Testing Right Flexion (L2) 4- Good- Extension (S1) 4- Good- Abduction 4- Good- Adduction 4 Good External Rotation 4 Good Internal Rotation 4 Good Left Flexion (L2) 4- Good- Extension (S1) 4- Good- Abduction 4- Good- Adduction 4 Good External Rotation 4 Good Internal Rotation 4 Good PT-OP-Q Treatments Start: 01/25/24 13:00 Freq: Status: Active Protocol: Document 02/22/24 07:32 NM (Rec: 02/22/24 08:16 NM [id number]) Gym Equipment Shuttle Recovery Bilateral Squats Details Bilateral squat, pain free Resistance 75# (dark blue) Shuttle Recovery Platform Stable Reps/Time 3x12 Therapeutic Exercises Supine Exercises nerve glide Supine Exercise Name 1. knee flex/ext w/ DF/PF, 2. knee ext w/ DF/PF/inv/ev into ADD Side left Equipment Used strap behind leg Reps/Minutes 1x20 ea Comments reports no symptom increase modified virgilio stretch Side bilateral Equipment Used strap for assistance around LE Reps/Minutes 1x60 Sitting Exercises core strengthening Sitting Exercise Name lat pull down Side bilateral Resistance lvl 4 band Equipment Used cued upright trunk posture, squeeze the dollar bills Reps/Minutes 2x10 Comments on kenyan ball; cued also for breathwork Standing Exercises López curl Standing Exercise Name segmental trunk flexion Side bilateral Reps/Minutes 1x10 Comments tightness in low back, no pain , improved reps Hip Ext Standing Exercise Name Hip Ext Equipment Used fwd lean over plinth for flexion bias Reps/Minutes 1x10 Comments feels in legs particularly R calf; edu bring stance LE into ext Counter stretch Side bilateral Reps/Minutes 10x5 hold Comments post manual tx Manual Therapy Treatment Soft Tissue Mobilization Lumbar, HS, Calf Body Location Lumbar paraspinals, glute, HS, gastroc/soleus Mobilization Type Myofascial Release,Strain/ Counterstrain,Sustained Pressure,Trigger Point Release Intensity/Depth Moderate Body Position Sidelying Comments Performed post stretching, prior to exercise. Pt with no tenderness in low back or legs , but has increased paraspinal /glute/HS/calf tightness. PT-OP-T Assessment and Plan Start: 01/25/24 13:00 Freq: Status: Active Protocol: Document 02/22/24 07:32 NM (Rec: 02/22/24 08:16 NM [id number]) Physical Therapy Assessment Goals Five Impairment strength Impairment BLE hip abd and ext 4-/5 MMT Short Term Goal (STG) Pt will improve bilateral hip abduction and extension strength to at least 4/5 MMT in order to demonstrate improved hip strength for gait , transfers, and ADLs. STG Duration 6 weeks Usp Goal (LTG) Pt will improve bilateral hip abduction and extension strength to at least 4+/5 MMT in order to demonstrate improved hip strength for gait , transfers, and ADLs. LTG Duration 12 weeks Four Impairment balance, function Impairment Tinetti 18/28 (gait 03/16, balance 09/21) Short Term Goal (STG) Pt will improve Tinetti score to at least 22/28 in order to demonstrate decreased fall risk and improved balance during ambulation STG Duration 6 weeks Usp Goal (LTG) Pt will improve Tinetti score to at least 26/28 in order to demonstrate decreased fall risk and improved balance during ambulation LTG Duration 12 weeks Three Impairment strength, function Impairment 5x STS test 12 seconds from 20 plinth Short Term Goal (STG) Pt will improve 5x STS time to <12 seconds in order to demonstrate improved BLE strength for transfers, gait, and ADLs STG Duration 6 weeks Usp Goal (LTG) Pt will be able to perform at least 10 bilateral squats without UE support and without increase in baseline pain in order to demonstrate improved BLE strength for transfers, gait, and ADLs LTG Duration 12 weeks Two Impairment gait, 6 MWT Impairment 6MWT distance: 1073 ft Short Term Goal (STG) Pt will improve 6MWT distance by at least 200 ft (1 MCID) without increase in baseline pain in order to demonstrate improved activity tolerance and symptom management STG Duration 6 weeks Usp Goal (LTG) Pt will report that he able to ambulate at least 10 minutes before taking a seated rest break or increase in baseline pain LTG Duration 12 weeks One Impairment HEP Impairment not performing HEP Short Term Goal (STG) Pt will report compliance with HEP at least 2-3x/wk in order to maximize progression with PT and promote independence with exercise STG Duration 6 weeks 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 Trialed quadruped positioning to maintain flexion bias, but pt unable to tolerate position due to previous TKAs. Initiated seated lat pull down on kenyan ball for further core challenge and core strengthening. Cued for form, correct execution. Pt able to progress with number of reps on B squat using leg press. Improved tolerance for lópez curls, full spinal flexion, symptom free. During session, pt does not have any symptoms in BLE. Manual treatment to decrease soft tissue tightness in lumbopelvic area. Pt would benefit from skilled PT for flexion biased strengthening, flexibility for improved symptom management. Physical Therapy Plan Frequency and Duration Frequency of Treatment 2x/Week Duration of treatment (weeks) 12 Plan of Care Start Date 01/25/24 Plan of Care End Date 04/22/24 Therapeutic Interventions Therapeutic Interventions Balance Training,Gait Training ,Home Exercise Program,Joint Mobilizations,Manual Therapy, Neuromuscular Re-education, Orthotic/Prosthetic Management ,Patient/Caregiver Education, Self-Care/Home Management, Sensory Integration,Soft Tissue Mobilization,Taping, Therapeutic Activities, Therapeutic Exercises Modalities Cold Pack/Ice Massage,Electric Stimulation,Hot Packs, Traction- Mechanical, Vasopneumatic Devices Next Visit Focus/Plan Next Note Type Progress Note Next Visit Plan J curl, cardio, deadlift, kenyan ball lat + december, trial step ups, leg press Flexion biased seated core Manual: soft tissue mobilization to HS, calves, lumbar spine take vitals ea session
--- NOTE | 2024-02-25 09:35 | PT.OTN ---
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 He has diabetes and is trying to manage it with ambulation; states he has pain with ambulation. He states that he used to have L sided pain and L sided buttock pain. He reports that he has constant pain across his belt line. Pt reports that his pain started 8 years ago after his bypass surgery, used to walk 4 miles/ day; had B knee TKA. Reports OA in both knees and back. Reports no known PEARL for recent exacerbation. Reports difficulty with bending, transferring in/out car, transferring in/out of chair. No numbness/tingling in BLE, getting tested for neuropathy. Has circulation issues, dry skin and sores on BLE. Prior Treatments and Tests Previous PT for low back pain Current Functional Impairments (Reported) Functional Limitations- ADL's no difficulty with dressing Functional Limitations- Mobility/Gait walk 1 minute, standing ~4 hours Functional Limitations- Work/School watches 2 y.o. 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 Pain doesn't affect his sleep 7-8 hrs, wakes because over heats. PT-OP-E Functional Tests Start: 01/25/24 13:00 Freq: Status: Active Protocol: Document 01/25/24 13:00 NM (Rec: 01/25/24 13:50 NM [id number]) Functional Tests 6 Minute Walk Test Distance 1073 ft Device Used none Comments symptoms to post leg to calf, back >LLE Five Times Sit to Stand Test Score 12 seconds Comments no pain, 20 chair Tinetti Balance and Gait Assessment Balance Score 12 Gait Score 6 Composite Score 18/28 Other Forward Trunk Flexion Test Name of Test measured finger tip to floor Score 15 Comment pain free, limited by HS length and abdomen PT-OP-F Manual Assessment Start: 01/25/24 13:00 Freq: Status: Active Protocol: Document 01/25/24 13:00 NM (Rec: 01/25/24 13:50 NM [id number]) Manual Assessments Soft Tissue Assessment Soft Tissue Mobility Assessment Decreased HS length, quad/hip flex length. Increased tone B lumbar paraspinals Joint Mobility Assessment Joint Mobility Assessment no hyper mobility, decreased hip mobility PT-OP-G Mobility & Gait Start: 01/25/24 13:00 Freq: Status: Active Protocol: Document 01/25/24 13:00 NM (Rec: 01/25/24 14:01 NM [id number]) OP Gait Assessment Gait Gait Assistance Required: Independent Distance (Feet) 1,073 Assistive Devices Assistive Device None Gait Deviations General Gait Pattern Antalgic,Step-to Gait Factors Limiting Gait Function Factors Limiting Gait Function Decreased Activity Tolerance, Decreased Sensation,Decreased Strength,Pain Comments Gait Comments As pt fatigues, increased antalgic gait and increased low back and L sided back pain . Demos B hip ER with gait throughout entirety of 6 MWT, L circumduction and flexed trunk compensation with fatigue PT-OP-H Neuro Start: 01/25/24 13:00 Freq: Status: Active Protocol: Document 01/25/24 13:00 NM (Rec: 01/25/24 13:50 NM [id number]) Sensation Evaluation Comments Summary Comments BLE and trunk intact equally to light touch sensation Deep Tendon Reflex & Clonus Assessment Deep Tendon Reflex Bilateral Achilles Deep Tendon Reflex 1+ Diminished Bilateral Bicep Deep Tendon Reflex 1+ Diminished PT-OP-J Posture/Palpation/Skin Start: 01/25/24 13:00 Freq: Status: Active Protocol: Document 01/25/24 13:00 NM (Rec: 01/25/24 14:01 NM [id number]) Posture Evaluation Position Standing Head/C-Spine Posture Forward Head L-Spine Posture Flattened,Decreased Lordosis Pelvis Posture Posterior Tilted Weight Distribution Weight Shifted Right Hip Posture (L) Externally Rotated,(R) Externally Rotated Knee Posture (L) Genu Varus,(R) Genu Varus Ankle/Foot Posture (L) Pronated,(R) Pronated Palpation Assessment Location lumbar spine Palpation Location glutes, paraspinals, spinous processes, tranverse processes , PSI Palpation Findings Soft Tissue Tightness Palpation Details Soft tissue tightness B paraspinals L>R, no tenderness to palpation along lumbar spine or B PSIS/SIJ. Skin Assessment Other Assessments Skin Assessment Comments BLE has dry skin, several closed wounds, red coloring, same temperature PT-OP-K Range of Motion Start: 01/25/24 13:00 Freq: Status: Active Protocol: Document 01/25/24 13:00 NM (Rec: 01/25/24 13:50 NM [id number]) Lumbar Spine Range of Motion Lumbar Spine Active Percentage Flexion 50 Extension 100 Rotation Left 3 Rotation Right 3 Lateral Flexion Left 100 Lateral Flexion Right 100 Comments Low back pain not reproduced with any movement Hip Goniometric Range of Motion Hip Right Flexion w/Knee Flexed 80 Straight Leg Raise 50 Internal Rotation 15 External Rotation 25 Left Flexion w/Knee Flexed 90 Straight Leg Raise 60 Internal Rotation 25 External Rotation 25 PT-OP-L Special Tests Start: 01/25/24 13:00 Freq: Status: Active Protocol: Document 01/25/24 13:00 NM (Rec: 01/25/24 13:50 NM [id number]) Special Tests Lumbar Spine Special Tests Distraction Test Results + Straight Leg Raise Test Results + Comments Bilateral Rodriguez/Quadrant Test Results - Slump Test Results + Comments Bilateral PT-OP-M Strength Start: 01/25/24 13:00 Freq: Status: Active Protocol: Document 01/25/24 13:00 NM (Rec: 01/25/24 13:50 NM [id number]) Trunk Strength Trunk Manual Muscle Testing Rotation Left 4 Good Rotation Right 4 Good Lateral Flexion Left 4 Good Lateral Flexion Right 4 Good Comments no pain Hip Strength Hip Manual Muscle Testing Right Flexion (L2) 4- Good- Extension (S1) 4- Good- Abduction 4- Good- Adduction 4 Good External Rotation 4 Good Internal Rotation 4 Good Left Flexion (L2) 4- Good- Extension (S1) 4- Good- Abduction 4- Good- Adduction 4 Good External Rotation 4 Good Internal Rotation 4 Good PT-OP-Q Treatments Start: 01/25/24 13:00 Freq: Status: Active Protocol: Document 02/25/24 08:50 SP (Rec: 02/25/24 09:40 SP [id number]) Gym Equipment Shuttle Recovery Bilateral Squats Details Bilateral squat, pain free Resistance 75> 87# (3 navy) Shuttle Recovery Platform Stable Reps/Time 3x15 Therapeutic Exercises Supine Exercises nerve glide Supine Exercise Name 1. knee flex/ext w/ DF/PF, 2. knee ext w/ DF/PF/inv/ev into ADD Side left Equipment Used flat sheet behind thigh ( therapist position, pt can't reach) Reps/Minutes 1x20 ea Comments reports no symptom increase- cued breath bridge Supine Exercise Name TA, PPT rock into segmental lift, pause then roll down Side bilateral Resistance AROM Reps/Minutes 2x8 reps Comments pain free, cued breath and segmental lift & lower modified virgilio stretch Side bilateral Equipment Used flat sheet assistance around ankle Reps/Minutes 1x60 Comments cued netural LB, pnfree reported Sitting Exercises core strengthening Sitting Exercise Name lat pull down Side bilateral Resistance lvl 4 band (facing anchoring on [id number] notch from top) Equipment Used 65cm tball Reps/Minutes 2x10 Comments cued breathwork, upright trunk posture, squeeze the dollar bills Standing Exercises López curl Standing Exercise Name segmental trunk flexion Side bilateral Resistance AROM Equipment Used back to wall few reps then open space Reps/Minutes 1x10 Comments tightness in low back, no pain , improved reps Hip Ext Standing Exercise Name Hip Ext Side bilateral Resistance AROM Equipment Used fwd lean over plinth for flexion bias Reps/Minutes 1x10 Comments feels in legs distal HS & prox calf pnfree; good stance LE into ext PT-OP-T Assessment and Plan Start: 01/25/24 13:00 Freq: Status: Active Protocol: Document 02/25/24 08:50 SP (Rec: 02/25/24 09:40 SP [id number]) Physical Therapy Assessment Goals Five Impairment strength Impairment BLE hip abd and ext 4-/5 MMT Short Term Goal (STG) Pt will improve bilateral hip abduction and extension strength to at least 4/5 MMT in order to demonstrate improved hip strength for gait , transfers, and ADLs. STG Duration 6 weeks Mcc Goal (LTG) Pt will improve bilateral hip abduction and extension strength to at least 4+/5 MMT in order to demonstrate improved hip strength for gait , transfers, and ADLs. LTG Duration 12 weeks Four Impairment balance, function Impairment Tinetti /28 (gait 03/16, balance 09/21) Short Term Goal (STG) Pt will improve Tinetti score to at least 22/28 in order to demonstrate decreased fall risk and improved balance during ambulation STG Duration 6 weeks Mcc Goal (LTG) Pt will improve Tinetti score to at least 26/28 in order to demonstrate decreased fall risk and improved balance during ambulation LTG Duration 12 weeks Three Impairment strength, function Impairment 5x STS test 12 seconds from 20 plinth Short Term Goal (STG) Pt will improve 5x STS time to <12 seconds in order to demonstrate improved BLE strength for transfers, gait, and ADLs STG Duration 6 weeks Leather Polisher Goal (LTG) Pt will be able to perform at least 10 bilateral squats without UE support and without increase in baseline pain in order to demonstrate improved BLE strength for transfers, gait, and ADLs LTG Duration 12 weeks Two Impairment gait, 6 MWT Impairment 6MWT distance: 1073 ft Short Term Goal (STG) Pt will improve 6MWT distance by at least 200 ft (1 MCID) without increase in baseline pain in order to demonstrate improved activity tolerance and symptom management STG Duration 6 weeks Leather Polisher Goal (LTG) Pt will report that he able to ambulate at least 10 minutes before taking a seated rest break or increase in baseline pain LTG Duration 12 weeks One Impairment HEP Impairment not performing HEP Short Term Goal (STG) Pt will report compliance with HEP at least 2-3x/wk in order to maximize progression with PT and promote independence with exercise STG Duration 6 weeks Leather Polisher Goal (LTG) Pt will report compliance with HEP at least 3x/wk in order to promote independence with rehabilitation and transition into maintenance program upon discharge from PT LTG Duration 12 weeks Assessment Summary Assessment Pt tolerated session well, no reports increased back or leg pain. Cued for TA draw in during bridge, pull down and LE ext for flexion bias support to back. Pt reported I feel pretty good, back more limbered up, no pain. Ed for continued theses HEP for mobiltiy before walk or singing messenger shop for increased endurance. Physical Therapy Plan Frequency and Duration Frequency of Treatment 2x/Week Duration of treatment (weeks) 12 Plan of Care Start Date 01/25/24 Plan of Care End Date 04/22/24 Therapeutic Interventions Therapeutic Interventions Balance Training,Gait Training ,Home Exercise Program,Joint Mobilizations,Manual Therapy, Neuromuscular Re-education, Orthotic/Prosthetic Management ,Patient/Caregiver Education, Self-Care/Home Management, Sensory Integration,Soft Tissue Mobilization,Taping, Therapeutic Activities, Therapeutic Exercises Modalities Cold Pack/Ice Massage,Electric Stimulation,Hot Packs, Traction- Mechanical, Vasopneumatic Devices Next Visit Focus/Plan Next Note Type Progress Note Next Visit Plan Vitals each session 10th visit PN next tx. POC: J curl, cardio, deadlift, [place] islander ball lat + december, trial step ups, leg press Flexion biased seated core Manual: soft tissue mobilization to HS, calves, lumbar spine take vitals ea session
--- NOTE | 2024-03-03 16:04 | PT.OTN ---
Current Diagnoses Lumbago with sciatica, left side (03/03/24) Other lack of coordination (03/03/24) Weakness (03/03/24) Physical Therapy Treatment Note PT-OP-A Visit Information Start: 01/25/24 13:00 Freq: Status: Active Protocol: Document 03/03/24 07:32 NM (Rec: 03/03/24 08:19 NM [id number]) Out-Patient Physical Therapy Visit Information Visit Information Visit Type Progress Note Visit Note KX after 19 visits Visit Start Time 07:32 Visit Stop Time 08:18 Visit Number 10 Evaluation Information Evaluation Date 01/25/24 Precautions Precautions hx bypass surgery, type II diabetes, heart disease VITALS PT-OP-B Current Condition Start: 01/25/24 13:00 Freq: Status: Active Protocol: Document 01/25/24 13:00 NM (Rec: 01/25/24 13:50 NM [id number]) Current Condition History of Current Condition Current Complaints pain, mobility History of Current Condition Pt presents with low back pain and with difficulty walking. He has diabetes and is trying to manage it with ambulation; states he has pain with ambulation. He states that he used to have L sided pain and L sided buttock pain. He reports that he has constant pain across his belt line. Pt reports that his pain started 8 years ago after his bypass surgery, used to walk 4 miles/ day; had B knee TKA. Reports OA in both knees and back. Reports no known PEARL for recent exacerbation. Reports difficulty with bending, transferring in/out car, transferring in/out of chair. No numbness/tingling in BLE, getting tested for neuropathy. Has circulation issues, dry skin and sores on BLE. Prior Treatments and Tests Previous PT for low back pain Current Functional Impairments (Reported) Functional Limitations- ADL's no difficulty with dressing Functional Limitations- Mobility/Gait walk 1 minute, standing ~4 hours Functional Limitations- Work/School watches 2 y.o. 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 He reports he's been derailed after his MALIHA , so his HEP and walking have been sporadic. He is planning on breaking up his walking. Pt states he still has some pain across his back, but less intense. Pt has L ankle pain, like he stepped on a rock; new PT-OP-E Functional Tests Start: 01/25/24 13:00 Freq: Status: Active Protocol: Document 01/25/24 13:00 NM (Rec: 01/25/24 13:50 NM [id number]) Functional Tests 6 Minute Walk Test Distance 1073 ft Device Used none Comments symptoms to post leg to calf, back >LLE Five Times Sit to Stand Test Score 12 seconds Comments no pain, 20 chair Tinetti Balance and Gait Assessment Balance Score 12 Gait Score 6 Composite Score 18/28 Other Forward Trunk Flexion Test Name of Test measured finger tip to floor Score 15 Comment pain free, limited by HS length and abdomen PT-OP-F Manual Assessment Start: 01/25/24 13:00 Freq: Status: Active Protocol: Document 01/25/24 13:00 NM (Rec: 01/25/24 13:50 NM [id number]) Manual Assessments Soft Tissue Assessment Soft Tissue Mobility Assessment Decreased HS length, quad/hip flex length. Increased tone B lumbar paraspinals Joint Mobility Assessment Joint Mobility Assessment no hyper mobility, decreased hip mobility PT-OP-G Mobility & Gait Start: 01/25/24 13:00 Freq: Status: Active Protocol: Document 01/25/24 13:00 NM (Rec: 01/25/24 14:01 NM [id number]) OP Gait Assessment Gait Gait Assistance Required: Independent Distance (Feet) 1,073 Assistive Devices Assistive Device None Gait Deviations General Gait Pattern Antalgic,Step-to Gait Factors Limiting Gait Function Factors Limiting Gait Function Decreased Activity Tolerance, Decreased Sensation,Decreased Strength,Pain Comments Gait Comments As pt fatigues, increased antalgic gait and increased low back and L sided back pain . Demos B hip ER with gait throughout entirety of 6 MWT, L circumduction and flexed trunk compensation with fatigue PT-OP-H Neuro Start: 01/25/24 13:00 Freq: Status: Active Protocol: Document 01/25/24 13:00 NM (Rec: 01/25/24 13:50 NM [id number]) Sensation Evaluation Comments Summary Comments BLE and trunk intact equally to light touch sensation Deep Tendon Reflex & Clonus Assessment Deep Tendon Reflex Bilateral Achilles Deep Tendon Reflex 1+ Diminished Bilateral Bicep Deep Tendon Reflex 1+ Diminished PT-OP-J Posture/Palpation/Skin Start: 01/25/24 13:00 Freq: Status: Active Protocol: Document 01/25/24 13:00 NM (Rec: 01/25/24 14:01 NM [id number]) Posture Evaluation Position Standing Head/C-Spine Posture Forward Head L-Spine Posture Flattened,Decreased Lordosis Pelvis Posture Posterior Tilted Weight Distribution Weight Shifted Right Hip Posture (L) Externally Rotated,(R) Externally Rotated Knee Posture (L) Genu Varus,(R) Genu Varus Ankle/Foot Posture (L) Pronated,(R) Pronated Palpation Assessment Location lumbar spine Palpation Location glutes, paraspinals, spinous processes, tranverse processes , PSI Palpation Findings Soft Tissue Tightness Palpation Details Soft tissue tightness B paraspinals L>R, no tenderness to palpation along lumbar spine or B PSIS/SIJ. Skin Assessment Other Assessments Skin Assessment Comments BLE has dry skin, several closed wounds, red coloring, same temperature PT-OP-K Range of Motion Start: 01/25/24 13:00 Freq: Status: Active Protocol: Document 01/25/24 13:00 NM (Rec: 01/25/24 13:50 NM [id number]) Lumbar Spine Range of Motion Lumbar Spine Active Percentage Flexion 50 Extension 100 Rotation Left 3 Rotation Right 3 Lateral Flexion Left 100 Lateral Flexion Right 100 Comments Low back pain not reproduced with any movement Hip Goniometric Range of Motion Hip Right Flexion w/Knee Flexed 80 Straight Leg Raise 50 Internal Rotation 15 External Rotation 25 Left Flexion w/Knee Flexed 90 Straight Leg Raise 60 Internal Rotation 25 External Rotation 25 PT-OP-L Special Tests Start: 01/25/24 13:00 Freq: Status: Active Protocol: Document 01/25/24 13:00 NM (Rec: 01/25/24 13:50 NM [id number]) Special Tests Lumbar Spine Special Tests Distraction Test Results + Straight Leg Raise Test Results + Comments Bilateral Rodriguez/Quadrant Test Results - Slump Test Results + Comments Bilateral PT-OP-M Strength Start: 01/25/24 13:00 Freq: Status: Active Protocol: Document 03/03/24 07:32 NM (Rec: 03/03/24 08:19 NM [id number]) Hip Strength Hip Manual Muscle Testing Right Flexion (L2) 4- Good- Extension (S1) 4- Good- Abduction 4- Good- Adduction 4 Good External Rotation 4 Good Internal Rotation 4 Good Comments 03/03/24: 4/5 MMT Left Flexion (L2) 4- Good- Extension (S1) 4- Good- Abduction 4- Good- Adduction 4 Good External Rotation 4 Good Internal Rotation 4 Good Comments 03/03/24: 4/5 MMT PT-OP-Q Treatments Start: 01/25/24 13:00 Freq: Status: Active Protocol: Document 03/03/24 07:32 NM (Rec: 03/03/24 08:19 NM [id number]) Cardio Equipment Recumbent Stepper (Sci-Fit) Duration (Minutes) 2 Resistance 0 Seat Position 12 Other warm up Therapeutic Exercises Supine Exercises figure 4 stretch Side bilateral Reps/Minutes 1x60 ea Comments end of session Sidelying Exercises hip abduction Sidelying Exercise Name trial in PT Side bilateral Reps/Minutes 1x15 Comments challenging; cued form, hip IR for glute med Sitting Exercises core strengthening Sitting Exercise Name 1. december non-alt, 2. arms only w/ tall posture, 3. flexion isometric Equipment Used 65 cm ball Reps/Minutes 1 and 2. 1x10 ea, 3. 10x5 ponce Comments cued breathwork, upright posture, core brace trunk flexion Sitting Exercise Name stretch w/ albanian ball (fwd and lateral stretching) Side bilateral Reps/Minutes 1x10 Comments reports good stretching Standing Exercises calf stretch Standing Exercise Name gastrocnemius Side bilateral Equipment Used staggered stance against wall Reps/Minutes 1x30 ea Comments cued for form Kristopher curl Standing Exercise Name segmental trunk flexion Side bilateral Resistance 5# db Equipment Used against plinth Reps/Minutes 2x8 Comments pain free; cued ppt first, chin tuck Therapeutic Activity Therapeutic Activity sit to stand Comments with hip hinge 1. 5x STS for test 8.6 seconds 2. STS from 20 plinth, 2x8 Requires increased time with brief rest break between sets. Cued foot positioning, HERMELINDA, strong hip abduction to prevent knee valgus (no band required) 6 MWT Name for endurance Reps/Minutes 1015 ft Comments symptoms reported after 2 minutes, 1 brief standing rest break at minute 4 Neuro Re-Education Treatment Other Activities Kirsten Details Comments marked down for wider HERMELINDA and gait deviation Self-Care/Home Management Treatment Education Patient Education Home Exercise Program Other Education HEP: kristopher noel PT-OP-T Assessment and Plan Start: 01/25/24 13:00 Freq: Status: Active Protocol: Document 03/03/24 07:32 NM (Rec: 03/03/24 08:19 NM [id number]) Physical Therapy Assessment Goals Five Impairment strength Impairment BLE hip abd and ext 4-/5 MMT Short Term Goal (STG) Pt will improve bilateral hip abduction and extension strength to at least 4/5 MMT in order to demonstrate improved hip strength for gait , transfers, and ADLs. 03/03/24: 4/5 MMT STG Duration 6 weeks MET Fpc Goal (LTG) Pt will improve bilateral hip abduction and extension strength to at least 4+/5 MMT in order to demonstrate improved hip strength for gait , transfers, and ADLs. LTG Duration 12 weeks Four Impairment balance, function Impairment Tinetti 18/28 (gait 03/16, balance 09/21) Short Term Goal (STG) Pt will improve Tinetti score to at least 22/28 in order to demonstrate decreased fall risk and improved balance during ambulation 03/03/24: STG Duration 6 weeks MET Fpc Goal (LTG) Pt will improve Tinetti score to at least 26/28 in order to demonstrate decreased fall risk and improved balance during ambulation LTG Duration 12 weeks Three Impairment strength, function Impairment 5x STS test 12 seconds from 20 plinth Short Term Goal (STG) Pt will improve 5x STS time to <12 seconds in order to demonstrate improved BLE strength for transfers, gait, and ADLs 03/03/24: 8.6 seconds STG Duration 6 weeks MET Fpc Goal (LTG) Pt will be able to perform at least 10 bilateral squats without UE support and without increase in baseline pain in order to demonstrate improved BLE strength for transfers, gait, and ADLs LTG Duration 12 weeks Two Impairment gait, 6 MWT Impairment 6MWT distance: 1073 ft Short Term Goal (STG) Pt will improve 6MWT distance by at least 200 ft (1 MCID) without increase in baseline pain in order to demonstrate improved activity tolerance and symptom management 03/03/24: 1015 ft, reports onset of back pain after 2 minutes, glute/quad symptoms after 3 minutes, 1 brief standing rest break STG Duration 6 weeks NOT MET [employer] Goal (LTG) Pt will report that he able to ambulate at least 10 minutes before taking a seated rest break or increase in baseline pain LTG Duration 12 weeks One Impairment HEP Impairment not performing HEP Short Term Goal (STG) Pt will report compliance with HEP at least 2-3x/wk in order to maximize progression with PT and promote independence with exercise 03/03/24: reports not very compliant with HEP beyond stretching STG Duration 6 weeks NOT MET Fpc Goal (LTG) Pt will report compliance with HEP at least 3x/wk in order to promote independence with rehabilitation and transition into maintenance program upon discharge from PT LTG Duration 12 weeks Progress Towards Goals Progress Towards Goals Progressing Toward Goals,Slow Progress due to Activity Tolerance,Slow Progress - Other Assessment Summary Assessment Pt tolerated session well. He has increase in symptoms down BLE during 6MWT. Pt did not meet 6 MWT goal, but he was able to ambulate longer before needing a rest break (at 4 minutes). Continued with flexion biased core and lumbar strengthening. Pt demonstrates improved tolerance for kristopher curl. He continues to be challenged by maintaining upright posture and not performing compensations with seated core on albanian ball. Initiated sidelying hip abduction for glute medius strengthening to stabilize pelvis during gait, which was fatiguing for pt. Physical Therapy Plan Frequency and Duration Frequency of Treatment 2x/Week Duration of treatment (weeks) 12 Plan of Care Start Date 01/25/24 Plan of Care End Date 04/22/24 Therapeutic Interventions Therapeutic Interventions Balance Training,Gait Training ,Home Exercise Program,Joint Mobilizations,Manual Therapy, Neuromuscular Re-education, Orthotic/Prosthetic Management ,Patient/Caregiver Education, Self-Care/Home Management, Sensory Integration,Soft Tissue Mobilization,Taping, Therapeutic Activities, Therapeutic Exercises Modalities Cold Pack/Ice Massage,Electric Stimulation,Hot Packs, Traction- Mechanical, Vasopneumatic Devices Next Visit Focus/Plan Next Note Type Treatment Note Next Visit Plan Vitals each session Trial: s/l hip abduction, squat, cardio, hip hinge/ deadlift, flexion-biased core (supine > sit > stand), calf stretch. Be aware of stenosis POC: J curl, cardio, deadlift, albanian ball + december, trial step ups, leg press Flexion biased seated core Manual: soft tissue mobilization to HS, calves, lumbar spine
--- NOTE | 2024-03-08 09:47 | PT.OTN ---
Current Diagnoses Lumbago with sciatica, left side (03/08/24) Other lack of coordination (03/08/24) Weakness (03/08/24) Physical Therapy Treatment Note PT-OP-A Visit Information Start: 01/25/24 13:00 Freq: Status: Active Protocol: Document 03/08/24 09:01 NM (Rec: 03/08/24 09:44 NM [id number]) Out-Patient Physical Therapy Visit Information Visit Information Visit Type Treatment Note Visit Note KX after 19 visits Visit Start Time 09:00 Visit Stop Time 09:42 Visit Number 11 Evaluation Information Evaluation Date 01/25/24 PT-OP-B Current Condition Start: 01/25/24 13:00 Freq: Status: Active Protocol: Document 01/25/24 13:00 NM (Rec: 01/25/24 13:50 NM [id number]) Current Condition History of Current Condition Current Complaints pain, mobility History of Current Condition Pt presents with low back pain and with difficulty walking. He has diabetes and is trying to manage it with ambulation; states he has pain with ambulation. He states that he used to have L sided pain and L sided buttock pain. He reports that he has constant pain across his belt line. Pt reports that his pain started 8 years ago after his bypass surgery, used to walk 4 miles/ day; had B knee TKA. Reports OA in both knees and back. Reports no known PEARL for recent exacerbation. Reports difficulty with bending, transferring in/out car, transferring in/out of chair. No numbness/tingling in BLE, getting tested for neuropathy. Has circulation issues, dry skin and sores on BLE. Prior Treatments and Tests Previous PT for low back pain Current Functional Impairments (Reported) Functional Limitations- ADL's no difficulty with dressing Functional Limitations- Mobility/Gait walk 1 minute, standing ~4 hours Functional Limitations- Work/School watches 2 y.o. 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 Reports legs bother him at night, which wake him up. States his heel is sore, which has limited his walking but he is been doing the HEP more frequently PT-OP-E Functional Tests Start: 01/25/24 13:00 Freq: Status: Active Protocol: Document 01/25/24 13:00 NM (Rec: 01/25/24 13:50 NM [id number]) Functional Tests 6 Minute Walk Test Distance 1073 ft Device Used none Comments symptoms to post leg to calf, back >LLE Five Times Sit to Stand Test Score 12 seconds Comments no pain, 20 chair Tinetti Balance and Gait Assessment Balance Score 12 Gait Score 6 Composite Score 18/28 Other Forward Trunk Flexion Test Name of Test measured finger tip to floor Score 15 Comment pain free, limited by HS length and abdomen PT-OP-F Manual Assessment Start: 01/25/24 13:00 Freq: Status: Active Protocol: Document 01/25/24 13:00 NM (Rec: 01/25/24 13:50 NM [id number]) Manual Assessments Soft Tissue Assessment Soft Tissue Mobility Assessment Decreased HS length, quad/hip flex length. Increased tone B lumbar paraspinals Joint Mobility Assessment Joint Mobility Assessment no hyper mobility, decreased hip mobility PT-OP-G Mobility & Gait Start: 01/25/24 13:00 Freq: Status: Active Protocol: Document 01/25/24 13:00 NM (Rec: 01/25/24 14:01 NM [id number]) OP Gait Assessment Gait Gait Assistance Required: Independent Distance (Feet) 1,073 Assistive Devices Assistive Device None Gait Deviations General Gait Pattern Antalgic,Step-to Gait Factors Limiting Gait Function Factors Limiting Gait Function Decreased Activity Tolerance, Decreased Sensation,Decreased Strength,Pain Comments Gait Comments As pt fatigues, increased antalgic gait and increased low back and L sided back pain . Demos B hip ER with gait throughout entirety of 6 MWT, L circumduction and flexed trunk compensation with fatigue PT-OP-H Neuro Start: 01/25/24 13:00 Freq: Status: Active Protocol: Document 01/25/24 13:00 NM (Rec: 01/25/24 13:50 NM [id number]) Sensation Evaluation Comments Summary Comments BLE and trunk intact equally to light touch sensation Deep Tendon Reflex & Clonus Assessment Deep Tendon Reflex Bilateral Achilles Deep Tendon Reflex 1+ Diminished Bilateral Bicep Deep Tendon Reflex 1+ Diminished PT-OP-J Posture/Palpation/Skin Start: 01/25/24 13:00 Freq: Status: Active Protocol: Document 01/25/24 13:00 NM (Rec: 01/25/24 14:01 NM [id number]) Posture Evaluation Position Standing Head/C-Spine Posture Forward Head L-Spine Posture Flattened,Decreased Lordosis Pelvis Posture Posterior Tilted Weight Distribution Weight Shifted Right Hip Posture (L) Externally Rotated,(R) Externally Rotated Knee Posture (L) Genu Varus,(R) Genu Varus Ankle/Foot Posture (L) Pronated,(R) Pronated Palpation Assessment Location lumbar spine Palpation Location glutes, paraspinals, spinous processes, tranverse processes , PSI Palpation Findings Soft Tissue Tightness Palpation Details Soft tissue tightness B paraspinals L>R, no tenderness to palpation along lumbar spine or B PSIS/SIJ. Skin Assessment Other Assessments Skin Assessment Comments BLE has dry skin, several closed wounds, red coloring, same temperature PT-OP-K Range of Motion Start: 01/25/24 13:00 Freq: Status: Active Protocol: Document 01/25/24 13:00 NM (Rec: 01/25/24 13:50 NM [id number]) Lumbar Spine Range of Motion Lumbar Spine Active Percentage Flexion 50 Extension 100 Rotation Left 3 Rotation Right 3 Lateral Flexion Left 100 Lateral Flexion Right 100 Comments Low back pain not reproduced with any movement Hip Goniometric Range of Motion Hip Right Flexion w/Knee Flexed 80 Straight Leg Raise 50 Internal Rotation 15 External Rotation 25 Left Flexion w/Knee Flexed 90 Straight Leg Raise 60 Internal Rotation 25 External Rotation 25 PT-OP-L Special Tests Start: 01/25/24 13:00 Freq: Status: Active Protocol: Document 01/25/24 13:00 NM (Rec: 01/25/24 13:50 NM [id number]) Special Tests Lumbar Spine Special Tests Distraction Test Results + Straight Leg Raise Test Results + Comments Bilateral Rodriguez/Quadrant Test Results - Slump Test Results + Comments Bilateral PT-OP-M Strength Start: 01/25/24 13:00 Freq: Status: Active Protocol: Document 03/03/24 07:32 NM (Rec: 03/03/24 08:19 NM [id number]) Hip Strength Hip Manual Muscle Testing Right Flexion (L2) 4- Good- Extension (S1) 4- Good- Abduction 4- Good- Adduction 4 Good External Rotation 4 Good Internal Rotation 4 Good Comments 03/03/24: 4/5 MMT Left Flexion (L2) 4- Good- Extension (S1) 4- Good- Abduction 4- Good- Adduction 4 Good External Rotation 4 Good Internal Rotation 4 Good Comments 03/03/24: 4/5 MMT PT-OP-Q Treatments Start: 01/25/24 13:00 Freq: Status: Active Protocol: Document 03/08/24 09:01 NM (Rec: 03/08/24 09:44 NM [id number]) Cardio Equipment Recumbent Stepper (Sci-Fit) Duration (Minutes) 4 Resistance 0 Seat Position 13 Other warm up; reciprocal BLE/BUE motion in flexion Gym Equipment Cable Column (Body Solid) Lat Pull Down Details cued for form and breathwork Resistance 3 plates>4 plates > 5 plates Reps/Time 3x10 Therapeutic Exercises Supine Exercises modified virgilio stretch Side bilateral Equipment Used strap assistance Reps/Minutes 1x60 Comments cued netural LB, pnfree reported Sidelying Exercises hip abduction Side bilateral Reps/Minutes 2x8 with 2 pause at end range Comments challenging; unable to rotate hip into IR, improved form but fatiguing Sitting Exercises trunk flexion Sitting Exercise Name stretch w/ chadian ball (fwd and lateral stretching) Side bilateral Reps/Minutes 1x10 Comments reports good stretching; post hip hinge Therapeutic Activity Therapeutic Activity hip hinge Comments 1. hip hinge w/ self tactile cues at hips, buttock touch to wall, 2x10 Cued with yardstick 2. 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 deadlift with level 2 band under feet, 1x10 Cued for breath work, rhomboid facilitation Self-Care/Home Management Treatment Education Patient Education Home Exercise Program Other Education HEP: deadlift with band under feet PT-OP-T Assessment and Plan Start: 01/25/24 13:00 Freq: Status: Active Protocol: Document 03/08/24 09:01 NM (Rec: 03/08/24 09:44 NM [id number]) Physical Therapy Assessment Goals Five Impairment strength Impairment BLE hip abd and ext 4-/5 MMT Short Term Goal (STG) Pt will improve bilateral hip abduction and extension strength to at least 4/5 MMT in order to demonstrate improved hip strength for gait , transfers, and ADLs. 03/03/24: 4/5 MMT STG Duration 6 weeks MET Map Maker Goal (LTG) Pt will improve bilateral hip abduction and extension strength to at least 4+/5 MMT in order to demonstrate improved hip strength for gait , transfers, and ADLs. LTG Duration 12 weeks Four Impairment balance, function Impairment Tinetti / (gait 03/16, balance 09/21) Short Term Goal (STG) Pt will improve Tinetti score to at least 22/28 in order to demonstrate decreased fall risk and improved balance during ambulation 03/03/24: STG Duration 6 weeks MET Detention Goal (LTG) Pt will improve Tinetti score to at least 26/28 in order to demonstrate decreased fall risk and improved balance during ambulation LTG Duration 12 weeks Three Impairment strength, function Impairment 5x STS test 12 seconds from 20 plinth Short Term Goal (STG) Pt will improve 5x STS time to <12 seconds in order to demonstrate improved BLE strength for transfers, gait, and ADLs 03/03/24: 8.6 seconds STG Duration 6 weeks MET Map Maker Goal (LTG) Pt will be able to perform at least 10 bilateral squats without UE support and without increase in baseline pain in order to demonstrate improved BLE strength for transfers, gait, and ADLs LTG Duration 12 weeks Two Impairment gait, 6 MWT Impairment 6MWT distance: 1073 ft Short Term Goal (STG) Pt will improve 6MWT distance by at least 200 ft (1 MCID) without increase in baseline pain in order to demonstrate improved activity tolerance and symptom management 03/03/24: 1015 ft, reports onset of back pain after 2 minutes, glute/quad symptoms after 3 minutes, 1 brief standing rest break STG Duration 6 weeks NOT MET Map Maker Goal (LTG) Pt will report that he able to ambulate at least 10 minutes before taking a seated rest break or increase in baseline pain LTG Duration 12 weeks One Impairment HEP Impairment not performing HEP Short Term Goal (STG) Pt will report compliance with HEP at least 2-3x/wk in order to maximize progression with PT and promote independence with exercise 03/03/24: reports not very compliant with HEP beyond stretching STG Duration 6 weeks NOT MET Map Maker Goal (LTG) Pt will report compliance with HEP at least 3x/wk in order to promote independence with rehabilitation and transition into maintenance program upon discharge from PT LTG Duration 12 weeks Assessment Summary Assessment Pt tolerated session well with good tolerance for therapeutic exercise. Initiated hip hinge training with neutral spine, progressing to lightly resisted deadlift. Pt requires cues to maintain neutral spine, especially with rhomboid facilitation to prevent shoulders rounding. Responds well to tactile cue with wall and self-tactile cues. Pt able to tolerate without increase in back pain, but with good feedback about appropriate muscle activation. Trialed cable lat pull downs with tactile and verbal cueing for form in order for seated lumbar strengthening. Pt continues to demonstrate weakness of hip abductors, would benefit from additional strengthening. Pt would benefit from skilled PT for progressive BLE/trunk strengthening in order to improve activity tolerance and symptom management. Physical Therapy Plan Frequency and Duration Frequency of Treatment 2x/Week Duration of treatment (weeks) 12 Plan of Care Start Date 01/25/24 Plan of Care End Date 04/22/24 Therapeutic Interventions Therapeutic Interventions Balance Training,Gait Training ,Home Exercise Program,Joint Mobilizations,Manual Therapy, Neuromuscular Re-education, Orthotic/Prosthetic Management ,Patient/Caregiver Education, Self-Care/Home Management, Sensory Integration,Soft Tissue Mobilization,Taping, Therapeutic Activities, Therapeutic Exercises Modalities Cold Pack/Ice Massage,Electric Stimulation,Hot Packs, Traction- Mechanical, Vasopneumatic Devices Next Visit Focus/Plan Next Note Type Treatment Note Next Visit Plan Vitals each session review hip hinge/deadlift, lat and row on cables, pallof progression, counter bird dog, s/l hip abduction, squat, cardio, hip hinge/deadlift, flexion-biased core (supine > sit > stand), calf stretch. Be aware of stenosis POC: J curl, cardio, deadlift, chadian ball lat + december, trial step ups, leg press Flexion biased seated core Manual: soft tissue mobilization to HS, calves, lumbar spine
--- NOTE | 2024-03-10 11:15 | PT.OTN ---
Current Diagnoses Lumbago with sciatica, left side (03/10/24) Other lack of coordination (03/10/24) Weakness (03/10/24) Physical Therapy Treatment Note PT-OP-A Visit Information Start: 01/25/24 13:00 Freq: Status: Active Protocol: Document 03/10/24 10:36 SP (Rec: 03/10/24 11:18 SP [id number]) Out-Patient Physical Therapy Visit Information Visit Information Visit Type Treatment Note Visit Note KX after 19 visits Visit Start Time 10:36 Visit Stop Time 11:15 Visit Number 12 Number of DEVELOPMENT TECHNOLOGIST Visits 1 Evaluation Information Evaluation Date 01/25/24 Precautions Precautions hx bypass surgery, type II diabetes, heart disease VITALS PT-OP-B Current Condition Start: 01/25/24 13:00 Freq: Status: Active Protocol: Document 01/25/24 13:00 NM (Rec: 01/25/24 13:50 NM [id number]) Current Condition History of Current Condition Current Complaints pain, mobility History of Current Condition Pt presents with low back pain and with difficulty walking. He has diabetes and is trying to manage it with ambulation; states he has pain with ambulation. He states that he used to have L sided pain and L sided buttock pain. He reports that he has constant pain across his belt line. Pt reports that his pain started 8 years ago after his bypass surgery, used to walk 4 miles/ day; had B knee TKA. Reports OA in both knees and back. Reports no known PEARL for recent exacerbation. Reports difficulty with bending, transferring in/out car, transferring in/out of chair. No numbness/tingling in BLE, getting tested for neuropathy. Has circulation issues, dry skin and sores on BLE. Prior Treatments and Tests Previous PT for low back pain Current Functional Impairments (Reported) Functional Limitations- ADL's no difficulty with dressing Functional Limitations- Mobility/Gait walk 1 minute, standing ~4 hours Functional Limitations- Work/School watches 2 y.o. 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 He reports compliant with exercises. PT-OP-E Functional Tests Start: 01/25/24 13:00 Freq: Status: Active Protocol: Document 01/25/24 13:00 NM (Rec: 01/25/24 13:50 NM [id number]) Functional Tests 6 Minute Walk Test Distance 1073 ft Device Used none Comments symptoms to post leg to calf, back >LLE Five Times Sit to Stand Test Score 12 seconds Comments no pain, 20 chair Tinetti Balance and Gait Assessment Balance Score 12 Gait Score 6 Composite Score 18/28 Other Forward Trunk Flexion Test Name of Test measured finger tip to floor Score 15 Comment pain free, limited by HS length and abdomen PT-OP-F Manual Assessment Start: 01/25/24 13:00 Freq: Status: Active Protocol: Document 01/25/24 13:00 NM (Rec: 01/25/24 13:50 NM [id number]) Manual Assessments Soft Tissue Assessment Soft Tissue Mobility Assessment Decreased HS length, quad/hip flex length. Increased tone B lumbar paraspinals Joint Mobility Assessment Joint Mobility Assessment no hyper mobility, decreased hip mobility PT-OP-G Mobility & Gait Start: 01/25/24 13:00 Freq: Status: Active Protocol: Document 01/25/24 13:00 NM (Rec: 01/25/24 14:01 NM [id number]) OP Gait Assessment Gait Gait Assistance Required: Independent Distance (Feet) 1,073 Assistive Devices Assistive Device None Gait Deviations General Gait Pattern Antalgic,Step-to Gait Factors Limiting Gait Function Factors Limiting Gait Function Decreased Activity Tolerance, Decreased Sensation,Decreased Strength,Pain Comments Gait Comments As pt fatigues, increased antalgic gait and increased low back and L sided back pain . Demos B hip ER with gait throughout entirety of 6 MWT, L circumduction and flexed trunk compensation with fatigue PT-OP-H Neuro Start: 01/25/24 13:00 Freq: Status: Active Protocol: Document 01/25/24 13:00 NM (Rec: 01/25/24 13:50 NM [id number]) Sensation Evaluation Comments Summary Comments BLE and trunk intact equally to light touch sensation Deep Tendon Reflex & Clonus Assessment Deep Tendon Reflex Bilateral Achilles Deep Tendon Reflex 1+ Diminished Bilateral Bicep Deep Tendon Reflex 1+ Diminished PT-OP-J Posture/Palpation/Skin Start: 01/25/24 13:00 Freq: Status: Active Protocol: Document 01/25/24 13:00 NM (Rec: 01/25/24 14:01 NM [id number]) Posture Evaluation Position Standing Head/C-Spine Posture Forward Head L-Spine Posture Flattened,Decreased Lordosis Pelvis Posture Posterior Tilted Weight Distribution Weight Shifted Right Hip Posture (L) Externally Rotated,(R) Externally Rotated Knee Posture (L) Genu Varus,(R) Genu Varus Ankle/Foot Posture (L) Pronated,(R) Pronated Palpation Assessment Location lumbar spine Palpation Location glutes, paraspinals, spinous processes, tranverse processes , PSI Palpation Findings Soft Tissue Tightness Palpation Details Soft tissue tightness B paraspinals L>R, no tenderness to palpation along lumbar spine or B PSIS/SIJ. Skin Assessment Other Assessments Skin Assessment Comments BLE has dry skin, several closed wounds, red coloring, same temperature PT-OP-K Range of Motion Start: 01/25/24 13:00 Freq: Status: Active Protocol: Document 01/25/24 13:00 NM (Rec: 01/25/24 13:50 NM [id number]) Lumbar Spine Range of Motion Lumbar Spine Active Percentage Flexion 50 Extension 100 Rotation Left 3 Rotation Right 3 Lateral Flexion Left 100 Lateral Flexion Right 100 Comments Low back pain not reproduced with any movement Hip Goniometric Range of Motion Hip Right Flexion w/Knee Flexed 80 Straight Leg Raise 50 Internal Rotation 15 External Rotation 25 Left Flexion w/Knee Flexed 90 Straight Leg Raise 60 Internal Rotation 25 External Rotation 25 PT-OP-L Special Tests Start: 01/25/24 13:00 Freq: Status: Active Protocol: Document 01/25/24 13:00 NM (Rec: 01/25/24 13:50 NM [id number]) Special Tests Lumbar Spine Special Tests Distraction Test Results + Straight Leg Raise Test Results + Comments Bilateral Rodriguez/Quadrant Test Results - Slump Test Results + Comments Bilateral PT-OP-M Strength Start: 01/25/24 13:00 Freq: Status: Active Protocol: Document 03/03/24 07:32 NM (Rec: 03/03/24 08:19 NM [id number]) Hip Strength Hip Manual Muscle Testing Right Flexion (L2) 4- Good- Extension (S1) 4- Good- Abduction 4- Good- Adduction 4 Good External Rotation 4 Good Internal Rotation 4 Good Comments 03/03/24: 4/5 MMT Left Flexion (L2) 4- Good- Extension (S1) 4- Good- Abduction 4- Good- Adduction 4 Good External Rotation 4 Good Internal Rotation 4 Good Comments 03/03/24: 4/5 MMT PT-OP-Q Treatments Start: 01/25/24 13:00 Freq: Status: Active Protocol: Document 03/10/24 10:36 SP (Rec: 03/10/24 11:18 SP [id number]) Cardio Equipment Recumbent Stepper (Sci-Fit) Duration (Minutes) 4 Resistance 0 Seat Position 13 (BP end: LUE automated 171 /69, 164/70 Other warm up; reciprocal BLE/BUE motion in flexion Gym Equipment Cable Column (Body Solid) Rows Details Cued open chest /c rhomboid fac, breathwork Resistance 5 plates Reps/Time 2x10 Lat Pull Down Details cued for form and breathwork Resistance 5 plates Reps/Time 3x15 Therapeutic Exercises Sidelying Exercises hip abduction Side bilateral Equipment Used cued DF/ TKE, kick stand top hand on bottom arm stacked onside Reps/Minutes 2x8 with 2 pause at end range Comments effort challenging; improved form but fatiguing Other Exercises self STMs Other Exercise Name R glut/pirif, TFL Equipment Used tennis ball on wall Reps/Minutes 2 min total Comments good feedback decreased front hip tension reduction post hip abd ex Therapeutic Activity Therapeutic Activity hip hinge Comments 1. hip hinge w/ self tactile cues at hips, buttock touch to wall, 2x10 Cued with yardstick 2. hip hinge with dowel, 2x10 Cued keep dowel closer to body , slight rhomboid contract to prevent fwd shoulders Feels in back but reports no pain, just working 3. crate medicinal plant picker with deadlift (not from floor), 1x10 buttock tap to wall 4. deadlift with level 2 band under feet, 1x10 Cued for breath work, fwd pelvic over HERMELINDA /c glut fire come to stand, rhomboid facilitation at full stand ed assimulation motion lift bag rock yard work. PT-OP-T Assessment and Plan Start: 01/25/24 13:00 Freq: Status: Active Protocol: Document 03/10/24 10:36 SP (Rec: 03/10/24 11:18 SP [id number]) Physical Therapy Assessment Goals Five Impairment strength Impairment BLE hip abd and ext 4-/5 MMT Short Term Goal (STG) Pt will improve bilateral hip abduction and extension strength to at least 4/5 MMT in order to demonstrate improved hip strength for gait , transfers, and ADLs. 03/03/24: 4/5 MMT STG Duration 6 weeks [employer] Goal (LTG) Pt will improve bilateral hip abduction and extension strength to at least 4+/5 MMT in order to demonstrate improved hip strength for gait , transfers, and ADLs. LTG Duration 12 weeks Four Impairment balance, function Impairment Tinetti (gait 03/16, balance 09/21) Short Term Goal (STG) Pt will improve Tinetti score to at least 22/28 in order to demonstrate decreased fall risk and improved balance during ambulation 03/03/24: STG Duration 6 weeks [facility] Goal (LTG) Pt will improve Tinetti score to at least 26/28 in order to demonstrate decreased fall risk and improved balance during ambulation LTG Duration 12 weeks Three Impairment strength, function Impairment 5x STS test 12 seconds from 20 plinth Short Term Goal (STG) Pt will improve 5x STS time to <12 seconds in order to demonstrate improved BLE strength for transfers, gait, and ADLs 03/03/24: 8.6 seconds STG Duration 6 weeks [employer] Goal (LTG) Pt will be able to perform at least 10 bilateral squats without UE support and without increase in baseline pain in order to demonstrate improved BLE strength for transfers, gait, and ADLs LTG Duration 12 weeks Two Impairment gait, 6 MWT Impairment 6MWT distance: 1073 ft Short Term Goal (STG) Pt will improve 6MWT distance by at least 200 ft (1 MCID) without increase in baseline pain in order to demonstrate improved activity tolerance and symptom management 03/03/24: 1015 ft, reports onset of back pain after 2 minutes, glute/quad symptoms after 3 minutes, 1 brief standing rest break STG Duration 6 weeks NOT [facility] Goal (LTG) Pt will report that he able to ambulate at least 10 minutes before taking a seated rest break or increase in baseline pain LTG Duration 12 weeks One Impairment HEP Impairment not performing HEP Short Term Goal (STG) Pt will report compliance with HEP at least 2-3x/wk in order to maximize progression with PT and promote independence with exercise 03/03/24: reports not very compliant with HEP beyond stretching STG Duration 6 weeks NOT [facility] Goal (LTG) Pt will report compliance with HEP at least 3x/wk in order to promote independence with rehabilitation and transition into maintenance program upon discharge from PT LTG Duration 12 weeks Assessment Summary Assessment Pt good effort throughout ther ex. Cued for breath work and no UT more LT recruitment during cable exercises. Pt challenged with maintain on side properly, ed use top arm on table/opposite arm as kickstand, maintain DF TKE midline with trunk alignment during AROM hip abd, reports mus tiring on R but little discomfort on L TFL region. Initiated self STMs using tennis ball on wall over R TFL and posterior hip with good feedback response for comfort self carryover home when needed. Pt improved back alignment in front mirror during lift, education use these mechanics for yard work with verbalized didn't think of this being so helpful , will incorporated home. Physical Therapy Plan Frequency and Duration Frequency of Treatment 2x/Week Duration of treatment (weeks) 12 Plan of Care Start Date 01/25/24 Plan of Care End Date 04/22/24 Therapeutic Interventions Therapeutic Interventions Balance Training,Gait Training ,Home Exercise Program,Joint Mobilizations,Manual Therapy, Neuromuscular Re-education, Orthotic/Prosthetic Management ,Patient/Caregiver Education, Self-Care/Home Management, Sensory Integration,Soft Tissue Mobilization,Taping, Therapeutic Activities, Therapeutic Exercises Modalities Cold Pack/Ice Massage,Electric Stimulation,Hot Packs, Traction- Mechanical, Vasopneumatic Devices Next Visit Focus/Plan Next Note Type Treatment Note Next Visit Plan Vitals each session review hip hinge/deadlift, lat and row on cables, s/l hip abduction, squat, hip hinge/ deadlift (resistance), Add: pallof progression, counter bird dog, , cardio, flexion-biased core (supine > sit > stand), calf stretch. Be aware of stenosis POC: J curl, cardio, deadlift, paraguayan ball lat + december, trial step ups, leg press Flexion biased seated core Manual: soft tissue mobilization to HS, calves, lumbar spine
--- NOTE | 2024-03-15 16:56 | PT.OTN ---
Current Diagnoses Lumbago with sciatica, left side (03/15/24) Other lack of coordination (03/15/24) Weakness (03/15/24) Physical Therapy Treatment Note PT-OP-A Visit Information Start: 01/25/24 13:00 Freq: Status: Active Protocol: Document 03/15/24 10:37 SW (Rec: 03/15/24 11:20 [id number]) Out-Patient Physical Therapy Visit Information Visit Information Visit Type Treatment Note Visit Note KX after 19 visits EOS vitals: BP 152/67 HR 90 O2 97% Visit Start Time 10:30 Visit Stop Time 11:15 Visit Number 13 Number of FLIGHT ENGINEER HELICOPTER Visits 2 Precautions Precautions hx bypass surgery, type II diabetes, heart disease VITALS PT-OP-B Current Condition Start: 01/25/24 13:00 Freq: Status: Active Protocol: Document 01/25/24 13:00 NM (Rec: 01/25/24 13:50 NM [id number]) Current Condition History of Current Condition Current Complaints pain, mobility History of Current Condition Pt presents with low back pain and with difficulty walking. He has diabetes and is trying to manage it with ambulation; states he has pain with ambulation. He states that he used to have L sided pain and L sided buttock pain. He reports that he has constant pain across his belt line. Pt reports that his pain started 8 years ago after his bypass surgery, used to walk 4 miles/ day; had B knee TKA. Reports OA in both knees and back. Reports no known PEARL for recent exacerbation. Reports difficulty with bending, transferring in/out car, transferring in/out of chair. No numbness/tingling in BLE, getting tested for neuropathy. Has circulation issues, dry skin and sores on BLE. Prior Treatments and Tests Previous PT for low back pain Current Functional Impairments (Reported) Functional Limitations- ADL's no difficulty with dressing Functional Limitations- Mobility/Gait walk 1 minute, standing ~4 hours Functional Limitations- Work/School watches 2 y.o. 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 Pt reports not doing modalities. Pt reports carryover of exercises ~3x a week, though does not do them all. PT-OP-E Functional Tests Start: 01/25/24 13:00 Freq: Status: Active Protocol: Document 01/25/24 13:00 NM (Rec: 01/25/24 13:50 NM [id number]) Functional Tests 6 Minute Walk Test Distance 1073 ft Device Used none Comments symptoms to post leg to calf, back >LLE Five Times Sit to Stand Test Score 12 seconds Comments no pain, 20 chair Tinetti Balance and Gait Assessment Balance Score 12 Gait Score 6 Composite Score 18/28 Other Forward Trunk Flexion Test Name of Test measured finger tip to floor Score 15 Comment pain free, limited by HS length and abdomen PT-OP-F Manual Assessment Start: 01/25/24 13:00 Freq: Status: Active Protocol: Document 01/25/24 13:00 NM (Rec: 01/25/24 13:50 NM [id number]) Manual Assessments Soft Tissue Assessment Soft Tissue Mobility Assessment Decreased HS length, quad/hip flex length. Increased tone B lumbar paraspinals Joint Mobility Assessment Joint Mobility Assessment no hyper mobility, decreased hip mobility PT-OP-G Mobility & Gait Start: 01/25/24 13:00 Freq: Status: Active Protocol: Document 01/25/24 13:00 NM (Rec: 01/25/24 14:01 NM [id number]) OP Gait Assessment Gait Gait Assistance Required: Independent Distance (Feet) 1,073 Assistive Devices Assistive Device None Gait Deviations General Gait Pattern Antalgic,Step-to Gait Factors Limiting Gait Function Factors Limiting Gait Function Decreased Activity Tolerance, Decreased Sensation,Decreased Strength,Pain Comments Gait Comments As pt fatigues, increased antalgic gait and increased low back and L sided back pain . Demos B hip ER with gait throughout entirety of 6 MWT, L circumduction and flexed trunk compensation with fatigue PT-OP-H Neuro Start: 01/25/24 13:00 Freq: Status: Active Protocol: Document 01/25/24 13:00 NM (Rec: 01/25/24 13:50 NM [id number]) Sensation Evaluation Comments Summary Comments BLE and trunk intact equally to light touch sensation Deep Tendon Reflex & Clonus Assessment Deep Tendon Reflex Bilateral Achilles Deep Tendon Reflex 1+ Diminished Bilateral Bicep Deep Tendon Reflex 1+ Diminished PT-OP-J Posture/Palpation/Skin Start: 01/25/24 13:00 Freq: Status: Active Protocol: Document 01/25/24 13:00 NM (Rec: 01/25/24 14:01 NM [id number]) Posture Evaluation Position Standing Head/C-Spine Posture Forward Head L-Spine Posture Flattened,Decreased Lordosis Pelvis Posture Posterior Tilted Weight Distribution Weight Shifted Right Hip Posture (L) Externally Rotated,(R) Externally Rotated Knee Posture (L) Genu Varus,(R) Genu Varus Ankle/Foot Posture (L) Pronated,(R) Pronated Palpation Assessment Location lumbar spine Palpation Location glutes, paraspinals, spinous processes, tranverse processes , PSI Palpation Findings Soft Tissue Tightness Palpation Details Soft tissue tightness B paraspinals L>R, no tenderness to palpation along lumbar spine or B PSIS/SIJ. Skin Assessment Other Assessments Skin Assessment Comments BLE has dry skin, several closed wounds, red coloring, same temperature PT-OP-K Range of Motion Start: 01/25/24 13:00 Freq: Status: Active Protocol: Document 01/25/24 13:00 NM (Rec: 01/25/24 13:50 NM [id number]) Lumbar Spine Range of Motion Lumbar Spine Active Percentage Flexion 50 Extension 100 Rotation Left 3 Rotation Right 3 Lateral Flexion Left 100 Lateral Flexion Right 100 Comments Low back pain not reproduced with any movement Hip Goniometric Range of Motion Hip Right Flexion w/Knee Flexed 80 Straight Leg Raise 50 Internal Rotation 15 External Rotation 25 Left Flexion w/Knee Flexed 90 Straight Leg Raise 60 Internal Rotation 25 External Rotation 25 PT-OP-L Special Tests Start: 01/25/24 13:00 Freq: Status: Active Protocol: Document 01/25/24 13:00 NM (Rec: 01/25/24 13:50 NM [id number]) Special Tests Lumbar Spine Special Tests Distraction Test Results + Straight Leg Raise Test Results + Comments Bilateral Rodriguez/Quadrant Test Results - Slump Test Results + Comments Bilateral PT-OP-M Strength Start: 01/25/24 13:00 Freq: Status: Active Protocol: Document 03/03/24 07:32 NM (Rec: 03/03/24 08:19 NM [id number]) Hip Strength Hip Manual Muscle Testing Right Flexion (L2) 4- Good- Extension (S1) 4- Good- Abduction 4- Good- Adduction 4 Good External Rotation 4 Good Internal Rotation 4 Good Comments 03/03/24: 4/5 MMT Left Flexion (L2) 4- Good- Extension (S1) 4- Good- Abduction 4- Good- Adduction 4 Good External Rotation 4 Good Internal Rotation 4 Good Comments 03/03/24: 4/5 MMT PT-OP-Q Treatments Start: 01/25/24 13:00 Freq: Status: Active Protocol: Document 03/15/24 10:37 SW (Rec: 03/15/24 11:20 SW [id number]) Cardio Equipment Recumbent Stepper (Sci-Fit) Duration (Minutes) 4 Resistance 0 Seat Position 13 (BP end: LUE automated 171 /69, 164/70 Other warm up; reciprocal BLE/BUE motion in flexion Gym Equipment Cable Column (Body Solid) Rows Details Cued open chest /c rhomboid fac, breathwork Resistance 5 plates Reps/Time 2x10 Lat Pull Down Details cued for form and breathwork Resistance 5 plates Reps/Time 3x15 Shuttle Recovery Bilateral Squats Details Bilateral squat, pain free Resistance 82# (3navy) 100# (2 navy2 teal ) Shuttle Recovery Platform Stable Reps/Time 3x15 Therapeutic Exercises Sitting Exercises trunk flexion Sitting Exercise Name stretch w/ sudanese ball (fwd and lateral stretching) Side bilateral Reps/Minutes 1x10 Comments reports good stretching; post hip hinge Standing Exercises TrA Standing Exercise Name Core stabilization Comments for standing exercises to decrease inc lumbar lordosis Therapeutic Activity Therapeutic Activity hip hinge Comments 1. hip hinge w/ self tactile cues at hips, buttock touch to wall, 2x10 Cued with yardstick 2. hip hinge with dowel, x10 Cued keep dowel closer to body , slight rhomboid contract to prevent fwd shoulders Feels in back but reports no pain, just working 3. 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 deadlift with level 2 band under feet, 1x10 Cued for breath work, fwd pelvic over HERMELINDA /c glut fire come to stand, rhomboid facilitation at full stand ed assimulation motion lift bag rock yard work. PT-OP-T Assessment and Plan Start: 01/25/24 13:00 Freq: Status: Active Protocol: Document 03/15/24 10:37 (Rec: 03/15/24 11:20 [id number]) Physical Therapy Assessment Goals Five Impairment strength Impairment BLE hip abd and ext 4-/5 MMT Short Term Goal (STG) Pt will improve bilateral hip abduction and extension strength to at least 4/5 MMT in order to demonstrate improved hip strength for gait , transfers, and ADLs. 03/03/24: 4/5 MMT STG Duration 6 weeks MET Halfway Goal (LTG) Pt will improve bilateral hip abduction and extension strength to at least 4+/5 MMT in order to demonstrate improved hip strength for gait , transfers, and ADLs. LTG Duration 12 weeks Four Impairment balance, function Impairment Tinetti (gait 03/16, balance 09/21) Short Term Goal (STG) Pt will improve Tinetti score to at least 22/28 in order to demonstrate decreased fall risk and improved balance during ambulation 03/03/24: STG Duration 6 weeks MET Building Maintenance Repairer Goal (LTG) Pt will improve Tinetti score to at least 26/28 in order to demonstrate decreased fall risk and improved balance during ambulation LTG Duration 12 weeks Three Impairment strength, function Impairment 5x STS test 12 seconds from 20 plinth Short Term Goal (STG) Pt will improve 5x STS time to <12 seconds in order to demonstrate improved BLE strength for transfers, gait, and ADLs 03/03/24: 8.6 seconds STG Duration 6 weeks MET Halfway Goal (LTG) Pt will be able to perform at least 10 bilateral squats without UE support and without increase in baseline pain in order to demonstrate improved BLE strength for transfers, gait, and ADLs LTG Duration 12 weeks Two Impairment gait, 6 MWT Impairment 6MWT distance: 1073 ft Short Term Goal (STG) Pt will improve 6MWT distance by at least 200 ft (1 MCID) without increase in baseline pain in order to demonstrate improved activity tolerance and symptom management 03/03/24: 1015 ft, reports onset of back pain after 2 minutes, glute/quad symptoms after 3 minutes, 1 brief standing rest break STG Duration 6 weeks NOT MET Building Maintenance Repairer Goal (LTG) Pt will report that he able to ambulate at least 10 minutes before taking a seated rest break or increase in baseline pain LTG Duration 12 weeks One Impairment HEP Impairment not performing HEP Short Term Goal (STG) Pt will report compliance with HEP at least 2-3x/wk in order to maximize progression with PT and promote independence with exercise 03/03/24: reports not very compliant with HEP beyond stretching STG Duration 6 weeks NOT MET Building Maintenance Repairer Goal (LTG) Pt will report compliance with HEP at least 3x/wk in order to promote independence with rehabilitation and transition into maintenance program upon discharge from PT LTG Duration 12 weeks Assessment Summary Assessment Pt tolerated session well. Continued hip hinge mechanics, initial c/o of discomfort in LB, cued pt to stabilize core to decrease lumbar lordosis, relieved pt discomfort. Progressed pt with increased weight on leg press this session for strength, pt tolerated well, denies pain, appropriate amount of fatigue. Pt reports doing better at carryover of HEP, though is not doing all of the exercises , going off of the ones pt rememebers, encouraged continued carryover for progress. Physical Therapy Plan Frequency and Duration Frequency of Treatment 2x/Week Duration of treatment (weeks) 12 Plan of Care Start Date 01/25/24 Plan of Care End Date 04/22/24 Therapeutic Interventions Therapeutic Interventions Balance Training,Gait Training ,Home Exercise Program,Joint Mobilizations,Manual Therapy, Neuromuscular Re-education, Orthotic/Prosthetic Management ,Patient/Caregiver Education, Self-Care/Home Management, Sensory Integration,Soft Tissue Mobilization,Taping, Therapeutic Activities, Therapeutic Exercises Modalities Cold Pack/Ice Massage,Electric Stimulation,Hot Packs, Traction- Mechanical, Vasopneumatic Devices Next Visit Focus/Plan Next Note Type Treatment Note Next Visit Plan Vitals each session review hip hinge/deadlift, lat and row on cables, s/l hip abduction, squat, hip hinge/ deadlift (resistance), Add: pallof progression, counter bird dog, , cardio, flexion-biased core (supine > sit > stand), calf stretch. Be aware of stenosis POC: J curl, cardio, deadlift, sudanese ball lat + december, trial step ups, leg press Flexion biased seated core Manual: soft tissue mobilization to HS, calves, lumbar spine
--- NOTE | 2024-03-17 12:39 | PT.OTN ---
Current Diagnoses Lumbago with sciatica, left side (03/17/24) Other lack of coordination (03/17/24) Weakness (03/17/24) Physical Therapy Treatment Note PT-OP-A Visit Information Start: 01/25/24 13:00 Freq: Status: Active Protocol: Document 03/17/24 10:47 NM (Rec: 03/17/24 11:17 NM [id number]) Out-Patient Physical Therapy Visit Information Visit Information Visit Type Treatment Note Visit Note pt late Visit Start Time 10:47 Visit Stop Time 11:15 Visit Number 14 PT-OP-B Current Condition Start: 01/25/24 13:00 Freq: Status: Active Protocol: Document 01/25/24 13:00 NM (Rec: 01/25/24 13:50 NM [id number]) Current Condition History of Current Condition Current Complaints pain, mobility History of Current Condition Pt presents with low back pain and with difficulty walking. He has diabetes and is trying to manage it with ambulation; states he has pain with ambulation. He states that he used to have L sided pain and L sided buttock pain. He reports that he has constant pain across his belt line. Pt reports that his pain started 8 years ago after his bypass surgery, used to walk 4 miles/ day; had B knee TKA. Reports OA in both knees and back. Reports no known PEARL for recent exacerbation. Reports difficulty with bending, transferring in/out car, transferring in/out of chair. No numbness/tingling in BLE, getting tested for neuropathy. Has circulation issues, dry skin and sores on BLE. Prior Treatments and Tests Previous PT for low back pain Current Functional Impairments (Reported) Functional Limitations- ADL's no difficulty with dressing Functional Limitations- Mobility/Gait walk 1 minute, standing ~4 hours Functional Limitations- Work/School watches 2 y.o. 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 Going to try going for a longer walk this weekend to see tolerance for activity . States he does deadlifts to help relieve his back discomfort when in his yard PT-OP-E Functional Tests Start: 01/25/24 13:00 Freq: Status: Active Protocol: Document 01/25/24 13:00 NM (Rec: 01/25/24 13:50 NM [id number]) Functional Tests 6 Minute Walk Test Distance 1073 ft Device Used none Comments symptoms to post leg to calf, back >LLE Five Times Sit to Stand Test Score 12 seconds Comments no pain, 20 chair Tinetti Balance and Gait Assessment Balance Score 12 Gait Score 6 Composite Score 18/28 Other Forward Trunk Flexion Test Name of Test measured finger tip to floor Score 15 Comment pain free, limited by HS length and abdomen PT-OP-F Manual Assessment Start: 01/25/24 13:00 Freq: Status: Active Protocol: Document 01/25/24 13:00 NM (Rec: 01/25/24 13:50 NM [id number]) Manual Assessments Soft Tissue Assessment Soft Tissue Mobility Assessment Decreased HS length, quad/hip flex length. Increased tone B lumbar paraspinals Joint Mobility Assessment Joint Mobility Assessment no hyper mobility, decreased hip mobility PT-OP-G Mobility & Gait Start: 01/25/24 13:00 Freq: Status: Active Protocol: Document 01/25/24 13:00 NM (Rec: 01/25/24 14:01 NM [id number]) OP Gait Assessment Gait Gait Assistance Required: Independent Distance (Feet) 1,073 Assistive Devices Assistive Device None Gait Deviations General Gait Pattern Antalgic,Step-to Gait Factors Limiting Gait Function Factors Limiting Gait Function Decreased Activity Tolerance, Decreased Sensation,Decreased Strength,Pain Comments Gait Comments As pt fatigues, increased antalgic gait and increased low back and L sided back pain . Demos B hip ER with gait throughout entirety of 6 MWT, L circumduction and flexed trunk compensation with fatigue PT-OP-H Neuro Start: 01/25/24 13:00 Freq: Status: Active Protocol: Document 01/25/24 13:00 NM (Rec: 01/25/24 13:50 NM [id number]) Sensation Evaluation Comments Summary Comments BLE and trunk intact equally to light touch sensation Deep Tendon Reflex & Clonus Assessment Deep Tendon Reflex Bilateral Achilles Deep Tendon Reflex 1+ Diminished Bilateral Bicep Deep Tendon Reflex 1+ Diminished PT-OP-J Posture/Palpation/Skin Start: 01/25/24 13:00 Freq: Status: Active Protocol: Document 01/25/24 13:00 NM (Rec: 01/25/24 14:01 NM [id number]) Posture Evaluation Position Standing Head/C-Spine Posture Forward Head L-Spine Posture Flattened,Decreased Lordosis Pelvis Posture Posterior Tilted Weight Distribution Weight Shifted Right Hip Posture (L) Externally Rotated,(R) Externally Rotated Knee Posture (L) Genu Varus,(R) Genu Varus Ankle/Foot Posture (L) Pronated,(R) Pronated Palpation Assessment Location lumbar spine Palpation Location glutes, paraspinals, spinous processes, tranverse processes , PSI Palpation Findings Soft Tissue Tightness Palpation Details Soft tissue tightness B paraspinals L>R, no tenderness to palpation along lumbar spine or B PSIS/SIJ. Skin Assessment Other Assessments Skin Assessment Comments BLE has dry skin, several closed wounds, red coloring, same temperature PT-OP-K Range of Motion Start: 01/25/24 13:00 Freq: Status: Active Protocol: Document 01/25/24 13:00 NM (Rec: 01/25/24 13:50 NM [id number]) Lumbar Spine Range of Motion Lumbar Spine Active Percentage Flexion 50 Extension 100 Rotation Left 3 Rotation Right 3 Lateral Flexion Left 100 Lateral Flexion Right 100 Comments Low back pain not reproduced with any movement Hip Goniometric Range of Motion Hip Right Flexion w/Knee Flexed 80 Straight Leg Raise 50 Internal Rotation 15 External Rotation 25 Left Flexion w/Knee Flexed 90 Straight Leg Raise 60 Internal Rotation 25 External Rotation 25 PT-OP-L Special Tests Start: 01/25/24 13:00 Freq: Status: Active Protocol: Document 01/25/24 13:00 NM (Rec: 01/25/24 13:50 NM [id number]) Special Tests Lumbar Spine Special Tests Distraction Test Results + Straight Leg Raise Test Results + Comments Bilateral Rodriguez/Quadrant Test Results - Slump Test Results + Comments Bilateral PT-OP-M Strength Start: 01/25/24 13:00 Freq: Status: Active Protocol: Document 03/03/24 07:32 NM (Rec: 03/03/24 08:19 NM [id number]) Hip Strength Hip Manual Muscle Testing Right Flexion (L2) 4- Good- Extension (S1) 4- Good- Abduction 4- Good- Adduction 4 Good External Rotation 4 Good Internal Rotation 4 Good Comments 03/03/24: 4/5 MMT Left Flexion (L2) 4- Good- Extension (S1) 4- Good- Abduction 4- Good- Adduction 4 Good External Rotation 4 Good Internal Rotation 4 Good Comments 03/03/24: 4/5 MMT PT-OP-Q Treatments Start: 01/25/24 13:00 Freq: Status: Active Protocol: Document 03/17/24 10:47 NM (Rec: 03/17/24 11:17 NM [id number]) Therapeutic Exercises Sitting Exercises hamstring stretch Side bilateral Equipment Used seated with BLE in front, gravity assisted Reps/Minutes 60 Comments positive feedback for stretch, no neural tension core strengthening Sitting Exercise Name lat pull down isometric on [place] citizen ball Side bilateral Resistance level 4 band Reps/Minutes 10x6 Comments with TrA activation Standing Exercises calf stretch Side bilateral Equipment Used SHALINI Reps/Minutes 60 Comments good feedback for stretch Therapeutic Activity Therapeutic Activity pulling Name upright row Reps/Minutes 2x10 Comments With core bracing and slight squat position to simulate working at force squat Comments squat tap to chair> overhead press, 3x5 ball at wall for form> 5# Cued for hip hinge. reports good muscle activation in glutes/quads hip hinge Comments 1. hip hinge with dowel, 2x10 2. deadlift with dumbbells (5# ea hand), 2x10 3. staggered stance deadlift, 1x10 ea with 5# db Improved form with hip hinge, no pain in back PT-OP-T Assessment and Plan Start: 01/25/24 13:00 Freq: Status: Active Protocol: Document 03/17/24 10:47 NM (Rec: 03/17/24 11:17 NM [id number]) Physical Therapy Assessment Goals Five Impairment strength Impairment BLE hip abd and ext 4-/5 MMT Short Term Goal (STG) Pt will improve bilateral hip abduction and extension strength to at least 4/5 MMT in order to demonstrate improved hip strength for gait , transfers, and ADLs. 03/03/24: 4/5 MMT STG Duration 6 weeks [facility] Skilled Nursing Goal (LTG) Pt will improve bilateral hip abduction and extension strength to at least 4+/5 MMT in order to demonstrate improved hip strength for gait , transfers, and ADLs. LTG Duration 12 weeks Four Impairment balance, function Impairment Tinetti 18/28 (gait 03/16, balance 09/21) Short Term Goal (STG) Pt will improve Tinetti score to at least 22/28 in order to demonstrate decreased fall risk and improved balance during ambulation 03/03/24: 23/28 STG Duration 6 weeks [facility] Skilled Nursing Goal (LTG) Pt will improve Tinetti score to at least 26/28 in order to demonstrate decreased fall risk and improved balance during ambulation LTG Duration 12 weeks Three Impairment strength, function Impairment 5x STS test 12 seconds from 20 plinth Short Term Goal (STG) Pt will improve 5x STS time to <12 seconds in order to demonstrate improved BLE strength for transfers, gait, and ADLs 03/03/24: 8.6 seconds STG Duration 6 weeks [facility] Skilled Nursing Goal (LTG) Pt will be able to perform at least 10 bilateral squats without UE support and without increase in baseline pain in order to demonstrate improved BLE strength for transfers, gait, and ADLs LTG Duration 12 weeks Two Impairment gait, 6 MWT Impairment 6MWT distance: 1073 ft Short Term Goal (STG) Pt will improve 6MWT distance by at least 200 ft (1 MCID) without increase in baseline pain in order to demonstrate improved activity tolerance and symptom management 03/03/24: 1015 ft, reports onset of back pain after 2 minutes, glute/quad symptoms after 3 minutes, 1 brief standing rest break STG Duration 6 weeks NOT MET Bodybuilder Goal (LTG) Pt will report that he able to ambulate at least 10 minutes before taking a seated rest break or increase in baseline pain LTG Duration 12 weeks One Impairment HEP Impairment not performing HEP Short Term Goal (STG) Pt will report compliance with HEP at least 2-3x/wk in order to maximize progression with PT and promote independence with exercise 03/03/24: reports not very compliant with HEP beyond stretching STG Duration 6 weeks NOT MET Skilled Nursing Goal (LTG) Pt will report compliance with HEP at least 3x/wk in order to promote independence with rehabilitation and transition into maintenance program upon discharge from PT LTG Duration 12 weeks Assessment Summary Assessment Pt tolerated session well but late so decreased time. Continued with core bracing during functional activities. Adding pulling and overhead reaching with squat to simulate ADLs and recreational activities. Cued for core bracing. Pt demonstrates improved hip hinge. Progressed to staggered stance RDL, which was challenging for pt. Continued with flexion biased strengthening, progressing to isometric hold on [place] citizen ball for dynamic core stabilization . No increase in neural symptoms or low back pain with activities, only BLE fatigue. Pt would benefit from skilled PT for lumbar and core strengthening in order to improve activity tolerance. Physical Therapy Plan Frequency and Duration Frequency of Treatment 2x/Week Duration of treatment (weeks) 12 Plan of Care Start Date 01/25/24 Plan of Care End Date 04/22/24 Therapeutic Interventions Therapeutic Interventions Balance Training,Gait Training ,Home Exercise Program,Joint Mobilizations,Manual Therapy, Neuromuscular Re-education, Orthotic/Prosthetic Management ,Patient/Caregiver Education, Self-Care/Home Management, Sensory Integration,Soft Tissue Mobilization,Taping, Therapeutic Activities, Therapeutic Exercises Modalities Cold Pack/Ice Massage,Electric Stimulation,Hot Packs, Traction- Mechanical, Vasopneumatic Devices Next Visit Focus/Plan Next Note Type Treatment Note Next Visit Plan Vitals each session upright/bent over row > press on cables, LAQ, s/l hip abduction, goblet squat, hip hinge/deadlift (resistance), progressive core strengthening with functional activities Add: pallof progression, counter bird dog, cardio, flexion-biased core (supine > sit > stand), calf stretch. Be aware of stenosis POC: J curl, cardio, deadlift, [place] citizen ball + december, trial step ups, leg press Flexion biased seated core Manual: soft tissue mobilization to HS, calves, lumbar spine
--- NOTE | 2024-03-22 15:13 | PT.OTN ---
Current Diagnoses Lumbago with sciatica, left side (03/22/24) Other lack of coordination (03/22/24) Weakness (03/22/24) Physical Therapy Treatment Note PT-OP-A Visit Information Start: 01/25/24 13:00 Freq: Status: Active Protocol: Document 03/22/24 10:50 SW (Rec: 03/22/24 11:17 SW [id number]) Out-Patient Physical Therapy Visit Information Visit Information Visit Type Treatment Note Visit Note KX after 19 visits vitals SOS: 153/70 BP 73 HR Mid session: 155/72 BP 85 HR Visit Start Time 10:30 Visit Stop Time 11:10 Visit Number 15 Number of EDUCATIONAL SPECIALIST Visits 1 Precautions Precautions hx bypass surgery, type II diabetes, heart disease VITALS PT-OP-B Current Condition Start: 01/25/24 13:00 Freq: Status: Active Protocol: Document 01/25/24 13:00 NM (Rec: 01/25/24 13:50 NM [id number]) Current Condition History of Current Condition Current Complaints pain, mobility History of Current Condition Pt presents with low back pain and with difficulty walking. He has diabetes and is trying to manage it with ambulation; states he has pain with ambulation. He states that he used to have L sided pain and L sided buttock pain. He reports that he has constant pain across his belt line. Pt reports that his pain started 8 years ago after his bypass surgery, used to walk 4 miles/ day; had B knee TKA. Reports OA in both knees and back. Reports no known PEARL for recent exacerbation. Reports difficulty with bending, transferring in/out car, transferring in/out of chair. No numbness/tingling in BLE, getting tested for neuropathy. Has circulation issues, dry skin and sores on BLE. Prior Treatments and Tests Previous PT for low back pain Current Functional Impairments (Reported) Functional Limitations- ADL's no difficulty with dressing Functional Limitations- Mobility/Gait walk 1 minute, standing ~4 hours Functional Limitations- Work/School watches 2 y.o. 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 PT-OP-E Functional Tests Start: 01/25/24 13:00 Freq: Status: Active Protocol: Document 01/25/24 13:00 NM (Rec: 01/25/24 13:50 NM [id number]) Functional Tests 6 Minute Walk Test Distance 1073 ft Device Used none Comments symptoms to post leg to calf, back >LLE Five Times Sit to Stand Test Score 12 seconds Comments no pain, 20 chair Tinetti Balance and Gait Assessment Balance Score 12 Gait Score 6 Composite Score 18/28 Other Forward Trunk Flexion Test Name of Test measured finger tip to floor Score 15 Comment pain free, limited by HS length and abdomen PT-OP-F Manual Assessment Start: 01/25/24 13:00 Freq: Status: Active Protocol: Document 01/25/24 13:00 NM (Rec: 01/25/24 13:50 NM [id number]) Manual Assessments Soft Tissue Assessment Soft Tissue Mobility Assessment Decreased HS length, quad/hip flex length. Increased tone B lumbar paraspinals Joint Mobility Assessment Joint Mobility Assessment no hyper mobility, decreased hip mobility PT-OP-G Mobility & Gait Start: 01/25/24 13:00 Freq: Status: Active Protocol: Document 01/25/24 13:00 NM (Rec: 01/25/24 14:01 NM [id number]) OP Gait Assessment Gait Gait Assistance Required: Independent Distance (Feet) 1,073 Assistive Devices Assistive Device None Gait Deviations General Gait Pattern Antalgic,Step-to Gait Factors Limiting Gait Function Factors Limiting Gait Function Decreased Activity Tolerance, Decreased Sensation,Decreased Strength,Pain Comments Gait Comments As pt fatigues, increased antalgic gait and increased low back and L sided back pain . Demos B hip ER with gait throughout entirety of 6 MWT, L circumduction and flexed trunk compensation with fatigue PT-OP-H Neuro Start: 01/25/24 13:00 Freq: Status: Active Protocol: Document 01/25/24 13:00 NM (Rec: 01/25/24 13:50 NM [id number]) Sensation Evaluation Comments Summary Comments BLE and trunk intact equally to light touch sensation Deep Tendon Reflex & Clonus Assessment Deep Tendon Reflex Bilateral Achilles Deep Tendon Reflex 1+ Diminished Bilateral Bicep Deep Tendon Reflex 1+ Diminished PT-OP-J Posture/Palpation/Skin Start: 01/25/24 13:00 Freq: Status: Active Protocol: Document 01/25/24 13:00 NM (Rec: 01/25/24 14:01 NM [id number]) Posture Evaluation Position Standing Head/C-Spine Posture Forward Head L-Spine Posture Flattened,Decreased Lordosis Pelvis Posture Posterior Tilted Weight Distribution Weight Shifted Right Hip Posture (L) Externally Rotated,(R) Externally Rotated Knee Posture (L) Genu Varus,(R) Genu Varus Ankle/Foot Posture (L) Pronated,(R) Pronated Palpation Assessment Location lumbar spine Palpation Location glutes, paraspinals, spinous processes, tranverse processes , PSI Palpation Findings Soft Tissue Tightness Palpation Details Soft tissue tightness B paraspinals L>R, no tenderness to palpation along lumbar spine or B PSIS/SIJ. Skin Assessment Other Assessments Skin Assessment Comments BLE has dry skin, several closed wounds, red coloring, same temperature PT-OP-K Range of Motion Start: 01/25/24 13:00 Freq: Status: Active Protocol: Document 01/25/24 13:00 NM (Rec: 01/25/24 13:50 NM [id number]) Lumbar Spine Range of Motion Lumbar Spine Active Percentage Flexion 50 Extension 100 Rotation Left 3 Rotation Right 3 Lateral Flexion Left 100 Lateral Flexion Right 100 Comments Low back pain not reproduced with any movement Hip Goniometric Range of Motion Hip Right Flexion w/Knee Flexed 80 Straight Leg Raise 50 Internal Rotation 15 External Rotation 25 Left Flexion w/Knee Flexed 90 Straight Leg Raise 60 Internal Rotation 25 External Rotation 25 PT-OP-L Special Tests Start: 01/25/24 13:00 Freq: Status: Active Protocol: Document 01/25/24 13:00 NM (Rec: 01/25/24 13:50 NM [id number]) Special Tests Lumbar Spine Special Tests Distraction Test Results + Straight Leg Raise Test Results + Comments Bilateral Rodriguez/Quadrant Test Results - Slump Test Results + Comments Bilateral PT-OP-M Strength Start: 01/25/24 13:00 Freq: Status: Active Protocol: Document 03/03/24 07:32 NM (Rec: 03/03/24 08:19 NM [id number]) Hip Strength Hip Manual Muscle Testing Right Flexion (L2) 4- Good- Extension (S1) 4- Good- Abduction 4- Good- Adduction 4 Good External Rotation 4 Good Internal Rotation 4 Good Comments 03/03/24: 4/5 MMT Left Flexion (L2) 4- Good- Extension (S1) 4- Good- Abduction 4- Good- Adduction 4 Good External Rotation 4 Good Internal Rotation 4 Good Comments 03/03/24: 4/5 MMT PT-OP-Q Treatments Start: 01/25/24 13:00 Freq: Status: Active Protocol: Document 03/22/24 10:50 SW (Rec: 03/22/24 11:17 [id number]) Gym Equipment Cable Column (Body Solid) Rows Details Cued open chest /c rhomboid fac, breathwork Resistance 3 plates w/ squat Reps/Time 3x10 Therapeutic Exercises Sitting Exercises hamstring stretch Side bilateral Equipment Used seated with BLE in front, gravity assisted Reps/Minutes 60 Comments positive feedback for stretch, no neural tension Palloff Press Sitting Exercise Name Standing Palloff with press and rotation Side bilateral Resistance Lvl 4 Reps/Minutes 20 ea Comments cued upright posture;denies pain Standing Exercises Squat Standing Exercise Name squat with overhead press Hip hinge Standing Exercise Name Hip Hinge Therapeutic Activity Therapeutic Activity squat Comments squat tap to chair> overhead press 5# Cued for hip hinge and core stabilization with overhead press. reports good muscle activation in glutes/quads hip hinge Comments 1. hip hinge with dowel, 2x10 2. deadlift with dumbbells (5# ea hand), 2x10 3. staggered stance deadlift, 1x10 ea with 5# db Improved form with hip hinge, no pain in back Gait Training Gait Activity Outdoor ambulation Description outdoor ambulation Level of Assistance SBA Surface sidewalk, gravel, grass Distance/Duration 2 x 150 ft Treatment Focus balance, strength and endurance PT-OP-T Assessment and Plan Start: 01/25/24 13:00 Freq: Status: Active Protocol: Document 03/22/24 10:50 SW (Rec: 03/22/24 11:17 [id number]) Physical Therapy Assessment Goals Five Impairment strength Impairment BLE hip abd and ext 4-/5 MMT Short Term Goal (STG) Pt will improve bilateral hip abduction and extension strength to at least 4/5 MMT in order to demonstrate improved hip strength for gait , transfers, and ADLs. 03/03/24: 4/5 MMT STG Duration 6 weeks MET Bike Technician Goal (LTG) Pt will improve bilateral hip abduction and extension strength to at least 4+/5 MMT in order to demonstrate improved hip strength for gait , transfers, and ADLs. LTG Duration 12 weeks Four Impairment balance, function Impairment Tinetti / (gait 03/16, balance 09/21) Short Term Goal (STG) Pt will improve Tinetti score to at least 22/28 in order to demonstrate decreased fall risk and improved balance during ambulation 03/03/24: STG Duration 6 weeks MET Bike Technician Goal (LTG) Pt will improve Tinetti score to at least 26/28 in order to demonstrate decreased fall risk and improved balance during ambulation LTG Duration 12 weeks Three Impairment strength, function Impairment 5x STS test 12 seconds from 20 plinth Short Term Goal (STG) Pt will improve 5x STS time to <12 seconds in order to demonstrate improved BLE strength for transfers, gait, and ADLs 03/03/24: 8.6 seconds STG Duration 6 weeks MET Bike Technician Goal (LTG) Pt will be able to perform at least 10 bilateral squats without UE support and without increase in baseline pain in order to demonstrate improved BLE strength for transfers, gait, and ADLs LTG Duration 12 weeks Two Impairment gait, 6 MWT Impairment 6MWT distance: 1073 ft Short Term Goal (STG) Pt will improve 6MWT distance by at least 200 ft (1 MCID) without increase in baseline pain in order to demonstrate improved activity tolerance and symptom management 03/03/24: 1015 ft, reports onset of back pain after 2 minutes, glute/quad symptoms after 3 minutes, 1 brief standing rest break STG Duration 6 weeks NOT [facility] Goal (LTG) Pt will report that he able to ambulate at least 10 minutes before taking a seated rest break or increase in baseline pain LTG Duration 12 weeks One Impairment HEP Impairment not performing HEP Short Term Goal (STG) Pt will report compliance with HEP at least 2-3x/wk in order to maximize progression with PT and promote independence with exercise 03/03/24: reports not very compliant with HEP beyond stretching STG Duration 6 weeks NOT [facility] Goal (LTG) Pt will report compliance with HEP at least 3x/wk in order to promote independence with rehabilitation and transition into maintenance program upon discharge from PT LTG Duration 12 weeks Assessment Summary Assessment Pt toleratd session well, denies back pain throughout session, reports feeling it in upper legs throughout session , describes as mm working, denies pain. Initiated cable rows with mini squat this session, good tolerance. Continued progress with squat to chair with overhead press, quick to fatigue rest break requried between sets. Inititated outdoor ambulation this session for cardio and balance, pt reports wanting to try walking more to be able to work up to walking trail, tolerated well reports LE fatigue denies back pain, cued pt for core stabilization while ambulating on unven gravel/grass, pt required standing rest break half way to catch breath. Progressed pt with increased resistance with palloff press, tolerated well with no pain. Physical Therapy Plan Frequency and Duration Frequency of Treatment 2x/Week Duration of treatment (weeks) 12 Plan of Care Start Date 01/25/24 Plan of Care End Date 04/22/24 Therapeutic Interventions Therapeutic Interventions Balance Training,Gait Training ,Home Exercise Program,Joint Mobilizations,Manual Therapy, Neuromuscular Re-education, Orthotic/Prosthetic Management ,Patient/Caregiver Education, Self-Care/Home Management, Sensory Integration,Soft Tissue Mobilization,Taping, Therapeutic Activities, Therapeutic Exercises Modalities Cold Pack/Ice Massage,Electric Stimulation,Hot Packs, Traction- Mechanical, Vasopneumatic Devices Next Visit Focus/Plan Next Note Type Treatment Note Next Visit Plan Vitals each session upright/bent over row > press on cables, LAQ, s/l hip abduction, goblet squat, hip hinge/deadlift (resistance), progressive core strengthening with functional activities Add: pallof progression, counter bird dog, cardio, flexion-biased core (supine > sit > stand), calf stretch. Be aware of stenosis POC: J curl, cardio, deadlift, cuban ball + december, trial step ups, leg press Flexion biased seated core Manual: soft tissue mobilization to HS, calves, lumbar spine
--- NOTE | 2024-03-23 11:20 | PT.OTN ---
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 He has diabetes and is trying to manage it with ambulation; states he has pain with ambulation. He states that he used to have L sided pain and L sided buttock pain. He reports that he has constant pain across his belt line. Pt reports that his pain started 8 years ago after his bypass surgery, used to walk 4 miles/ day; had B knee TKA. Reports OA in both knees and back. Reports no known PEARL for recent exacerbation. Reports difficulty with bending, transferring in/out car, transferring in/out of chair. No numbness/tingling in BLE, getting tested for neuropathy. Has circulation issues, dry skin and sores on BLE. Prior Treatments and Tests Previous PT for low back pain Current Functional Impairments (Reported) Functional Limitations- ADL's no difficulty with dressing Functional Limitations- Mobility/Gait walk 1 minute, standing ~4 hours Functional Limitations- Work/School watches 2 y.o. 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 Feels good after last tx and arrival. Doing exercises home with no issues. Seated LUE BP automated 161/ 73 HR 74, recheck 154/70 Hr 73 , feels fine and what has been getting when checks. PT-OP-E Functional Tests Start: 01/25/24 13:00 Freq: Status: Active Protocol: Document 01/25/24 13:00 NM (Rec: 01/25/24 13:50 NM [id number]) Functional Tests 6 Minute Walk Test Distance 1073 ft Device Used none Comments symptoms to post leg to calf, back >LLE Five Times Sit to Stand Test Score 12 seconds Comments no pain, 20 chair Tinetti Balance and Gait Assessment Balance Score 12 Gait Score 6 Composite Score 18/28 Other Forward Trunk Flexion Test Name of Test measured finger tip to floor Score 15 Comment pain free, limited by HS length and abdomen PT-OP-F Manual Assessment Start: 01/25/24 13:00 Freq: Status: Active Protocol: Document 01/25/24 13:00 NM (Rec: 01/25/24 13:50 NM [id number]) Manual Assessments Soft Tissue Assessment Soft Tissue Mobility Assessment Decreased HS length, quad/hip flex length. Increased tone B lumbar paraspinals Joint Mobility Assessment Joint Mobility Assessment no hyper mobility, decreased hip mobility PT-OP-G Mobility & Gait Start: 01/25/24 13:00 Freq: Status: Active Protocol: Document 01/25/24 13:00 NM (Rec: 01/25/24 14:01 NM [id number]) OP Gait Assessment Gait Gait Assistance Required: Independent Distance (Feet) 1,073 Assistive Devices Assistive Device None Gait Deviations General Gait Pattern Antalgic,Step-to Gait Factors Limiting Gait Function Factors Limiting Gait Function Decreased Activity Tolerance, Decreased Sensation,Decreased Strength,Pain Comments Gait Comments As pt fatigues, increased antalgic gait and increased low back and L sided back pain . Demos B hip ER with gait throughout entirety of 6 MWT, L circumduction and flexed trunk compensation with fatigue PT-OP-H Neuro Start: 01/25/24 13:00 Freq: Status: Active Protocol: Document 01/25/24 13:00 NM (Rec: 01/25/24 13:50 NM [id number]) Sensation Evaluation Comments Summary Comments BLE and trunk intact equally to light touch sensation Deep Tendon Reflex & Clonus Assessment Deep Tendon Reflex Bilateral Achilles Deep Tendon Reflex 1+ Diminished Bilateral Bicep Deep Tendon Reflex 1+ Diminished PT-OP-J Posture/Palpation/Skin Start: 01/25/24 13:00 Freq: Status: Active Protocol: Document 01/25/24 13:00 NM (Rec: 01/25/24 14:01 NM [id number]) Posture Evaluation Position Standing Head/C-Spine Posture Forward Head L-Spine Posture Flattened,Decreased Lordosis Pelvis Posture Posterior Tilted Weight Distribution Weight Shifted Right Hip Posture (L) Externally Rotated,(R) Externally Rotated Knee Posture (L) Genu Varus,(R) Genu Varus Ankle/Foot Posture (L) Pronated,(R) Pronated Palpation Assessment Location lumbar spine Palpation Location glutes, paraspinals, spinous processes, tranverse processes , PSI Palpation Findings Soft Tissue Tightness Palpation Details Soft tissue tightness B paraspinals L>R, no tenderness to palpation along lumbar spine or B PSIS/SIJ. Skin Assessment Other Assessments Skin Assessment Comments BLE has dry skin, several closed wounds, red coloring, same temperature PT-OP-K Range of Motion Start: 01/25/24 13:00 Freq: Status: Active Protocol: Document 01/25/24 13:00 NM (Rec: 01/25/24 13:50 NM [id number]) Lumbar Spine Range of Motion Lumbar Spine Active Percentage Flexion 50 Extension 100 Rotation Left 3 Rotation Right 3 Lateral Flexion Left 100 Lateral Flexion Right 100 Comments Low back pain not reproduced with any movement Hip Goniometric Range of Motion Hip Right Flexion w/Knee Flexed 80 Straight Leg Raise 50 Internal Rotation 15 External Rotation 25 Left Flexion w/Knee Flexed 90 Straight Leg Raise 60 Internal Rotation 25 External Rotation 25 PT-OP-L Special Tests Start: 01/25/24 13:00 Freq: Status: Active Protocol: Document 01/25/24 13:00 NM (Rec: 01/25/24 13:50 NM [id number]) Special Tests Lumbar Spine Special Tests Distraction Test Results + Straight Leg Raise Test Results + Comments Bilateral Rodriguez/Quadrant Test Results - Slump Test Results + Comments Bilateral PT-OP-M Strength Start: 01/25/24 13:00 Freq: Status: Active Protocol: Document 03/03/24 07:32 NM (Rec: 03/03/24 08:19 NM [id number]) Hip Strength Hip Manual Muscle Testing Right Flexion (L2) 4- Good- Extension (S1) 4- Good- Abduction 4- Good- Adduction 4 Good External Rotation 4 Good Internal Rotation 4 Good Comments 03/03/24: 4/5 MMT Left Flexion (L2) 4- Good- Extension (S1) 4- Good- Abduction 4- Good- Adduction 4 Good External Rotation 4 Good Internal Rotation 4 Good Comments 03/03/24: 4/5 MMT PT-OP-Q Treatments Start: 01/25/24 13:00 Freq: Status: Active Protocol: Document 03/23/24 10:42 SP (Rec: 03/23/24 11:27 SP [id number]) Therapeutic Exercises Sidelying Exercises hip abduction Sidelying Exercise Name reviewed past ex (PT POC) Side bilateral Equipment Used cued DF/ TKE, kick stand top hand on bottom arm stacked onside Reps/Minutes 2x8 R with 2 pause at end range, 4 reps then cramped stopped Comments Tactile cue TKE/ DF/ hip IR on side: improved form but fatiguing Sitting Exercises LAQ Sitting Exercise Name trialed in PT (PT POC) Side bilateral Resistance TB #2 aqua green Equipment Used mesh chair Reps/Minutes x15 Comments good quad tiring Standing Exercises modified bird dog Standing Exercise Name trialed in PT (PT POC) Equipment Used semi inclined off (plinth) Reps/Minutes 10 reps each side Comments Cued slow pacing, TA draw in for spinal support- good posture alignment ITB stretch Side left Equipment Used L side facing wall Reps/Minutes 30 SH Comments good stretch release after s/l L hip abduction glut med cramping rows Standing Exercise Name 1. upright row sunitha 2. bent over standing row sunitha Side bilateral Resistance TB #3 augustine green anchored under 1 foot Reps/Minutes 2x 10 each Comments trialed in PT (PT POC)- no pain reported soft knee flex TA & back pos. PT-OP-T Assessment and Plan Start: 01/25/24 13:00 Freq: Status: Active Protocol: Document 03/23/24 10:42 SP (Rec: 03/23/24 11:27 SP [id number]) Physical Therapy Assessment Goals Five Impairment strength Impairment BLE hip abd and ext 4-/5 MMT Short Term Goal (STG) Pt will improve bilateral hip abduction and extension strength to at least 4/5 MMT in order to demonstrate improved hip strength for gait , transfers, and ADLs. 03/03/24: 4/5 MMT STG Duration 6 weeks MET Retirement Goal (LTG) Pt will improve bilateral hip abduction and extension strength to at least 4+/5 MMT in order to demonstrate improved hip strength for gait , transfers, and ADLs. LTG Duration 12 weeks Four Impairment balance, function Impairment Tinetti /28 (gait 03/16, balance 09/21) Short Term Goal (STG) Pt will improve Tinetti score to at least 22/28 in order to demonstrate decreased fall risk and improved balance during ambulation 03/03/24: STG Duration 6 weeks MET Retirement Goal (LTG) Pt will improve Tinetti score to at least 26/28 in order to demonstrate decreased fall risk and improved balance during ambulation LTG Duration 12 weeks Three Impairment strength, function Impairment 5x STS test 12 seconds from 20 plinth Short Term Goal (STG) Pt will improve 5x STS time to <12 seconds in order to demonstrate improved BLE strength for transfers, gait, and ADLs 03/03/24: 8.6 seconds STG Duration 6 weeks MET Cupola Melter Helper Goal (LTG) Pt will be able to perform at least 10 bilateral squats without UE support and without increase in baseline pain in order to demonstrate improved BLE strength for transfers, gait, and ADLs LTG Duration 12 weeks Two Impairment gait, 6 MWT Impairment 6MWT distance: 1073 ft Short Term Goal (STG) Pt will improve 6MWT distance by at least 200 ft (1 MCID) without increase in baseline pain in order to demonstrate improved activity tolerance and symptom management 03/03/24: 1015 ft, reports onset of back pain after 2 minutes, glute/quad symptoms after 3 minutes, 1 brief standing rest break STG Duration 6 weeks NOT MET Retirement Goal (LTG) Pt will report that he able to ambulate at least 10 minutes before taking a seated rest break or increase in baseline pain LTG Duration 12 weeks One Impairment HEP Impairment not performing HEP Short Term Goal (STG) Pt will report compliance with HEP at least 2-3x/wk in order to maximize progression with PT and promote independence with exercise 03/03/24: reports not very compliant with HEP beyond stretching STG Duration 6 weeks NOT MET Retirement Goal (LTG) Pt will report compliance with HEP at least 3x/wk in order to promote independence with rehabilitation and transition into maintenance program upon discharge from PT LTG Duration 12 weeks Assessment Summary Assessment Pt tolerated session well, denies any pain but good muscle effort soreness over quads, hip abd, shoulders. Tx focused on functional ther ex with cues for alignment carryover as though picking up items yard work during standing ex, no adverse affects. Physical Therapy Plan Frequency and Duration Frequency of Treatment 2x/Week Duration of treatment (weeks) 12 Plan of Care Start Date 01/25/24 Plan of Care End Date 04/22/24 Therapeutic Interventions Therapeutic Interventions Balance Training,Gait Training ,Home Exercise Program,Joint Mobilizations,Manual Therapy, Neuromuscular Re-education, Orthotic/Prosthetic Management ,Patient/Caregiver Education, Self-Care/Home Management, Sensory Integration,Soft Tissue Mobilization,Taping, Therapeutic Activities, Therapeutic Exercises Modalities Cold Pack/Ice Massage,Electric Stimulation,Hot Packs, Traction- Mechanical, Vasopneumatic Devices Next Visit Focus/Plan Next Note Type Treatment Note Next Visit Plan Vitals each session Check added appts. Next tx: Check trial ther ex stand TB upright/bent over row, LAQ, AROM counter bird dog, s/l hip abduction last tx per PT recommendations. Continue mechanics goblet squat, hip hinge/deadlift (resistance), progressive core strengthening with functional activities Add: pallof progression, , cardio, flexion-biased core ( supine > sit > stand), calf stretch. Be aware of stenosis POC: J curl, cardio, deadlift, malagasy ball + december, trial step ups, leg press Flexion biased seated core Manual: soft tissue mobilization to HS, calves, lumbar spine
--- NOTE | 2024-03-29 12:48 | PT.OTN ---
Current Diagnoses Lumbago with sciatica, left side (03/29/24) Other lack of coordination (03/29/24) Weakness (03/29/24) Physical Therapy Treatment Note PT-OP-A Visit Information Start: 01/25/24 13:00 Freq: Status: Active Protocol: Document 03/29/24 09:05 NM (Rec: 03/29/24 09:46 NM [id number]) Out-Patient Physical Therapy Visit Information Visit Information Visit Type Treatment Note Visit Note KX after 19 visits vitals Visit Start Time 09:04 Visit Stop Time 09:44 Visit Number 17 Evaluation Information Evaluation Date 01/25/24 Precautions Precautions hx bypass surgery, type II diabetes, heart disease VITALS PT-OP-B Current Condition Start: 01/25/24 13:00 Freq: Status: Active Protocol: Document 01/25/24 13:00 NM (Rec: 01/25/24 13:50 NM [id number]) Current Condition History of Current Condition Current Complaints pain, mobility History of Current Condition Pt presents with low back pain and with difficulty walking. He has diabetes and is trying to manage it with ambulation; states he has pain with ambulation. He states that he used to have L sided pain and L sided buttock pain. He reports that he has constant pain across his belt line. Pt reports that his pain started 8 years ago after his bypass surgery, used to walk 4 miles/ day; had B knee TKA. Reports OA in both knees and back. Reports no known PEARL for recent exacerbation. Reports difficulty with bending, transferring in/out car, transferring in/out of chair. No numbness/tingling in BLE, getting tested for neuropathy. Has circulation issues, dry skin and sores on BLE. Prior Treatments and Tests Previous PT for low back pain Current Functional Impairments (Reported) Functional Limitations- ADL's no difficulty with dressing Functional Limitations- Mobility/Gait walk 1 minute, standing ~4 hours Functional Limitations- Work/School watches 2 y.o. 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 Has been walking 1 mile 3 different times this past week; takes several breaks during his walk, makes his legs sore, but he his is ambulating further ea time and cutting down on amount of time. Reports compliance with HEP. good tolerance for bent over rows PT-OP-E Functional Tests Start: 01/25/24 13:00 Freq: Status: Active Protocol: Document 01/25/24 13:00 NM (Rec: 01/25/24 13:50 NM [id number]) Functional Tests 6 Minute Walk Test Distance 1073 ft Device Used none Comments symptoms to post leg to calf, back >LLE Five Times Sit to Stand Test Score 12 seconds Comments no pain, 20 chair Tinetti Balance and Gait Assessment Balance Score 12 Gait Score 6 Composite Score 18/28 Other Forward Trunk Flexion Test Name of Test measured finger tip to floor Score 15 Comment pain free, limited by HS length and abdomen PT-OP-F Manual Assessment Start: 01/25/24 13:00 Freq: Status: Active Protocol: Document 01/25/24 13:00 NM (Rec: 01/25/24 13:50 NM [id number]) Manual Assessments Soft Tissue Assessment Soft Tissue Mobility Assessment Decreased HS length, quad/hip flex length. Increased tone B lumbar paraspinals Joint Mobility Assessment Joint Mobility Assessment no hyper mobility, decreased hip mobility PT-OP-G Mobility & Gait Start: 01/25/24 13:00 Freq: Status: Active Protocol: Document 01/25/24 13:00 NM (Rec: 01/25/24 14:01 NM [id number]) OP Gait Assessment Gait Gait Assistance Required: Independent Distance (Feet) 1,073 Assistive Devices Assistive Device None Gait Deviations General Gait Pattern Antalgic,Step-to Gait Factors Limiting Gait Function Factors Limiting Gait Function Decreased Activity Tolerance, Decreased Sensation,Decreased Strength,Pain Comments Gait Comments As pt fatigues, increased antalgic gait and increased low back and L sided back pain . Demos B hip ER with gait throughout entirety of 6 MWT, L circumduction and flexed trunk compensation with fatigue PT-OP-H Neuro Start: 01/25/24 13:00 Freq: Status: Active Protocol: Document 01/25/24 13:00 NM (Rec: 01/25/24 13:50 NM [id number]) Sensation Evaluation Comments Summary Comments BLE and trunk intact equally to light touch sensation Deep Tendon Reflex & Clonus Assessment Deep Tendon Reflex Bilateral Achilles Deep Tendon Reflex 1+ Diminished Bilateral Bicep Deep Tendon Reflex 1+ Diminished PT-OP-J Posture/Palpation/Skin Start: 01/25/24 13:00 Freq: Status: Active Protocol: Document 01/25/24 13:00 NM (Rec: 01/25/24 14:01 NM [id number]) Posture Evaluation Position Standing Head/C-Spine Posture Forward Head L-Spine Posture Flattened,Decreased Lordosis Pelvis Posture Posterior Tilted Weight Distribution Weight Shifted Right Hip Posture (L) Externally Rotated,(R) Externally Rotated Knee Posture (L) Genu Varus,(R) Genu Varus Ankle/Foot Posture (L) Pronated,(R) Pronated Palpation Assessment Location lumbar spine Palpation Location glutes, paraspinals, spinous processes, tranverse processes , PSI Palpation Findings Soft Tissue Tightness Palpation Details Soft tissue tightness B paraspinals L>R, no tenderness to palpation along lumbar spine or B PSIS/SIJ. Skin Assessment Other Assessments Skin Assessment Comments BLE has dry skin, several closed wounds, red coloring, same temperature PT-OP-K Range of Motion Start: 01/25/24 13:00 Freq: Status: Active Protocol: Document 01/25/24 13:00 NM (Rec: 01/25/24 13:50 NM [id number]) Lumbar Spine Range of Motion Lumbar Spine Active Percentage Flexion 50 Extension 100 Rotation Left 3 Rotation Right 3 Lateral Flexion Left 100 Lateral Flexion Right 100 Comments Low back pain not reproduced with any movement Hip Goniometric Range of Motion Hip Right Flexion w/Knee Flexed 80 Straight Leg Raise 50 Internal Rotation 15 External Rotation 25 Left Flexion w/Knee Flexed 90 Straight Leg Raise 60 Internal Rotation 25 External Rotation 25 PT-OP-L Special Tests Start: 01/25/24 13:00 Freq: Status: Active Protocol: Document 01/25/24 13:00 NM (Rec: 01/25/24 13:50 NM [id number]) Special Tests Lumbar Spine Special Tests Distraction Test Results + Straight Leg Raise Test Results + Comments Bilateral Rodriguez/Quadrant Test Results - Slump Test Results + Comments Bilateral PT-OP-M Strength Start: 01/25/24 13:00 Freq: Status: Active Protocol: Document 03/03/24 07:32 NM (Rec: 03/03/24 08:19 NM [id number]) Hip Strength Hip Manual Muscle Testing Right Flexion (L2) 4- Good- Extension (S1) 4- Good- Abduction 4- Good- Adduction 4 Good External Rotation 4 Good Internal Rotation 4 Good Comments 03/03/24: 4/5 MMT Left Flexion (L2) 4- Good- Extension (S1) 4- Good- Abduction 4- Good- Adduction 4 Good External Rotation 4 Good Internal Rotation 4 Good Comments 03/03/24: 4/5 MMT PT-OP-Q Treatments Start: 01/25/24 13:00 Freq: Status: Active Protocol: Document 03/29/24 09:05 NM (Rec: 03/29/24 09:46 NM [id number]) Cardio Equipment Recumbent Elliptical (Waygo) Duration (Minutes) 4 Resistance 2 Seat Position 14 Other warm up Therapeutic Exercises Sidelying Exercises side plank Sidelying Exercise Name modified side plank on plinth Side bilateral Reps/Minutes 30 ea direction Comments cued neutral spine, alignment of hips/knees Sitting Exercises LAQ Sitting Exercise Name cables Side bilateral Resistance 2 plates (performed single leg ea) Reps/Minutes 2x10 ea Comments medium-hard, fatiguing, good TKE Standing Exercises modified bird dog Standing Exercise Name 1. plank, 2. modified bird ( non-alt), 3. alternate mod bird dog Equipment Used plinth Reps/Minutes 1. 2x30, 2. 1x10, 3. 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 Side bilateral Resistance level 1 cable L > 2 plates on cables Reps/Minutes 2x10 ea Comments cued prn for scapular retraction, hip rot w/ trunk rot Squat Standing Exercise Name trialed split squat Side bilateral Equipment Used 1 hand support on //bars for balance Reps/Minutes 2x5 ea Comments knee moves over toes despite cues, limited knee flex overall; quad fatigue hip flexor stretch Side bilateral Equipment Used 8 step foot elevated Reps/Minutes 1x60 Comments reports good stretch; cued ppt , no stenosis symptoms Other Exercises self STMs Other Exercise Name quad and hamstrings Side bilateral Equipment Used rolling pin Reps/Minutes 2 min total Comments Feels good, between sets of core and leg exercises Self-Care/Home Management Treatment Education Patient Education Home Exercise Program Other Education HEP: counter bird dog PT-OP-T Assessment and Plan Start: 01/25/24 13:00 Freq: Status: Active Protocol: Document 03/29/24 09:05 NM (Rec: 03/29/24 09:46 NM [id number]) Physical Therapy Assessment Goals Five Impairment strength Impairment BLE hip abd and ext 4-/5 MMT Short Term Goal (STG) Pt will improve bilateral hip abduction and extension strength to at least 4/5 MMT in order to demonstrate improved hip strength for gait , transfers, and ADLs. 03/03/24: 4/5 MMT STG Duration 6 weeks MET Tappet Adjuster Goal (LTG) Pt will improve bilateral hip abduction and extension strength to at least 4+/5 MMT in order to demonstrate improved hip strength for gait , transfers, and ADLs. LTG Duration 12 weeks Four Impairment balance, function Impairment Tinetti /28 (gait 03/16, balance 09/21) Short Term Goal (STG) Pt will improve Tinetti score to at least 22/28 in order to demonstrate decreased fall risk and improved balance during ambulation 03/03/24: 23 STG Duration 6 weeks MET Mcfp Goal (LTG) Pt will improve Tinetti score to at least 26/28 in order to demonstrate decreased fall risk and improved balance during ambulation LTG Duration 12 weeks Three Impairment strength, function Impairment 5x STS test 12 seconds from 20 plinth Short Term Goal (STG) Pt will improve 5x STS time to <12 seconds in order to demonstrate improved BLE strength for transfers, gait, and ADLs 03/03/24: 8.6 seconds STG Duration 6 weeks MET Tappet Adjuster Goal (LTG) Pt will be able to perform at least 10 bilateral squats without UE support and without increase in baseline pain in order to demonstrate improved BLE strength for transfers, gait, and ADLs LTG Duration 12 weeks Two Impairment gait, 6 MWT Impairment 6MWT distance: 1073 ft Short Term Goal (STG) Pt will improve 6MWT distance by at least 200 ft (1 MCID) without increase in baseline pain in order to demonstrate improved activity tolerance and symptom management 03/03/24: 1015 ft, reports onset of back pain after 2 minutes, glute/quad symptoms after 3 minutes, 1 brief standing rest break STG Duration 6 weeks NOT MET Mcfp Goal (LTG) Pt will report that he able to ambulate at least 10 minutes before taking a seated rest break or increase in baseline pain 03/29/24: reports can ambulat 1 /2 mi before taking a seated rest break LTG Duration 12 weeks One Impairment HEP Impairment not performing HEP Short Term Goal (STG) Pt will report compliance with HEP at least 2-3x/wk in order to maximize progression with PT and promote independence with exercise 03/03/24: reports not very compliant with HEP beyond stretching STG Duration 6 weeks NOT MET Tappet Adjuster Goal (LTG) Pt will report compliance with HEP at least 3x/wk in order to promote independence with rehabilitation and transition into maintenance program upon discharge from PT LTG Duration 12 weeks Assessment Summary Assessment Pt tolerated session well, good response to exercises. Progressed LAQ to cables, which was challenging but pt able to perform with occasional cues for breathing. Initiated core strengthening with modified plinth planks and side planks. Pt requires cues to maintain alignment. Progressed to cable bent over single arm lawnmower rows to address trunk/hip rotation with core bracing. Pt with good response to progressions. Quads fatigue most quickly. Pt's overall tolerance to exercise and gait improving, per pt report and PT observation in clinic. Pt would benefit from skilled PT for BLE and trunk/core strengthening in order to improve activity tolerance and ability to participate in recreational activities/ADLs. Physical Therapy Plan Frequency and Duration Frequency of Treatment 2x/Week Duration of treatment (weeks) 12 Plan of Care Start Date 01/25/24 Plan of Care End Date 04/22/24 Therapeutic Interventions Therapeutic Interventions Balance Training,Gait Training ,Home Exercise Program,Joint Mobilizations,Manual Therapy, Neuromuscular Re-education, Orthotic/Prosthetic Management ,Patient/Caregiver Education, Self-Care/Home Management, Sensory Integration,Soft Tissue Mobilization,Taping, Therapeutic Activities, Therapeutic Exercises Modalities Cold Pack/Ice Massage,Electric Stimulation,Hot Packs, Traction- Mechanical, Vasopneumatic Devices Next Visit Focus/Plan Next Note Type Treatment Note Next Visit Plan Vitals each session Ask how long pt can ambulate before needs to take seated break and updates goal* Cont with spinal rotation, leg press, monster walks, LAQ, AROM counter bird dog, s/l hip abduction last tx per PT recommendations. Continue mechanics goblet squat, hip hinge/deadlift (resistance), progressive core strengthening with functional activities Add: pallof progression, , cardio, flexion-biased core ( supine > sit > stand), calf stretch. Be aware of stenosis POC: J curl, cardio, deadlift, [place] ball + december, trial step ups, leg press Flexion biased seated core Manual: soft tissue mobilization to HS, calves, lumbar spine
--- NOTE | 2024-03-31 11:19 | PT.OTN ---
Current Diagnoses Lumbago with sciatica, left side (03/31/24) Other lack of coordination (03/31/24) Weakness (03/31/24) Physical Therapy Treatment Note PT-OP-A Visit Information Start: 01/25/24 13:00 Freq: Status: Active Protocol: Document 03/31/24 10:32 NM (Rec: 03/31/24 11:19 NM [id number]) Out-Patient Physical Therapy Visit Information Visit Information Visit Type Treatment Note Visit Note KX after 19 visits start of session: 171/64, 4 min wait 145/66 bpm Visit Start Time 10:32 Visit Stop Time 11:12 Visit Number 18 Evaluation Information Evaluation Date 01/25/24 Precautions Precautions hx bypass surgery, type II diabetes, heart disease VITALS PT-OP-B Current Condition Start: 01/25/24 13:00 Freq: Status: Active Protocol: Document 01/25/24 13:00 NM (Rec: 01/25/24 13:50 NM [id number]) Current Condition History of Current Condition Current Complaints pain, mobility History of Current Condition Pt presents with low back pain and with difficulty walking. He has diabetes and is trying to manage it with ambulation; states he has pain with ambulation. He states that he used to have L sided pain and L sided buttock pain. He reports that he has constant pain across his belt line. Pt reports that his pain started 8 years ago after his bypass surgery, used to walk 4 miles/ day; had B knee TKA. Reports OA in both knees and back. Reports no known PEARL for recent exacerbation. Reports difficulty with bending, transferring in/out car, transferring in/out of chair. No numbness/tingling in BLE, getting tested for neuropathy. Has circulation issues, dry skin and sores on BLE. Prior Treatments and Tests Previous PT for low back pain Current Functional Impairments (Reported) Functional Limitations- ADL's no difficulty with dressing Functional Limitations- Mobility/Gait walk 1 minute, standing ~4 hours Functional Limitations- Work/School watches 2 y.o. 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 States not slowing him down any. Reports BP has been about 120's/80's. Reports HEP has been easy PT-OP-E Functional Tests Start: 01/25/24 13:00 Freq: Status: Active Protocol: Document 01/25/24 13:00 NM (Rec: 01/25/24 13:50 NM [id number]) Functional Tests 6 Minute Walk Test Distance 1073 ft Device Used none Comments symptoms to post leg to calf, back >LLE Five Times Sit to Stand Test Score 12 seconds Comments no pain, 20 chair Tinetti Balance and Gait Assessment Balance Score 12 Gait Score 6 Composite Score 18/28 Other Forward Trunk Flexion Test Name of Test measured finger tip to floor Score 15 Comment pain free, limited by HS length and abdomen PT-OP-F Manual Assessment Start: 01/25/24 13:00 Freq: Status: Active Protocol: Document 01/25/24 13:00 NM (Rec: 01/25/24 13:50 NM [id number]) Manual Assessments Soft Tissue Assessment Soft Tissue Mobility Assessment Decreased HS length, quad/hip flex length. Increased tone B lumbar paraspinals Joint Mobility Assessment Joint Mobility Assessment no hyper mobility, decreased hip mobility PT-OP-G Mobility & Gait Start: 01/25/24 13:00 Freq: Status: Active Protocol: Document 01/25/24 13:00 NM (Rec: 01/25/24 14:01 NM [id number]) OP Gait Assessment Gait Gait Assistance Required: Independent Distance (Feet) 1,073 Assistive Devices Assistive Device None Gait Deviations General Gait Pattern Antalgic,Step-to Gait Factors Limiting Gait Function Factors Limiting Gait Function Decreased Activity Tolerance, Decreased Sensation,Decreased Strength,Pain Comments Gait Comments As pt fatigues, increased antalgic gait and increased low back and L sided back pain . Demos B hip ER with gait throughout entirety of 6 MWT, L circumduction and flexed trunk compensation with fatigue PT-OP-H Neuro Start: 01/25/24 13:00 Freq: Status: Active Protocol: Document 01/25/24 13:00 NM (Rec: 01/25/24 13:50 NM [id number]) Sensation Evaluation Comments Summary Comments BLE and trunk intact equally to light touch sensation Deep Tendon Reflex & Clonus Assessment Deep Tendon Reflex Bilateral Achilles Deep Tendon Reflex 1+ Diminished Bilateral Bicep Deep Tendon Reflex 1+ Diminished PT-OP-J Posture/Palpation/Skin Start: 01/25/24 13:00 Freq: Status: Active Protocol: Document 01/25/24 13:00 NM (Rec: 01/25/24 14:01 NM [id number]) Posture Evaluation Position Standing Head/C-Spine Posture Forward Head L-Spine Posture Flattened,Decreased Lordosis Pelvis Posture Posterior Tilted Weight Distribution Weight Shifted Right Hip Posture (L) Externally Rotated,(R) Externally Rotated Knee Posture (L) Genu Varus,(R) Genu Varus Ankle/Foot Posture (L) Pronated,(R) Pronated Palpation Assessment Location lumbar spine Palpation Location glutes, paraspinals, spinous processes, tranverse processes , PSI Palpation Findings Soft Tissue Tightness Palpation Details Soft tissue tightness B paraspinals L>R, no tenderness to palpation along lumbar spine or B PSIS/SIJ. Skin Assessment Other Assessments Skin Assessment Comments BLE has dry skin, several closed wounds, red coloring, same temperature PT-OP-K Range of Motion Start: 01/25/24 13:00 Freq: Status: Active Protocol: Document 01/25/24 13:00 NM (Rec: 01/25/24 13:50 NM [id number]) Lumbar Spine Range of Motion Lumbar Spine Active Percentage Flexion 50 Extension 100 Rotation Left 3 Rotation Right 3 Lateral Flexion Left 100 Lateral Flexion Right 100 Comments Low back pain not reproduced with any movement Hip Goniometric Range of Motion Hip Right Flexion w/Knee Flexed 80 Straight Leg Raise 50 Internal Rotation 15 External Rotation 25 Left Flexion w/Knee Flexed 90 Straight Leg Raise 60 Internal Rotation 25 External Rotation 25 PT-OP-L Special Tests Start: 01/25/24 13:00 Freq: Status: Active Protocol: Document 01/25/24 13:00 NM (Rec: 01/25/24 13:50 NM [id number]) Special Tests Lumbar Spine Special Tests Distraction Test Results + Straight Leg Raise Test Results + Comments Bilateral Rodriguez/Quadrant Test Results - Slump Test Results + Comments Bilateral PT-OP-M Strength Start: 01/25/24 13:00 Freq: Status: Active Protocol: Document 03/03/24 07:32 NM (Rec: 03/03/24 08:19 NM [id number]) Hip Strength Hip Manual Muscle Testing Right Flexion (L2) 4- Good- Extension (S1) 4- Good- Abduction 4- Good- Adduction 4 Good External Rotation 4 Good Internal Rotation 4 Good Comments 03/03/24: 4/5 MMT Left Flexion (L2) 4- Good- Extension (S1) 4- Good- Abduction 4- Good- Adduction 4 Good External Rotation 4 Good Internal Rotation 4 Good Comments 03/03/24: 4/5 MMT PT-OP-Q Treatments Start: 01/25/24 13:00 Freq: Status: Active Protocol: Document 03/31/24 10:32 NM (Rec: 03/31/24 11:19 NM [id number]) Therapeutic Exercises Standing Exercises standing core Standing Exercise Name lat pull down + december, Side bilateral Resistance level 3 band > level 4 band Reps/Minutes 1. 2x30 ea pallof Standing Exercise Name 1. press w/ squat, 2. press w/ rotation Side bilateral Resistance level 3 band (2 bands) Reps/Minutes 1. 30 ea direction, 2. 10 ea step up Standing Exercise Name 4: fwd, lateral Side bilateral Equipment Used hands on hips for self-tactile cue for hip hinge, slight fwd lean Reps/Minutes 10 ea direction, ea leg Comments good quad fatigue; mild knee pain w/ fwd; cued neutral foot position modified bird dog Standing Exercise Name 1. non-alt, 2. alternating bird dog Side bilateral Resistance 1# at wrists, 4# at ankles Equipment Used plinth Reps/Minutes 1. 10 ea side, 2. 10 ea side Comments improved neutral spine rows Standing Exercise Name bent over application analyst row with trunk rotation Side bilateral Resistance 2 plates Reps/Minutes 15 ea Comments cued scapular retraction; good pivot and form w/ reps, pain free back/legs hip flexor stretch Side bilateral Equipment Used 8 step foot elevated Reps/Minutes 1x30 Comments reports good stretch; cued ppt , no stenosis symptoms Counter stretch Side bilateral Reps/Minutes 5x10 Comments post rows Neuro Re-Education Treatment Other Activities Tinetti Comments Marked down for wide based gait, less for balance than due to posture PT-OP-T Assessment and Plan Start: 01/25/24 13:00 Freq: Status: Active Protocol: Document 03/31/24 10:32 NM (Rec: 03/31/24 11:19 NM [id number]) Physical Therapy Assessment Goals Five Impairment strength Impairment BLE hip abd and ext 4-/5 MMT Short Term Goal (STG) Pt will improve bilateral hip abduction and extension strength to at least 4/5 MMT in order to demonstrate improved hip strength for gait , transfers, and ADLs. 03/03/24: 4/5 MMT STG Duration 6 weeks MET Intermediate Goal (LTG) Pt will improve bilateral hip abduction and extension strength to at least 4+/5 MMT in order to demonstrate improved hip strength for gait , transfers, and ADLs. LTG Duration 12 weeks Four Impairment balance, function Impairment Tinetti (gait 03/16, balance 09/21) Short Term Goal (STG) Pt will improve Tinetti score to at least 22/28 in order to demonstrate decreased fall risk and improved balance during ambulation 03/03/24: STG Duration 6 weeks MET Utility Tech Goal (LTG) Pt will improve Tinetti score to at least 26/28 in order to demonstrate decreased fall risk and improved balance during ambulation 03/31/24: LTG Duration 12 weeks MET Three Impairment strength, function Impairment 5x STS test 12 seconds from 20 plinth Short Term Goal (STG) Pt will improve 5x STS time to <12 seconds in order to demonstrate improved BLE strength for transfers, gait, and ADLs 03/03/24: 8.6 seconds STG Duration 6 weeks MET Utility Tech Goal (LTG) Pt will be able to perform at least 10 bilateral squats without UE support and without increase in baseline pain in order to demonstrate improved BLE strength for transfers, gait, and ADLs LTG Duration 12 weeks Two Impairment gait, 6 MWT Impairment 6MWT distance: 1073 ft Short Term Goal (STG) Pt will improve 6MWT distance by at least 200 ft (1 MCID) without increase in baseline pain in order to demonstrate improved activity tolerance and symptom management 03/03/24: 1015 ft, reports onset of back pain after 2 minutes, glute/quad symptoms after 3 minutes, 1 brief standing rest break STG Duration 6 weeks NOT MET Utility Tech Goal (LTG) Pt will report that he able to ambulate at least 10 minutes before taking a seated rest break or increase in baseline pain 03/29/24: reports can ambulat 1 /2 mi before taking a seated rest break LTG Duration 12 weeks One Impairment HEP Impairment not performing HEP Short Term Goal (STG) Pt will report compliance with HEP at least 2-3x/wk in order to maximize progression with PT and promote independence with exercise 03/03/24: reports not very compliant with HEP beyond stretching STG Duration 6 weeks NOT MET Utility Tech Goal (LTG) Pt will report compliance with HEP at least 3x/wk in order to promote independence with rehabilitation and transition into maintenance program upon discharge from PT 03/31/24: performing ambulation 2-3x/wk, HEP 3x/wk LTG Duration 12 weeks MET Assessment Summary Assessment Pt tolerated session well. Elevated blood pressure at beginning of session, reduced with rest x4 minutes and larger cuff; elevation likely due to cuff size initially. Continued with core/trunk strengthening. Initiated pallof press and added trunk rotation in standing instead of sitting. Cued to pivot whole body vs just trunk. Still has good tolerance for application analyst rows, but requires cues for scapular retraction. Pt Tinetti score improved, now 27/28 (goal met). Able to progress with good neutral spine to resisted modified bird dog, pain free. Pt would benefit from skilled PT for global trunk/BLE strengthening and endurance training in order to improve activity tolerance and return to PLOF. Physical Therapy Plan Frequency and Duration Frequency of Treatment 2x/Week Duration of treatment (weeks) 12 Plan of Care Start Date 01/25/24 Plan of Care End Date 04/22/24 Therapeutic Interventions Therapeutic Interventions Balance Training,Gait Training ,Home Exercise Program,Joint Mobilizations,Manual Therapy, Neuromuscular Re-education, Orthotic/Prosthetic Management ,Patient/Caregiver Education, Self-Care/Home Management, Sensory Integration,Soft Tissue Mobilization,Taping, Therapeutic Activities, Therapeutic Exercises Modalities Cold Pack/Ice Massage,Electric Stimulation,Hot Packs, Traction- Mechanical, Vasopneumatic Devices Next Visit Focus/Plan Next Note Type Treatment Note Next Visit Plan Vitals each session Ask how long pt can ambulate before needs to take seated break and updates goal* Pallof w/ rot, retry split squat if able vs wall squat hold (w/ or w/o ball), LAQ, lat pull down and rows; check goals for squat and 6 MWT Be aware of stenosis Manual: soft tissue mobilization to HS, calves, lumbar spine
--- NOTE | 2024-04-05 13:02 | PT.OTN ---
Current Diagnoses Lumbago with sciatica, left side (04/05/24) Other lack of coordination (04/05/24) Weakness (04/05/24) Physical Therapy Treatment Note PT-OP-A Visit Information Start: 01/25/24 13:00 Freq: Status: Active Protocol: Document 04/05/24 10:38 SW (Rec: 04/05/24 13:01 [id number]) Out-Patient Physical Therapy Visit Information Visit Information Visit Type Treatment Note Visit Note KX after 19 visits start of session: 129/63 End of session: 152/64 Visit Start Time 10:35 Visit Stop Time 11:15 Visit Number 19 Number of REDIPPER Visits 1 Precautions Precautions hx bypass surgery, type II diabetes, heart disease VITALS PT-OP-B Current Condition Start: 01/25/24 13:00 Freq: Status: Active Protocol: Document 01/25/24 13:00 NM (Rec: 01/25/24 13:50 NM [id number]) Current Condition History of Current Condition Current Complaints pain, mobility History of Current Condition Pt presents with low back pain and with difficulty walking. He has diabetes and is trying to manage it with ambulation; states he has pain with ambulation. He states that he used to have L sided pain and L sided buttock pain. He reports that he has constant pain across his belt line. Pt reports that his pain started 8 years ago after his bypass surgery, used to walk 4 miles/ day; had B knee TKA. Reports OA in both knees and back. Reports no known PEARL for recent exacerbation. Reports difficulty with bending, transferring in/out car, transferring in/out of chair. No numbness/tingling in BLE, getting tested for neuropathy. Has circulation issues, dry skin and sores on BLE. Prior Treatments and Tests Previous PT for low back pain Current Functional Impairments (Reported) Functional Limitations- ADL's no difficulty with dressing Functional Limitations- Mobility/Gait walk 1 minute, standing ~4 hours Functional Limitations- Work/School watches 2 y.o. 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 PT-OP-E Functional Tests Start: 01/25/24 13:00 Freq: Status: Active Protocol: Document 01/25/24 13:00 NM (Rec: 01/25/24 13:50 NM [id number]) Functional Tests 6 Minute Walk Test Distance 1073 ft Device Used none Comments symptoms to post leg to calf, back >LLE Five Times Sit to Stand Test Score 12 seconds Comments no pain, 20 chair Tinetti Balance and Gait Assessment Balance Score 12 Gait Score 6 Composite Score 18/28 Other Forward Trunk Flexion Test Name of Test measured finger tip to floor Score 15 Comment pain free, limited by HS length and abdomen PT-OP-F Manual Assessment Start: 01/25/24 13:00 Freq: Status: Active Protocol: Document 01/25/24 13:00 NM (Rec: 01/25/24 13:50 NM [id number]) Manual Assessments Soft Tissue Assessment Soft Tissue Mobility Assessment Decreased HS length, quad/hip flex length. Increased tone B lumbar paraspinals Joint Mobility Assessment Joint Mobility Assessment no hyper mobility, decreased hip mobility PT-OP-G Mobility & Gait Start: 01/25/24 13:00 Freq: Status: Active Protocol: Document 01/25/24 13:00 NM (Rec: 01/25/24 14:01 NM [id number]) OP Gait Assessment Gait Gait Assistance Required: Independent Distance (Feet) 1,073 Assistive Devices Assistive Device None Gait Deviations General Gait Pattern Antalgic,Step-to Gait Factors Limiting Gait Function Factors Limiting Gait Function Decreased Activity Tolerance, Decreased Sensation,Decreased Strength,Pain Comments Gait Comments As pt fatigues, increased antalgic gait and increased low back and L sided back pain . Demos B hip ER with gait throughout entirety of 6 MWT, L circumduction and flexed trunk compensation with fatigue PT-OP-H Neuro Start: 01/25/24 13:00 Freq: Status: Active Protocol: Document 01/25/24 13:00 NM (Rec: 01/25/24 13:50 NM [id number]) Sensation Evaluation Comments Summary Comments BLE and trunk intact equally to light touch sensation Deep Tendon Reflex & Clonus Assessment Deep Tendon Reflex Bilateral Achilles Deep Tendon Reflex 1+ Diminished Bilateral Bicep Deep Tendon Reflex 1+ Diminished PT-OP-J Posture/Palpation/Skin Start: 01/25/24 13:00 Freq: Status: Active Protocol: Document 01/25/24 13:00 NM (Rec: 01/25/24 14:01 NM [id number]) Posture Evaluation Position Standing Head/C-Spine Posture Forward Head L-Spine Posture Flattened,Decreased Lordosis Pelvis Posture Posterior Tilted Weight Distribution Weight Shifted Right Hip Posture (L) Externally Rotated,(R) Externally Rotated Knee Posture (L) Genu Varus,(R) Genu Varus Ankle/Foot Posture (L) Pronated,(R) Pronated Palpation Assessment Location lumbar spine Palpation Location glutes, paraspinals, spinous processes, tranverse processes , PSI Palpation Findings Soft Tissue Tightness Palpation Details Soft tissue tightness B paraspinals L>R, no tenderness to palpation along lumbar spine or B PSIS/SIJ. Skin Assessment Other Assessments Skin Assessment Comments BLE has dry skin, several closed wounds, red coloring, same temperature PT-OP-K Range of Motion Start: 01/25/24 13:00 Freq: Status: Active Protocol: Document 01/25/24 13:00 NM (Rec: 01/25/24 13:50 NM [id number]) Lumbar Spine Range of Motion Lumbar Spine Active Percentage Flexion 50 Extension 100 Rotation Left 3 Rotation Right 3 Lateral Flexion Left 100 Lateral Flexion Right 100 Comments Low back pain not reproduced with any movement Hip Goniometric Range of Motion Hip Right Flexion w/Knee Flexed 80 Straight Leg Raise 50 Internal Rotation 15 External Rotation 25 Left Flexion w/Knee Flexed 90 Straight Leg Raise 60 Internal Rotation 25 External Rotation 25 PT-OP-L Special Tests Start: 01/25/24 13:00 Freq: Status: Active Protocol: Document 01/25/24 13:00 NM (Rec: 01/25/24 13:50 NM [id number]) Special Tests Lumbar Spine Special Tests Distraction Test Results + Straight Leg Raise Test Results + Comments Bilateral Rodriguez/Quadrant Test Results - Slump Test Results + Comments Bilateral PT-OP-M Strength Start: 01/25/24 13:00 Freq: Status: Active Protocol: Document 03/03/24 07:32 NM (Rec: 03/03/24 08:19 NM [id number]) Hip Strength Hip Manual Muscle Testing Right Flexion (L2) 4- Good- Extension (S1) 4- Good- Abduction 4- Good- Adduction 4 Good External Rotation 4 Good Internal Rotation 4 Good Comments 03/03/24: 4/5 MMT Left Flexion (L2) 4- Good- Extension (S1) 4- Good- Abduction 4- Good- Adduction 4 Good External Rotation 4 Good Internal Rotation 4 Good Comments 03/03/24: 4/5 MMT PT-OP-Q Treatments Start: 01/25/24 13:00 Freq: Status: Active Protocol: Document 04/05/24 10:38 SW (Rec: 04/05/24 13:01 [id number]) Therapeutic Exercises Standing Exercises standing core Standing Exercise Name lat pull down + march, Side bilateral Resistance level 4 band x 2 level 5 band x1 Reps/Minutes 1. 3x30 ea pallof Standing Exercise Name 1. press w/ squat, 2. press w/ rotation Side bilateral Resistance level 3 band (2 bands) Reps/Minutes 1. 30 ea direction, 2. 10 ea step up Standing Exercise Name 4: fwd, lateral Side bilateral Equipment Used hands on hips for self-tactile cue for hip hinge, slight fwd lean Reps/Minutes 10 ea direction, ea leg Comments good quad fatigue; mild knee pain w/ fwd; cued neutral foot position modified bird dog Standing Exercise Name alternating bird dog Side bilateral Resistance 1# at wrists, 4# at ankles Equipment Used plinth Reps/Minutes 10 ea side Comments improved neutral spine rows Standing Exercise Name bent over naval inspector row with trunk rotation Side bilateral Resistance 2 plates Reps/Minutes x15 ea Comments cued scapular retraction; good pivot and form w/ reps, pain free back/legs Squat Standing Exercise Name Trialed split squat Side bilateral Equipment Used 1 hand support on //bars for balance Reps/Minutes 2x5 ea Comments knee moves over toes despite cues, limited knee flex overall; quad fatigue calf stretch Standing Exercise Name Between exercises Side bilateral Equipment Used SHALINI Reps/Minutes 60 Comments good feedback for stretch PT-OP-T Assessment and Plan Start: 01/25/24 13:00 Freq: Status: Active Protocol: Document 04/05/24 10:38 (Rec: 04/05/24 13:01 [id number]) Physical Therapy Assessment Goals Five Impairment strength Impairment BLE hip abd and ext 4-/5 MMT Short Term Goal (STG) Pt will improve bilateral hip abduction and extension strength to at least 4/5 MMT in order to demonstrate improved hip strength for gait , transfers, and ADLs. 03/03/24: 4/5 MMT STG Duration 6 weeks MET Lead Atg Developer Goal (LTG) Pt will improve bilateral hip abduction and extension strength to at least 4+/5 MMT in order to demonstrate improved hip strength for gait , transfers, and ADLs. LTG Duration 12 weeks Four Impairment balance, function Impairment Tinetti / (gait 03/16, balance 09/21) Short Term Goal (STG) Pt will improve Tinetti score to at least 22/28 in order to demonstrate decreased fall risk and improved balance during ambulation 03/03/24: STG Duration 6 weeks MET Care Home Goal (LTG) Pt will improve Tinetti score to at least 26/28 in order to demonstrate decreased fall risk and improved balance during ambulation 03/31/24: LTG Duration 12 weeks MET Three Impairment strength, function Impairment 5x STS test 12 seconds from 20 plinth Short Term Goal (STG) Pt will improve 5x STS time to <12 seconds in order to demonstrate improved BLE strength for transfers, gait, and ADLs 03/03/24: 8.6 seconds STG Duration 6 weeks MET Care Home Goal (LTG) Pt will be able to perform at least 10 bilateral squats without UE support and without increase in baseline pain in order to demonstrate improved BLE strength for transfers, gait, and ADLs LTG Duration 12 weeks Two Impairment gait, 6 MWT Impairment 6MWT distance: 1073 ft Short Term Goal (STG) Pt will improve 6MWT distance by at least 200 ft (1 MCID) without increase in baseline pain in order to demonstrate improved activity tolerance and symptom management 03/03/24: 1015 ft, reports onset of back pain after 2 minutes, glute/quad symptoms after 3 minutes, 1 brief standing rest break STG Duration 6 weeks NOT MET Care Home Goal (LTG) Pt will report that he able to ambulate at least 10 minutes before taking a seated rest break or increase in baseline pain 03/29/24: reports can ambulat 1 /2 mi before taking a seated rest break LTG Duration 12 weeks One Impairment HEP Impairment not performing HEP Short Term Goal (STG) Pt will report compliance with HEP at least 2-3x/wk in order to maximize progression with PT and promote independence with exercise 03/03/24: reports not very compliant with HEP beyond stretching STG Duration 6 weeks NOT MET Lead Atg Developer Goal (LTG) Pt will report compliance with HEP at least 3x/wk in order to promote independence with rehabilitation and transition into maintenance program upon discharge from PT 03/31/24: performing ambulation 2-3x/wk, HEP 3x/wk LTG Duration 12 weeks MET Assessment Summary Assessment Pt blood pressure at start of session improved from last session. Continued step ups today for strengthening, pt continued to require cues to decrease quad dominance pattern, as well as alignment at bilateral hips/feet placement, quick to fatigue. Trialed split lunge this session, pt had difficulty coordinating the correct body mechanics and knee flexion, cues for decreasing anterior translation of the knee creating discomfort, discontinued for today. Pt quick to fatigue throughout session, occasional rest breaks between exercises due to visible SOB. Assess pt goals within plan and progress as able. Physical Therapy Plan Frequency and Duration Frequency of Treatment 2x/Week Duration of treatment (weeks) 12 Plan of Care Start Date 01/25/24 Plan of Care End Date 04/22/24 Therapeutic Interventions Therapeutic Interventions Balance Training,Gait Training ,Home Exercise Program,Joint Mobilizations,Manual Therapy, Neuromuscular Re-education, Orthotic/Prosthetic Management ,Patient/Caregiver Education, Self-Care/Home Management, Sensory Integration,Soft Tissue Mobilization,Taping, Therapeutic Activities, Therapeutic Exercises Modalities Cold Pack/Ice Massage,Electric Stimulation,Hot Packs, Traction- Mechanical, Vasopneumatic Devices Next Visit Focus/Plan Next Note Type Treatment Note Next Visit Plan Vitals each session Ask how long pt can ambulate before needs to take seated break and updates goal* Pallof w/ rot, retry split squat if able vs wall squat hold (w/ or w/o ball), LAQ, lat pull down and rows; check goals for squat and 6 MWT Be aware of stenosis Manual: soft tissue mobilization to HS, calves, lumbar spine
--- NOTE | 2024-04-12 13:05 | PT.OTN ---
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 He has diabetes and is trying to manage it with ambulation; states he has pain with ambulation. He states that he used to have L sided pain and L sided buttock pain. He reports that he has constant pain across his belt line. Pt reports that his pain started 8 years ago after his bypass surgery, used to walk 4 miles/ day; had B knee TKA. Reports OA in both knees and back. Reports no known PEARL for recent exacerbation. Reports difficulty with bending, transferring in/out car, transferring in/out of chair. No numbness/tingling in BLE, getting tested for neuropathy. Has circulation issues, dry skin and sores on BLE. Prior Treatments and Tests Previous PT for low back pain Current Functional Impairments (Reported) Functional Limitations- ADL's no difficulty with dressing Functional Limitations- Mobility/Gait walk 1 minute, standing ~4 hours Functional Limitations- Work/School watches 2 y.o. 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 Pt reports able to reach ~1/2 a mile without stopping, though usually takes a break around 1/4 mile. PT-OP-E Functional Tests Start: 01/25/24 13:00 Freq: Status: Active Protocol: Document 01/25/24 13:00 NM (Rec: 01/25/24 13:50 NM [id number]) Functional Tests 6 Minute Walk Test Distance 1073 ft Device Used none Comments symptoms to post leg to calf, back >LLE Five Times Sit to Stand Test Score 12 seconds Comments no pain, 20 chair Tinetti Balance and Gait Assessment Balance Score 12 Gait Score 6 Composite Score 18/28 Other Forward Trunk Flexion Test Name of Test measured finger tip to floor Score 15 Comment pain free, limited by HS length and abdomen PT-OP-F Manual Assessment Start: 01/25/24 13:00 Freq: Status: Active Protocol: Document 01/25/24 13:00 NM (Rec: 01/25/24 13:50 NM [id number]) Manual Assessments Soft Tissue Assessment Soft Tissue Mobility Assessment Decreased HS length, quad/hip flex length. Increased tone B lumbar paraspinals Joint Mobility Assessment Joint Mobility Assessment no hyper mobility, decreased hip mobility PT-OP-G Mobility & Gait Start: 01/25/24 13:00 Freq: Status: Active Protocol: Document 01/25/24 13:00 NM (Rec: 01/25/24 14:01 NM [id number]) OP Gait Assessment Gait Gait Assistance Required: Independent Distance (Feet) 1,073 Assistive Devices Assistive Device None Gait Deviations General Gait Pattern Antalgic,Step-to Gait Factors Limiting Gait Function Factors Limiting Gait Function Decreased Activity Tolerance, Decreased Sensation,Decreased Strength,Pain Comments Gait Comments As pt fatigues, increased antalgic gait and increased low back and L sided back pain . Demos B hip ER with gait throughout entirety of 6 MWT, L circumduction and flexed trunk compensation with fatigue PT-OP-H Neuro Start: 01/25/24 13:00 Freq: Status: Active Protocol: Document 01/25/24 13:00 NM (Rec: 01/25/24 13:50 NM [id number]) Sensation Evaluation Comments Summary Comments BLE and trunk intact equally to light touch sensation Deep Tendon Reflex & Clonus Assessment Deep Tendon Reflex Bilateral Achilles Deep Tendon Reflex 1+ Diminished Bilateral Bicep Deep Tendon Reflex 1+ Diminished PT-OP-J Posture/Palpation/Skin Start: 01/25/24 13:00 Freq: Status: Active Protocol: Document 01/25/24 13:00 NM (Rec: 01/25/24 14:01 NM [id number]) Posture Evaluation Position Standing Head/C-Spine Posture Forward Head L-Spine Posture Flattened,Decreased Lordosis Pelvis Posture Posterior Tilted Weight Distribution Weight Shifted Right Hip Posture (L) Externally Rotated,(R) Externally Rotated Knee Posture (L) Genu Varus,(R) Genu Varus Ankle/Foot Posture (L) Pronated,(R) Pronated Palpation Assessment Location lumbar spine Palpation Location glutes, paraspinals, spinous processes, tranverse processes , PSI Palpation Findings Soft Tissue Tightness Palpation Details Soft tissue tightness B paraspinals L>R, no tenderness to palpation along lumbar spine or B PSIS/SIJ. Skin Assessment Other Assessments Skin Assessment Comments BLE has dry skin, several closed wounds, red coloring, same temperature PT-OP-K Range of Motion Start: 01/25/24 13:00 Freq: Status: Active Protocol: Document 01/25/24 13:00 NM (Rec: 01/25/24 13:50 NM [id number]) Lumbar Spine Range of Motion Lumbar Spine Active Percentage Flexion 50 Extension 100 Rotation Left 3 Rotation Right 3 Lateral Flexion Left 100 Lateral Flexion Right 100 Comments Low back pain not reproduced with any movement Hip Goniometric Range of Motion Hip Right Flexion w/Knee Flexed 80 Straight Leg Raise 50 Internal Rotation 15 External Rotation 25 Left Flexion w/Knee Flexed 90 Straight Leg Raise 60 Internal Rotation 25 External Rotation 25 PT-OP-L Special Tests Start: 01/25/24 13:00 Freq: Status: Active Protocol: Document 01/25/24 13:00 NM (Rec: 01/25/24 13:50 NM [id number]) Special Tests Lumbar Spine Special Tests Distraction Test Results + Straight Leg Raise Test Results + Comments Bilateral Rodriguez/Quadrant Test Results - Slump Test Results + Comments Bilateral PT-OP-M Strength Start: 01/25/24 13:00 Freq: Status: Active Protocol: Document 03/03/24 07:32 NM (Rec: 03/03/24 08:19 NM [id number]) Hip Strength Hip Manual Muscle Testing Right Flexion (L2) 4- Good- Extension (S1) 4- Good- Abduction 4- Good- Adduction 4 Good External Rotation 4 Good Internal Rotation 4 Good Comments 03/03/24: 4/5 MMT Left Flexion (L2) 4- Good- Extension (S1) 4- Good- Abduction 4- Good- Adduction 4 Good External Rotation 4 Good Internal Rotation 4 Good Comments 03/03/24: 4/5 MMT PT-OP-Q Treatments Start: 01/25/24 13:00 Freq: Status: Active Protocol: Document 04/12/24 09:45 SW (Rec: 04/12/24 10:32 SW [id number]) Gym Equipment Cable Column (Body Solid) Rows Details Cued open chest /c rhomboid fac, breathwork Resistance 3 plates w/ squat Reps/Time 3x10 Lat Pull Down Details cued for form and breathwork Resistance 5 plates Reps/Time 3x15 Therapeutic Exercises Sitting Exercises LAQ Sitting Exercise Name Reviewed for carryover Side bilateral Resistance Green TB Reps/Minutes 3x10 Comments cues for slower controlled movements Standing Exercises Wall squat Standing Exercise Name standing wall squat Reps/Minutes 3x5 Comments cues for decreased depth, quick to fatigue calf stretch Standing Exercise Name Between exercises, gastroc/ soleus Side bilateral Equipment Used SHALINI Reps/Minutes 60 ea Comments good feedback for stretch Therapeutic Activity Therapeutic Activity squat Name Squat test Comments x10 squats w/out BUE support, denies pain, goal met 6 MWT Name 6 MWT Comments 990 Ft, bilateral knee pain ~2 min in, Glute discomfort ~4 '30 in, pt limp present toward end of walk test, no rest break needed, pt denies pain in back STG not met PT-OP-T Assessment and Plan Start: 01/25/24 13:00 Freq: Status: Active Protocol: Document 04/12/24 09:45 SW (Rec: 04/12/24 10:32 SW [id number]) Physical Therapy Assessment Goals Five Impairment strength Impairment BLE hip abd and ext 4-/5 MMT Short Term Goal (STG) Pt will improve bilateral hip abduction and extension strength to at least 4/5 MMT in order to demonstrate improved hip strength for gait , transfers, and ADLs. 03/03/24: 4/5 MMT STG Duration 6 weeks MET Business Strategy Manager Goal (LTG) Pt will improve bilateral hip abduction and extension strength to at least 4+/5 MMT in order to demonstrate improved hip strength for gait , transfers, and ADLs. LTG Duration 12 weeks Four Impairment balance, function Impairment Tinetti / (gait 03/16, balance 09/21) Short Term Goal (STG) Pt will improve Tinetti score to at least 22/28 in order to demonstrate decreased fall risk and improved balance during ambulation 03/03/24: STG Duration 6 weeks MET Business Strategy Manager Goal (LTG) Pt will improve Tinetti score to at least 26/28 in order to demonstrate decreased fall risk and improved balance during ambulation 03/31/24: LTG Duration 12 weeks MET Three Impairment strength, function Impairment 5x STS test 12 seconds from 20 plinth Short Term Goal (STG) Pt will improve 5x STS time to <12 seconds in order to demonstrate improved BLE strength for transfers, gait, and ADLs 03/03/24: 8.6 seconds STG Duration 6 weeks MET Business Strategy Manager Goal (LTG) Pt will be able to perform at least 10 bilateral squats without UE support and without increase in baseline pain in order to demonstrate improved BLE strength for transfers, gait, and ADLs 04/12/24: pt able to do x 10 squats w/out BUE support and no increase in baseline pain, goal met LTG Duration 12 weeks MET (04/12/24) Two Impairment gait, 6 MWT Impairment 6MWT distance: 1073 ft Short Term Goal (STG) Pt will improve 6MWT distance by at least 200 ft (1 MCID) without increase in baseline pain in order to demonstrate improved activity tolerance and symptom management 03/03/24: 1015 ft, reports onset of back pain after 2 minutes, glute/quad symptoms after 3 minutes, 1 brief standing rest break 04/12/24: distance 990 ft, pt reports onset of bilateral knee pain after ~2 min, glute pain after ~4'30 in, denies pain in back and denies radiating pain, pt did not stop for rest break STG Duration 6 weeks NOT MET (04/12/24) Fpc Goal (LTG) Pt will report that he able to ambulate at least 10 minutes before taking a seated rest break or increase in baseline pain 03/29/24: reports can ambulat 1 /2 mi before taking a seated rest break LTG Duration 12 weeks One Impairment HEP Impairment not performing HEP Short Term Goal (STG) Pt will report compliance with HEP at least 2-3x/wk in order to maximize progression with PT and promote independence with exercise 03/03/24: reports not very compliant with HEP beyond stretching STG Duration 6 weeks NOT MET Fpc Goal (LTG) Pt will report compliance with HEP at least 3x/wk in order to promote independence with rehabilitation and transition into maintenance program upon discharge from PT 03/31/24: performing ambulation 2-3x/wk, HEP 3x/wk LTG Duration 12 weeks MET Assessment Summary Assessment Pt achieved squat test goal, pt able to do x10 squats without pain and no UE support . Assessed pt 6 MWT, pt has not met goal, see Goals section. Physical Therapy Plan Frequency and Duration Frequency of Treatment 2x/Week Duration of treatment (weeks) 12 Plan of Care Start Date 01/25/24 Plan of Care End Date 04/22/24 Therapeutic Interventions Therapeutic Interventions Balance Training,Gait Training ,Home Exercise Program,Joint Mobilizations,Manual Therapy, Neuromuscular Re-education, Orthotic/Prosthetic Management ,Patient/Caregiver Education, Self-Care/Home Management, Sensory Integration,Soft Tissue Mobilization,Taping, Therapeutic Activities, Therapeutic Exercises Modalities Cold Pack/Ice Massage,Electric Stimulation,Hot Packs, Traction- Mechanical, Vasopneumatic Devices Next Visit Focus/Plan Next Note Type Treatment Note Next Visit Plan Vitals each session Ask how long pt can ambulate before needs to take seated break and updates goal* Pallof w/ rot, retry split squat if able vs wall squat hold (w/ or w/o ball), LAQ, lat pull down and rows; check goals for squat and 6 MWT Be aware of stenosis Manual: soft tissue mobilization to HS, calves, lumbar spine
--- NOTE | 2024-04-14 16:22 | PT.OTN ---
Current Diagnoses Lumbago with sciatica, left side (04/14/24) Other lack of coordination (04/14/24) Weakness (04/14/24) Physical Therapy Treatment Note PT-OP-A Visit Information Start: 01/25/24 13:00 Freq: Status: Active Protocol: Document 04/14/24 13:04 SW (Rec: 04/14/24 13:46 SW [id number]) Out-Patient Physical Therapy Visit Information Visit Information Visit Type Treatment Note Visit Note KX after 19 visits BP: 153/66 HR:95 Sp02:97% Visit Start Time 13:02 Visit Stop Time 13:42 Visit Number 21 Number of GREASE AND TALLOW PUMPER Visits 3 Precautions Precautions hx bypass surgery, type II diabetes, heart disease VITALS PT-OP-B Current Condition Start: 01/25/24 13:00 Freq: Status: Active Protocol: Document 01/25/24 13:00 NM (Rec: 01/25/24 13:50 NM [id number]) Current Condition History of Current Condition Current Complaints pain, mobility History of Current Condition Pt presents with low back pain and with difficulty walking. He has diabetes and is trying to manage it with ambulation; states he has pain with ambulation. He states that he used to have L sided pain and L sided buttock pain. He reports that he has constant pain across his belt line. Pt reports that his pain started 8 years ago after his bypass surgery, used to walk 4 miles/ day; had B knee TKA. Reports OA in both knees and back. Reports no known PEARL for recent exacerbation. Reports difficulty with bending, transferring in/out car, transferring in/out of chair. No numbness/tingling in BLE, getting tested for neuropathy. Has circulation issues, dry skin and sores on BLE. Prior Treatments and Tests Previous PT for low back pain Current Functional Impairments (Reported) Functional Limitations- ADL's no difficulty with dressing Functional Limitations- Mobility/Gait walk 1 minute, standing ~4 hours Functional Limitations- Work/School watches 2 y.o. 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 PT-OP-E Functional Tests Start: 01/25/24 13:00 Freq: Status: Active Protocol: Document 01/25/24 13:00 NM (Rec: 01/25/24 13:50 NM [id number]) Functional Tests 6 Minute Walk Test Distance 1073 ft Device Used none Comments symptoms to post leg to calf, back >LLE Five Times Sit to Stand Test Score 12 seconds Comments no pain, 20 chair Tinetti Balance and Gait Assessment Balance Score 12 Gait Score 6 Composite Score 18/28 Other Forward Trunk Flexion Test Name of Test measured finger tip to floor Score 15 Comment pain free, limited by HS length and abdomen PT-OP-F Manual Assessment Start: 01/25/24 13:00 Freq: Status: Active Protocol: Document 01/25/24 13:00 NM (Rec: 01/25/24 13:50 NM [id number]) Manual Assessments Soft Tissue Assessment Soft Tissue Mobility Assessment Decreased HS length, quad/hip flex length. Increased tone B lumbar paraspinals Joint Mobility Assessment Joint Mobility Assessment no hyper mobility, decreased hip mobility PT-OP-G Mobility & Gait Start: 01/25/24 13:00 Freq: Status: Active Protocol: Document 01/25/24 13:00 NM (Rec: 01/25/24 14:01 NM [id number]) OP Gait Assessment Gait Gait Assistance Required: Independent Distance (Feet) 1,073 Assistive Devices Assistive Device None Gait Deviations General Gait Pattern Antalgic,Step-to Gait Factors Limiting Gait Function Factors Limiting Gait Function Decreased Activity Tolerance, Decreased Sensation,Decreased Strength,Pain Comments Gait Comments As pt fatigues, increased antalgic gait and increased low back and L sided back pain . Demos B hip ER with gait throughout entirety of 6 MWT, L circumduction and flexed trunk compensation with fatigue PT-OP-H Neuro Start: 01/25/24 13:00 Freq: Status: Active Protocol: Document 01/25/24 13:00 NM (Rec: 01/25/24 13:50 NM [id number]) Sensation Evaluation Comments Summary Comments BLE and trunk intact equally to light touch sensation Deep Tendon Reflex & Clonus Assessment Deep Tendon Reflex Bilateral Achilles Deep Tendon Reflex 1+ Diminished Bilateral Bicep Deep Tendon Reflex 1+ Diminished PT-OP-J Posture/Palpation/Skin Start: 01/25/24 13:00 Freq: Status: Active Protocol: Document 01/25/24 13:00 NM (Rec: 01/25/24 14:01 NM [id number]) Posture Evaluation Position Standing Head/C-Spine Posture Forward Head L-Spine Posture Flattened,Decreased Lordosis Pelvis Posture Posterior Tilted Weight Distribution Weight Shifted Right Hip Posture (L) Externally Rotated,(R) Externally Rotated Knee Posture (L) Genu Varus,(R) Genu Varus Ankle/Foot Posture (L) Pronated,(R) Pronated Palpation Assessment Location lumbar spine Palpation Location glutes, paraspinals, spinous processes, tranverse processes , PSI Palpation Findings Soft Tissue Tightness Palpation Details Soft tissue tightness B paraspinals L>R, no tenderness to palpation along lumbar spine or B PSIS/SIJ. Skin Assessment Other Assessments Skin Assessment Comments BLE has dry skin, several closed wounds, red coloring, same temperature PT-OP-K Range of Motion Start: 01/25/24 13:00 Freq: Status: Active Protocol: Document 01/25/24 13:00 NM (Rec: 01/25/24 13:50 NM [id number]) Lumbar Spine Range of Motion Lumbar Spine Active Percentage Flexion 50 Extension 100 Rotation Left 3 Rotation Right 3 Lateral Flexion Left 100 Lateral Flexion Right 100 Comments Low back pain not reproduced with any movement Hip Goniometric Range of Motion Hip Right Flexion w/Knee Flexed 80 Straight Leg Raise 50 Internal Rotation 15 External Rotation 25 Left Flexion w/Knee Flexed 90 Straight Leg Raise 60 Internal Rotation 25 External Rotation 25 PT-OP-L Special Tests Start: 01/25/24 13:00 Freq: Status: Active Protocol: Document 01/25/24 13:00 NM (Rec: 01/25/24 13:50 NM [id number]) Special Tests Lumbar Spine Special Tests Distraction Test Results + Straight Leg Raise Test Results + Comments Bilateral Rodriguez/Quadrant Test Results - Slump Test Results + Comments Bilateral PT-OP-M Strength Start: 01/25/24 13:00 Freq: Status: Active Protocol: Document 03/03/24 07:32 NM (Rec: 03/03/24 08:19 NM [id number]) Hip Strength Hip Manual Muscle Testing Right Flexion (L2) 4- Good- Extension (S1) 4- Good- Abduction 4- Good- Adduction 4 Good External Rotation 4 Good Internal Rotation 4 Good Comments 03/03/24: 4/5 MMT Left Flexion (L2) 4- Good- Extension (S1) 4- Good- Abduction 4- Good- Adduction 4 Good External Rotation 4 Good Internal Rotation 4 Good Comments 03/03/24: 4/5 MMT PT-OP-Q Treatments Start: 01/25/24 13:00 Freq: Status: Active Protocol: Document 04/14/24 13:04 (Rec: 04/14/24 13:46 [id number]) Gym Equipment Cable Column (Body Solid) Rows Details Cued open chest /c rhomboid fac, breathwork Resistance 3 plates w/ squat>4 plates Reps/Time 3x10 Lat Pull Down Details cued for form and breathwork Resistance 5 plates Reps/Time 3x15 Therapeutic Exercises Sitting Exercises LAQ Sitting Exercise Name Cables Resistance 2 plates Equipment Used 1 LE at a time Reps/Minutes x15 ea Standing Exercises Wall squat Standing Exercise Name standing wall squat Side bilateral Resistance AROM Equipment Used wall Reps/Minutes 1x25 1x29 1x28 Comments cues for decreased depth, quick to fatigue pallof Standing Exercise Name 1. press w/ squat, 2. press w/ rotation Side bilateral Resistance level 3 band (2 bands) Reps/Minutes 1. 30 ea direction, 2. 10 ea modified bird dog Standing Exercise Name alternating bird dog Side bilateral Resistance 1# at wrists, 4# at ankles Equipment Used plinth Reps/Minutes 10 ea side Comments cued for neutral alignment Squat Standing Exercise Name Split squat Side bilateral Reps/Minutes 2x5 ea Comments cues for alignment calf stretch Standing Exercise Name Between exercises, gastroc/ soleus Side bilateral Equipment Used SHALINI Reps/Minutes 60 ea Comments good feedback for stretch PT-OP-T Assessment and Plan Start: 01/25/24 13:00 Freq: Status: Active Protocol: Document 04/14/24 13:04 (Rec: 04/14/24 13:46 [id number]) Physical Therapy Assessment Goals Five Impairment strength Impairment BLE hip abd and ext 4-/5 MMT Short Term Goal (STG) Pt will improve bilateral hip abduction and extension strength to at least 4/5 MMT in order to demonstrate improved hip strength for gait , transfers, and ADLs. 03/03/24: 4/5 MMT STG Duration 6 weeks MET Retirement Goal (LTG) Pt will improve bilateral hip abduction and extension strength to at least 4+/5 MMT in order to demonstrate improved hip strength for gait , transfers, and ADLs. LTG Duration 12 weeks Four Impairment balance, function Impairment Tinetti (gait 03/16, balance 09/21) Short Term Goal (STG) Pt will improve Tinetti score to at least 22/28 in order to demonstrate decreased fall risk and improved balance during ambulation 03/03/24: STG Duration 6 weeks MET Counter Clerk Goal (LTG) Pt will improve Tinetti score to at least 26/28 in order to demonstrate decreased fall risk and improved balance during ambulation 03/31/24: LTG Duration 12 weeks MET Three Impairment strength, function Impairment 5x STS test 12 seconds from 20 plinth Short Term Goal (STG) Pt will improve 5x STS time to <12 seconds in order to demonstrate improved BLE strength for transfers, gait, and ADLs 03/03/24: 8.6 seconds STG Duration 6 weeks MET Retirement Goal (LTG) Pt will be able to perform at least 10 bilateral squats without UE support and without increase in baseline pain in order to demonstrate improved BLE strength for transfers, gait, and ADLs 04/12/24: pt able to do x 10 squats w/out BUE support and no increase in baseline pain, goal met LTG Duration 12 weeks MET (04/12/24) Two Impairment gait, 6 MWT Impairment 6MWT distance: 1073 ft Short Term Goal (STG) Pt will improve 6MWT distance by at least 200 ft (1 MCID) without increase in baseline pain in order to demonstrate improved activity tolerance and symptom management 03/03/24: 1015 ft, reports onset of back pain after 2 minutes, glute/quad symptoms after 3 minutes, 1 brief standing rest break 04/12/24: distance 990 ft, pt reports onset of bilateral knee pain after ~2 min, glute pain after ~4'30 in, denies pain in back and denies radiating pain, pt did not stop for rest break STG Duration 6 weeks NOT MET (04/12/24) Counter Clerk Goal (LTG) Pt will report that he able to ambulate at least 10 minutes before taking a seated rest break or increase in baseline pain 03/29/24: reports can ambulat 1 /2 mi before taking a seated rest break LTG Duration 12 weeks One Impairment HEP Impairment not performing HEP Short Term Goal (STG) Pt will report compliance with HEP at least 2-3x/wk in order to maximize progression with PT and promote independence with exercise 03/03/24: reports not very compliant with HEP beyond stretching STG Duration 6 weeks NOT MET Counter Clerk Goal (LTG) Pt will report compliance with HEP at least 3x/wk in order to promote independence with rehabilitation and transition into maintenance program upon discharge from PT 03/31/24: performing ambulation 2-3x/wk, HEP 3x/wk LTG Duration 12 weeks MET Assessment Summary Assessment Continud strengthening focus this session. Pt continues to fatigue quickly in quads. Re trialed split squats this session, pt improved greatly with form, though range is still limited. Pt denied back pain throughout session today. pt requires frequent cues for open chest during exercises, habitually rolls shoulders forward, improved with queing. See last note for 6MWT and squat test. Physical Therapy Plan Frequency and Duration Frequency of Treatment 2x/Week Duration of treatment (weeks) 12 Plan of Care Start Date 01/25/24 Plan of Care End Date 04/22/24 Therapeutic Interventions Therapeutic Interventions Balance Training,Gait Training ,Home Exercise Program,Joint Mobilizations,Manual Therapy, Neuromuscular Re-education, Orthotic/Prosthetic Management ,Patient/Caregiver Education, Self-Care/Home Management, Sensory Integration,Soft Tissue Mobilization,Taping, Therapeutic Activities, Therapeutic Exercises Modalities Cold Pack/Ice Massage,Electric Stimulation,Hot Packs, Traction- Mechanical, Vasopneumatic Devices Next Visit Focus/Plan Next Note Type Progress Note Next Visit Plan Vitals each session Ask how long pt can ambulate before needs to take seated break and updates goal* Pallof w/ rot, retry split squat if able vs wall squat hold (w/ or w/o ball), LAQ, lat pull down and rows; check goals for squat and 6 MWT Be aware of stenosis Manual: soft tissue mobilization to HS, calves, lumbar spine
--- NOTE | 2024-04-22 08:12 | PT.OTN ---
Current Diagnoses Lumbago with sciatica, left side (04/22/24) Other lack of coordination (04/22/24) Weakness (04/22/24) Physical Therapy Treatment Note PT-OP-A Visit Information Start: 01/25/24 13:00 Freq: Status: Active Protocol: Document 04/22/24 07:28 NM (Rec: 04/22/24 08:12 NM [id number]) Out-Patient Physical Therapy Visit Information Visit Information Visit Type Progress Note Visit Note KX after 19 visits Visit Start Time 07:30 Visit Stop Time 08:10 Visit Number 22 Evaluation Information Evaluation Date 01/25/24 Precautions Precautions hx bypass surgery, type II diabetes, heart disease VITALS PT-OP-B Current Condition Start: 01/25/24 13:00 Freq: Status: Active Protocol: Document 01/25/24 13:00 NM (Rec: 01/25/24 13:50 NM [id number]) Current Condition History of Current Condition Current Complaints pain, mobility History of Current Condition Pt presents with low back pain and with difficulty walking. He has diabetes and is trying to manage it with ambulation; states he has pain with ambulation. He states that he used to have L sided pain and L sided buttock pain. He reports that he has constant pain across his belt line. Pt reports that his pain started 8 years ago after his bypass surgery, used to walk 4 miles/ day; had B knee TKA. Reports OA in both knees and back. Reports no known PEARL for recent exacerbation. Reports difficulty with bending, transferring in/out car, transferring in/out of chair. No numbness/tingling in BLE, getting tested for neuropathy. Has circulation issues, dry skin and sores on BLE. Prior Treatments and Tests Previous PT for low back pain Current Functional Impairments (Reported) Functional Limitations- ADL's no difficulty with dressing Functional Limitations- Mobility/Gait walk 1 minute, standing ~4 hours Functional Limitations- Work/School watches 2 y.o. 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 States no pain or soreness after last session. Pt reports that he is still working on walking distance, he can ambulate 1 mi and did 2 mi once; however 2 mi is pushing the limit. He is planning to hit the trails every day, starting at 1 mi, working up to 1.5 mi and eventually up to 2 mi. PT-OP-E Functional Tests Start: 01/25/24 13:00 Freq: Status: Active Protocol: Document 01/25/24 13:00 NM (Rec: 01/25/24 13:50 NM [id number]) Functional Tests 6 Minute Walk Test Distance 1073 ft Device Used none Comments symptoms to post leg to calf, back >LLE Five Times Sit to Stand Test Score 12 seconds Comments no pain, 20 chair Tinetti Balance and Gait Assessment Balance Score 12 Gait Score 6 Composite Score 18/28 Other Forward Trunk Flexion Test Name of Test measured finger tip to floor Score 15 Comment pain free, limited by HS length and abdomen PT-OP-F Manual Assessment Start: 01/25/24 13:00 Freq: Status: Active Protocol: Document 01/25/24 13:00 NM (Rec: 01/25/24 13:50 NM [id number]) Manual Assessments Soft Tissue Assessment Soft Tissue Mobility Assessment Decreased HS length, quad/hip flex length. Increased tone B lumbar paraspinals Joint Mobility Assessment Joint Mobility Assessment no hyper mobility, decreased hip mobility PT-OP-G Mobility & Gait Start: 01/25/24 13:00 Freq: Status: Active Protocol: Document 01/25/24 13:00 NM (Rec: 01/25/24 14:01 NM [id number]) OP Gait Assessment Gait Gait Assistance Required: Independent Distance (Feet) 1,073 Assistive Devices Assistive Device None Gait Deviations General Gait Pattern Antalgic,Step-to Gait Factors Limiting Gait Function Factors Limiting Gait Function Decreased Activity Tolerance, Decreased Sensation,Decreased Strength,Pain Comments Gait Comments As pt fatigues, increased antalgic gait and increased low back and L sided back pain . Demos B hip ER with gait throughout entirety of 6 MWT, L circumduction and flexed trunk compensation with fatigue PT-OP-H Neuro Start: 01/25/24 13:00 Freq: Status: Active Protocol: Document 01/25/24 13:00 NM (Rec: 01/25/24 13:50 NM [id number]) Sensation Evaluation Comments Summary Comments BLE and trunk intact equally to light touch sensation Deep Tendon Reflex & Clonus Assessment Deep Tendon Reflex Bilateral Achilles Deep Tendon Reflex 1+ Diminished Bilateral Bicep Deep Tendon Reflex 1+ Diminished PT-OP-J Posture/Palpation/Skin Start: 01/25/24 13:00 Freq: Status: Active Protocol: Document 01/25/24 13:00 NM (Rec: 01/25/24 14:01 NM [id number]) Posture Evaluation Position Standing Head/C-Spine Posture Forward Head L-Spine Posture Flattened,Decreased Lordosis Pelvis Posture Posterior Tilted Weight Distribution Weight Shifted Right Hip Posture (L) Externally Rotated,(R) Externally Rotated Knee Posture (L) Genu Varus,(R) Genu Varus Ankle/Foot Posture (L) Pronated,(R) Pronated Palpation Assessment Location lumbar spine Palpation Location glutes, paraspinals, spinous processes, tranverse processes , PSI Palpation Findings Soft Tissue Tightness Palpation Details Soft tissue tightness B paraspinals L>R, no tenderness to palpation along lumbar spine or B PSIS/SIJ. Skin Assessment Other Assessments Skin Assessment Comments BLE has dry skin, several closed wounds, red coloring, same temperature PT-OP-K Range of Motion Start: 01/25/24 13:00 Freq: Status: Active Protocol: Document 01/25/24 13:00 NM (Rec: 01/25/24 13:50 NM [id number]) Lumbar Spine Range of Motion Lumbar Spine Active Percentage Flexion 50 Extension 100 Rotation Left 3 Rotation Right 3 Lateral Flexion Left 100 Lateral Flexion Right 100 Comments Low back pain not reproduced with any movement Hip Goniometric Range of Motion Hip Right Flexion w/Knee Flexed 80 Straight Leg Raise 50 Internal Rotation 15 External Rotation 25 Left Flexion w/Knee Flexed 90 Straight Leg Raise 60 Internal Rotation 25 External Rotation 25 PT-OP-L Special Tests Start: 01/25/24 13:00 Freq: Status: Active Protocol: Document 01/25/24 13:00 NM (Rec: 01/25/24 13:50 NM [id number]) Special Tests Lumbar Spine Special Tests Distraction Test Results + Straight Leg Raise Test Results + Comments Bilateral Rodriguez/Quadrant Test Results - Slump Test Results + Comments Bilateral PT-OP-M Strength Start: 01/25/24 13:00 Freq: Status: Active Protocol: Document 04/22/24 07:28 NM (Rec: 04/22/24 08:12 NM [id number]) Hip Strength Hip Manual Muscle Testing Right Flexion (L2) 4+ Good+ Extension (S1) 4+ Good+ Abduction 4+ Good+ Adduction 4+ Good+ External Rotation 4+ Good+ Internal Rotation 4+ Good+ Comments 03/03/24: 4/5 MMT 04/22/24: 4+/5 MMT for all Left Flexion (L2) 4+ Good+ Extension (S1) 4+ Good+ Abduction 4+ Good+ Adduction 4+ Good+ External Rotation 4+ Good+ Internal Rotation 4+ Good+ Comments 03/03/24: 4/5 MMT 04/22/24: 4+/5 MMT PT-OP-Q Treatments Start: 01/25/24 13:00 Freq: Status: Active Protocol: Document 04/22/24 07:28 NM (Rec: 04/22/24 08:12 NM [id number]) Therapeutic Exercises Standing Exercises hip 3 way Standing Exercise Name hip flex, hip ext, hip abd Side bilateral Resistance level 2 band at ankles Equipment Used hand support for balance Reps/Minutes 10 ea pallof Standing Exercise Name 1. press w/ squat, 2. press w/ rotation Side bilateral Resistance level 3 band (2 bands) Reps/Minutes 1. 60 ea direction, 2. 2x10 Comments easy but squat position is challenging Hip hinge Standing Exercise Name deadlift Side bilateral Resistance level 4 band under feet Reps/Minutes 2x10 Comments medium hard; good hinge calf stretch Standing Exercise Name Between exercises, gastroc/ soleus Side bilateral Equipment Used SHALINI Reps/Minutes 60 ea Comments good feedback for stretch hip flexor stretch Side bilateral Equipment Used 8 step foot elevated Reps/Minutes 1x30 Comments reports good stretch; cued ppt , no stenosis symptoms Other Exercises HS stretch Side bilateral Equipment Used 3rd step, heel elevated Reps/Minutes 60 ea Comments pain free PT-OP-T Assessment and Plan Start: 01/25/24 13:00 Freq: Status: Active Protocol: Document 04/22/24 07:28 NM (Rec: 04/22/24 08:12 NM [id number]) Physical Therapy Assessment Goals Five Impairment strength Impairment BLE hip abd and ext 4-/5 MMT Short Term Goal (STG) Pt will improve bilateral hip abduction and extension strength to at least 4/5 MMT in order to demonstrate improved hip strength for gait , transfers, and ADLs. 03/03/24: 4/5 MMT STG Duration 6 weeks MET Prison Goal (LTG) Pt will improve bilateral hip abduction and extension strength to at least 4+/5 MMT in order to demonstrate improved hip strength for gait , transfers, and ADLs. 04/22/24: 4+/5 MMT all hip and knee LTG Duration 12 weeks MET Four Impairment balance, function Impairment Tinetti (gait 03/16, balance 09/21) Short Term Goal (STG) Pt will improve Tinetti score to at least 22/28 in order to demonstrate decreased fall risk and improved balance during ambulation 03/03/24: STG Duration 6 weeks MET Prison Goal (LTG) Pt will improve Tinetti score to at least 26/28 in order to demonstrate decreased fall risk and improved balance during ambulation 03/31/24: LTG Duration 12 weeks MET Three Impairment strength, function Impairment 5x STS test 12 seconds from 20 plinth Short Term Goal (STG) Pt will improve 5x STS time to <12 seconds in order to demonstrate improved BLE strength for transfers, gait, and ADLs 03/03/24: 8.6 seconds STG Duration 6 weeks MET [employer] [facility] Goal (LTG) Pt will be able to perform at least 10 bilateral squats without UE support and without increase in baseline pain in order to demonstrate improved BLE strength for transfers, gait, and ADLs 04/12/24: pt able to do x 10 squats w/out BUE support and no increase in baseline pain, goal met LTG Duration 12 weeks MET (04/12/24) Two Impairment gait, 6 MWT Impairment 6MWT distance: 1073 ft Short Term Goal (STG) Pt will improve 6MWT distance by at least 200 ft (1 MCID) without increase in baseline pain in order to demonstrate improved activity tolerance and symptom management 03/03/24: 1015 ft, reports onset of back pain after 2 minutes, glute/quad symptoms after 3 minutes, 1 brief standing rest break 04/12/24: distance 990 ft, pt reports onset of bilateral knee pain after ~2 min, glute pain after ~4'30 in, denies pain in back and denies radiating pain, pt did not stop for rest break STG Duration 6 weeks NOT MET (04/12/24) Early Childhood [employer] Goal (LTG) Pt will report that he able to ambulate at least 10 minutes before taking a seated rest break or increase in baseline pain 03/29/24: reports can ambulat 1 /2 mi before taking a seated rest break 04/22/24: pt reports that he can ambulate 1 mi to 1.5 mi before he needs to stop due to leg pain, working up to 2 miles LTG Duration 12 weeks MET One Impairment HEP Impairment not performing HEP Short Term Goal (STG) Pt will report compliance with HEP at least 2-3x/wk in order to maximize progression with PT and promote independence with exercise 03/03/24: reports not very compliant with HEP beyond stretching STG Duration 6 weeks NOT MET Prison Goal (LTG) Pt will report compliance with HEP at least 3x/wk in order to promote independence with rehabilitation and transition into maintenance program upon discharge from PT 03/31/24: performing ambulation 2-3x/wk, HEP 3x/wk LTG Duration 12 weeks MET Progress Towards Goals Progress Towards Goals Progressing Toward Goals,Goals Met Progress Comments Only goal not met is ambulation goal, but pt is progressing toward independently. Did not meet 6 MWT distance but met time goals Assessment Summary Assessment Pt tolerated session well. Pt planning to discharge this session, so session emphasis on creating maintenance HEP. Continued with core/lumbar and hip strength. Initiated hip [address] for global hip strengthening; pt tolerated well but requires cues for trunk stabilization and correct execution. Improved with reps. Continues to demonstrate good hip hinge and core bracing with both deadlift using band and pallof press. Pt able to progress without discomfort in low back for pallof with rotation. Physical Therapy Plan Frequency and Duration Frequency of Treatment 2x/Week Duration of treatment (weeks) 12 Plan of Care Start Date 01/25/24 Plan of Care End Date 04/22/24 Therapeutic Interventions Therapeutic Interventions Balance Training,Gait Training ,Home Exercise Program,Joint Mobilizations,Manual Therapy, Neuromuscular Re-education, Orthotic/Prosthetic Management ,Patient/Caregiver Education, Self-Care/Home Management, Sensory Integration,Soft Tissue Mobilization,Taping, Therapeutic Activities, Therapeutic Exercises Modalities Cold Pack/Ice Massage,Electric Stimulation,Hot Packs, Traction- Mechanical, Vasopneumatic Devices Discharge Physical Therapy Discharge Reasons Goals Met Discharge Comments End of plan of care; PT and pt discussed discharge as pt has met PT goals and continues to progress toward ambulation goals Next Visit Focus/Plan Next Visit Plan Discharge from PT
== END 2024-05-13 09:30 ==
LOC: PHYS 07:30
PROVIDERS: Family Provider Family Medicine; PCP Family Medicine; Referring Provider Family Medicine; Visit Provider Family Medicine
DX: M54.42 Lumbago with sciatica, left side (principal); R53.1 Weakness; R27.8 Other lack of coordination
CPT/HCPCS: 97110; 97116; 97140; 97162; 97530

== ENCOUNTER → 2024-07-08 08:46 | Outpatient (CLI) | payer MEDICARE, OTHER, SELFPAY ==
[2020-08-01 14:19] VITALS: BMI 43.8
--- NOTE | 2024-07-08 09:03 | DIAB.FU ---
Follow-up Diabetes Education Assessment Name: Pierce Patel (Santosh) Date: 07/08/24 Time: 90a Dx: Type II Diabetes Santosh presents for DM follow-up. Saw eye doctor, plans for annual eye exam. Reports no concerns, outside of some cataracts. Choosing sf creamer in coffee. Wearing slippers inconsistently in the house because feet will get too warm. Also having some difficulty keeping back of slipper on. Getting enough water is still a challenge. Often forgets. Diet recall: 7a: eggs, toast OR pb toast with coffee x2 and sf creamer 12p: leftovers OR taco salad sn: handful of radish 5p: fish with potato and beets OR tacos x 3 7p: Berries 3/4c +/- yogurt water: 3 x 16oz Anthropometrics: Ht: 5'11'' Wt: 355# 04/2024 Physical Activity: Walking 5 days per week for 40 mins. PT completed, states it was helpful. Endorses overall being more active, ie in his shop. Self-Monitoring Blood Glucose: FBG somewhat improved since last visit likely r/t walking. Still some above goal >130mg/dl. Review of previous weeks indicate BG later in the day ranging from 129-163mg/dl. Date Pre Post Pre Post Pre Post HS 04/30 98 05/21 221 06/19 141 07/02 163 07/03 117 07/07 130 10/ 135 Diabetes Medications: None Pertinent Labs: HgA1c: 7.6% 09/2023 7.8% 11/2023 Past Medical History: (Last Updated 11/05/23 @ 09:31 by Aquilino Phillips, DO) Bilateral low back pain with left-sided sciatica BMI 39.0-39.9,adult Chicken pox (~1982) Excessive daytime sleepiness Hyperlipidemia (~1997) Hypertension Idiopathic peripheral neuropathy Morbid obesity with BMI of 40.0-44.9, adult Obstructive sleep apnea of adult CPAP Osteoarthritis Postoperative pain of left knee Primary insomnia Screen for colon cancer Sleep apnea (~1999) Snoring Solitary pulmonary nodule Benign appearing 5mm subpleural LLL by CT Angio 11/30/19 Intervention: This participant was very receptive. Provided appropriate educational handouts. Discussed the following topics: Blood sugar review and trends. Potential for DM medication per cardiology rec of GLP1 DM complication risk reduction: foot care and eye care Strategies for increasing water intake Potential slippers to protect his feet indoors and keep him cool Created SMART goals for patient self-care and success. Goals: Make eye appt- met Check FBG and bring to PCP appt- met Drink coffee without creamer or choose sf- met Wear slippers- improved/in progress Add protein to berries, ie plain yoruba yogurt- improved Get some slippers that do not over heat feet and easy to put on- new Drink water with meals and HS- new Follow-up: LISA ALVAREZ follow-up prn. Encouraged him to call or message with any questions or follow-up needs. He agreed. Mariama Alcantar RDN, [facility] Certified Diabetes Care and Lead Pharmacy Technician P: [phone] Thank you for this referral
== END ==
PROVIDERS: Family Provider Family Medicine; PCP Family Medicine; Referring Provider Family Medicine
DX: E11.9 Type 2 diabetes mellitus without complications (principal); Z68.41 Body mass index [BMI] 40.0-44.9, adult; Z71.3 Dietary counseling and surveillance
CPT/HCPCS: G0108

== ENCOUNTER → 2024-07-21 08:48 | Outpatient (CLI) | payer MEDICARE, OTHER, SELFPAY ==
[2020-08-01 14:19] VITALS: BMI 43.8
[2024-07-21 10:22] LABS: Hemoglobin A1C% w Est Avg Glu 7.4 % (4.0-6.0)
== END ==
PROVIDERS: Family Provider Family Medicine; PCP Family Medicine; Referring Provider Family Medicine; Visit Provider Family Medicine
DX: E11.9 Type 2 diabetes mellitus without complications (principal)
CPT/HCPCS: 36415; 83036

== ENCOUNTER 2024-08-23 12:40 | Day surgery (SDC) | payer MEDICARE, OTHER, SELFPAY ==
[2020-08-01 14:19] VITALS: BMI 43.8
--- NOTE | 2024-08-23 | PATH_ITS ---
[facility] Accession Number: [id number] No. of containers..03 Tissue . 01 Material submitted: . PART A: colon - SIGMOID POLYPS PART B: colon - TRANSVERSE COLON POLYP PART C: rectum - RECTUM . 01 Diagnosis: Part A: SIGMOID POLYPS: Tubular adenomas. . Part B: TRANSVERSE COLON POLYP: Tubular adenoma. Hyperplastic polyp. . Part C: RECTUM: Hyperplastic polyp. [facility] 08/25/2024 1559 Local . 01 Electronically signed: . Miguel Ángel Calderon MD, Pathologist NPI- [id number] . 01 Gross description: . A. Received in formalin with two patient identifiers and sigmoid polyp, are four montano soft tissue fragments measuring 0.2 x 0.2 x 0.1 cm to 0.5 x 0.5 x 0.4 cm. The largest specimen inked blue and bisected. All submitted in cassette A1. . B. Received in formalin with two patient identifiers and transverse colon polyp, are two montano soft tissue fragments 0.3 to 1.5 cm in greatest dimension. Submitted in cassette B1. . C. Received in formalin with two patient identifiers and rectum, is a single montano soft tissue fragment 0.4 cm in greatest dimension. Submitted in cassette C1. ([id number]) /JENNIFER 08/25/2024 1559 Local . 01 Pathologist provided ICD-10: D12.3, D12.5, K62.1 . 01 CPT . 559070, 532176, 748864 Specimen Comment: A courtesy copy of this report has been sent to [phone] Performed at: [address] [address], [place], [place] [id number] MD Miguel Ángel Calderon MD Phone: [phone]
[2024-08-23 13:16] VITALS: BP 175/90; PULSE 103; RESP 16; TEMP 36.4; O2SAT 98
--- NOTE | 2024-08-23 13:43 | P.HP_ITS ---
History of Present Illness History of Present Illness Date Patient Seen: 08/23/24 Time Patient Seen: 13:43 Chief complaint: Colonoscopy Narrative: 74-year-old man here for 1st time screening colonoscopy. No family history of colon cancer. No abdominal concerns today. [facility] Medical History (Updated 04/09/24 @ 08:57 by Aquilino Phillips DO) Encounter for medication review and counseling Dermatitis Bilateral lower extremity edema Bilateral low back pain with left-sided sciatica Postoperative pain of left knee BMI 39.0-39.9,adult Screen for colon cancer Solitary pulmonary nodule Osteoarthritis Idiopathic peripheral neuropathy Morbid obesity with BMI of 40.0-44.9, adult Excessive daytime sleepiness Primary insomnia Snoring Obstructive sleep apnea of adult Sleep apnea (~1999) Chicken pox (~1982) Hyperlipidemia (~1997) Hypertension Surgical History History of arthroplasty of right knee (~07/2020) History of arthroplasty of left knee (03/14/20) Hx of tonsillectomy (2004) Hx of hand surgery History of vasectomy (1977) History of sinus surgery (~03/2003) Status post coronary artery bypass graft (~10/2010) Family History Brother Age: 67 Hypertension Father Hypertension High cholesterol Mother Diabetes mellitus Hypertension Social History marital status: details: khari Dukes, lives in [place] household members: spouse lives independently: Yes caregiver/support person: No housing: house other: has been taking care of his young grandson during the work-week Smoking Status: Former smoker alcohol intake: never substance use type: does not use Meds Home Medications and Allergies Home Medications Medication Instructions Recorded Confirmed Type ResMed AirSense 10 CPAP #1 ea 12/02/18 07/27/24 History clopidogrel 75 mg tablet 75 mg PO QDAY #90 tabs 10/18/19 07/27/24 Rx acetaminophen 325 mg tablet 650 mg (2 x 325 mg) PO TID #40 tabs 08/02/20 07/27/24 Rx amlodipine 5 mg tablet 5 mg PO DAILY #90 tabs 01/10/22 07/27/24 Rx ezetimibe 10 mg tablet 10 mg PO .am #90 tabs 02/17/22 08/23/24 Rx rosuvastatin 40 mg tablet 40 mg PO .nightly #90 tabs 02/17/22 08/23/24 Rx spironolactone 25 mg tablet 25 mg PO BID #180 tabs 01/30/23 08/23/24 Rx blade lancet, safety #200 ea 01/14/24 07/27/24 Rx blood sugar diagnostic (Blood #50 ea 01/14/24 07/27/24 Rx Glucose Test strips) blood-glucose meter #1 ea 01/14/24 07/27/24 Rx losartan 50 mg tablet 50 mg PO QPM #90 tabs 06/17/24 07/27/24 Rx sodium,potassium,mag sulfates 17.5 See Rx Instructions PO .COMPLEX 07/12/24 07/27/24 Rx gram-3.13 gram-1.6 gram oral soln #354 mL (Suprep Bowel Prep Kit) furosemide 80 mg tablet 80 mg PO DAILY #90 tabs 07/27/24 08/23/24 Rx metformin 500 mg tablet 500 mg PO DAILY #90 tabs 07/27/24 08/23/24 Rx amlodipine 5 mg tablet 5 mg PO DAILY 08/23/24 08/23/24 History Allergies Allergy/AdvReac Type Severity Reaction Status Date / Time aspirin [ASPIRIN] Allergy Mild FACIAL Verified 08/23/24 13:13 EDEMA atenolol [ATENOLOL] Allergy Mild HIVES Verified 08/23/24 13:13 Exam Vital Signs (past 8 hours): - 08/23/24 13:16 Temperature 97.6 F Pulse Rate 103 H Respiratory Rate 16 Blood Pressure 175/90 H Pulse Oximetry 98 Oxygen Delivery Method Room Air Oxygen Delivery Method Room Air Narrative Exam Narrative: General adult man alert oriented no acute distress Chest nonlabored respiration Extremities warm well perfused Assessment & Plan Assessment & Plan narrative: The patient requires colorectal screening and colonoscopy is recommended. Technical details were discussed. Risks, benefits, alternatives explained. Risks including but not limited to myocardial infarction, aspiration, bleeding, pain, missed lesion, incomplete examination, need for further radiographic studies, intestinal injury, and need for major abdominal surgery were discussed. All questions were answered to their satisfaction, and they are in agreement with this plan. Time-Based Coding :: [TOTAL MINUTES] spent with patient and on the chart (including review of chart, obtaining history, exam, reviewing outside data, placing orders, documenting exam and treatment plan, and counseling patient) on [DATE].
--- NOTE | 2024-08-23 13:46 | P.OP.COLON_ITS ---
Operative Date/Time/Diagnoses Date of procedure: 08/23/24 Time of procedure: 13:46 Pre-op diagnosis: Colorectal screening Procedure & Clinicians Study performed: Screening colonoscopy Same procedure as scheduled: Yes Indications: Screening Surgeon: Mario Swan Procedure Notes Procedure in detail: The history and physical was performed/updated and the patient is ASA class is 3. The procedure was discussed in detail with the patient. Potential risks complications including infection, bleeding, missed diagnosis, perforation, need for surgery, and were explained. Their questions were answered and informed consent was obtained. Patient was brought to the procedure room and placed standard monitoring equipment. The patient's vital signs were monitored continuously throughout the entire procedure. Prior to starting time-out was performed. The patient was placed in the left lateral recumbent position. Procedural sedation was administered by anesthesia. Examination began with a thorough inspection of the perianal area there was no evidence of fissures, fistulae, external hemorrhoids or cutaneous malignancy. The colonoscopy scope was then placed into the anal canal and was advanced to the cecum, which was identified by the ileocecal valve, the appendiceal orifice and the confluence of the taenia. The scope was then slowly withdrawn examining colon thoroughly in all directions, irrigating it of any residual stool. The scope was retroflexed within the rectum The patient tolerated the procedure well. They will be discharged once criteria are met. The prep was of good/excellent quality. The withdrawl time was 15minutes. FINDINGS * Sigmoid colon 2 polyps each approximately 5 mm each removed with cold snare * Transverse colon 2 polyps each proximally 3 mm removed with biopsy forceps * Rectum 3 mm polyp removed with biopsy forceps Specimen(s): other (Sigmoid colon polyps, transverse colon polyps, rectal polyp) Impression: Colonic polyps x5 Post-procedure Plan for aftercare: Follow up dependent on pathology findings Disposition: same day surgery
[2024-08-23 14:17] VITALS: BP 134/50; PULSE 83; RESP 20; TEMP 36.5; O2SAT 96
[2024-08-23 14:22] VITALS: BP 129/55; PULSE 85; RESP 12; O2SAT 97
[2024-08-23 14:27] VITALS: BP 129/74; PULSE 81; RESP 12; O2SAT 97
[2024-08-23 14:34] VITALS: BP 145/66; PULSE 78; RESP 15; O2SAT 97
== END 2024-08-23 14:42 | disposition home or self-care (01) ==
PROVIDERS: Family Provider Family Medicine; PCP Family Medicine; Referring Provider Surgery; Visit Provider Surgery
PROC: 0DJD8ZZ Inspection of Lower Intestinal Tract, Via Natural or Artificial Opening Endoscopic (ICD-10-PCS; CPT 45378; principal; 2024-08-23 13:15)
DX: Z12.11 Encounter for screening for malignant neoplasm of colon (principal); D12.3 Benign neoplasm of transverse colon; D12.5 Benign neoplasm of sigmoid colon; K62.1 Rectal polyp
CPT/HCPCS: 45385; 45380; J2704

== ENCOUNTER → 2024-11-03 09:15 | Outpatient (CLI) | payer MEDICARE, OTHER, SELFPAY ==
[2020-08-01 14:19] VITALS: BMI 43.8
[2024-11-03 09:59] LABS: Add Manual Diff / Slide Review NO; Basophils Absolute Auto 100 /uL (0-100); Basophils Percent Auto 0.8 % (0-2); Eosinophils Absolute Auto 400 /uL (0-450); Eosinophils Percent Auto 4.2 % (2-4); Hematocrit 40.1 % (41-53); Hemoglobin 13.2 g/dL (13.5-17.5); Lymphocytes Absolute Auto 1800 /uL (1100-4500); Lymphocytes Percent Auto 19.9 % (25-40); Mean Corpuscular Hemoglobin 28.3 PG (26-34); Mean Corpuscular Volume 85.6 fL (80-100); Monocytes Absolute Auto 800 /uL (0-900); Monocytes Percent Auto 8.6 % (3-14); Neutrophils Absolute Auto 6000 /uL (1500-7000); Neutrophils Percent Auto 66.5 % (50-75); Platelet Count 257 X10^3/uL (150-400); Red Blood Cell Count 4.68 X10^6/uL (4.5-5.9); Red Cell Distribution Width 15.1 % (11.6-14.8)
[2024-11-03 10:17] LABS: Alanine Aminotransferase 37 IU/L (<50); Albumin 3.9 g/dL (3.5-5.0); Albumin Globulin Ratio 1.6 (1.0-2.8); Alkaline Phosphatase 92 U/L (38-126); Aspartate Aminotransferase 35 IU/L (17-59); BUN Creatinine Ratio 21.1 (6-22); Bilirubin Total 0.6 mg/dL (0.2-1.3); Blood Urea Nitrogen 20 mg/dL (9-20); Calcium 8.8 mg/dL (8.4-10.2); Carbon Dioxide 23 mmol/L (22-32); Chloride 100 mmol/L (98-107); Cholesterol 95 mg/dL (140-199); Estimated Glomerular Filt Rate > 60 mL/min (>60); Globulin 2.5 g/dL (1.7-4.1); Glucose 180 mg/dL (80-110); HDL Cholesterol 32 mg/dL (40-60); HEMOLYSIS < 15 (0-50); LDL Cholesterol Calculated 34 mg/dL (<100); Potassium 4.5 mmol/L (3.4-5.1); Sodium 133 mmol/L (137-145); Total Protein 6.4 g/dL (6.3-8.2); Triglycerides 144 mg/dL (35-150)
[2024-11-03 10:21] LABS: Hemoglobin A1C% w Est Avg Glu 8.5 % (4.0-6.0)
[2024-11-03 10:35] LABS: Creatinine Urine Random 155.68 mg/dL
[2024-11-03 10:38] LABS: Microalbumin Urine Random 10.6 mg/dL (0-1.6)
[2024-11-03 10:48] LABS: Prostate Specific Antigen Scrn 3.26 ng/mL (0.1-4.0)
== END ==
PROVIDERS: Family Provider Family Medicine; PCP Family Medicine; Referring Provider Family Medicine; Visit Provider Family Medicine
DX: E11.9 Type 2 diabetes mellitus without complications (principal); Z12.5 Encounter for screening for malignant neoplasm of prostate; E78.2 Mixed hyperlipidemia
CPT/HCPCS: 36415; 80053; 80061; 82043; 82570; 83036; 85025; G0103

== ENCOUNTER → 2024-12-29 06:59 | Outpatient (CLI) | payer MEDICARE, OTHER, SELFPAY ==
[2020-08-01 14:19] VITALS: BMI 43.8
[2024-12-29 08:17] LABS: Hemoglobin A1C% w Est Avg Glu 5.9 % (4.0-6.0)
[2024-12-29 08:41] LABS: Alanine Aminotransferase 26 IU/L (<50); Albumin 4.3 g/dL (3.5-5.0); Alkaline Phosphatase 71 U/L (38-126); Aspartate Aminotransferase 30 IU/L (17-59); Bilirubin Total 1.2 mg/dL (0.2-1.3); Blood Urea Nitrogen 12 mg/dL (9-20); Calcium 9.5 mg/dL (8.4-10.2); Carbon Dioxide 27 mmol/L (22-32); Chloride 104 mmol/L (98-107); Estimated Glomerular Filt Rate > 60 mL/min (>60); Globulin 2.1 g/dL (1.7-4.1); Glucose 162 mg/dL (80-110); HEMOLYSIS < 15 (0-50); Potassium 4.4 mmol/L (3.4-5.1); Sodium 138 mmol/L (137-145); Total Protein 6.4 g/dL (6.3-8.2)
== END ==
PROVIDERS: Family Provider Family Medicine; PCP Family Medicine; Referring Provider Family Medicine; Visit Provider Family Medicine
DX: E11.42 Type 2 diabetes mellitus with diabetic polyneuropathy (principal)
CPT/HCPCS: 80053; 83036

== ENCOUNTER → 2025-03-13 07:05 | Outpatient (CLI) | payer MEDICARE, OTHER, SELFPAY ==
[2020-08-01 14:19] VITALS: BMI 43.8
[2025-03-13 07:28] LABS: Hematocrit 36.7 % (41-53); Hemoglobin 12.2 g/dL (13.5-17.5); Mean Corpuscular HGB Conc 33.2 % (30-36); Mean Corpuscular Hemoglobin 28.2 PG (26-34); Mean Corpuscular Volume 84.8 fL (80-100); Platelet Count 252 X10^3/uL (150-400); Red Blood Cell Count 4.33 X10^6/uL (4.5-5.9); Red Cell Distribution Width 15.2 % (11.6-14.8); White Blood Cell Count 9.4 X10^3/uL (4.5-11.0)
[2025-03-13 07:35] LABS: Hemoglobin A1C% w Est Avg Glu 7.3 % (4.0-6.0)
[2025-03-13 07:57] LABS: Blood Urea Nitrogen 25 mg/dL (9-20); Calcium 8.5 mg/dL (8.4-10.2); Carbon Dioxide 26 mmol/L (22-32); Chloride 99 mmol/L (98-107); Cholesterol 88 mg/dL (140-199); Estimated Glomerular Filt Rate > 60 mL/min (>60); Glucose 159 mg/dL (70-99); HDL Cholesterol 30 mg/dL (40-60); HEMOLYSIS < 15 (0-50); LDL Cholesterol Calculated 33 mg/dL (<100); Potassium 4.1 mmol/L (3.4-5.1); Sodium 135 mmol/L (137-145); Triglycerides 127 mg/dL (35-150)
== END ==
PROVIDERS: Family Provider Family Medicine; PCP Family Medicine; Referring Provider Internal Medicine Cardiovascular Disease; Visit Provider Internal Medicine Cardiovascular Disease
DX: E11.9 Type 2 diabetes mellitus without complications (principal); I25.10 Atherosclerotic heart disease of native coronary artery without angina pectoris
CPT/HCPCS: 36415; 80048; 80061; 83036; 85027

== ENCOUNTER → 2025-08-21 07:09 | Outpatient (CLI) | payer MEDICARE, OTHER, SELFPAY ==
[2020-08-01 14:19] VITALS: BMI 43.8
[2025-08-21 07:49] LABS: Hemoglobin A1C% w Est Avg Glu 6.7 % (4.0-6.0)
[2025-08-21 08:14] LABS: Alanine Aminotransferase 17 IU/L (<50); Albumin 3.8 g/dL (3.5-5.0); Albumin Globulin Ratio 1.4 (1.0-2.8); Alkaline Phosphatase 70 U/L (38-126); Blood Urea Nitrogen 20 mg/dL (9-20); Calcium 8.8 mg/dL (8.4-10.2); Carbon Dioxide 23 mmol/L (22-32); Chloride 103 mmol/L (98-107); Estimated Glomerular Filt Rate > 60 mL/min (>60); Globulin 2.8 g/dL (1.7-4.1); Glucose 131 mg/dL (70-99); HEMOLYSIS < 15 (0-50); Potassium 4.6 mmol/L (3.4-5.1); Sodium 136 mmol/L (137-145); Total Protein 6.6 g/dL (6.3-8.2)
== END ==
PROVIDERS: Family Provider Family Medicine; PCP Family Medicine; Referring Provider Family Medicine; Visit Provider Family Medicine
DX: E11.42 Type 2 diabetes mellitus with diabetic polyneuropathy (principal)
CPT/HCPCS: 36415; 80053; 83036